=== PATIENT | female | born 1955 | race Caucasian/White ===

== ENCOUNTER → 2016-09-01 | Outpatient (CLI) | payer MEDICARE ==
[~2016-09-01] MED LIST: ALBU8.5H2 IH; AMLO10TA4 PO; ASP325T; ASP81CT PO; CLIN-80 PO; CTLP20T PO; DICL75TA2 PO; DICY10CA26 PO; DIPH1TAB45 PO; GBPN100C PO; GBPN300C PO; HCT25T PO; HDR2T PO; IBUP-15 PO; IBUP-1780 PO; IBUP-30 PO; LISI1TAB PO; LISI20TA PO; LORA1TAB PO; METH10TA PO; METO25TA2 PO; MULT-608 PO; MULT-974 PO; OLMESARTAN 40 MG PO; OMEP20CA12 PO; OMEP20TA7 PO; PNCRC PO; PNT40TEC; POTA10CA43 PO; POTA10TA10 PO; POTA10TA36 PO; PRM25T PO; PROM25SU10; PROM25SU10 RC; PROM25SU8 RC; RETIN A 0.05%; RT-ALBUINH IH; VICODIN; VICODIN 5/325 PO; VITA1CAP21 PO; VITA1CAP59 PO; [UNRECOGNIZED DRUG - OTHER]; [UNRECOGNIZED DRUG - OTHER] INH; [UNRECOGNIZED DRUG - OTHER] PO
--- NOTE | 2016-09-01 18:41 | Diagnostic Imaging Report ---
Exam: Whole body bone scan. Technique: After the intravenous administration of 24.4 mCi of Technetium 99m MDP, whole body delayed phase bone scan images were obtained with lateral views of the head and neck and the chest regions. Indication: Left hip pain aseptic loosening. Findings: There is photopenia seen in the location of the intramedullary nail along the proximal left femur with very minimal adjacent increased tracer uptake, within normal limits for internal fixation prosthesis. No scintigraphic evidence of loosening or infection. No suspicious intense foci of activity seen to suggest neoplasm. There is mild scoliosis in the lumbar spine convex to the left side with mild degenerative related activity more prominent in the lumbar spine and some degenerative related activity in the shoulders, knees and feet. Urinary tract activity is noted. Impression: Degenerative changes. No significant abnormality. Dictated by: Dictated on workstation # [id number]
== END ==
LOC: CARD 11:41
PROVIDERS: ATTEND Orthopaedic Surgery
DX: M16.12 Unilateral primary osteoarthritis, left hip (principal)
CPT/HCPCS: 78306

== ENCOUNTER 2017-03-16 12:07 | Observation (INO) | payer MEDICARE ==
[~2017-03-16] VITALS: Ht 165.1 cm; Wt 66.5 kg
[2017-03-16] VITALS (14 sets, daily range): BP systolic 112–170; BP diastolic 63–117
[2017-03-16 12:40] LABS: BASOPHILS % (AUTO) 1 % (0-10); EOSINOPHILS # (AUTO) 0.2 10^3/uL (0.0-0.3); EOSINOPHILS % (AUTO) 2 % (0-10); LYMPHOCYTES # (AUTO) 2.3 X 10^3 (1.0-4.0); LYMPHOCYTES % (AUTO) 30 % (12-44); MEAN CORPUSCULAR HEMOGLOBIN 33 PG (25-34); MEAN CORPUSCULAR HGB CONC 35 G/DL (32-36); MEAN CORPUSCULAR VOLUME 94 FL (80-99); MEAN PLATELET VOLUME 9.9 FL (7.4-10.4); MONOCYTES # (AUTO) 0.4 X 10^3 (0.0-1.0); MONOCYTES % (AUTO) 5 % (0-12); NEUTROPHILS # (AUTO) 4.9 X 10^3 (1.8-7.8); NEUTROPHILS % (AUTO) 63 % (42-75); PLATELET COUNT 254 10^3/uL (130-400); RED BLOOD COUNT 3.97 10^6/uL (4.35-5.85); RED CELL DISTRIBUTION WIDTH 11.9 % (10.0-14.5); WHITE BLOOD COUNT 7.8 10^3/uL (4.3-11.0)
[2017-03-16 12:48] LABS: PROTHROMBIN TIME PATIENT 13.1 SEC (12.2-14.7)
[2017-03-16] MEDS ORDERED: IBUPROFEN 800 MG (MOTRIN) TAB PO STA (12:54)
--- NOTE | 2017-03-16 12:57 | Diagnostic Imaging Report ---
EXAMINATION: Portable upright radiograph of the chest. High blood pressure. Chest pain. FINDINGS: The lungs are clear. The heart size is normal. No effusion or pneumothorax. The mediastinum and johan appear unremarkable. IMPRESSION: Unremarkable exam. Dictated by: Dictated on workstation # [id number]
[2017-03-16 12:58] LABS: ALANINE AMINOTRANSFERASE 28 U/L (0-55); ALBUMIN 4.1 GM/DL (3.2-4.5); AMYLASE 76 U/L (25-125); ANION GAP 9 MMOL/L (5-14); ASPARTATE AMINO TRANSFERASE 42 U/L (5-34); BILIRUBIN,TOTAL 0.9 MG/DL (0.1-1.0); BLOOD UREA NITROGEN 16 MG/DL (7-18); BUN/CREATININE RATIO 15; CALCIUM 9.3 MG/DL (8.5-10.1); CARBON DIOXIDE 28 MMOL/L (21-32); CHLORIDE 102 MMOL/L (98-107); CREATININE SERUM 1.07 MG/DL (0.60-1.30); GFR ESTIMATED 52; GLUCOSE 132 MG/DL (70-105); LIPASE 38 U/L (8-78); MAGNESIUM 1.9 MG/DL (1.8-2.4); SODIUM 139 MMOL/L (135-145); TOTAL PROTEIN 7.2 GM/DL (6.4-8.2)
[2017-03-16] MEDS ORDERED: ONDANSETRON 4 MG/2 ML (SDV) Z0FRAN IVP ONE (13:15)
[2017-03-16 13:30] LABS: MYOGLOBIN SERUM 188.4 NG/ML (10.0-92.0)
--- NOTE | 2017-03-16 13:36 | ED Chest Pain ---
General Chief Complaint: Chest Pain Stated Complaint: CHEST PAIN Nursing Triage Note: TO ED PER EMS FROM [facility] WITH CHEST PAIN FOR 2 DAYS Nursing Sepsis Screen: No Definite Risk Source: patient, EMS Exam Limitations: no limitations History of Present Illness Time seen by provider: 12:11 Initial Comments Here from the [facility] with report of chest pain is been going on for 2 days. Describes it as moderate and aching to the left anterior chest just below the breast. Pain is reproducible. It has not gone away despite her typical methadone treatment of 240 mg daily. She was at her primary care doctor 's office which is where EMS picked her up. Denies fevers, nausea, vomiting, sweating or weakness. Timing/Duration: 2-3 days Severity/Quality: moderate, aching Location: central, other (left-sided under the breasts) Radiation: arms (left) Activities at Onset: none Prior CP/Workup: cardiac cath, echocardiography ASA po PROTECTIVE SIGNAL SUPERINTENDENT: Yes NTG SL PROTECTIVE SIGNAL SUPERINTENDENT: Yes Associated Symptoms: No abdominal pain, back pain, No fever/chills, No nausea/ vomiting, No shortness of breath, No weakness Allergies and Home Medications Allergies Coded Allergies: Sulfa (Sulfonamide Antibiotics) (Verified Allergy, Unknown, 10/28/13) ketorolac (Verified Allergy, Unknown, 10/28/13) Uncoded Allergies: NARCOTIC ANTAGONISTS (Allergy, Unknown, 02/21/07) Home Medications Ascorbate Calcium 500 Mg Tablet, 1,000 MG PO 1800, (Reported) Diphenoxylate HCl/Atropine 1 Each Tablet, 1 TAB PO QID PRN for DIARRHEA, ( Reported) Gabapentin 600 Mg Tablet, 600 MG PO DAILY, (Reported) LAST FILLED 02/02/17 #90 Ibuprofen 200 Mg Tablet, 800 MG PO TID, (Reported) TAKES 4 (200 MG) TABLETS Loperamide HCl 2 Mg Tablet, 4 MG PO DAILY PRN PRN for DIARRHEA, (Reported) TAKES 2 (2 MG) TABLETS Methadone HCl 10 Mg Tablet, 120 MG PO BID, (Reported) TAKES 12 (10 MG) TABLETS Multivitamin 1 Each Tablet, 1 TAB PO 1800, (Reported) Potassium 99 Mg Tablet, 99 MG PO 1800, (Reported) Promethazine HCl 25 Mg Tablet, 25 MG PO Q6H PRN for NAUSEA/VOMITING-2ND LINE, ( Reported) Vitamin B Complex 1 Each Tablet, 1 TAB PO 1800, (Reported) Review of Systems Constitutional: see HPI, No chills, No fever EENTM: No Symptoms Reported Respiratory: No Symptoms Reported, Denies Shortness of Air, Denies Wheezing Cardiovascular: Chest Pain, Denies Irregular Heart Rate Gastrointestinal: Denies Abdominal Pain, Denies Nausea, Denies Vomiting Genitourinary: No Symptoms Reported Musculoskeletal: no symptoms reported Skin: no symptoms reported All Other Systems Reviewed Negative Unless Noted: Yes Past Elxnzus-Jzxzxl-Jszsye Hx Patient Social History Alcohol Use: Past History Recreational Drug Use: Yes Smoking Status: Never a Smoker Recent Foreign Travel: No Contact w/Someone Who Travel: No Recent Infectious Disease Expo: No Recent Hopitalizations: Yes Seasonal Allergies Seasonal Allergies: No Surgeries HX Surgeries: Yes (LEFT HIP FX, TEMP COLOSTOMY, EXPLORATORY LAP) Surgeries: Appendectomy, Gallbladder Respiratory Hx Respiratory Disorders: Yes ("chronic cough") Respiratory Disorders: Chronic Bronchitis Cardiovascular Hx Cardiac Disorders: Yes (MVP) Cardiac Disorders: Hypertension Neurological Hx Neurological Disorders: Yes (SPONDOCONDRITIS) Reproductive System Hx Reproductive Disorders: No CLIENT SUPPORT MANAGER History: Menopausal Genitourinary Hx Genitourinary Disorders: No Gastrointestinal Hx Gastrointestinal Disorders: Yes ("chronic pancreatitis", ulcers) Gastrointestinal Disorders: Liver Disease/Jaundice, Pancreatitis, Chronic Diarrhea, Hepatitis, Ulcer Musculoskeletal Hx Musculoskeletal Disorders: Yes (CHRONIC PAIN) Musculoskeletal Disorders: Arthritis, Fibromyalgia Endocrine Hx Endocrine Disorders: No HEENT HX ENT Disorders: No Cancer Hx Cancer: No Psychosocial Hx Psychiatric Problems: No Integumentary HX Skin/Integumentary Disorder: Yes (current bilat hands/wrist) Blood Transfusions Hx Blood Disorders: No Reviewed Nursing Assessment Reviewed/Agree w Nursing PMH: Yes Family Medical History Significant Family History: No Pertinent Family Hx Family Medial History: Cancer (MOTHER CERVICAL CANCER ) 03 MOTHER Cataract (MATERNAL GRANDMOTHER ) Chest pain (GRANDFATHER) Congenital heart disease (BROTHER 2 WEEKS AFTER FROM CONGENITAL HEART DEFECT) Congestive heart failure (GRANDFATHER) Family history: Arthritis (GRANDMOTHER) Family history: Breast disease 03 MOTHER Family history: Cardiovascular disease (MOTHER AND GRANDFATHER) 03 MOTHER Family history: Diabetes mellitus 03 MOTHER Family history: Glaucoma (GRANDMOTHER) Family history: Hypertension (MOTHER AND GRANDFATHER) 03 MOTHER Family history: Thyroid disorder (GRANDMOTHER) Heart disease (GRANDFATHER AND GRANDMOTHER) Hypercholesterolemia 03 MOTHER Myocardial infarction (GRANDFATHER AND MOTHER) 03 MOTHER Physical Exam Vital Signs Vital Sign - Last 12Hours 03/16/17 12:07 Temp 98.9 Pulse 100 Resp 18 B/P (MAP) 143/113 Pulse Ox 98 O2 Delivery Nasal Cannula O2 Flow Rate 2.00 Capillary Refill : Less Than 3 Seconds General Appearance: WD/WN, Mild Distress (chest wall discomfort) HEENT: PERRL/EOMI, Pharynx Normal Neck: Non Tender, Supple Respiratory: Lungs Clear, Normal Breath Sounds, Other (reproducible anterior chest wall pain to the low chest wall) Cardiovascular: Regular Rate, Rhythm, No Murmur Gastrointestinal: Non Tender, Soft Extremity: Normal Range of Motion, Non Tender Neurologic/Psychiatric: Alert, Oriented x3 Skin: Normal Color, Warm/Dry Progress/Results/Core Measures Results/Orders Lab Results Laboratory Tests Test 03/16/17 12:19 03/16/17 14:26 Range/Units White Blood Count 7.8 4.3-11.0 10^3/uL Red Blood Count 3.97 L 4.35-5.85 10^6/uL Hemoglobin 12.9 11.5-16.0 G/DL Hematocrit 37 35-52 % Mean Corpuscular Volume 94 80-99 FL Mean Corpuscular Hemoglobin 33 25-34 PG Mean Corpuscular Hemoglobin Concent 35 32-36 G/DL Red Cell Distribution Width 11.9 10.0-14.5 % Platelet Count 254 130-400 10^3/uL Mean Platelet Volume 9.9 7.4-10.4 FL Neutrophils (%) (Auto) 63 42-75 % Lymphocytes (%) (Auto) 30 12-44 % Monocytes (%) (Auto) 5 0-12 % Eosinophils (%) (Auto) 2 0-10 % Basophils (%) (Auto) 1 0-10 % Neutrophils # (Auto) 4.9 1.8-7.8 X 10^3 Lymphocytes # (Auto) 2.3 1.0-4.0 X 10^3 Monocytes # (Auto) 0.4 0.0-1.0 X 10^3 Eosinophils # (Auto) 0.2 0.0-0.3 10^3/uL Basophils # (Auto) 0.0 0.0-0.1 10^3/uL Prothrombin Time 13.1 12.2-14.7 SEC INR Comment 1.0 0.8-1.4 Activated Partial Thromboplast Time 23 L 24-35 SEC D-Dimer 0.83 H 0.00-0.49 UG/ML Sodium Level 139 135-145 MMOL/L Potassium Level 4.0 3.6-5.0 MMOL/L Chloride Level 102 98-107 MMOL/L Carbon Dioxide Level 28 21-32 MMOL/L Anion Gap 9 5-14 MMOL/L Blood Urea Nitrogen 16 7-18 MG/DL Creatinine 1.07 0.60-1.30 MG/DL Estimat Glomerular Filtration Rate 52 BUN/Creatinine Ratio 15 Glucose Level 132 H 70-105 MG/DL Calcium Level 9.3 8.5-10.1 MG/DL Magnesium Level 1.9 1.8-2.4 MG/DL Total Bilirubin 0.9 0.1-1.0 MG/DL Aspartate Amino Transf (AST/SGOT) 42 H 5-34 U/L Alanine Aminotransferase (ALT/SGPT) 28 0-55 U/L Alkaline Phosphatase 83 40-136 U/L Myoglobin 188.4 H 197.2 H 10.0-92.0 NG/ML Troponin I < 0.30 < 0.30 <0.30 NG/ML B-Type Natriuretic Peptide 60.4 <100.0 PG/ML Total Protein 7.2 6.4-8.2 GM/DL Albumin 4.1 3.2-4.5 GM/DL Amylase Level 76 25-125 U/L Lipase 38 8-78 U/L My Orders Orders - GABI KUMAR MD Cbc With Automated Diff (03/16/17 12:25) Magnesium (03/16/17 12:25) Chest 1 View, Ap/Pa Only (03/16/17 12:25) Cardiac Profile 1 (03/16/17 12:25) Comprehensive Metabolic Panel (03/16/17 12:25) Myoglobin Serum (03/16/17 12:25) Protime With Inr (03/16/17 12:25) Partial Thromboplastin Time (03/16/17 12:25) O2 (03/16/17 12:25) Monitor-Rhythm Ecg Trace Only (03/16/17 12:25) Lipid Panel (03/17/17 06:00) Saline Lock/Iv-Start (03/16/17 12:25) Lipase (03/16/17 12:25) Amylase (03/16/17 12:25) BNP (03/16/17 12:25) Fibrin Degradation Products (03/16/17 12:25) Ibuprofen Tablet (Motrin Tablet) (03/16/17 12:54) Ondansetron Injection (Zofran Injectio (03/16/17 13:15) Saline Lock/Iv-Start (03/16/17 13:51) Ns Iv 500 Ml (Sodium Chloride 0.9%) (03/16/17 13:51) Troponin I (03/16/17 14:18) Myoglobin Serum (03/16/17 14:18) Ekg Tracing (03/16/17 14:19) Ct Angio Chest W (03/16/17 14:22) Iohexol Injection (Omnipaque 350 Mg/Ml 1 (03/16/17 14:45) Ns (Ivpb) (Sodium Chloride 0.9% Ivpb Bag (03/16/17 14:45) Medications Given in ED Current Medications Medications Dose Ordered Sig/Cory Route Start Time Stop Time Status Last Admin Dose Admin Iohexol 150 ml ONCE ONCE IV 03/16/17 14:45 03/16/17 15:04 DC 03/16/17 14:50 150 ML Ondansetron HCl 4 mg ONCE ONCE IVP 03/16/17 13:15 03/16/17 13:16 DC 03/16/17 13:07 4 MG Sodium Chloride 80 ml ONCE ONCE IV 03/16/17 14:45 03/16/17 15:04 DC 03/16/17 14:50 80 ML Sodium Chloride 500 ml @ 0 mls/hr Q0M ONCE IV 03/16/17 13:51 03/16/17 13:52 DC 03/16/17 14:00 500 MLS/HR Vital Signs/I&O Vital Sign - Last 12Hours 03/16/17 03/16/17 03/16/17 03/16/17 12:07 12:16 13:15 13:24 Temp 98.9 Pulse 100 79 Resp 18 18 B/P (MAP) 143/113 146/117 130/72 Pulse Ox 98 98 O2 Delivery Nasal Cannula Nasal Cannula Nasal Cannula O2 Flow Rate 2.00 2.00 2.00 03/16/17 14:02 Pulse 82 Resp 18 B/P (MAP) 132/74 Pulse Ox 96 O2 Delivery Room Air O2 Flow Rate 2.00 Blood Pressure Mean: 91 Progress Note : Progress Note Seen and evaluated. IV, labs, EKG and chest x-ray ordered. Patient did receive aspirin and nitroglycerin at outpatient clinic. Monitor patient. Normal saline 500 mL initiated by EMS and this will be continued. Labs indicates elevated d-dimer with elevated myoglobin. Repeat normal saline [address] angiogram of the chest ordered. CT angiogram is negative. I did discuss the case with Dr. Saravia at 1540. She accepts patient for admission because of elevated myoglobin. She requests consult with Dr. Muse. This was placed. He will follow patient in the hospital. Admit, observation status. Patient agrees with plan. Patient did have significant anxiety and difficulty with lying still. Ativan 1 mg IV given. Admission continues. ECG Initial ECG Impression Date: Mar 16, 2017 Initial ECG Impression Time: 12:16 Initial ECG Rate: 102 Initial ECG Rhythm: S.Tach Diagnostic Imaging Diagonstic Imaging: Xray Plain Films/CT/US/NM/MRI: chest Comments [facility]. [place], [place] NAME: HARDEEP HUERTA [facility] REC#: [id number] PT STATUS: REG ER : 1955 PHYSICIAN: GABI KUMAR MD ADMIT DATE: 03/16/17/ER Draft Date of Exam:03/16/17 CHEST 1 VIEW, AP/PA ONLY EXAMINATION: Portable upright radiograph of the chest. High blood pressure. Chest pain. FINDINGS: The lungs are clear. The heart size is normal. No effusion or pneumothorax. The mediastinum and johan appear unremarkable. IMPRESSION: Unremarkable exam. Dictated on workstation # [id number] Dict: 03/16/17 1252 Trans: 03/16/17 [id number] Interpreted by: IAIN CERVANTES MD Electronically signed by: Diagonstic Imaging: CT Plain Films/CT/US/NM/MRI: chest Comments [facility]. [place], [place] NAME: HARDEEP HUERTA [facility] REC#: [id number] PT STATUS: REG ER : 1955 PHYSICIAN: GABI KUMAR MD ADMIT DATE: 03/16/17/ER Draft Date of Exam:03/16/17 CT ANGIO CHEST W PROCEDURE: CT angiography of the chest with contrast. TECHNIQUE: Multiple contiguous axial images were obtained through the chest after the uneventful bolus administration of intravenous contrast. Reconstructed CTA MIP acquisitions were also performed. INDICATION: Left-sided chest pain. CONTRAST: 150 mL of Omnipaque 350 was administered intravenously. COMPARISON: 02/20/2007. FINDINGS: The pulmonary arteries are well opacified with no filling defects to suggest pulmonary embolism. The thoracic aorta is normal in caliber. There is no dissection or aneurysm. The heart size is normal. No pericardial or pleural effusion is seen. The mediastinum demonstrates no mass and no enlarged lymph nodes. No lymphadenopathy in the johan or axilla is seen. The lungs demonstrate no significant consolidation, mass, or suspicious nodule. There is biliary dilatation seen with suggestion of a CBD stent in place which is not fully visualized on this exam. The osseous structures demonstrate prominent degenerative changes in the thoracic spine. IMPRESSION: No PE or aortic dissection. Dictated on workstation # [id number] Dict: 03/16/17 1509 Trans: 03/16/17 1523 [id number] Interpreted by: IAIN CERVANTES MD Electronically signed by: Departure Communication Time/Spoke to Admitting Phy: 15:40 Time/Spoke to Consulting Physi: 15:45 Impression Impression: Primary Impression: Chest pain Qualified Codes: R07.9 - Chest pain, unspecified Additional Impression: Elevated myoglobin level Disposition: ADMITTED INPATIENT Condition: Stable Decision to Admit Reason: Admit from ER (General) Decision to Admit/Date: Mar 16, 2017 Time/Decision to Admit Time: 15:40 Departure-Patient Inst. Referrals: BISI MARTINS MD (PCP/Family) Primary Care Physician GABI KUMAR MD Mar 16, 2017 13:36
[2017-03-16] MEDS ORDERED: NS IV 500 ML 500 ML IV ONE (13:51)
[2017-03-16] MEDS ORDERED: NS 100 ML (IVPB) BAG IV ONE (14:45)
[2017-03-16] MEDS ORDERED: IOHEXOL 350 MG/ML 150 ML (OMNIPAQUE 350) VIAL IV ONE (14:45)
[2017-03-16 14:56] LABS: MYOGLOBIN SERUM 197.2 NG/ML (10.0-92.0); TROPONIN I < 0.30 NG/ML (<0.30)
--- NOTE | 2017-03-16 15:23 | Diagnostic Imaging Report ---
PROCEDURE: CT angiography of the chest with contrast. TECHNIQUE: Multiple contiguous axial images were obtained through the chest after the uneventful bolus administration of intravenous contrast. Reconstructed CTA MIP acquisitions were also performed. INDICATION: Left-sided chest pain. CONTRAST: 150 mL of Omnipaque 350 was administered intravenously. COMPARISON: 02/20/2007. FINDINGS: The pulmonary arteries are well opacified with no filling defects to suggest pulmonary embolism. The thoracic aorta is normal in caliber. There is no dissection or aneurysm. The heart size is normal. No pericardial or pleural effusion is seen. The mediastinum demonstrates no mass and no enlarged lymph nodes. No lymphadenopathy in the johan or axilla is seen. The lungs demonstrate no significant consolidation, mass, or suspicious nodule. There is biliary dilatation seen with suggestion of a CBD stent in place which is not fully visualized on this exam. The osseous structures demonstrate prominent degenerative changes in the thoracic spine. IMPRESSION: No PE or aortic dissection. Dictated by: Dictated on workstation # [id number]
[2017-03-16] MEDS ORDERED: LORazepam INJ 2 MG/ML (ATIVAN) VIAL IVP ONE (16:15)
[2017-03-16] MEDS ORDERED: GABA600T2 PO (16:48)
[2017-03-16] MEDS ORDERED: LOPE-134 PO (16:48)
[2017-03-16] MEDS ORDERED: ASCO-262 PO (16:48)
[2017-03-16] MEDS ORDERED: METH10TA2 PO (16:48)
[2017-03-16] MEDS ORDERED: PROM25TA14 PO (16:48)
[2017-03-16] MEDS ORDERED: POTA99TA7 PO (16:48)
[2017-03-16] MEDS ORDERED: IBUP-2055 PO (16:48)
[2017-03-16] MEDS ORDERED: VITA1TAB17 PO (16:48)
[2017-03-16] MEDS ORDERED: DIPH1TAB25 PO (16:48)
[2017-03-16] MEDS: NS IV 1000 ML 1,000 ML IV SCH (17:08)
[2017-03-16] MEDS: ASPIRIN E.C. 325 MG (ECOTRIN) TABLET PO SCH (17:08)
[2017-03-16] MEDS ORDERED: NITROGLYCERIN SUBLINGUAL 0.4 MG TAB (NITROSTAT) SL PRN (17:15)
[2017-03-16] MEDS ORDERED: CATHETER FLUSH 10 ML SYR IV PRN (17:15)
[2017-03-16 18:18] LABS: MYOGLOBIN SERUM 202.7 NG/ML (10.0-92.0)
[2017-03-16] MEDS: IBUPROFEN TABLET 200 MG TAB PO SCH (20:44)
[2017-03-16] MEDS ORDERED: METHADONE 10 MG (DOLOPHINE) TAB PO SCH ×2 (21:00→21:30)
[2017-03-16] MEDS: PROMETHAZINE 25 MG (PHENERGAN) TAB PO PRN (21:14)
[2017-03-17] VITALS: BP 170/84
[2017-03-17] MEDS: NS IV 1000 ML 1,000 ML IV SCH ×2 (03:26→14:16)
[2017-03-17 03:40] VITALS: BP 141/68
[2017-03-17 05:02] LABS: BASOPHILS % (AUTO) 0 % (0-10); EOSINOPHILS # (AUTO) 0.3 10^3/uL (0.0-0.3); EOSINOPHILS % (AUTO) 5 % (0-10); LYMPHOCYTES # (AUTO) 2.3 X 10^3 (1.0-4.0); LYMPHOCYTES % (AUTO) 45 % (12-44); MEAN CORPUSCULAR HEMOGLOBIN 33 PG (25-34); MEAN CORPUSCULAR HGB CONC 34 G/DL (32-36); MEAN CORPUSCULAR VOLUME 95 FL (80-99); MEAN PLATELET VOLUME 9.9 FL (7.4-10.4); MONOCYTES # (AUTO) 0.3 X 10^3 (0.0-1.0); MONOCYTES % (AUTO) 6 % (0-12); NEUTROPHILS # (AUTO) 2.2 X 10^3 (1.8-7.8); NEUTROPHILS % (AUTO) 44 % (42-75); PLATELET COUNT 179 10^3/uL (130-400); RED BLOOD COUNT 4.06 10^6/uL (4.35-5.85); RED CELL DISTRIBUTION WIDTH 12.1 % (10.0-14.5); WHITE BLOOD COUNT 5.1 10^3/uL (4.3-11.0)
[2017-03-17 05:24] LABS: ALANINE AMINOTRANSFERASE 26 U/L (0-55); ALBUMIN 3.7 GM/DL (3.2-4.5); ANION GAP 11 MMOL/L (5-14); ASPARTATE AMINO TRANSFERASE 37 U/L (5-34); BILIRUBIN,TOTAL 0.8 MG/DL (0.1-1.0); BLOOD UREA NITROGEN 10 MG/DL (7-18); BUN/CREATININE RATIO 13; CALCIUM 8.7 MG/DL (8.5-10.1); CARBON DIOXIDE 24 MMOL/L (21-32); CHLORIDE 107 MMOL/L (98-107); CREATININE SERUM 0.78 MG/DL (0.60-1.30); GFR ESTIMATED > 60; GLUCOSE 65 MG/DL (70-105); POTASSIUM 3.7 MMOL/L (3.6-5.0); SODIUM 142 MMOL/L (135-145); TOTAL PROTEIN 6.4 GM/DL (6.4-8.2)
[2017-03-17 05:25] LABS: CHOLESTEROL 157 MG/DL (< 200); DIRECT LDL 82 MG/DL (1-129); TRIGLYCERIDES 61 MG/DL (<150); VLDL CHOLESTEROL 12 MG/DL (5-40)
[2017-03-17 05:31] LABS: MYOGLOBIN SERUM 94.2 NG/ML (10.0-92.0)
[2017-03-17] MEDS: PROMETHAZINE 25 MG (PHENERGAN) TAB PO PRN ×2 (06:42→14:16)
[2017-03-17] MEDS: IBUPROFEN TABLET 200 MG TAB PO SCH ×2 (06:42→14:16)
[2017-03-17 08:14] VITALS: BP 198/94
[2017-03-17] MEDS: ASPIRIN E.C. 325 MG (ECOTRIN) TABLET PO SCH (08:47)
[2017-03-17] MEDS ORDERED: METHADONE 10 MG (DOLOPHINE) TAB PO SCH (09:00)
[2017-03-17] MEDS ORDERED: GABAPENTIN 600 MG (NEURONTIN) TAB PO SCH (09:00)
[2017-03-17 12:08] VITALS: BP 136/100
--- NOTE | 2017-03-17 14:27 | Diagnostic Imaging Report ---
PROCEDURE: CT abdomen without contrast. TECHNIQUE: Multiple contiguous axial images were obtained through the abdomen without the use of intravenous contrast. INDICATION: Abdominal pain, vomiting. Contiguous axial sections were taken through the abdomen. Neither oral nor intravenous contrast were administered. Coronal reconstructed images were also performed. FINDINGS: The recent CT chest exam of 03/16/17 noted that there was a biliary stent in place. The distal portion of the stent was not visualized. On this exam, the distal portion of the stent is evident. The stent extends into the third portion of the duodenum. The biliary tree itself does not seem to be significantly dilated. As noted on the prior exam, the gallbladder is surgically absent. The liver is stable in size when compared to the prior CT abdomen/pelvis exam of 06/06/16. The spleen, pancreas, adrenals, kidneys, aorta and inferior vena cava show no sign of an acute abnormality. The stomach is not well distended and consequently difficult to assess. The previous study did show several dilated fluid-filled segments of small bowel. This appearance did indicate a small bowel obstruction. On this study, there is no abnormal dilatation of the small bowel to suggest a bowel obstruction. The lung bases are clear. The bone windows show no evidence for a fracture or for a destructive lesion. As noted on the prior exam, there is severe degenerative disc and bony disease at the T12-L1, L3-L4 and L4-L5 levels. IMPRESSION: 1. The biliary stent noted previously is again evident and seems to be in good position. There is no abnormal dilatation of the biliary tree to suggest that the stent is obstructed. 2. There is no acute abnormality of the abdomen. In particular, there is no sign of a recurrent small bowel obstruction. Dictated by: Dictated on workstation # [id number]
[2017-03-17] MEDS ORDERED: OMEP20CA12 PO (15:35)
--- NOTE | 2017-03-17 15:37 | Discharge Instructions ---
Discharge [facility] Discharge Medications Continued Medications: Ascorbate Calcium (Vitamin C) 500 Mg Tablet 1000 MG PO 1800, TAB TAKES 2 (500 MG) TABLETS Diphenoxylate HCl/Atropine (Diphenoxylate-Atrop 2.5-0.025) 1 Each Tablet 1 TAB PO QID PRN for DIARRHEA Gabapentin (Gabapentin) 600 Mg Tablet 600 MG PO DAILY LAST FILLED 02/02/17 #90 Ibuprofen (Ibuprofen) 200 Mg Tablet 800 MG PO TID, TAB TAKES 4 (200 MG) TABLETS Loperamide HCl (Imodium A-D) 2 Mg Tablet 4 MG PO DAILY PRN PRN for DIARRHEA, TAB TAKES 2 (2 MG) TABLETS Methadone HCl (Methadone HCl) 10 Mg Tablet 120 MG PO BID TAKES 12 (10 MG) TABLETS Multivitamin (Multi Vitamin Daily) 1 Each Tablet 1 TAB PO 1800 Omeprazole (Omeprazole) 20 Mg Capsule.dr 20 MG PO DAILY, CAP Potassium (Potassium) 99 Mg Tablet 99 MG PO 1800, TAB Promethazine HCl (Promethazine Tablet) 25 Mg Tablet 25 MG PO Q6H PRN for NAUSEA/VOMITING-2ND LINE Vitamin B Complex (Vitamin B Complex) 1 Each Tablet 1 TAB PO 1800, TAB Patient Instructions Goal/Follow Up Appt: Follow up with Dr. Martins on Mar 23 at 10:20 am. Patient Instructions: Start taking omeprazole every day to try to help with your stomach. Return to The Hospital For: Fever, inability to keep liquids down Activity & Diet Discharge Diet: No Restrictions Activity as Tolerated: Yes Copy Copies To 1: BISI MARTINS MD, BETHANY N MD Mar 17, 2017 15:37
--- NOTE | 2017-03-17 15:37 | Short Stay Summary ---
HPI History of Present Illness: 61 yo female brought to ER by EMS after noting chest pain with nausea at clinic. She states this had been going on for about 2 days prior to her visit, and was in her left side and left abdomen as well. She had increased nausea after being hospitalized and also her pain is not more in her left side and abdomen than her chest. She does have chronic pain and diarrhea. Date seen by provider: Mar 17, 2017 Time Seen by Provider: 11:20 Attending Physician Oma Saravia MD PCP Juan Martins MD Consult Date of Admission Mar 16, 2017 at 4:40 pm Home Medications Home Medications Reviewed patient Home Medication Reconciliation Form Allergies Coded Allergies: Sulfa (Sulfonamide Antibiotics) (Verified Allergy, Unknown, 10/28/13) ketorolac (Verified Allergy, Unknown, 10/28/13) Uncoded Allergies: NARCOTIC ANTAGONISTS (Allergy, Unknown, 02/21/07) PCD-Abrvkh-Lglhwe Hx Patient Social History Alcohol Use: Past History Recreational Drug Use: Yes Smoking Status: Never a Smoker Recent Foreign Travel: No Contact w/other who traveled: No Recent Hopitalizations: Yes Recent Infectious Disease Expo: No Physical Abuse Screen: No Sexual Abuse: No Past Medical History 1. Chronic pain w/ hx of narcotic addiction (heroin) - currently on Methadone. 2. Hypertension 3. Chronic pancreatitis/chronic nausea/abdominal pain 4. Headache 5. hx of alcohol abuse 6. hx of vitiligo 7. Spinal stenosis secondary to OA 8. COPD 9. Chronic liver disease secondary to hx of etoh abuse. PSH: 1. Appendectomy 2. cholecystectomy 3. laparotomy w/ partial pancreatomy and colostomy (reversed) 4. left hip fracture w/ repair 5. Heart cath 10/2009 - non-obstructive CAD, EF 60% 6. Heart cath 01/2013 - no significant CAD, EF 60% Family Medical History Significant Family History: Heart Disease, CAD Over 55 Years Old, Diabetes, Hypertension Review of Systems (CHC) Constitutional: fever (Tmax of 99 reported) EENTM: no symptoms reported Respiratory: no symptoms reported Cardiovascular: see HPI Gastrointestinal: see HPI Genitourinary: no symptoms reported Musculoskeletal: back pain, joint pain Skin: no symptoms reported Psychiatric/Neurological: No Symptoms Reported Reviewed Test Results Reviewed Test Results Lab Laboratory Tests Test 03/16/17 12:19 03/16/17 14:26 03/16/17 17:39 03/17/17 04:30 Range/Units White Blood Count 7.8 5.1 4.3-11.0 10^3/uL Red Blood Count 3.97 L 4.06 L 4.35-5.85 10^6/uL Hemoglobin 12.9 13.3 11.5-16.0 G/DL Hematocrit 37 39 35-52 % Mean Corpuscular Volume 94 95 80-99 FL Mean Corpuscular Hemoglobin 33 33 25-34 PG Mean Corpuscular Hemoglobin Concent 35 34 32-36 G/DL Red Cell Distribution Width 11.9 12.1 10.0-14.5 % Platelet Count 254 179 130-400 10^3/uL Mean Platelet Volume 9.9 9.9 7.4-10.4 FL Neutrophils (%) (Auto) 63 44 42-75 % Lymphocytes (%) (Auto) 30 45 H 12-44 % Monocytes (%) (Auto) 5 6 0-12 % Eosinophils (%) (Auto) 2 5 0-10 % Basophils (%) (Auto) 1 0 0-10 % Neutrophils # (Auto) 4.9 2.2 1.8-7.8 X 10^3 Lymphocytes # (Auto) 2.3 2.3 1.0-4.0 X 10^3 Monocytes # (Auto) 0.4 0.3 0.0-1.0 X 10^3 Eosinophils # (Auto) 0.2 0.3 0.0-0.3 10^3/uL Basophils # (Auto) 0.0 0.0 0.0-0.1 10^3/uL Prothrombin Time 13.1 12.2-14.7 SEC INR Comment 1.0 0.8-1.4 Activated Partial Thromboplast Time 23 L 24-35 SEC D-Dimer 0.83 H 0.00-0.49 UG/ML Sodium Level 139 142 135-145 MMOL/L Potassium Level 4.0 3.7 3.6-5.0 MMOL/L Chloride Level 102 107 98-107 MMOL/L Carbon Dioxide Level 28 24 21-32 MMOL/L Anion Gap 9 11 5-14 MMOL/L Blood Urea Nitrogen 16 10 7-18 MG/DL Creatinine 1.07 0.78 0.60-1.30 MG/DL Estimat Glomerular Filtration Rate 52 > 60 BUN/Creatinine Ratio 15 13 Glucose Level 132 H 65 L 70-105 MG/DL Calcium Level 9.3 8.7 8.5-10.1 MG/DL Magnesium Level 1.9 1.8-2.4 MG/DL Total Bilirubin 0.9 0.8 0.1-1.0 MG/DL Aspartate Amino Transf (AST/SGOT) 42 H 37 H 5-34 U/L Alanine Aminotransferase (ALT/SGPT) 28 26 0-55 U/L Alkaline Phosphatase 83 72 40-136 U/L Myoglobin 188.4 H 197.2 H 202.7 H 94.2 H 10.0-92.0 NG/ML Troponin I < 0.30 < 0.30 < 0.30 <0.30 NG/ML B-Type Natriuretic Peptide 60.4 <100.0 PG/ML Total Protein 7.2 6.4 6.4-8.2 GM/DL Albumin 4.1 3.7 3.2-4.5 GM/DL Amylase Level 76 25-125 U/L Lipase 38 8-78 U/L Triglycerides Level 61 <150 MG/DL Cholesterol Level 157 < 200 MG/DL LDL Cholesterol Direct 82 1-129 MG/DL VLDL Cholesterol 12 5-40 MG/DL HDL Cholesterol 61 H 40-60 MG/DL Radiology 03/17 CT abdomen: DRAFT IMPRESSION: 1. The biliary stent noted previously is again evident and seems to be in good position. There is no abnormal dilatation of the biliary tree to suggest that the stent is obstructed. 2. There is no acute abnormality of the abdomen. In particular, there is no sign of a recurrent small bowel obstruction. 03/16 CTA chest: No aortic dissection or PE 03/16 CXR: Unremarkable Physical Exam-([facility]) Physical Exam Vital Signs VS - Last 72 Hours, by Label 03/16/17 03/16/17 03/16/17 03/16/17 12:07 12:16 13:15 13:24 Temp 98.9 Pulse 100 79 Resp 18 18 B/P (MAP) 143/113 146/117 130/72 Pulse Ox 98 98 O2 Delivery Nasal Cannula Nasal Cannula Nasal Cannula O2 Flow Rate 2.00 2.00 2.00 03/16/17 03/16/17 03/16/17 03/16/17 14:02 16:00 16:43 17:00 Temp 99.1 Pulse 82 89 75 65 Resp 18 18 18 B/P (MAP) 132/74 146/79 142/74 Pulse Ox 96 98 94 96 O2 Delivery Room Air Room Air Room Air Room Air O2 Flow Rate 2.00 03/16/17 03/16/17 03/16/17 03/16/17 17:15 17:30 17:30 17:45 Pulse 60 62 63 B/P (MAP) 128/77 126/69 124/72 Pulse Ox 93 94 95 O2 Delivery Room Air Room Air Room Air Room Air 03/16/17 03/16/17 03/16/17 03/16/17 18:30 18:45 18:45 19:00 Temp 98.6 Pulse 64 59 63 Resp 18 B/P (MAP) 112/63 125/68 Pulse Ox 99 99 O2 Delivery Nasal Cannula Nasal Cannula Nasal Cannula O2 Flow Rate 2.00 2.00 2.00 03/16/17 03/16/17 03/16/17 03/16/17 19:45 20:45 21:45 22:45 Temp 98.3 97.1 97.8 98.0 Pulse 58 53 59 62 Resp 20 20 18 20 B/P (MAP) 157/89 170/93 144/79 159/83 Pulse Ox 100 100 100 100 O2 Delivery Nasal Cannula Nasal Cannula Nasal Cannula Nasal Cannula O2 Flow Rate 2.00 2.00 2.00 2.00 03/17/17 03/17/17 03/17/17 03/17/17 00:00 01:00 03:40 07:00 Temp 97.0 97.3 Pulse 70 58 75 54 Resp 18 18 B/P (MAP) 170/84 141/68 Pulse Ox 100 99 O2 Delivery Nasal Cannula Nasal Cannula O2 Flow Rate 2.00 2.00 03/17/17 03/17/17 03/17/17 03/17/17 07:17 08:14 12:08 13:00 Temp 97.6 95.6 Pulse 63 68 54 Resp 18 18 B/P (MAP) 198/94 136/100 Pulse Ox 96 100 92 O2 Delivery Nasal Cannula Nasal Cannula Nasal Cannula O2 Flow Rate 2.00 2.00 2.00 Capillary Refill : Less Than 3 Seconds General Appearance: mild distress Respiratory: lungs clear, normal breath sounds Cardiovascular: regular rate, rhythm, no edema Gastrointestinal: abnormal bowel sounds (hypoactive), distended, No guarding, No rebound, tenderness (LUQ) Extremities: no pedal edema Neurologic/Psychiatric: alert Skin: normal color, warm/dry Short Stay Diagnosis Discharge Diagnosis-Short Stay Admission Diagnosis 1. Chest pain 2. Left side pain/nausea/vomiting 3. Chronic pain Final Discharge Diagnosis 1. Chest pain- EKG unremarkable, troponin negative but myoglobin initially increased and then decreased again -Elevated D dimer- CTA negative for PE -Cardiology consulted, did not feel cardiac in origin 2. Left side pain/nausea/vomiting- CT obtained of abdomen given stent in biliary duct and report of severe pain, no acute findings and stent in good position -Continue home promethazine and follow-up with Dr. Martins 3. Chronic pain- resumed home methadone to avoid withdrawal, although she reported taking 240 mg once per day instead of 120 mg twice per day as written ( ordered inpatient as written, 120 mg twice per day) -Recommend trying to decrease dose Conclusion Plan See discharge diagnosis Clinical Quality Measures AMI/AHF: ASA po Prior to arrival: Yes DVT/VTE Risk/Contraindication: Risk Factor Score Per Nursin RFS Level Per Nursing on Admit: 2=Moderate Copy Copies To 1: JUAN MARTINS MD, BETHANY N MD Mar 17, 2017 3:37 pm
--- NOTE | 2017-03-17 17:52 | Consultation-Cardiology ---
HPI-Cardiology Cardiology Consultation: Date of Consultation 03/17/17 Time Seen by Provider: 09:15 Date of Admission 03/16/17 Attending Physician Oma Saravia MD Admitting Physician Juan Lopez MD Consulting Physician ASTRID BARTH MD, MA, FACP, FACC, FSCAI, CCDS HPI: Chief Complaint: Chest pain HPI: 61 yo woman with 3-4 days of continuous pain in the epigastric area, L side of abdomen, associated with nausea, some dysphagia and poor appetite. Denies palp or syncope or shortness of breath. Chest and abd discomfort vary from mild to mod but do not resolve. Denies ankle swelling Review of Systems-Cardiology Review of Systems Constitutional: malaise, No weight loss, No weight gain Eyes: No vision change Ears/Nose/Throat: No ear discharge, No nasal drainage, No recent hearing loss Respiratory: As described under HPI Cardiovascular: As described under HPI Gastrointestinal: As described under HPI Genitourinary: No dysuria, No hematuria, No urine frequency changes Skin: No rash, No ulcerations Psychiatric/Neurological: No focal weakness, No seizure, No syncope Hematologic: No bleeding abnormalities All Other Systems Reviewed Negative Unless Noted: Yes WWD-Euxjkq-Pihcms Hx Patient Social History Alcohol Use: Past History Recreational Drug Use: Yes Smoking Status: Never a Smoker Recent Foreign Travel: No Recent Infectious Disease Expo: No Hospitalization with Isolation: Denies Physical Abuse Screen: No Sexual Abuse: No Past Medical History PMH As described under Assessment. Family Medical History Family Medical History: She does not report family h/o early CAD or SCD Family History: Cancer (MOTHER CERVICAL CANCER ) 03 MOTHER Cataract (MATERNAL GRANDMOTHER ) Chest pain (GRANDFATHER) Congenital heart disease (BROTHER 2 WEEKS AFTER FROM CONGENITAL HEART DEFECT) Congestive heart failure (GRANDFATHER) Family history: Arthritis (GRANDMOTHER) Family history: Breast disease 03 MOTHER Family history: Cardiovascular disease (MOTHER AND GRANDFATHER) 03 MOTHER Family history: Diabetes mellitus 03 MOTHER Family history: Glaucoma (GRANDMOTHER) Family history: Hypertension (MOTHER AND GRANDFATHER) 03 MOTHER Family history: Thyroid disorder (GRANDMOTHER) Heart disease (GRANDFATHER AND GRANDMOTHER) Hypercholesterolemia 03 MOTHER Myocardial infarction (GRANDFATHER AND MOTHER) 03 MOTHER No Family History of: Abdominal aortic aneurysm [place]'s disease Alcoholism Aphasia Cancer of colon Cystic fibrosis Dementia Dysphagia Family history: Allergy Family history: Alzheimer's disease Family history: Asthma Family history: Coronary thrombosis Family history: Gastrointestinal disease Family history: Osteoporosis Headache Hearing loss Hereditary disease History of - anemia History of - disorder History of - respiratory disease History of drug abuse Human immunodeficiency virus (HIV) seropositivity Infertile Kidney disease Malignant neoplasm of lung Parkinson's disease Prostate cancer Psychotic disorder Seizure disorder Stroke Tuberculosis Visual impairment Allergies and Home Medications Allergies Coded Allergies: Sulfa (Sulfonamide Antibiotics) (Verified Allergy, Unknown, 10/28/13) ketorolac (Verified Allergy, Unknown, 10/28/13) Uncoded Allergies: NARCOTIC ANTAGONISTS (Allergy, Unknown, 02/21/07) Home Medications Ascorbate Calcium 500 Mg Tablet, 1,000 MG PO 1800, (Reported) TAKES 2 (500 MG) TABLETS Diphenoxylate HCl/Atropine 1 Each Tablet, 1 TAB PO QID PRN for DIARRHEA, ( Reported) Gabapentin 600 Mg Tablet, 600 MG PO DAILY, (Reported) LAST FILLED 02/02/17 #90 Ibuprofen 200 Mg Tablet, 800 MG PO TID, (Reported) TAKES 4 (200 MG) TABLETS Loperamide HCl 2 Mg Tablet, 4 MG PO DAILY PRN PRN for DIARRHEA, (Reported) TAKES 2 (2 MG) TABLETS Methadone HCl 10 Mg Tablet, 120 MG PO BID, (Reported) TAKES 12 (10 MG) TABLETS Multivitamin 1 Each Tablet, 1 TAB PO 1800, (Reported) Omeprazole 20 Mg Capsule.dr, 20 MG PO DAILY, (Reported) Potassium 99 Mg Tablet, 99 MG PO 1800, (Reported) Promethazine HCl 25 Mg Tablet, 25 MG PO Q6H PRN for NAUSEA/VOMITING-2ND LINE, ( Reported) Vitamin B Complex 1 Each Tablet, 1 TAB PO 1800, (Reported) Physical Exam-Cardiology Physical Exam Vital Signs/I&O Vital Sign - Last 12Hours 03/17/17 03/17/17 03/17/17 03/17/17 07:00 07:17 08:14 09:00 Temp 97.6 Pulse 54 63 Resp 18 B/P (MAP) 198/94 Pulse Ox 96 100 O2 Delivery Nasal Cannula Nasal Cannula Nasal Cannula O2 Flow Rate 2.00 2.00 2.00 03/17/17 03/17/17 12:08 13:00 Temp 95.6 Pulse 68 54 Resp 18 B/P (MAP) 136/100 Pulse Ox 92 O2 Delivery Nasal Cannula O2 Flow Rate 2.00 Intake and Output 03/17/17 00:00 Intake Total 1450 ml Output Total 500 ml Balance 950 ml Capillary Refill : Less Than 3 SecondsLess Than 3 Seconds Constitutional: AAO x 3, well-developed, well-nourished HEENT: EOMI, hearing is well preserved, No xanthelasmas are seen Neck: carotid pulses are 2 + bilaterally, with good upstrokes Respiratory: No accessory muscle use, chest is bilaterally symmetric, other ( good bilat air entry, no rhonchi or rales) Cardiovascular: regular rate-rhythm, S1 and S2, systolic murmur (faint ANA) Gastrointestinal: tender, No guarding, No rebound, audible bowel sounds Extremities: No clubbing, No cyanosis, No significant edema Neurologic/Psychiatric: oriented x 3, grossly intact, power is 5/5 both on sides Skin: No rash on exposed areas, No ulcerations on exposed areas Data Review Labs Laboratory Tests 03/17/17 04:30: White Blood Count 5.1, Red Blood Count 4.06L, Hemoglobin 13.3, Hematocrit 39, Mean Corpuscular Volume 95, Mean Corpuscular Hemoglobin 33, Mean Corpuscular Hemoglobin Concent 34, Red Cell Distribution Width 12.1, Platelet Count 179, Mean Platelet Volume 9.9, Neutrophils (%) (Auto) 44, Lymphocytes (%) (Auto) 45H , Monocytes (%) (Auto) 6, Eosinophils (%) (Auto) 5, Basophils (%) (Auto) 0, Neutrophils # (Auto) 2.2, Lymphocytes # (Auto) 2.3, Monocytes # (Auto) 0.3, Eosinophils # (Auto) 0.3, Basophils # (Auto) 0.0, Sodium Level 142, Potassium Level 3.7, Chloride Level 107, Carbon Dioxide Level 24, Anion Gap 11, Blood Urea Nitrogen 10, Creatinine 0.78, Estimat Glomerular Filtration Rate > 60, BUN/ Creatinine Ratio 13, Glucose Level 65L, Calcium Level 8.7, Total Bilirubin 0.8, Aspartate Amino Transf (AST/SGOT) 37H, Alanine Aminotransferase (ALT/SGPT) 26, Alkaline Phosphatase 72, Myoglobin 94.2H, Total Protein 6.4, Albumin 3.7, Triglycerides Level 61, Cholesterol Level 157, LDL Cholesterol Direct 82, VLDL Cholesterol 12, HDL Cholesterol 61H Laboratory Tests 03/16/17 12:19 03/17/17 04:30 A/P-Cardiology Assessment/Admission Diagnosis Chest discomfort w/o any evidence of ACS (negative serial troponin measurement; negative serial ECGs) Cardiac cath in 2012 did not show any significant CAD; LVEF was 60% H/o drug and alcohol abuse H/o pancreatitis Chronic pain Discussion and Recomendations * Based on current hosp course, chest and abd pain do not appear to be of cardiac origin * I reviewed cardiac risk factor modification with her * I called Dr Saravia and advised GI w/u Clinical Quality Measures AMI/AHF: ASA po Prior to arrival: Yes DVT/VTE Risk/Contraindication: Risk Factor Score Per Nursin RFS Level Per Nursing on Admit: 2=Moderate ASTRID BARTH MD FACP FAC CCDS Mar 17, 2017 17:52
== END 2017-03-17 15:35 | disposition home or self-care (01) ==
LOC: EDUNIT# 12:07 → ER 12:09 → UNDOADMOB 15:35 → 4TH 15:35
PROVIDERS: ADMIT Family Medicine; ATTEND Family Medicine
DX: R07.89 Other chest pain (principal); R10.10 Upper abdominal pain, unspecified; R11.2 Nausea with vomiting, unspecified; K86.1 Other chronic pancreatitis; G89.29 Other chronic pain; K70.9 Alcoholic liver disease, unspecified; I10 Essential (primary) hypertension; J44.9 Chronic obstructive pulmonary disease, unspecified; R79.89 Other specified abnormal findings of blood chemistry; F10.21 Alcohol dependence, in remission; F11.20 Opioid dependence, uncomplicated; Z79.891 Long term (current) use of opiate analgesic; Z90.49 Acquired absence of other specified parts of digestive tract; Z96.89 Presence of other specified functional implants
CPT/HCPCS: 36415; 71010; 71275; 74150; 80053; 80061; 82150; 83690; 83735; 83874; 83880; 84484; 85025; 85379; 85610; 85730; 93005; 93041; 94760; 96361; 96374; 96375; G0378

== ENCOUNTER → 2018-06-01 | Outpatient (CLI) | payer MEDICARE ==
[~2018-06-01] MED LIST changes: +ASCO-262 PO; +DIPH1TAB25 PO; +GABA600T2 PO; +IBUP-2055 PO; +LOPE-134 PO; +METH10TA2 PO; +POTA99TA7 PO; +PROM25TA14 PO; +VITA1TAB17 PO
--- NOTE | 2018-06-01 12:11 | Diagnostic Imaging Report ---
Indication: Cough and pharyngitis PA and lateral views of the chest obtained comparison made to study of 03/16/2017. FINDINGS: Heart size and pulmonary vascularity are within normal limits, and the lungs are clear, bilaterally. Mild right convexity spinal curvature and diffuse thoracic spondylosis are not changed. IMPRESSION: Unremarkable chest . Dictated by: Dictated on workstation # [id number]
[2018-06-01 23:47] LABS: AMPHETAMINES URINE QUAL DS Negative; BARBITURATES URINE QUAL DS Negative; BENZODIAZEPINE URINE QUAL DS Negative
== END ==
LOC: RAD 11:55
PROVIDERS: ATTEND Nurse Practitioner
DX: J02.9 Acute pharyngitis, unspecified (principal); Z79.891 Long term (current) use of opiate analgesic
CPT/HCPCS: 71046; 80307

== ENCOUNTER → 2018-11-23 | Outpatient (CLI) | payer MEDICARE ==
[~2018-11-23] MED LIST changes: -GABA600T2 PO; +GBPN600T PO
--- NOTE | 2018-11-23 11:52 | Diagnostic Imaging Report ---
INDICATION: Chronic cough. EXAMINATION: PA and lateral chest. FINDINGS: The heart size and pulmonary vascularity are normal. The lungs are clear. There are no effusions or pneumothoraces. IMPRESSION: Negative chest. Dictated by: Dictated on workstation # [id number]
== END ==
LOC: RAD 10:34
PROVIDERS: ATTEND Internal Medicine
DX: R05 Cough (principal)
CPT/HCPCS: 71046

== ENCOUNTER → 2019-09-13 | Outpatient (CLI) | payer MEDICARE ==
[~2019-09-13] MED LIST changes: -IBUP-2055 PO; +IBUP-2473 PO; +OMEP-280 PO; -OMEP20CA12 PO
--- NOTE | 2019-09-13 15:05 | Diagnostic Imaging Report ---
INDICATION: Bilateral breast lumps. COMPARISON: Correlation is made with the prior mammogram from 04/20/2013. TECHNIQUE: 2D and 3D bilateral diagnostic mammography was performed with CAD. BB markers were placed at the areas of palpable abnormality, representing the medial right breast and the upper outer left breast. FINDINGS: Scattered fibroglandular densities are identified bilaterally. No dominant mass or malignant appearing microcalcifications are seen. There are multiple lymph nodes in the right axilla. The left axilla is unremarkable. IMPRESSION: No mammographic features suspicious for malignancy are identified. Even so, directed sonographic interrogation of the areas of palpable abnormality bilaterally is recommended and will be performed today. ACR BI-RADS Category 0: Incomplete. (Needs additional imaging evaluation). Result letter will be mailed to the patient. Note: At least 10% of breast cancer is not imaged by mammography. Dictated by: Dictated on workstation # [id number]
--- NOTE | 2019-09-13 15:06 | Diagnostic Imaging Report ---
INDICATION: Bilateral breast lumps. COMPARISON: Prior diagnostic mammogram from earlier the same day. EXAMINATION: Sonographic interrogation of the area of patient's lumps was performed, bilaterally. This corresponds to the upper outer left breast and the medial right breast. No sonographic abnormality is detected. No solid or cystic mass is detected. IMPRESSION: No sonographic abnormality is identified. Continued close clinical and self breast exam is recommended to confirm stability of the palpable abnormalities. ACR BI-RADS Category 1: Negative. Result letter will be mailed to the patient. Note: At least 10% of breast cancer is not imaged by mammography. Dictated by: Dictated on workstation # [id number]
== END ==
LOC: RAD 11:05
PROVIDERS: ATTEND Internal Medicine
DX: Z12.31 Encounter for screening mammogram for malignant neoplasm of breast (principal); N63.10 Unspecified lump in the right breast, unspecified quadrant; N63.20 Unspecified lump in the left breast, unspecified quadrant
CPT/HCPCS: 76642; 77066

== ENCOUNTER 2019-10-31 12:14 | Outpatient (CLI) | payer MEDICARE ==
[~2019-10-31] VITALS: Ht 165 cm; Wt 68.0 kg
[~2019-10-31 12:14] MED LIST changes: -OMEP-280 PO; +OMEP20CA18 PO
[2019-10-31] MEDS ORDERED: DIPH1TAB PO (13:08)
[2019-10-31] MEDS ORDERED: METH10TA2 PO (13:08)
[2019-10-31] MEDS ORDERED: GBPN600T PO (13:08)
[2019-10-31] MEDS ORDERED: TIZA4CAP8 PO (13:08)
[2019-10-31] MEDS ORDERED: MULT1CAP27 PO (13:08)
[2019-11-01] MEDS ORDERED: PANT40TA2 PO (11:03)
== END 2019-10-31 13:25 | disposition home or self-care (01) ==
LOC: PREOP 12:14
PROVIDERS: ATTEND Surgery
DX: Z01.818 Encounter for other preprocedural examination (principal)

== ENCOUNTER 2020-11-12 10:42 | Emergency (ER) | payer MEDICARE ==
[~2020-11-12] VITALS: Ht 165 cm; Wt 63.0 kg
[~2020-11-12 10:42] MED LIST changes: +DIPH1TAB PO; +MULT1CAP27 PO; +PANT40TA2 PO; +TIZA4CAP8 PO
[2020-11-12] MEDS ORDERED: ONDANSETRON 4 MG/2 ML (SDV) Z0FRAN ONE (10:55)
[2020-11-12] MEDS ORDERED: ONDANSETRON 4 MG/2 ML (SDV) Z0FRAN IVP ONE (11:00)
[2020-11-12] MEDS ORDERED: LACTATED RINGERS 1,000 ML IV ONE (11:45)
[2020-11-12] MEDS ORDERED: PROMETHAZINE INJ 25 MG/ML (PHENERGAN) AMP IVP ONE ×2 (11:45→14:15)
[2020-11-12] MEDS ORDERED: fentaNYL INJ 100 MCG/2 ML AMP IVP ONE (11:45)
--- NOTE | 2020-11-12 11:54 | ED Abdominal Pain ---
General Chief Complaint: Abdominal/GI Problems Stated Complaint: N/V,DIARRHEA,MUSCLE ACHE,MEDEIROS Nursing Triage Note: PT CO OF ABD PAIN, N/V/D SINCE 10/18/20. PT STATES ONLY SL FEVER. STATES HAS DIARRHEA ALL THE TIME. HAS HAD FIRST COVID VACCINE 10/17/20.PT STATES HAS HAD HICCUPS FOR A COUPLE WEEKS. PT HAS LOST 10# THIS MONTH, SENT TO ED BY DR BRO OFFICE Sepsis Screen: Possible Sepsis Risk Source of Information: Patient Exam Limitations: No Limitations History of Present Illness Date Seen by Provider: Nov 12, 2020 Time Seen by Provider: 11:19 Initial Comments 1 month of progressive symptoms of nausea vomiting epigastric abdominal discomfort now more recently radiating around both of her kidneys in the back/flanks. She has had temperatures of 99 but no fevers. She is having some diarrhea. 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 She is not been able to take her Phenergan or her methadone for the past several weeks without vomiting it up immediately. She denies dysuria cough shortness of air. She got her first dose of Covid vaccine 3 weeks ago. No sore throat. She feels like her esophagus nelson from all the vomiting. She is not having tremendous chest pain shortness of air or cough. Allergies and Home Medications Allergies Coded Allergies: Sulfa (Sulfonamide Antibiotics) (Verified Allergy, Unknown, 10/31/19) ketorolac (Verified Allergy, Unknown, 10/31/19) Uncoded Allergies: NARCOTIC ANTAGONISTS (Allergy, Unknown, 02/21/07) Home Medications Diphenoxylate HCl/Atropine 1 Each Tablet, 2 EACH PO TID, (Reported) Gabapentin 600 Mg Tablet, 600 MG PO BID, (Reported) Ibuprofen 200 Mg Tablet, 800 MG PO BID, (Reported) TAKES 4 (200 MG) TABLETS Loperamide HCl 2 Mg Tablet, 4 MG PO DAILY PRN PRN for DIARRHEA, (Reported) TAKES 2 (2 MG) TABLETS Methadone HCl 10 Mg Tablet, 130 MG PO DAILY, (Reported) Multivitamin 1 Each Capsule, 1 EACH PO DAILY, (Reported) Pantoprazole Sodium 40 Mg Tablet., 40 MG PO DAILY Prescribed by: RAVINDRA OTOOLE on 11/01/19 1103 Tizanidine HCl 4 Mg Capsule, 4 MG PO HS, (Reported) Patient Home Medication List Home Medication List Reviewed: Yes Review of Systems Review of Systems Constitutional: No chills, No diaphoresis EENTM: No Blurred Vision, No Double Vision Respiratory: Denies Cough, Denies Shortness of Air Cardiovascular: Denies Chest Pain, Denies Lightheadedness Gastrointestinal: See HPI, Abdominal Pain; Denies Constipated; Diarrhea, Nausea, Poor Fluid Intake, Vomiting Genitourinary: Denies Burning, Denies Discharge Musculoskeletal: No back pain, No joint pain Psychiatric/Neurological: Denies Anxiety, Denies Depressed All Other Systems Reviewed Negative Unless Noted: Yes Past Geaidhh-Nbtctg-Aeuhlt Hx Patient Social History Alcohol Use: Past History Number of Drinks Today: 0 Drug of Choice: HX Smoking Status: Never a Smoker 2nd Hand Smoke Exposure: Yes Recent Infectious Disease Expo: No Recent Hopitalizations: No Immunizations Up To Date Date of Pneumonia Vaccine: May 22, 2019 Date of Influenza Vaccine: May 22, 2019 Seasonal Allergies Seasonal Allergies: Yes Past Medical History Surgeries: Yes (LEFT HIP FX, TEMP COLOSTOMY, EXPLORATORY LAP) Appendectomy, Gallbladder Respiratory: No Chronic Bronchitis Cardiac: Yes (MVP) Hypertension Neurological: Yes (SPONDOCONDRITIS) Reproductive Disorders: No 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/MEDICAL DOCTOR History: Menopausal Sexually Transmitted Disease: No HIV/AIDS: No Genitourinary: No Gastrointestinal: Yes ("chronic pancreatitis", ulcers) Liver Disease/Jaundice, Pancreatitis, Chronic Diarrhea, Hepatitis, Ulcer Musculoskeletal: Yes (CHRONIC PAIN) Arthritis, Fibromyalgia Endocrine: No HEENT: No Loss of Vision: Denies Hearing Impairment: Denies Cancer: No Psychosocial: No Integumentary: No Blood Disorders: No Adverse Reaction/Blood Tranf: No (N/A) Family Medical History Cancer (MOTHER CERVICAL CANCER ) 03 MOTHER Cataract (MATERNAL GRANDMOTHER ) Chest pain (GRANDFATHER) Congenital heart disease (BROTHER 2 WEEKS AFTER FROM CONGENITAL HEART DEFECT) Congestive heart failure (GRANDFATHER) Family history: Arthritis (GRANDMOTHER) Family history: Breast disease 03 MOTHER Family history: Cardiovascular disease (MOTHER AND GRANDFATHER) 03 MOTHER Family history: Diabetes mellitus 03 MOTHER Family history: Glaucoma (GRANDMOTHER) Family history: Hypertension (MOTHER AND GRANDFATHER) 03 MOTHER Family history: Thyroid disorder (GRANDMOTHER) Heart disease (GRANDFATHER AND GRANDMOTHER) Hypercholesterolemia 03 MOTHER Myocardial infarction (GRANDFATHER AND MOTHER) 03 MOTHER No Family History of: Abdominal aortic aneurysm [place]'s disease Alcoholism Aphasia Cancer of colon Cystic fibrosis Dementia Dysphagia Family history: Allergy Family history: Alzheimer's disease Family history: Asthma Family history: Coronary thrombosis Family history: Gastrointestinal disease Family history: Osteoporosis Headache Hearing loss Hereditary disease History of - anemia History of - disorder History of - respiratory disease History of drug abuse Human immunodeficiency virus (HIV) seropositivity Infertile Kidney disease Malignant neoplasm of lung Parkinson's disease Prostate cancer Psychotic disorder Seizure disorder Stroke Tuberculosis Visual impairment Heart Disease, CAD Over 55 Years Old, Diabetes, Hypertension Physical Exam Vital Signs Vital Signs - First Documented 11/12/20 10:55 Temp 36.8 Pulse 89 Resp 21 B/P (MAP) 133/87 (102) Pulse Ox 97 Capillary Refill : Less Than 3 Seconds Height/Weight/BMI Height: 5'5.00" Weight: 146lbs. 9.0oz. [id number]; 23.00 BMI Method:Stated General Appearance: WD/WN, mild distress HEENT: PERRL/EOMI; No pharynx normal (Dry oral mucosa) Neck: full range of motion, normal inspection Respiratory: lungs clear, normal breath sounds, no respiratory distress, no accessory muscle use Cardiovascular: normal peripheral pulses, regular rate, rhythm, tachycardia Peripheral Pulses: 2+ Radial Pulses (R), 2+ Radial Pulses (L) Gastrointestinal: normal bowel sounds, non tender, soft, no organomegaly Extremities: non-tender, normal inspection, normal capillary refill Neurologic/Psychiatric: alert, normal mood/affect, oriented x 3 Skin: normal color, warm/dry Progress/Results/Core Measures Results/Orders Lab Results Laboratory Tests Test 11/12/20 11:55 11/12/20 12:00 11/12/20 13:17 Range/Units White Blood Count 5.8 4.3-11.0 10^3/uL Red Blood Count 3.56 L 3.80-5.11 10^6/uL Hemoglobin 11.8 11.5-16.0 g/dL Hematocrit 34 L 35-52 % Mean Corpuscular Volume 96 80-99 fL Mean Corpuscular Hemoglobin 33 25-34 pg Mean Corpuscular Hemoglobin Concent 35 32-36 g/dL Red Cell Distribution Width 14.7 H 10.0-14.5 % Platelet Count 195 130-400 10^3/uL Mean Platelet Volume 10.4 9.0-12.2 fL Immature Granulocyte % (Auto) 0 % Neutrophils (%) (Auto) 59 42-75 % Lymphocytes (%) (Auto) 31 12-44 % Monocytes (%) (Auto) 8 0-12 % Eosinophils (%) (Auto) 2 0-10 % Basophils (%) (Auto) 1 0-10 % Neutrophils # (Auto) 3.4 1.8-7.8 10^3/uL Lymphocytes # (Auto) 1.8 1.0-4.0 10^3/uL Monocytes # (Auto) 0.5 0.0-1.0 10^3/uL Eosinophils # (Auto) 0.1 0.0-0.3 10^3/uL Basophils # (Auto) 0.0 0.0-0.1 10^3/uL Immature Granulocyte # (Auto) 0.0 0.0-0.1 10^3/uL Sodium Level 139 135-145 MMOL/L Potassium Level 2.8 L 3.6-5.0 MMOL/L Chloride Level 111 H 98-107 MMOL/L Carbon Dioxide Level 17 L 21-32 MMOL/L Anion Gap 11 5-14 MMOL/L Blood Urea Nitrogen 17 7-18 MG/DL Creatinine 1.07 0.60-1.30 MG/DL Estimat Glomerular Filtration Rate 51 BUN/Creatinine Ratio 16 Glucose Level 87 70-105 MG/DL Calcium Level 8.1 L 8.5-10.1 MG/DL Corrected Calcium 8.6 8.5-10.1 MG/DL Magnesium Level 2.1 1.6-2.4 MG/DL Total Bilirubin 0.4 0.1-1.0 MG/DL Aspartate Amino Transf (AST/SGOT) 33 5-34 U/L Alanine Aminotransferase (ALT/SGPT) 26 0-55 U/L Alkaline Phosphatase 118 40-136 U/L C-Reactive Protein High Sensitivity 0.69 H 0.00-0.50 MG/DL Total Protein 6.0 L 6.4-8.2 GM/DL Albumin 3.4 3.2-4.5 GM/DL Lipase 96 H 8-78 U/L Urine Color YELLOW Urine Clarity CLEAR Urine pH 6.5 5-9 Urine Specific [place] 1.010 L 1.016-1.022 Urine Protein NEGATIVE NEGATIVE Urine Glucose (UA) NEGATIVE NEGATIVE Urine Ketones NEGATIVE NEGATIVE Urine Nitrite NEGATIVE NEGATIVE Urine Bilirubin NEGATIVE NEGATIVE Urine Urobilinogen 0.2 < = 1.0 MG/DL Urine Leukocyte Esterase NEGATIVE NEGATIVE Urine RBC (Auto) NEGATIVE NEGATIVE Urine RBC NONE /HPF Urine WBC RARE /HPF Urine Squamous Epithelial Cells 0-2 /HPF Urine Crystals NONE /LPF Urine Bacteria NEGATIVE /HPF Urine Casts NONE /LPF Urine Mucus NEGATIVE /LPF Urine Culture Indicated NO Coronavirus 2019 (SONI) Negative Negative Micro Results Microbiology 11/12/20 Influenza Types A,B Antigen (DENIS) - Final, Complete My Orders Orders - MALLORY SANTA Ondansetron Injection (Zofran Injectio (11/12/20 11:00) Ondansetron Injection (Zofran Injectio (11/12/20 10:55) Promethazine Injection (Phenergan Injec (11/12/20 11:45) Lactated Ringers (Lr 1000 Ml Iv Solution (11/12/20 11:45) Cbc With Automated Diff (11/12/20 11:37) Comprehensive Metabolic Panel (11/12/20 11:37) Hs C Reactive Protein (11/12/20 11:37) Lipase (11/12/20 11:37) Fentanyl Inj (Sublimaze Injection) (11/12/20 11:45) Ct Abdomen/Pelvis W (11/12/20 11:37) Ua Culture If Indicated (11/12/20 11:37) Influenza A And B Antigens (11/12/20 11:37) Covid 19 Inhouse Test (11/12/20 11:37) Iohexol Injection (Omnipaque 350 Mg/Ml 1 (11/12/20 12:00) Received Contrast (Hold Metformin- Contr (11/12/20 12:00) Sodium Chloride Flush (Catheter Flush Sy (11/12/20 12:00) Ns (Ivpb) (Sodium Chloride 0.9% Ivpb Bag (11/12/20 12:00) Magnesium (11/12/20 13:03) Potassium Cl 10meq/50ml Ivpb (Kcl 10 Meq (11/12/20 13:15) Ns Iv 500 Ml (Sodium Chloride 0.9%) (11/12/20 13:35) Hydrocodone/Apap 5/325 Tablet (Lortab 5 (11/12/20 14:00) Promethazine Injection (Phenergan Injec (11/12/20 14:15) Diphenhydramine Injection (Benadryl Inje (11/12/20 14:15) Medications Given in ED Current Medications Medications Dose Ordered Sig/Cory Route Start Time Stop Time Status Last Admin Dose Admin Acetaminophen/ Hydrocodone Bitart 1 ea ONCE ONCE PO 11/12/20 14:00 11/12/20 14:01 DC 11/12/20 14:03 1 EA Diphenhydramine HCl 25 mg ONCE ONCE IVP 11/12/20 14:15 11/12/20 14:16 DC 11/12/20 14:30 25 MG Fentanyl Citrate 75 mcg ONCE ONCE IVP 11/12/20 11:45 11/12/20 11:46 DC 11/12/20 11:58 75 MCG Iohexol 100 ml ONCE ONCE IV 11/12/20 12:00 11/12/20 12:01 DC 11/12/20 12:41 80 ML Lactated Ringer's 1,000 ml @ 0 mls/hr Q0M ONCE IV 11/12/20 11:45 11/12/20 11:46 DC 11/12/20 11:55 1,000 MLS/HR Ondansetron HCl 8 mg ONCE ONCE IVP 11/12/20 11:00 11/12/20 11:01 DC 11/12/20 11:11 8 MG Potassium Chloride 50 ml @ 50 mls/hr ONCE ONCE IV 11/12/20 13:15 11/12/20 14:14 DC 11/12/20 13:40 50 MLS/HR Promethazine HCl 25 mg ONCE ONCE IVP 11/12/20 11:45 11/12/20 11:46 DC 11/12/20 11:55 25 MG Promethazine HCl 25 mg ONCE ONCE IVP 11/12/20 14:15 11/12/20 14:16 DC 11/12/20 14:30 25 MG Sodium Chloride 10 ml NEEDED PRN IV 11/12/20 12:00 11/12/20 12:42 10 ML Sodium Chloride 100 ml ONCE ONCE IV 11/12/20 12:00 11/12/20 12:01 DC 11/12/20 12:42 80 ML Sodium Chloride 500 ml @ ud STK-MED ONCE .ROUTE 11/12/20 13:35 11/12/20 13:42 DC 11/12/20 13:43 500 MLS/HR Vital Signs/I&O 11/12/20 10:55 Temp 36.8 Pulse 89 Resp 21 B/P (MAP) 133/87 (102) Pulse Ox 97 Blood Pressure Mean: 102 Progress Progress Note #1: Time: 11:53 Progress Note Oxygenating well but tachycardic, mild and dehydrated. Plan to give her some Phenergan because the 8 of Zofran did nothing for her nausea. Then we will give her some fentanyl as she is probably in some opiate withdrawal. We will get a CT of her abdomen and pelvis looking for new active processes and check labs in cluding urine and lipase. Progress Note #2: Time: 14:05 Progress Note Nausea is better however she still having some discomfort so we gave her some [place]. She is probably withdrawing from her methadone and needs to restart that at her earliest convenience. Progress Note #3: Time: 14:11 Progress Note Despite Phenergan and Zofran and fluids the patient still retching after taking the [place]. She is unable to tolerate p.o.'s so we will talk about sending her to [facility] where her GI doctor is for pancreatitis and intractable nausea and vomiting. Another 25 mg IV Phenergan. Diagnostic Imaging Diagonstic Imaging: CT Plain Films/CT/US/NM/MRI: abdomen, pelvis Comments [facility], [place] NAME: HARDEEP HUERTA [facility] REC#: [id number] PT STATUS: REG ER : 1955 PHYSICIAN: MALLORY SANTA MD ADMIT DATE: 11/12/20/ER Draft Date of Exam:11/12/20 CT ABDOMEN/PELVIS W INDICATION: Epigastric pain, nausea and vomiting. TECHNIQUE: Multiple contiguous axial images were obtained through the abdomen and pelvis after administration of intravenous contrast. Auto Exposure Controls were utilized during the CT exam to meet ALARA standards for radiation dose reduction. All CT scans use one or more of the following dose optimizing techniques: automated exposure control, MA and/or KvP adjustment based on patient size and exam type or iterative reconstruction. COMPARISON: Comparison made with 03/17/2017. FINDINGS: The visualized portions of the lung bases are clear. There were no pleural fluid collections. There is no free intraperitoneal air. The liver shows no discrete focal lesion. There is an endoscopic biliary stent in place across the ampulla. There is some dilatation of the common duct despite this. The spleen, adrenals, and pancreas show no definite focal lesions. The kidneys bilaterally are normal. There is no retroperitoneal mass or adenopathy. There is no ascites or abnormal fluid collection. There is prominent stool in the colon. There is no pelvic mass or adenopathy. There are multifocal degenerative changes in the lumbar spine with compression deformity at L1 of uncertain age. There is anterolisthesis of L4 on L5. IMPRESSION: There is mild prominence of the common duct despite the presence of endoscopic biliary stent. Patient has had prior cholecystectomy. There is no abdominal mass or abnormal fluid collection. There is prominent stool throughout the colon. There is no overt obstruction. Dictated on workstation # [id number] Dict: 11/12/20 1242 Trans: 11/12/20 1252 [id number] Interpreted by: WILFRED ORELLANA MD Electronically signed by: Reviewed: Reviewed by Me Consults : Consulting Physician: FE DUMAS DO Consults Notes Discussed her biliary stent and prominence of the common bile duct and lipase. He recommends she follow-up with her GI doctor. Departure Impression Primary Impression: Pancreatitis Qualified Codes: K85.90 - Acute pancreatitis without necrosis or infection, unspecified Additional Impressions: Intractable nausea and vomiting History of common bile duct stent Disposition: XFER SHT-TRM HOSP Condition: Stable Transfer Transfer Reason: Exceeds level of care (No gastroenterology.) Time Spoke to Accepting Phy: 15:00 Transfer Progress Notes Patient is known to Dr. Novoa GI at [facility] so we called [facility] and they will page a medicine team about potential transfer the patient in regards to her intractable nausea and vomiting. Discussed the case with Dr. Doty and he accepts the patient to [facility]. 1600: Called to follow-up and a bed number has still not been assigned yet. Transfer Facility: [place], [place] Method of Transfer: EMS ([facility]) Departure-Patient Inst. Referrals: AUGUSTO BRO MD (PCP/Family) Primary Care Physician MALLORY SANTA Nov 12, 2020 11:54
[2020-11-12] MEDS ORDERED: CATHETER FLUSH 10 ML SYR IV PRN (12:00)
[2020-11-12] MEDS ORDERED: IOHEXOL 350 MG/ML 100 ML (OMNIPAQUE 350) VIAL IV ONE (12:00)
[2020-11-12] MEDS ORDERED: NS 100 ML (IVPB) BAG IV ONE (12:00)
[2020-11-12] MEDS ORDERED: HOLD METFORMIN - RECEIVED CONTRAST 20 ML VIAL IV SCH (12:00)
[2020-11-12 12:18] LABS: BILIRUBIN,URINE NEGATIVE (NEGATIVE); CLARITY,URINE CLEAR; COLOR,URINE YELLOW; GLUCOSE, URINE (UA) NEGATIVE (NEGATIVE); KETONES,URINE NEGATIVE (NEGATIVE); LEUKOCYTE ESTERASE ,URINE NEGATIVE (NEGATIVE); NITRITE,URINE NEGATIVE (NEGATIVE); PH,URINE 6.5 (5-9); PROTEIN,URINE NEGATIVE (NEGATIVE)
[2020-11-12 12:19] LABS: BASOPHILS % (AUTO) 1 % (0-10); EOSINOPHILS # (AUTO) 0.1 10^3/uL (0.0-0.3); EOSINOPHILS % (AUTO) 2 % (0-10); HEMATOCRIT 34 % (35-52); HEMOGLOBIN 11.8 g/dL (11.5-16.0); LYMPHOCYTES # (AUTO) 1.8 10^3/uL (1.0-4.0); LYMPHOCYTES % (AUTO) 31 % (12-44); MEAN CORPUSCULAR HEMOGLOBIN 33 pg (25-34); MEAN CORPUSCULAR HGB CONC 35 g/dL (32-36); MEAN CORPUSCULAR VOLUME 96 fL (80-99); MEAN PLATELET VOLUME 10.4 fL (9.0-12.2); MONOCYTES # (AUTO) 0.5 10^3/uL (0.0-1.0); MONOCYTES % (AUTO) 8 % (0-12); NEUTROPHILS # (AUTO) 3.4 10^3/uL (1.8-7.8); NEUTROPHILS % (AUTO) 59 % (42-75); PLATELET COUNT 195 10^3/uL (130-400); WHITE BLOOD COUNT 5.8 10^3/uL (4.3-11.0)
[2020-11-12 12:35] LABS: ALBUMIN 3.4 GM/DL (3.2-4.5); POTASSIUM 2.8 MMOL/L (3.6-5.0)
[2020-11-12 12:36] LABS: CALCIUM 8.1 MG/DL (8.5-10.1)
[2020-11-12 12:39] LABS: BILIRUBIN,TOTAL 0.4 MG/DL (0.1-1.0)
[2020-11-12 12:41] LABS: CREATININE SERUM 1.07 MG/DL (0.60-1.30)
[2020-11-12 12:44] LABS: BACTERIA,URINE NEGATIVE /HPF; SQUAMOUS EPITHELIAL CELL,UR 0-2 /HPF; WBC,URINE RARE /HPF
--- NOTE | 2020-11-12 12:53 | Diagnostic Imaging Report ---
INDICATION: Epigastric pain, nausea and vomiting. TECHNIQUE: Multiple contiguous axial images were obtained through the abdomen and pelvis after administration of intravenous contrast. Auto Exposure Controls were utilized during the CT exam to meet ALARA standards for radiation dose reduction. All CT scans use one or more of the following dose optimizing techniques: automated exposure control, MA and/or KvP adjustment based on patient size and exam type or iterative reconstruction. COMPARISON: Comparison made with 03/17/2017. FINDINGS: The visualized portions of the lung bases are clear. There were no pleural fluid collections. There is no free intraperitoneal air. The liver shows no discrete focal lesion. There is an endoscopic biliary stent in place across the ampulla. There is some dilatation of the common duct despite this. The spleen, adrenals, and pancreas show no definite focal lesions. The kidneys bilaterally are normal. There is no retroperitoneal mass or adenopathy. There is no ascites or abnormal fluid collection. There is prominent stool in the colon. There is no pelvic mass or adenopathy. There are multifocal degenerative changes in the lumbar spine with compression deformity at L1 of uncertain age. There is anterolisthesis of L4 on L5. IMPRESSION: There is mild prominence of the common duct despite the presence of endoscopic biliary stent. Patient has had prior cholecystectomy. There is no abdominal mass or abnormal fluid collection. There is prominent stool throughout the colon. There is no overt obstruction. Dictated by: Dictated on workstation # [id number]
[2020-11-12] MEDS ORDERED: POTASSIUM CL 10MEQ/50ML IVPB 50 ML IV ONE (13:15)
[2020-11-12] MEDS ORDERED: NS IV 500 ML 500 ML ONE (13:35)
[2020-11-12] MEDS ORDERED: HYDROcodone/APAP 5 MG/325 MG (LORTAB) TAB PO ONE (14:00)
[2020-11-12] MEDS ORDERED: diphenhydrAMINE 50 MG/ML INJ (BENADRYL) IVP ONE (14:15)
[2020-11-12 17:24] VITALS: BP 136/87
== END 2020-11-12 17:28 | disposition short-term general hospital (02) ==
LOC: EDUNIT# 10:42 → ER 10:44
DX: K85.90 Acute pancreatitis without necrosis or infection, unspecified (principal); I10 Essential (primary) hypertension; Z96.89 Presence of other specified functional implants; Z20.822 Contact with and (suspected) exposure to COVID-19; Z93.3 Colostomy status; Z77.22 Contact with and (suspected) exposure to environmental tobacco smoke (acute) (chronic); Z88.2 Allergy status to sulfonamides; Z88.5 Allergy status to narcotic agent
CPT/HCPCS: 74177; 80053; 81000; 83690; 83735; 85025; 86141; 87804; U0002; 36415; 87635

== ENCOUNTER 2020-11-24 17:32 | Emergency (ER) | payer MEDICARE ==
[~2020-11-24] VITALS: Ht 165 cm; Wt 68.0 kg
[2020-11-24] MEDS ORDERED: morphine INJ 10 MG/ML 1ML (SYR OR VIAL) ONE (17:42)
--- NOTE | 2020-11-24 17:43 | ED Abdominal Pain ---
General Stated Complaint: DX WITH PANCREATITIS, N/V Source of Information: Patient Exam Limitations: No Limitations History of Present Illness Date Seen by Provider: Nov 24, 2020 Time Seen by Provider: 17:35 Initial Comments ER with nausea vomiting and diarrhea. . She states that she has a stent in her pancreatic duct that has been there for a very long time. She was recently admitted to [facility] for diagnosis of pancreatitis. She was admitted for 5 days she states at the end of October. She is on methadone 130mg/daily (one hundred thirty) for chromov pain control but has been unable to take it because of her nausea and vomiting. Timing/Duration: 1-2 Days Severity/Quality: Moderate Location: Epigastric, Generalized Abdomen Radiation: No Radiation Associated Symptoms: Denies Symptoms Allergies and Home Medications Allergies Coded Allergies: Sulfa (Sulfonamide Antibiotics) (Verified Allergy, Unknown, 10/31/19) ketorolac (Verified Allergy, Unknown, 10/31/19) Uncoded Allergies: NARCOTIC ANTAGONISTS (Allergy, Unknown, 02/21/07) Home Medications Diphenoxylate HCl/Atropine 1 Each Tablet, 2 EACH PO TID, (Reported) Gabapentin 600 Mg Tablet, 600 MG PO BID, (Reported) Ibuprofen 200 Mg Tablet, 800 MG PO BID, (Reported) TAKES 4 (200 MG) TABLETS Loperamide HCl 2 Mg Tablet, 4 MG PO DAILY PRN PRN for DIARRHEA, (Reported) TAKES 2 (2 MG) TABLETS Methadone HCl 10 Mg Tablet, 130 MG PO DAILY, (Reported) Multivitamin 1 Each Capsule, 1 EACH PO DAILY, (Reported) Pantoprazole Sodium 40 Mg Tablet.dr, 40 MG PO DAILY Prescribed by: RAVINDRA OTOOLE on 11/01/19 1103 Tizanidine HCl 4 Mg Capsule, 4 MG PO HS, (Reported) Patient Home Medication List Home Medication List Reviewed: Yes Review of Systems Review of Systems Constitutional: see HPI EENTM: No Symptoms Reported Respiratory: No Symptoms Reported Cardiovascular: No Symptoms Reported Gastrointestinal: See HPI, Abdominal Pain, Nausea, Other Genitourinary: No Symptoms Reported Musculoskeletal: no symptoms reported Skin: no symptoms reported Psychiatric/Neurological: No Symptoms Reported Endocrine: No Symptoms Reported Hematologic/Lymphatic: No Symptoms Reported Past Ifqxgwb-Tmsmmb-Ahqczf Hx Patient Social History Drug of Choice: HX 2nd Hand Smoke Exposure: Yes Recent Hopitalizations: No Immunizations Up To Date Date of Pneumonia Vaccine: May 22, 2019 Date of Influenza Vaccine: May 22, 2019 Seasonal Allergies Seasonal Allergies: Yes Past Medical History Surgeries: Yes (LEFT HIP FX, TEMP COLOSTOMY, EXPLORATORY LAP) Appendectomy, Gallbladder Respiratory: No Chronic Bronchitis Cardiac: Yes (MVP) Hypertension Neurological: Yes (SPONDOCONDRITIS) Reproductive Disorders: No P[employer]BOARD [employer]OX [employer] History: Menopausal Sexually Transmitted Disease: No HIV/AIDS: No Genitourinary: No Gastrointestinal: Yes ("chronic pancreatitis", ulcers) Liver Disease/Jaundice, Pancreatitis, Chronic Diarrhea, Hepatitis, Ulcer Musculoskeletal: Yes (CHRONIC PAIN) Arthritis, Fibromyalgia Endocrine: No HEENT: No Loss of Vision: Denies Hearing Impairment: Denies Cancer: No Psychosocial: No Integumentary: No Blood Disorders: No Adverse Reaction/Blood Tranf: No (N/A) Family Medical History Cancer (MOTHER CERVICAL CANCER ) 03 MOTHER Cataract (MATERNAL GRANDMOTHER ) Chest pain (GRANDFATHER) Congenital heart disease (BROTHER 2 WEEKS AFTER FROM CONGENITAL HEART DEFECT) Congestive heart failure (GRANDFATHER) Family history: Arthritis (GRANDMOTHER) Family history: Breast disease 03 MOTHER Family history: Cardiovascular disease (MOTHER AND GRANDFATHER) 03 MOTHER Family history: Diabetes mellitus 03 MOTHER Family history: Glaucoma (GRANDMOTHER) Family history: Hypertension (MOTHER AND GRANDFATHER) 03 MOTHER Family history: Thyroid disorder (GRANDMOTHER) Heart disease (GRANDFATHER AND GRANDMOTHER) Hypercholesterolemia 03 MOTHER Myocardial infarction (GRANDFATHER AND MOTHER) 03 MOTHER No Family History of: Abdominal aortic aneurysm Mingo's disease Alcoholism Aphasia Cancer of colon Cystic fibrosis Dementia Dysphagia Family history: Allergy Family history: Alzheimer's disease Family history: Asthma Family history: Coronary thrombosis Family history: Gastrointestinal disease Family history: Osteoporosis Headache Hearing loss Hereditary disease History of - anemia History of - disorder History of - respiratory disease History of drug abuse Human immunodeficiency virus (HIV) seropositivity Infertile Kidney disease Malignant neoplasm of lung Parkinson's disease Prostate cancer Psychotic disorder Seizure disorder Stroke Tuberculosis Visual impairment Heart Disease, CAD Over 55 Years Old, Diabetes, Hypertension Physical Exam Vital Signs Vital Signs - First Documented 11/24/20 17:38 Temp 36.5 Pulse 100 Resp 20 B/P (MAP) 216/149 (171) Pulse Ox 99 O2 Delivery Room Air Capillary Refill : Height/Weight/BMI Height: 5'5.00" Weight: 146lbs. 9.0oz. 66.356322sg; 23.00 BMI Method:Stated General Appearance: WD/WN, no apparent distress Neck: non-tender, full range of motion Respiratory: no respiratory distress, no accessory muscle use Cardiovascular: regular rate, rhythm, no murmur Gastrointestinal: normal bowel sounds, soft, tenderness Extremities: normal range of motion, non-tender Neurologic/Psychiatric: alert, normal mood/affect, oriented x 3 Skin: normal color, warm/dry, other (scabbed wounds over dorsum of each hand/forearm bilaterally. 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 ) Progress/Results/Core Measures Results/Orders Lab Results Laboratory Tests Test 11/24/20 17:45 11/24/20 18:05 Range/Units White Blood Count 8.5 4.3-11.0 10^3/uL Red Blood Count 3.96 3.80-5.11 10^6/uL Hemoglobin 13.2 11.5-16.0 g/dL Hematocrit 42 35-52 % Mean Corpuscular Volume 105 H 80-99 fL Mean Corpuscular Hemoglobin 33 25-34 pg Mean Corpuscular Hemoglobin Concent 32 32-36 g/dL Red Cell Distribution Width 13.3 10.0-14.5 % Platelet Count 283 130-400 10^3/uL Mean Platelet Volume 9.6 9.0-12.2 fL Immature Granulocyte % (Auto) 0 % Neutrophils (%) (Auto) 69 42-75 % Lymphocytes (%) (Auto) 22 12-44 % Monocytes (%) (Auto) 6 0-12 % Eosinophils (%) (Auto) 3 0-10 % Basophils (%) (Auto) 0 0-10 % Neutrophils # (Auto) 5.9 1.8-7.8 10^3/uL Lymphocytes # (Auto) 1.8 1.0-4.0 10^3/uL Monocytes # (Auto) 0.5 0.0-1.0 10^3/uL Eosinophils # (Auto) 0.2 0.0-0.3 10^3/uL Basophils # (Auto) 0.0 0.0-0.1 10^3/uL Immature Granulocyte # (Auto) 0.0 0.0-0.1 10^3/uL Prothrombin Time 12.2 12.2-14.7 SEC INR Comment 0.9 0.8-1.4 Sodium Level 139 135-145 MMOL/L Potassium Level 3.6 3.6-5.0 MMOL/L Chloride Level 100 98-107 MMOL/L Carbon Dioxide Level 26 21-32 MMOL/L Anion Gap 13 5-14 MMOL/L Blood Urea Nitrogen 6 L 7-18 MG/DL Creatinine 0.94 0.60-1.30 MG/DL Estimat Glomerular Filtration Rate 60 BUN/Creatinine Ratio 6 Glucose Level 151 H 70-105 MG/DL Calcium Level 8.8 8.5-10.1 MG/DL Corrected Calcium 8.8 8.5-10.1 MG/DL Total Bilirubin 0.5 0.1-1.0 MG/DL Aspartate Amino Transf (AST/SGOT) 44 H 5-34 U/L Alanine Aminotransferase (ALT/SGPT) 35 0-55 U/L Alkaline Phosphatase 197 H 40-136 U/L Total Protein 7.2 6.4-8.2 GM/DL Albumin 4.0 3.2-4.5 GM/DL Lipase 54 8-78 U/L Urine Color YELLOW Urine Clarity CLEAR Urine pH 7.0 5-9 Urine Specific [place] 1.015 L 1.016-1.022 Urine Protein NEGATIVE NEGATIVE Urine Glucose (UA) NEGATIVE NEGATIVE Urine Ketones NEGATIVE NEGATIVE Urine Nitrite NEGATIVE NEGATIVE Urine Bilirubin NEGATIVE NEGATIVE Urine Urobilinogen 0.2 < = 1.0 MG/DL Urine Leukocyte Esterase NEGATIVE NEGATIVE Urine RBC (Auto) TRACE-I NEGATIVE Urine RBC NONE /HPF Urine WBC NONE /HPF Urine Squamous Epithelial Cells NONE /HPF Urine Crystals NONE /LPF Urine Bacteria NEGATIVE /HPF Urine Casts NONE /LPF Urine Mucus NEGATIVE /LPF Urine Culture Indicated NO Urine Opiates Screen POSITIVE H NEGATIVE Urine Oxycodone Screen NEGATIVE NEGATIVE Urine Methadone Screen POSITIVE H NEGATIVE Urine Propoxyphene Screen NEGATIVE NEGATIVE Urine Barbiturates Screen NEGATIVE NEGATIVE Ur Tricyclic Antidepressants Screen NEGATIVE NEGATIVE Urine Phencyclidine Screen NEGATIVE NEGATIVE Urine Amphetamines Screen NEGATIVE NEGATIVE Urine Methamphetamines Screen NEGATIVE NEGATIVE Urine Benzodiazepines Screen NEGATIVE NEGATIVE Urine Cocaine Screen NEGATIVE NEGATIVE Urine Cannabinoids Screen NEGATIVE NEGATIVE My Orders Orders - [employer]ON [employer] Cbc With Automated Diff (11/24/20 17:40) Comprehensive Metabolic Panel (11/24/20 17:40) Protime With Inr (11/24/20 17:40) Lipase (11/24/20 17:40) Ua Culture If Indicated (11/24/20 17:40) Ed Iv/Invasive Line Start (11/24/20 17:40) Ns Iv 1000 Ml (Sodium Chloride 0.9%) (11/24/20 17:45) Ondansetron Oral Dissolve Tab (Zofran (11/24/20 17:45) Drug Screen Stat (Urine) (11/24/20 17:40) Morphine Injection (Morphine Injection (11/24/20 17:47) Morphine Injection (Morphine Injection (11/24/20 17:42) Ekg Tracing (11/24/20 17:57) Prochlorperazine Injection (Compazine In (11/24/20 18:15) Ct Angio Abdomen/Pelv W (11/24/20 18:16) Methadone Tablet (Dolophine Tablet) (11/24/20 18:30) Iohexol Injection (Omnipaque 350 Mg/Ml 1 (11/24/20 19:00) Ns (Ivpb) (Sodium Chloride 0.9% Ivpb Bag (11/24/20 19:00) Received Contrast (Hold Metformin- Contr (11/24/20 19:00) Medications Given in ED Current Medications Medications Dose Ordered Sig/Cory Route Start Time Stop Time Status Last Admin Dose Admin Iohexol 100 ml ONCE ONCE IV 11/24/20 19:00 11/24/20 19:01 DC 11/24/20 18:57 85 ML Methadone HCl 60 mg ONCE PRN PO 11/24/20 18:30 11/24/20 19:06 40 MG Ondansetron HCl 8 mg ONCE ONCE PO 11/24/20 17:45 11/24/20 17:46 DC 11/24/20 17:52 8 MG Prochlorperazine Edisylate 10 mg ONCE ONCE IV 11/24/20 18:15 11/24/20 18:16 DC 11/24/20 18:16 10 MG Sodium Chloride 100 ml ONCE ONCE IV 11/24/20 19:00 11/24/20 19:01 DC 11/24/20 18:57 80 ML Vital Signs/I&O 11/24/20 17:38 Temp 36.5 Pulse 100 Resp 20 B/P (MAP) 216/149 (171) Pulse Ox 99 O2 Delivery Room Air Diagnostic Imaging Diagonstic Imaging: Xray Comments NAME: HARDEEP HUERTA [facility] REC#: [id number] PT STATUS: REG ER : 1955 PHYSICIAN: HERON BUTCHER APRN ADMIT DATE: 11/24/20/ER Draft Date of Exam:11/24/20 CT ANGIO ABDOMEN/PELV W PROCEDURE: CT angio abdomen/pelvis with. TECHNIQUE: Multiple contiguous axial images were obtained through the abdomen and pelvis after the uneventful bolus administration of intravenous contrast. Sagittal and coronal MIP reconstructions with then performed. All CT scans use one or more of the following dose optimizing techniques: automated exposure control, MA and/or KvP adjustment based on patient size and exam type or iterative reconstruction. INDICATION: Severe abdominal pain; mesenteric ischemia. COMPARISON: 11/12/2020. Similar to the previous study, there is mild to moderate atherosclerotic plaque at the origin of the celiac trunk; however, there is good opacification of the celiac branches. Superior mesenteric artery is also patent. Both renal arteries demonstrate atherosclerosis at the origins without evidence of occlusion. Inferior mesenteric artery is patent. There is tortuosity of common iliac arteries. Similar to the previous study, internal biliary stent remains in stable position without evidence of significant biliary ductal dilatation. Pancreatic duct is prominent. No focal pancreatic or splenic lesion is identified. Adrenal glands are unremarkable. There is no evidence of renal mass or hydronephrosis. No free fluid is seen within the abdomen or pelvis. There is no evidence of pathologic adenopathy. Compression deformity involving L1 vertebral body and grade 2 anterolisthesis of L4 on L5 are similar in appearance as is diffuse lumbar spondylosis. IMPRESSION: 1. No CTA evidence of mesenteric arterial occlusion or filling defect. 2. There is fluid distention of small bowel which could reflect enteritis or ileus. Dictated on workstation # [id number] Dict: 11/24/201900 Trans: 11/24/201912 PJE [id number] Interpreted by: SLIM SAUNDERS MD Electronically signed by: Departure Communication (Admissions) 3413-blood pressure was 220/140. She was very anxious dry heaving. She was given 8 mg of morphine IV and 8 mg of Zofran with resultant improvement in her retching and blood pressure. Blood pressure dropped to 160/104. She states she is been unable to take her methadone for several days. She takes 130 mg daily I have ordered just under 1/3 of this here (40mg) here. I reviewed her results from [facility] on their chart viewing website. She had EGD showing mild erythema. They planned to do ERCP with stent removal outpatient. These results were from 11/12/2020. 1930-feeling much better, now smiling no retching or dry heaving. Smiling, states ready to go home. Has received IVF+10mg compazine+8mg Zofran+8mg morphine+40mg oral methadone. Impression Primary Impression: Methadone withdrawal Additional Impressions: Chronic pain Hypertensive urgency Disposition: HOME, SELF-CARE Condition: Improved Departure-Patient Inst. Decision time for Depature: 18:48 Referrals: AUGUSTO BRO MD (PCP/Family) Primary Care Physician Patient Instructions: Diarrhea and Travelers' Diarrhea, Adult (DC), Drug Withdrawal (DC), Nausea and Vomiting of (DC) Add. Discharge Instructions: 1. Return to ER for any concerns. Follow up with Dr Bro this week. HERON BUTCHER [employer] Nov 24, 2020 17:43
[2020-11-24] MEDS ORDERED: ONDANSETRON 4 MG (ZOFRAN) ORAL DISSOLVE TAB PO ONE (17:45)
[2020-11-24] MEDS ORDERED: NS IV 1000 ML 1,000 ML IV SCH (17:45)
[2020-11-24] MEDS ORDERED: morphine INJ 10 MG/ML 1ML (SYR OR VIAL) IVP STA (17:47)
[2020-11-24 17:51] LABS: BASOPHILS % (AUTO) 0 % (0-10); EOSINOPHILS # (AUTO) 0.2 10^3/uL (0.0-0.3); EOSINOPHILS % (AUTO) 3 % (0-10); HEMATOCRIT 42 % (35-52); HEMOGLOBIN 13.2 g/dL (11.5-16.0); LYMPHOCYTES # (AUTO) 1.8 10^3/uL (1.0-4.0); LYMPHOCYTES % (AUTO) 22 % (12-44); MEAN CORPUSCULAR HEMOGLOBIN 33 pg (25-34); MEAN CORPUSCULAR HGB CONC 32 g/dL (32-36); MEAN CORPUSCULAR VOLUME 105 fL (80-99); MEAN PLATELET VOLUME 9.6 fL (9.0-12.2); MONOCYTES # (AUTO) 0.5 10^3/uL (0.0-1.0); MONOCYTES % (AUTO) 6 % (0-12); NEUTROPHILS # (AUTO) 5.9 10^3/uL (1.8-7.8); NEUTROPHILS % (AUTO) 69 % (42-75); PLATELET COUNT 283 10^3/uL (130-400); WHITE BLOOD COUNT 8.5 10^3/uL (4.3-11.0)
[2020-11-24 18:02] LABS: POTASSIUM 3.6 MMOL/L (3.6-5.0)
[2020-11-24 18:03] LABS: CALCIUM 8.8 MG/DL (8.5-10.1); INR 0.9 (0.8-1.4); PROTHROMBIN TIME PATIENT 12.2 SEC (12.2-14.7)
[2020-11-24 18:04] LABS: TOTAL PROTEIN 7.2 GM/DL (6.4-8.2)
[2020-11-24 18:06] LABS: BILIRUBIN,TOTAL 0.5 MG/DL (0.1-1.0)
[2020-11-24 18:08] LABS: CREATININE SERUM 0.94 MG/DL (0.60-1.30)
[2020-11-24 18:12] LABS: BILIRUBIN,URINE NEGATIVE (NEGATIVE); CLARITY,URINE CLEAR; COLOR,URINE YELLOW; GLUCOSE, URINE (UA) NEGATIVE (NEGATIVE); KETONES,URINE NEGATIVE (NEGATIVE); LEUKOCYTE ESTERASE ,URINE NEGATIVE (NEGATIVE); NITRITE,URINE NEGATIVE (NEGATIVE); PROTEIN,URINE NEGATIVE (NEGATIVE)
[2020-11-24] MEDS ORDERED: PROCHLORPERAZINE 10 MG/2ML INJ (COMPAZINE) IV ONE (18:15)
[2020-11-24 18:25] LABS: BACTERIA,URINE NEGATIVE /HPF
[2020-11-24] MEDS ORDERED: METHADONE 10 MG (DOLOPHINE) TAB PO PRN (18:30)
[2020-11-24 18:39] LABS: AMPHETAMINE SCREEN, URINE NEGATIVE (NEGATIVE); BARBITURATE SCREEN URINE NEGATIVE (NEGATIVE); BENZODIAZEPINES SCREEN URINE NEGATIVE (NEGATIVE); CANNABINOID SCREEN, URINE NEGATIVE (NEGATIVE); COCAINE SCREEN URINE NEGATIVE (NEGATIVE); METHADONE STAT POSITIVE (NEGATIVE); METHAMPHETAMINE SCREEN URINE S NEGATIVE (NEGATIVE); OPIATE SCREEN URINE POSITIVE (NEGATIVE); OXYCODONE STAT NEGATIVE (NEGATIVE); PROPOXYPHENE STAT NEGATIVE (NEGATIVE); TRICYCLIC ANTIDEPRESSANTS SCRE NEGATIVE (NEGATIVE)
[2020-11-24] MEDS ORDERED: IOHEXOL 350 MG/ML 100 ML (OMNIPAQUE 350) VIAL IV ONE (19:00)
[2020-11-24] MEDS ORDERED: HOLD METFORMIN - RECEIVED CONTRAST 20 ML VIAL IV SCH (19:00)
[2020-11-24] MEDS ORDERED: NS 100 ML (IVPB) BAG IV ONE (19:00)
--- NOTE | 2020-11-24 19:14 | Diagnostic Imaging Report ---
PROCEDURE: CT angio abdomen/pelvis with. TECHNIQUE: Multiple contiguous axial images were obtained through the abdomen and pelvis after the uneventful bolus administration of intravenous contrast. Sagittal and coronal MIP reconstructions with then performed. All CT scans use one or more of the following dose optimizing techniques: automated exposure control, MA and/or KvP adjustment based on patient size and exam type or iterative reconstruction. INDICATION: Severe abdominal pain; mesenteric ischemia. COMPARISON: 11/12/2020. Similar to the previous study, there is mild to moderate atherosclerotic plaque at the origin of the celiac trunk; however, there is good opacification of the celiac branches. Superior mesenteric artery is also patent. Both renal arteries demonstrate atherosclerosis at the origins without evidence of occlusion. Inferior mesenteric artery is patent. There is tortuosity of common iliac arteries. Similar to the previous study, internal biliary stent remains in stable position without evidence of significant biliary ductal dilatation. Pancreatic duct is prominent. No focal pancreatic or splenic lesion is identified. Adrenal glands are unremarkable. There is no evidence of renal mass or hydronephrosis. No free fluid is seen within the abdomen or pelvis. There is no evidence of pathologic adenopathy. Compression deformity involving L1 vertebral body and grade 2 anterolisthesis of L4 on L5 are similar in appearance as is diffuse lumbar spondylosis. IMPRESSION: 1. No CTA evidence of mesenteric arterial occlusion or filling defect. 2. There is fluid distention of small bowel which could reflect enteritis or ileus. Dictated by: Dictated on workstation # [id number]
[2020-11-24 19:52] VITALS: BP 165/89
== END 2020-11-24 19:52 | disposition home or self-care (01) ==
LOC: EDUNIT# 17:32 → ER 17:34
DX: F19.239 Other psychoactive substance dependence with withdrawal, unspecified (principal); G89.29 Other chronic pain; I10 Essential (primary) hypertension; Z88.2 Allergy status to sulfonamides; Z88.6 Allergy status to analgesic agent; Z88.5 Allergy status to narcotic agent; Z80.49 Family history of malignant neoplasm of other genital organs; Z82.49 Family history of ischemic heart disease and other diseases of the circulatory system; Z83.3 Family history of diabetes mellitus; Z82.61 Family history of arthritis; Z77.22 Contact with and (suspected) exposure to environmental tobacco smoke (acute) (chronic)
CPT/HCPCS: 36415; 74174; 80053; 80306; 81000; 83690; 85025; 85610; 93005; 96361; 96374; 96375

== ENCOUNTER → 2021-09-11 | Outpatient (CLI) | payer MEDICARE ==
[~2021-09-11] MED LIST changes: +METH-742 PO; -METH10TA2 PO
--- NOTE | 2021-09-11 12:29 | Diagnostic Imaging Report ---
INDICATION: COPD exacerbation, cough. PA and lateral chest obtained at 12:09 p.m. compared to 11/23/2018. FINDINGS: Heart and mediastinal silhouette are normal in appearance. The lungs are clear. There is no pneumothorax or pleural fluid. IMPRESSION: Negative chest. Dictated by: Dictated on workstation # [id number]
--- NOTE | 2021-09-11 12:35 | Diagnostic Imaging Report ---
INDICATION: Right shoulder pain. TECHNIQUE: AP, oblique, and transscapular and transaxillary views of the right shoulder are obtained. COMPARISON: There is no prior study for comparison. FINDINGS: There is advanced degenerative change of the right glenohumeral joint with chronic humeral head deformity and subchondral sclerosis and inferior spurring. There is moderate degenerative change of the AC joint. There is no acute fracture or dislocation. IMPRESSION: Advanced degenerative change of the right glenohumeral joint with chronic-appearing humeral head deformity. No acute-appearing abnormality. Dictated by: Dictated on workstation # [id number]
== END ==
LOC: RAD 11:45
PROVIDERS: ATTEND Physician Assistant
DX: J44.1 Chronic obstructive pulmonary disease with (acute) exacerbation (principal); M19.011 Primary osteoarthritis, right shoulder
CPT/HCPCS: 71046; 73030

== ENCOUNTER 2021-10-22 14:22 | Emergency (ER) | payer MEDICARE ==
[~2021-10-22] VITALS: Ht 165 cm; Wt 65.9 kg
[2021-10-22] MEDS ORDERED: ASPIRIN 81 MG CHEW (CHILDREN'S ASA) PO ONE (14:45)
[2021-10-22] MEDS ORDERED: diphenhydrAMINE 50 MG/ML INJ (BENADRYL) IV ONE ×2 (14:45→15:15)
--- NOTE | 2021-10-22 14:49 | ED Chest Pain ---
General Chief Complaint: Chest Pain Stated Complaint: CHEST PAIN Source: patient, RN/MD Exam Limitations: no limitations (LORETA PRICE STUDENT) History of Present Illness Date Seen by Provider: Oct 22, 2021 Time Seen by Provider: 14:35 Initial Comments Patient is a 65 year old female who presents to the ED from radiology with complaints of chest pain and nausea. Reports that the pain began at 10AM today before seeing her doctor in the office. Didn't mention the pain to her physician then went to [facility], where the pain continued. Came to [facility] for a scheduled mammogram and the pain worsened so she was sent to the ED. States the pain has been constant and describes it as a heaviness that is tightening and loosening. Chest pain has been worse with exertion today, somewhat better with rest. Rates the pain at a 4/10 currently. The chest pain is just left of the sternum and radiates up into the left axilla. She's also had nausea associated with the onset of the chest pain without any emesis. Denies SOB, fevers, dysuria, headache, sweating, and dizziness. Did not take anything for the chest pain today. Has seen Dr. Squires in the past. Reports having a "mild heart attack" back in 2011. Denies taking anticoagulants/antiplatelets or having coronary stents. 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 PAINTER NECKTIES: No Associated Symptoms: nausea/vomiting (LORETA PRICE STUDENT) Allergies and Home Medications Allergies Coded Allergies: Sulfa (Sulfonamide Antibiotics) (Verified Allergy, Unknown, 10/31/19) ketorolac (Verified Allergy, Unknown, 10/31/19) Uncoded Allergies: NARCOTIC ANTAGONISTS (Allergy, Unknown, 02/21/07) Patient Home Medication List Home Medication List Reviewed: Yes (JASKARAN RUSS MD) Diphenoxylate HCl/Atropine (Lomotil 2.5-0.025 mg Tablet) 1 Each Tablet, 2 EACH PO TID, (Reported) Entered as Reported by: CHANTEL MAYA on 10/31/19 1308 Gabapentin (Gabapentin) 600 Mg Tablet, 600 MG PO BID, (Reported) Entered as Reported by: CHANTEL MAYA on 10/31/19 1308 Ibuprofen (Ibuprofen) 200 Mg Tablet, 800 MG PO BID, (Reported) Entered as Reported by: JUSTICE MARTE on 03/16/17 1648 Loperamide HCl (Imodium A-D) 2 Mg Tablet, 4 MG PO DAILY PRN PRN for DIARRHEA, (Reported) Entered as Reported by: JUSTICE MARTE on 03/16/17 164 Methadone HCl (Methadone HCl) 10 Mg Tablet, 130 MG PO DAILY, (Reported) Entered as Reported by: CHANTEL MAYA on 10/31/19 1308 Multivitamin (Multivitamins) 1 Each Capsule, 1 EACH PO DAILY, (Reported) Entered as Reported by: CHANTEL MAYA on 10/31/19 1308 Pantoprazole Sodium (Protonix) 40 Mg Tablet.dr, 40 MG PO DAILY Prescribed by: RAVINDRA OTOOLE on 11/01/19 1103 Tizanidine HCl (Tizanidine HCl) 4 Mg Capsule, 4 MG PO HS, (Reported) Entered as Reported by: CHANTEL MAYA on 10/31/19 1308 Review of Systems Review of Systems Constitutional: No chills, No diaphoresis, No dizziness, No fever EENTM: No Symptoms Reported; No Blurred Vision, No Double Vision Respiratory: No Symptoms Reported; Denies Cough, Denies Shortness of Air Cardiovascular: Chest Pain; Denies Edema, Denies Lightheadedness, Denies Palpitations Gastrointestinal: Denies Abdominal Pain, Denies Constipated; Nausea Genitourinary: No Symptoms Reported; Denies Drainage, Denies Frequency Musculoskeletal: no symptoms reported; No back pain, No joint pain Skin: no symptoms reported, change in color, change in hair/nails Psychiatric/Neurological: No Symptoms Reported; Denies Anxiety, Denies Depressed Endocrine: No Symptoms Reported; Denies Excessive Sweating, Denies Flushing Hematologic/Lymphatic: No Symptoms Reported; Denies Easy Bleeding, Denies Easy Bruising (LORETA PRICE STUDENT) All Other Systems Reviewed Negative Unless Noted: Yes (LORETA PRICE STUDENT) Past Bqprdub-Tqdojw-Mzumqi Hx Patient Social History Tobacco Use?: No Smoking Status: Never a Smoker Smokeless Tobacco Frequency: Never a User Use of E-Cig and/or Vaping dev: No Use of E-Cig and/or Vaping Brian: Never a User Substance use?: No Alcohol Use?: No (was an alcoholic, quit drinking approx 30 years ago) (LORETA PRICE SMGBB STUDENT) Immunizations Up To Date Tetanus Booster (TDap): Unknown First/Initial COVID19 Vaccinat: moderna 2020, unsure of date (FERCHO PRICEEduquia STUDENT) Seasonal Allergies Seasonal Allergies: Yes (FERCHO PRICEEduquia APRYL) Past Medical History Surgeries: Yes (LEFT HIP FX, TEMP COLOSTOMY, EXPLORATORY LAP) Appendectomy, Gallbladder Respiratory: Yes Chronic Bronchitis Cardiac: Yes (MVP) Hypertension Neurological: No Reproductive Disorders: No 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 Sexually Transmitted Disease: No HIV/AIDS: No Genitourinary: No Gastrointestinal: Yes ("chronic pancreatitis", ulcers) Liver Disease/Jaundice, Pancreatitis, Chronic Diarrhea, Hepatitis, Ulcer Musculoskeletal: Yes (CHRONIC PAIN) Arthritis, Fibromyalgia Endocrine: No HEENT: No Loss of Vision: Denies Hearing Impairment: Denies Cancer: No Psychosocial: No Integumentary: No Blood Disorders: No Adverse Reaction/Blood Tranf: No (N/A) (LORETA PRICE SMGBB APRYL) Family Medical History Cancer (MOTHER CERVICAL CANCER ) 03 MOTHER Cataract (MATERNAL GRANDMOTHER ) Chest pain (GRANDFATHER) Congenital heart disease (BROTHER 2 WEEKS AFTER FROM CONGENITAL HEART DEFECT) Congestive heart failure (GRANDFATHER) Family history: Arthritis (GRANDMOTHER) Family history: Breast disease 03 MOTHER Family history: Cardiovascular disease (MOTHER AND GRANDFATHER) 03 MOTHER Family history: Diabetes mellitus 03 MOTHER Family history: Glaucoma (GRANDMOTHER) Family history: Hypertension (MOTHER AND GRANDFATHER) 03 MOTHER Family history: Thyroid disorder (GRANDMOTHER) Heart disease (GRANDFATHER AND GRANDMOTHER) Hypercholesterolemia 03 MOTHER Myocardial infarction (GRANDFATHER AND MOTHER) 03 MOTHER No Family History of: Abdominal aortic aneurysm [place]'s disease Alcoholism Aphasia Cancer of colon Cystic fibrosis Dementia Dysphagia Family history: Allergy Family history: Alzheimer's disease Family history: Asthma Family history: Coronary thrombosis Family history: Gastrointestinal disease Family history: Osteoporosis Headache Hearing loss Hereditary disease History of - anemia History of - disorder History of - respiratory disease History of drug abuse Human immunodeficiency virus (HIV) seropositivity Infertile Kidney disease Malignant neoplasm of lung Parkinson's disease Prostate cancer Psychotic disorder Seizure disorder Stroke Tuberculosis Visual impairment Heart Disease, CAD Over 55 Years Old, Diabetes, Hypertension (LORETA PRICE MED STUDENT) Physical Exam Vital Signs Vital Signs - First Documented 10/22/21 10/22/21 14:22 16:38 Temp 36.8 Pulse 84 Resp 18 B/P (MAP) 151/98 (115) Pulse Ox 98 O2 Delivery Room Air (JASKARAN RUSS MD) Vital Signs Capillary Refill : (LORETA PRICE SMGBB STUDENT) Height, Weight, BMI Height: 5'5.00" Weight: 146lbs. 9.0oz. [id number]; 24.00 BMI Method:Stated General Appearance: No Apparent Distress, WD/WN HEENT: PERRL/EOMI, Pharynx Normal, Moist Mucous Membranes Neck: Full Range of Motion, Normal Inspection, Non Tender Respiratory: Lungs Clear, Normal Breath Sounds, No Accessory Muscle Use Cardiovascular: Regular Rate, Rhythm, No Edema, Normal Peripheral Pulses Gastrointestinal: Normal Bowel Sounds, Non Tender, Soft Rectal: Deferred Extremity: Normal Capillary Refill, Normal Inspection, Non Tender, No Calf Tenderness, No Pedal Edema Neurologic/Psychiatric: Alert, Oriented x3, No Motor/Sensory Deficits, Normal Mood/Affect Skin: Warm/Dry, Other (Scattered abrasions over bilat upper extrem with scabs in various stages of healing.) Lymphatic: No Adenopathy (Head and Neck) (LORETA PRICE STUDENT) Progress/Results/Core Measures Results/Orders Lab Results Laboratory Tests Test 10/22/21 14:30 10/22/21 16:35 Range/Units White Blood Count 6.3 4.3-11.0 10^3/uL Red Blood Count 3.85 3.80-5.11 10^6/uL Hemoglobin 12.9 11.5-16.0 g/dL Hematocrit 38 35-52 % Mean Corpuscular Volume 98 80-99 fL Mean Corpuscular Hemoglobin 34 25-34 pg Mean Corpuscular Hemoglobin Concent 34 32-36 g/dL Red Cell Distribution Width 12.4 10.0-14.5 % Platelet Count 210 130-400 10^3/uL Mean Platelet Volume 9.6 9.0-12.2 fL Immature Granulocyte % (Auto) 0 % Neutrophils (%) (Auto) 57 42-75 % Lymphocytes (%) (Auto) 33 12-44 % Monocytes (%) (Auto) 5 0-12 % Eosinophils (%) (Auto) 4 0-10 % Basophils (%) (Auto) 1 0-10 % Neutrophils # (Auto) 3.6 1.8-7.8 10^3/uL Lymphocytes # (Auto) 2.1 1.0-4.0 10^3/uL Monocytes # (Auto) 0.3 0.0-1.0 10^3/uL Eosinophils # (Auto) 0.2 0.0-0.3 10^3/uL Basophils # (Auto) 0.1 0.0-0.1 10^3/uL Immature Granulocyte # (Auto) 0.0 0.0-0.1 10^3/uL Prothrombin Time 13.2 12.2-14.7 SEC INR Comment 1.0 0.8-1.4 Activated Partial Thromboplast Time 28 24-35 SEC Sodium Level 137 135-145 MMOL/L Potassium Level 3.4 L 3.6-5.0 MMOL/L Chloride Level 103 98-107 MMOL/L Carbon Dioxide Level 22 21-32 MMOL/L Anion Gap 12 5-14 MMOL/L Blood Urea Nitrogen 14 7-18 MG/DL Creatinine 1.10 0.60-1.30 MG/DL Estimat Glomerular Filtration Rate 55 BUN/Creatinine Ratio 13 Glucose Level 97 70-105 MG/DL Calcium Level 9.4 8.5-10.1 MG/DL Corrected Calcium 9.2 8.5-10.1 MG/DL Magnesium Level 2.1 1.6-2.4 MG/DL Total Bilirubin 0.4 0.1-1.0 MG/DL Aspartate Amino Transf (AST/SGOT) 37 H 5-34 U/L Alanine Aminotransferase (ALT/SGPT) 19 0-55 U/L Alkaline Phosphatase 101 40-136 U/L Myoglobin 216.9 H 10.0-92.0 NG/ML Troponin I < 0.028 < 0.028 <0.028 NG/ML Total Protein 7.3 6.4-8.2 GM/DL Albumin 4.3 3.2-4.5 GM/DL (JASKARAN RUSS MD) My Orders Orders - JASKARAN RUSS MD Aspirin Chewable Tablet (Baby Aspirin Ch (10/22/21 14:45) Cbc With Automated Diff (10/22/21 14:38) Magnesium (10/22/21 14:38) Chest 1 View, Ap/Pa Only (10/22/21 14:38) Ekg Tracing (10/22/21 14:38) Comprehensive Metabolic Panel (10/22/21 14:38) Myoglobin Serum (10/22/21 14:38) Protime With Inr (10/22/21 14:38) Partial Thromboplastin Time (10/22/21 14:38) O2 (10/22/21 14:38) Monitor-Rhythm Ecg Trace Only (10/22/21 14:38) Ed Iv/Invasive Line Start (10/22/21 14:38) Troponin I [place] (10/22/21 14:38) Diphenhydramine Injection (Benadryl Inje (10/22/21 14:45) Diphenhydramine Injection (Benadryl Inje (10/22/21 15:15) Lorazepam Injection (Ativan Injection) (10/22/21 16:15) Troponin I [place] (10/22/21 16:25) Ibuprofen Tablet (Motrin Tablet) (10/22/21 16:45) (JASKARAN RUSS MD) Medications Given in ED (JASKARAN RUSS MD) Vital Signs/I&O 10/22/21 10/22/21 10/22/21 14:22 16:38 17:36 Temp 36.8 Pulse 84 85 78 Resp 18 18 18 B/P (MAP) 151/98 (115) 140/87 117/84 Pulse Ox 98 98 O2 Delivery Room Air Room Air (JASKARAN RUSS MD) Progress Progress Note #1: Time: 16:08 Progress Note Patient states that the IV benadryl did not help with her nausea and vomiting. Will add 1mg Ativan. Initial labs reviewed and WNL - CP onset about 10am. not changing. feels better when she is "bent forward." no Sob. no radiation of pain. No diaphoresis. Pain not worsening with activity shopping at [employer]. Pain has been constant. Has a history of chronic pain. (allergy to toradol). Given 324mg baby aspirin. troponin neg at the 4hr ebony. Will repeat to ensure no ongoing elevation in marker. She is a former smoker. on chronic methadone. States she has not missed any doses. Progress Note #2: Time: 16:34 Progress Note rechecked - states that ativan helped "a little". Still holding left side complaining now about a "pressure". Also hurts to take a deep breath. Will recheck her troponin (will be a 6 hour level from the onset of pain). Also she states will take some ibuprofen now that nausea is under control. Toradol gives her a "rash on my chest years ago". Progress Note #3: Time: 17:25 Progress Note Patient still a little uncomfortable but improving (pain at discharge rated a "2"). She wants to go home. We discussed no narcotics secondary to her methadone - she is agreeable. I recommended NSAIDS, alternate heat and ice to sore areas. Acid reducers. Return precautions given. She is comfortable with the plan of care. Neg troponin x2. not tachycardic, not hypoxic. No concerns for sepsis, ACS, PE, collapsed lung or pericarditis (normal EKG). 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 [place], [place] NAME: HARDEEP HUERTA [facility] REC#: [id number] PT STATUS: REG ER : 1955 PHYSICIAN: JASKARAN RUSS MD ADMIT DATE: 10/22/21/ER Signed Date of Exam:10/22/21 CHEST 1 VIEW, AP/PA ONLY CHEST 1 VIEW, AP/PA ONLY Indication: Chest pain. Comparison: 03/16/2017 Findings: No focal airspace disease in the visualized lungs. Please note that the posterior lower lobes are poorly evaluated by portable radiography. No pleural effusion or pneumothorax. Normal cardiomediastinal silhouette. Impression: 1. No acute cardiopulmonary process by portable radiography. Dictated by: Dictated on workstation # [id number] Dict: 10/22/21 1538 Trans: 10/22/21 1538 [facility] [id number] Interpreted by: AMIRA MONSALVE MD Electronically signed by: AMIRA MONSALVE MD 10/22/21 1538 (JASKARAN RUSS MD) Departure Impression Primary Impression: Chest wall pain Disposition: HOME, SELF-CARE Condition: Stable Departure-Patient Inst. Decision time for Depature: 17:27 (JASKARAN RUSS MD) Referrals: AUGUSTO BRO MD (PCP/Family) Primary Care Physician Patient Instructions: Chest Pain That Is Not Caused by the Heart (DC) Add. Discharge Instructions: Continue your current medications. Over the counter ibuprofen 600mg (3 tablets) with food every 6 hours for pain. Alternate heat and ice packs to the sore area. If you are not on an acid copyright expert such as protonix, prilosec or pepcid, you should be on one while you are taking Ibuprofen. Come back to the Emergency Department if you have worsening pain, especially with shortness of breath, fever, vomiting or other emergent concerns. Please call your primary care doctor for a follow up appointment. Verification and Attestation of Medical Student E/M Service A medical student performed and documented this service in my presence. I reviewed and verified all information documented by the medical student and made modifications to such information, when appropriate. I personally performed the physical exam and medical decision making. Jaskaran Russ, Oct 22, 2021,17:40 (JASKARAN RUSS MD) Copy Copies To 1: AUGUSTO BRO MD, [employer] MED STUDENT Oct 22, 2021 14:49 JASKARAN RUSS MD Oct 22, 2021 16:11
[2021-10-22 14:50] LABS: BASOPHILS # (AUTO) 0.1 10^3/uL (0.0-0.1); BASOPHILS % (AUTO) 1 % (0-10); EOSINOPHILS # (AUTO) 0.2 10^3/uL (0.0-0.3); EOSINOPHILS % (AUTO) 4 % (0-10); HEMATOCRIT 38 % (35-52); HEMOGLOBIN 12.9 g/dL (11.5-16.0); LYMPHOCYTES # (AUTO) 2.1 10^3/uL (1.0-4.0); LYMPHOCYTES % (AUTO) 33 % (12-44); MEAN CORPUSCULAR HEMOGLOBIN 34 pg (25-34); MEAN CORPUSCULAR HGB CONC 34 g/dL (32-36); MEAN CORPUSCULAR VOLUME 98 fL (80-99); MEAN PLATELET VOLUME 9.6 fL (9.0-12.2); MONOCYTES # (AUTO) 0.3 10^3/uL (0.0-1.0); MONOCYTES % (AUTO) 5 % (0-12); NEUTROPHILS # (AUTO) 3.6 10^3/uL (1.8-7.8); NEUTROPHILS % (AUTO) 57 % (42-75); PLATELET COUNT 210 10^3/uL (130-400); WHITE BLOOD COUNT 6.3 10^3/uL (4.3-11.0)
[2021-10-22 14:59] LABS: ALBUMIN 4.3 GM/DL (3.2-4.5); POTASSIUM 3.4 MMOL/L (3.6-5.0)
[2021-10-22 15:01] LABS: CALCIUM 9.4 MG/DL (8.5-10.1)
[2021-10-22 15:02] LABS: PROTHROMBIN TIME PATIENT 13.2 SEC (12.2-14.7); TOTAL PROTEIN 7.3 GM/DL (6.4-8.2)
[2021-10-22 15:03] LABS: BILIRUBIN,TOTAL 0.4 MG/DL (0.1-1.0)
[2021-10-22 15:05] LABS: CREATININE SERUM 1.1 MG/DL (0.60-1.30)
[2021-10-22 15:08] LABS: MAGNESIUM 2.1 MG/DL (1.6-2.4)
--- NOTE | 2021-10-22 15:40 | Diagnostic Imaging Report ---
CHEST 1 VIEW, AP/PA ONLY Indication: Chest pain. Comparison: 03/16/2017 Findings: No focal airspace disease in the visualized lungs. Please note that the posterior lower lobes are poorly evaluated by portable radiography. No pleural effusion or pneumothorax. Normal cardiomediastinal silhouette. Impression: 1. No acute cardiopulmonary process by portable radiography. Dictated by: Dictated on workstation # [id number]
[2021-10-22] MEDS ORDERED: LORazepam INJ 2 MG/ML (ATIVAN) VIAL IVP PRN (16:15)
[2021-10-22] MEDS ORDERED: IBUPROFEN 800 MG (MOTRIN) TAB PO ONE (16:45)
[2021-10-22 17:36] VITALS: BP 117/84
== END 2021-10-22 17:46 | disposition home or self-care (01) ==
LOC: EDUNIT# 14:22 → ER 14:23
DX: R07.89 Other chest pain (principal)
CPT/HCPCS: 36415; 71045; 80053; 83735; 83874; 84484; 85025; 85610; 85730; 93005; 93041

== ENCOUNTER → 2021-10-22 | Outpatient (CLI) | payer MEDICARE ==
--- NOTE | 2021-10-22 14:49 | Diagnostic Imaging Report ---
INDICATION: Left breast lump and right breast nipple discharge. COMPARISON: 09/13/2019. TECHNIQUE: 2D and 3D bilateral diagnostic mammography was performed with CAD. A BB marker was placed at the area of palpable abnormality in the upper left breast. FINDINGS: Both breasts are heterogeneously dense, limiting the sensitivity of mammography. There is a moderate amount of motion artifact on the left MLO view. No mass or malignant-appearing microcalcifications are seen. The axillae are unremarkable. IMPRESSION: No mammographic features suspicious for malignancy are identified. Sonographic interrogation of the retroareolar right breast due to right nipple discharge is recommended. In addition, sonographic interrogation of the area of lump in the left breast is recommended. This could not be performed today as the patient started experiencing shortness of breath and chest pain; therefore, the patient was sent to the Emergency Department. ACR BI-RADS Category 0: Incomplete. (Needs additional imaging evaluation). Result letter will be mailed to the patient. Note: At least 10% of breast cancer is not imaged by mammography. Dictated by: Dictated on workstation # [id number]
== END ==
LOC: RAD 14:15
PROVIDERS: ATTEND Internal Medicine
DX: N64.52 Nipple discharge (principal); N63.20 Unspecified lump in the left breast, unspecified quadrant
CPT/HCPCS: 77066; G0279; 77062

== ENCOUNTER → 2021-10-30 | Outpatient (CLI) | payer MEDICARE ==
--- NOTE | 2021-10-30 11:19 | Diagnostic Imaging Report ---
INDICATION: Right nipple discharge and left breast lump. CORRELATION is made with diagnostic mammogram performed on 10/22/2021. Sonographic interrogation of the retroareolar right breast as well as the area of lump in the left breast. This corresponds to approximately the 1:00 location. No sonographic abnormality is identified on the right or left. No solid or cystic mass is detected. IMPRESSION: BI-RADS Category 1 No sonographic abnormality is detected. ACR BI-RADS Category 1: Negative. Result letter will be mailed to the patient. Note: At least 10% of breast cancer is not imaged by mammography. Dictated by: Dictated on workstation # [id number]
== END ==
LOC: RAD 10:45
PROVIDERS: ATTEND Physician Assistant
DX: N63.20 Unspecified lump in the left breast, unspecified quadrant (principal); N64.52 Nipple discharge
CPT/HCPCS: 76642

== ENCOUNTER → 2021-12-03 | Outpatient (CLI) | payer MEDICARE ==
[~2021-12-03] MED LIST changes: +RT-ALBUTEROL SULF 2.5 MG/3 ML PRE-MIX VIAL INH ONE
== END ==
LOC: RT 10:45
PROVIDERS: ATTEND Physician Assistant
DX: R05.8 Other specified cough (principal); I10 Essential (primary) hypertension; R07.1 Chest pain on breathing; R06.2 Wheezing; R06.02 Shortness of breath
CPT/HCPCS: 94060; 94726; 94729

== ENCOUNTER → 2021-12-31 | Outpatient (CLI) | payer MEDICARE ==
[~2021-12-31] MED LIST changes: +OMEP20TA56 PO; -OMEP20TA7 PO; -RT-ALBUTEROL SULF 2.5 MG/3 ML PRE-MIX VIAL INH ONE
--- NOTE | 2021-12-31 12:29 | Diagnostic Imaging Report ---
INDICATION: COPD, cough, fall in garden. TECHNIQUE: Two view chest 11:41 AM CORRELATION STUDY: 10/22/2021 FINDINGS: The heart size, mediastinal configuration and pulmonary vasculature are within normal limits. The lungs are clear with no consolidating infiltrate. There is no significant pleural effusion or pneumothorax. Rightward curvature the thoracic and likely leftward curvature lumbar spine. IMPRESSION: 1. Negative for acute abnormality of the chest. Dictated by: Dictated on workstation # [id number]
--- NOTE | 2021-12-31 12:40 | Diagnostic Imaging Report ---
INDICATION: Pain, post fall in garden. TECHNIQUE: Two views right ribs, 11:43 AM. CORRELATION STUDY: None. FINDINGS: Findings are positive for minimally displaced right lateral rib 4 and 5 fractures. Remainder of the ribs otherwise intact and unremarkable. No appreciable right-sided pneumothorax, effusion, or contusion. Rather significantly advanced degenerative changes of the right shoulder. IMPRESSION: 1. Minimally displaced right lateral rib 4 and 5 fractures. The report was faxed to the office of Dr. Lj Chamorro at 12:38 PM as the office was closed. Dictated by: Dictated on workstation # [id number]
== END ==
LOC: RAD 11:18
PROVIDERS: ATTEND Internal Medicine
DX: J44.9 Chronic obstructive pulmonary disease, unspecified (principal); R07.81 Pleurodynia; Z91.81 History of falling
CPT/HCPCS: 71046; 71100

== ENCOUNTER → 2022-04-10 | Outpatient (CLI) | payer MEDICARE ==
[~2022-04-10] MED LIST changes: +CEPH500T PO; +OMEP20TA33 PO; +SUCR1TAB PO
--- NOTE | 2022-04-10 11:13 | Diagnostic Imaging Report ---
INDICATION: Left hip pain 2 views of left hip show postsurgical changes from internal fixation with dynamic compression device. There is no acute fracture or dislocation. Joint spaces well-maintained. IMPRESSION: Postsurgical changes left hip. No acute abnormalities seen. Dictated by: Dictated on workstation # [id number]
== END ==
LOC: RAD 10:17
PROVIDERS: ATTEND Internal Medicine
DX: M25.552 Pain in left hip (principal); Z98.890 Other specified postprocedural states
CPT/HCPCS: 73502

== ENCOUNTER → 2022-04-12 | Emergency (ER) | payer MEDICARE ==
[~2022-04-12] VITALS: Ht 160 cm; Wt 66.0 kg
[~2022-04-12] MED LIST changes: +ANTACID SUSP 30 ML UDC (MYLANTA) PO ONE; +CEPHALEXIN 250 MG (KEFLEX) CAP PO ONE; +LIDOCAINE 2% VISCOUS 15 ML UDC PO ONE; +NS IV 1000 ML 1,000 ML IV SCH; +ONDANSETRON 4 MG/2 ML (SDV) Z0FRAN IVP ONE; +PANTOPRAZOLE 40 MG (PROTONIX) VIAL IV ONE; +PROMETHAZINE INJ 25 MG/ML (PHENERGAN) AMP IVP ONE
--- NOTE | 2022-04-12 15:55 | Diagnostic Imaging Report ---
INDICATION: Great toe pain. Edema and tenderness with ecchymosis. EXAMINATION: Right foot, 04/12/2022. FINDINGS: 3 views of the foot. There is a transverse lucency through the distal aspect of the proximal 1st phalanx consistent with a nondisplaced fracture. Adjacent narrowing and spurring at the 1st interphalangeal joint space is noted. There is soft tissue swelling about the great toe. Remaining toe is poorly evaluated specifically distal phalanges due to flexion deformities. No obvious other fracture is identified. No dislocation. Diffuse degenerative changes seen throughout the forefoot. There is plantar calcaneal spurring noted. IMPRESSION: Transverse fracture through the distal aspect of the proximal 1st phalanx with otherwise chronic degenerative changes noted. Alignment of the fracture site is difficult to evaluate on the lateral view due to superimposed structures. The degree of displacement is not excluded. Dictated by: Dictated on workstation # [id number]
--- NOTE | 2022-04-12 16:02 | ED General ---
General Chief Complaint: Bite-Animal/Human/Insect Stated Complaint: SNAKE BITE LEFT FOOT Nursing Triage Note: pt. reports feeding dogs at home. reports while walking out to the pens, reports felt a thump on shoe, in which the patient atributed to a snake bite. no snake seen at the time. pt. reports taking benadryl and tylenol. reports today, rt. great toe severely edematous, tender, and echymotic. pt. accomp by family. pt. sat in a recliner w/ foot elevated. here for eval. Source of Information: Patient Exam Limitations: No Limitations (DEREK LOPEZ MD) History of Present Illness Date Seen by Provider: Apr 12, 2022 Time Seen by Provider: 15:24 Initial Comments This 66-year-old woman presents to the emergency room with complaints of what she believes to be a snake bite on the right great toe. She was walking outside at dusk last night when something struck her foot. She had immediate pain. She simultaneously heard a wrestling in the grass. She had been bit by a snake previously this year and presumed that this also was a snake bite. There are no obvious puncture power. She has a very erythematous and swollen right great toe. There is mild swelling that extends up into the foot and lower leg. There is an area of redness on the caruso. She later states that she is also experiencing nausea, vomiting, and diarrhea and that she feels like this could be a flare of pancreatitis. She has abdominal tenderness. She then later also adds that she is having discomfort with urination. She has chronic pain related to abdominal adhesions for which she takes methadone 130 mg daily in addition to gabapentin, tizanidine, and Lomotil. She is afebrile. Patient later adds that she has pain extending up into her right groin area. Patient reports last taking her pain medications this morning and she normally takes them once a day in the morning. (DEREK LOPEZ MD) Allergies and Home Medications Allergies Coded Allergies: Sulfa (Sulfonamide Antibiotics) (Verified Allergy, Unknown, 10/31/19) ketorolac (Verified Allergy, Unknown, 10/31/19) Uncoded Allergies: NARCOTIC ANTAGONISTS (Allergy, Unknown, 02/21/07) Patient Home Medication List Home Medication List Reviewed: Yes (DEREK LOPEZ MD) Cephalexin (Cephalexin) 500 Mg Tablet, 500 MG PO QID Prescribed by: MALLORY KOCH on 04/12/222056 Diphenoxylate HCl/Atropine (Lomotil 2.5-0.025 mg Tablet) 1 Each Tablet, 2 EACH PO TID, (Reported) Entered as Reported by: CHANTEL MAYA on 10/31/19 1308 Gabapentin (Gabapentin) 600 Mg Tablet, 600 MG PO BID, (Reported) Entered as Reported by: CHANTEL MAYA on 10/31/19 130 Ibuprofen (Ibuprofen) 200 Mg Tablet, 800 MG PO BID, (Reported) Entered as Reported by: JUSTICE MARTE on 03/16/17 164 Loperamide HCl (Imodium A-D) 2 Mg Tablet, 4 MG PO DAILY PRN PRN for DIARRHEA, (Reported) Entered as Reported by: JUSTICE MARTE on 03/16/17 164 Methadone HCl (Methadone HCl) 10 Mg Tablet, 130 MG PO DAILY, (Reported) Entered as Reported by: CHANTEL MAYA on 10/31/19 1308 Multivitamin (Multivitamins) 1 Each Capsule, 1 EACH PO DAILY, (Reported) Entered as Reported by: CHANTEL MAYA on 10/31/19 1308 Pantoprazole Sodium (Protonix) 40 Mg Tablet.dr, 40 MG PO DAILY Prescribed by: RAVINDRA OTOOLE on 11/01/19 1103 Tizanidine HCl (Tizanidine HCl) 4 Mg Capsule, 4 MG PO HS, (Reported) Entered as Reported by: CHANTEL MAYA on 10/31/19 1308 Review of Systems Review of Systems Constitutional: no symptoms reported EENTM: no symptoms reported Respiratory: no symptoms reported Cardiovascular: no symptoms reported Gastrointestinal: see HPI Genitourinary: see HPI : No Musculoskeletal: see HPI Skin: see HPI Psychiatric/Neurological: No Symptoms Reported Hematologic/Lymphatic: No Symptoms Reported Immunological/Allergic: no symptoms reported (DEREK LOPEZ MD) Past Isowsat-Ipzopf-Dpmykk Hx Patient Social History Tobacco Use?: No Use of E-Cig and/or Vaping dev: No Substance use?: No Alcohol Use?: No (Prior heavy alcohol consumption) Pt feels they are or have been: No (DEREK LOPEZ MD) Immunizations Up To Date Tetanus Booster (TDap): Unknown Influenza Vaccine Up-to-Date: Yes; Up-to-Date First/Initial COVID19 Vaccinat: NOVEMBER (DEREK LOPEZ MD) Seasonal Allergies Seasonal Allergies: Yes (DEREK LOPEZ MD) Past Medical History Surgeries: Yes (LEFT HIP FX, TEMP COLOSTOMY and reversal, EXPLORATORY LAP) Appendectomy, Gallbladder Respiratory: Yes Chronic Bronchitis Cardiac: Yes (MVP) Hypertension Neurological: No Reproductive Disorders: No 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 Sexually Transmitted Disease: No HIV/AIDS: No Genitourinary: No Gastrointestinal: Yes ("chronic pancreatitis", ulcers) Liver Disease/Jaundice, Pancreatitis, Chronic Diarrhea, Hepatitis, Ulcer Musculoskeletal: Yes (CHRONIC PAIN) Arthritis, Fibromyalgia Endocrine: No HEENT: No Loss of Vision: Denies Hearing Impairment: Denies Cancer: No Psychosocial: No Integumentary: No Blood Disorders: No Adverse Reaction/Blood Tranf: No (N/A) (DEREK LOPEZ MD) Family Medical History Cancer (MOTHER CERVICAL CANCER ) 03 MOTHER Cataract (MATERNAL GRANDMOTHER ) Chest pain (GRANDFATHER) Congenital heart disease (BROTHER 2 WEEKS AFTER FROM CONGENITAL HEART DEFECT) Congestive heart failure (GRANDFATHER) Family history: Arthritis (GRANDMOTHER) Family history: Breast disease 03 MOTHER Family history: Cardiovascular disease (MOTHER AND GRANDFATHER) 03 MOTHER Family history: Diabetes mellitus 03 MOTHER Family history: Glaucoma (GRANDMOTHER) Family history: Hypertension (MOTHER AND GRANDFATHER) 03 MOTHER Family history: Thyroid disorder (GRANDMOTHER) Heart disease (GRANDFATHER AND GRANDMOTHER) Hypercholesterolemia 03 MOTHER Myocardial infarction (GRANDFATHER AND MOTHER) 03 MOTHER No Family History of: Abdominal aortic aneurysm [place]'s disease Alcoholism Aphasia Cancer of colon Cystic fibrosis Dementia Dysphagia Family history: Allergy Family history: Alzheimer's disease Family history: Asthma Family history: Coronary thrombosis Family history: Gastrointestinal disease Family history: Osteoporosis Headache Hearing loss Hereditary disease History of - anemia History of - disorder History of - respiratory disease History of drug abuse Human immunodeficiency virus (HIV) seropositivity Infertile Kidney disease Malignant neoplasm of lung Parkinson's disease Prostate cancer Psychotic disorder Seizure disorder Stroke Tuberculosis Visual impairment Heart Disease, CAD Over 55 Years Old, Diabetes, Hypertension (DEREK LOPEZ MD) Physical Exam Vital Signs Vital Signs - First Documented 04/12/22 15:15 Temp 36.5 Pulse 65 Resp 16 B/P (MAP) 164/74 (104) Pulse Ox 96 O2 Delivery Room Air (MALLORY KOCH) Vital Signs Capillary Refill : Less Than 3 Seconds (DEREK LOPEZ MD) Height, Weight, BMI Height: 5'5.00" Weight: 146lbs. 9.0oz. 66.182256xw; 25.00 BMI Method:Stated General Appearance: No Apparent Distress, WD/WN HEENT: PERRL/EOMI, Normal ENT Inspection Neck: Normal Inspection Respiratory: Lungs Clear, Normal Breath Sounds, No Accessory Muscle Use Cardiovascular: Regular Rate, Rhythm, No Edema, No Murmur Gastrointestinal: Soft; No Distended; Tenderness (Through the upper abdomen) Extremity: Other (Right great toe is markedly edematous and erythematous. There is no significant ecchymosis. There appears to be a callused ulcer on the tip of the toe. Mild edema continues up the foot and into the lower leg. There is an area of mild erythema on the anterior surface of the right lower leg. 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 Norm as Tested Skin: Other (See extremity exam above) (DEREK LOPEZ MD) Progress/Results/Core Measures Suspected Sepsis SIRS Temperature: Pulse: 65 Respiratory Rate: 16 Laboratory Tests 04/12/22 15:50: White Blood Count 6.8 Blood Pressure 164 /74 Mean: 104 Laboratory Tests 04/12/22 15:50: Creatinine 1.24, INR Comment 1.0, Platelet Count 220, Total Bilirubin 0.2 (DEREK OLPEZ MD) Results/Orders Lab Results Laboratory Tests Test 04/12/22 15:50 04/12/22 18:20 Range/Units White Blood Count 6.8 4.3-11.0 10^3/uL Red Blood Count 3.34 L 3.80-5.11 10^6/uL Hemoglobin 11.1 L 11.5-16.0 g/dL Hematocrit 33 L 35-52 % Mean Corpuscular Volume 98 80-99 fL Mean Corpuscular Hemoglobin 33 25-34 pg Mean Corpuscular Hemoglobin Concent 34 32-36 g/dL Red Cell Distribution Width 12.2 10.0-14.5 % Platelet Count 220 130-400 10^3/uL Mean Platelet Volume 10.3 9.0-12.2 fL Immature Granulocyte % (Auto) 0 % Neutrophils (%) (Auto) 61 42-75 % Lymphocytes (%) (Auto) 27 12-44 % Monocytes (%) (Auto) 8 0-12 % Eosinophils (%) (Auto) 4 0-10 % Basophils (%) (Auto) 0 0-10 % Neutrophils # (Auto) 4.1 1.8-7.8 10^3/uL Lymphocytes # (Auto) 1.8 1.0-4.0 10^3/uL Monocytes # (Auto) 0.5 0.0-1.0 10^3/uL Eosinophils # (Auto) 0.3 0.0-0.3 10^3/uL Basophils # (Auto) 0.0 0.0-0.1 10^3/uL Immature Granulocyte # (Auto) 0.0 0.0-0.1 10^3/uL Prothrombin Time 13.4 12.2-14.7 SEC INR Comment 1.0 0.8-1.4 Activated Partial Thromboplast Time 32 24-35 SEC Sodium Level 137 135-145 MMOL/L Potassium Level 3.1 L 3.6-5.0 MMOL/L Chloride Level 102 98-107 MMOL/L Carbon Dioxide Level 22 21-32 MMOL/L Anion Gap 13 5-14 MMOL/L Blood Urea Nitrogen 15 7-18 MG/DL Creatinine 1.24 0.60-1.30 MG/DL Estimat Glomerular Filtration Rate 48 BUN/Creatinine Ratio 12 Glucose Level 117 H 70-105 MG/DL Uric Acid 6.6 2.6-7.2 MG/DL Calcium Level 9.0 8.5-10.1 MG/DL Corrected Calcium 9.2 8.5-10.1 MG/DL Total Bilirubin 0.2 0.1-1.0 MG/DL Aspartate Amino Transf (AST/SGOT) 30 5-34 U/L Alanine Aminotransferase (ALT/SGPT) 19 0-55 U/L Alkaline Phosphatase 113 40-136 U/L C-Reactive Protein High Sensitivity 6.89 H 0.00-0.50 MG/DL Total Protein 7.1 6.4-8.2 GM/DL Albumin 3.7 3.2-4.5 GM/DL Lipase 38 8-78 U/L Procalcitonin 0.05 <0.10 NG/ML Serum Alcohol < 10 <10 MG/DL Urine Color YELLOW Urine Clarity CLEAR Urine pH 6.0 5-9 Urine Specific [place] <=1.005 1.016-1.022 Urine Protein NEGATIVE NEGATIVE Urine Glucose (UA) NEGATIVE NEGATIVE Urine Ketones NEGATIVE NEGATIVE Urine Nitrite NEGATIVE NEGATIVE Urine Bilirubin NEGATIVE NEGATIVE Urine Urobilinogen 0.2 < = 1.0 MG/DL Urine Leukocyte Esterase NEGATIVE NEGATIVE Urine RBC (Auto) TRACE-I H NEGATIVE Urine RBC NONE /HPF Urine WBC RARE /HPF Urine Squamous Epithelial Cells NONE /HPF Urine Renal Epithelial Cells NONE /HPF Urine Crystals NONE /LPF Urine Bacteria NEGATIVE /HPF Urine Casts NONE /LPF Urine Mucus NEGATIVE /LPF Urine Culture Indicated NO (MALLORY KOCH) My Orders Orders - MALLORY KOCH Ua Culture If Indicated (04/12/22 18:16) Urinalysis (04/12/22 18:20) Ed Iv/Invasive Line Start (04/12/22 19:53) Ns Iv 1000 Ml (Sodium Chloride 0.9%) (04/12/22 20:00) Promethazine Injection (Phenergan Injec (04/12/22 20:00) Lidocaine 2% Viscous 15 Ml (Xylocaine Vi (04/12/22 21:00) Antacid Suspension (Mylanta Suspension (04/12/22 21:00) Pantoprazole Injection (Protonix Injecti (04/12/22 21:00) Cephalexin Capsule (Keflex Capsule) (04/12/22 21:00) (MALLORY KOCH) Medications Given in ED Current Medications Medications Dose Ordered Sig/Ocry Route Start Time Stop Time Status Last Admin Dose Admin Al Hydrox/Mg Hydrox/Simethicone 30 ml ONCE ONCE PO 04/12/22 21:00 04/12/22 21:01 DC 04/12/22 21:13 30 ML Cephalexin HCl 500 mg ONCE ONCE PO 04/12/22 21:00 04/12/22 21:01 DC 04/12/22 21:11 500 MG Lidocaine HCl 15 ml ONCE ONCE PO 04/12/22 21:00 04/12/22 21:01 DC 04/12/22 21:11 15 ML Ondansetron HCl 4 mg ONCE ONCE IVP 04/12/22 16:00 04/12/22 16:01 DC 04/12/22 16:10 4 MG Ondansetron HCl 4 mg ONCE ONCE IVP 04/12/22 17:45 04/12/22 17:46 DC 04/12/22 18:11 4 MG Pantoprazole 40 mg ONCE ONCE IV 04/12/22 21:00 04/12/22 21:01 DC 04/12/22 21:13 40 MG Promethazine HCl 25 mg ONCE ONCE IVP 04/12/22 20:00 04/12/22 20:01 DC 04/12/22 20:09 25 MG (MALLORY KOCH) Vital Signs/I&O 04/12/22 04/12/22 04/12/22 15:15 18:03 20:09 Temp 36.5 36.8 36.6 Pulse 65 80 80 Resp 16 20 18 B/P (MAP) 164/74 (104) 160/74 127/81 Pulse Ox 96 98 94 O2 Delivery Room Air Room Air Room Air (MALLORY KOCH) Vital Signs/I&O Capillary Refill : Less Than 3 Seconds (DEREK LOPEZ MD) Blood Pressure Mean: 104 Progress Note : Time: 18:25 Progress Note Patient will need to have her hypokalemia addressed. If her nausea becomes well controlled she can have this replaced orally. Her dysuria needs to be evaluated by urinalysis. X-ray of the right foot was obtained and demonstrated a fracture of the great toe. Patient is bewildered about how this may have occurred. I discussed the case at length with poison control. It does not seem that this presentation is consistent with a snakebite. There are no puncture power. Other features of the case do not necessarily seem consistent either. Even if this were related to a snake bite, they do not recommend treatment with antidote at this time. Care of this patient is being transitioned to Dr. Koch at this time. I did measure the right lower extremity versus left lower extremity with results as follows: Right toe 11 cm, left toe 8 cm, right foot 21.5 cm, left foot 20.5 cm, right ankle 21 cm, left ankle 19.5 cm. Patient is up-to-date on her tetanus immunization. (DEREK LOPEZ MD) Progress Note #1: Time: 20:52 Progress Note We assumed care of the patient at shift change. She was infused with her fluids. She does appear to have a fracture and a small nonacute ulcer on the base of her right great toe. We have discussed going to wound care to help manage the healing of this. We will also start her on some cephalexin for potential cellulitis related to that toe fracture. We have encouraged follow-up with wound care as well as primary care to help manage her symptoms. Her urine and labs are unremarkable. Her marginal CRP is likely in response to her toe fracture. She does not have a story to explain the toe fracture. Her lipase is normal and so we will try some GI cocktail for potential gastritis as the source of her new onset epigastric abdominal pain. Curiously as every issue is addressed she comes up with a new issue and we have encouraged her to follow-up with her myriad complaints with her primary care doctor as not all of them are emergent and her vital signs and labs are aseptic. Progress Note #2: Time: 21:49 Progress Note After the GI cocktail the patient states that her pain is significantly improved. We will put her out on sucralfate and encourage her to double up on her Prilosec to twice a day 20 mg each. Return precautions were discussed, questions were answered and the patient is ready to go home. (MALLORY KOCH) Diagnostic Imaging Diagonstic Imaging: Xray Plain Films/CT/US/NM/MRI: other (Right foot) Comments Foot x-ray viewed by me and report reviewed. See report below: NAME: HARDEEP HUERTA [facility] REC#: [id number] PT STATUS: REG ER : 1955 PHYSICIAN: DEREK LOPEZ MD ADMIT DATE: 04/12/22/ER Draft Date of Exam:04/12/22 FOOT, RIGHT, 3 VIEW INDICATION: Great toe pain. Edema and tenderness with ecchymosis. EXAMINATION: Right foot, 04/12/2022. FINDINGS: 3 views of the foot. There is a transverse lucency through the distal aspect of the proximal 1st phalanx consistent with a nondisplaced fracture. Adjacent narrowing and spurring at the 1st interphalangeal joint space is noted. There is soft tissue swelling about the great toe. Remaining toe is poorly evaluated specifically distal phalanges due to flexion deformities. No obvious other fracture is identified. No dislocation. Diffuse degenerative changes seen throughout the forefoot. There is plantar calcaneal spurring noted. IMPRESSION: Transverse fracture through the distal aspect of the proximal 1st phalanx with otherwise chronic degenerative changes noted. Alignment of the fracture site is difficult to evaluate on the lateral view due to superimposed structures. The degree of displacement is not excluded. Dictated on workstation # [id number] Dict: 04/12/22 1547 Trans: 04/12/22 1553 [facility] [id number] Interpreted by: ABRAHAM REICH MD (DEREK LOPEZ MD) Departure Impression Primary Impression: Toe fracture, right Qualified Codes: S92.404A - Nondisplaced unspecified fracture of right great toe, initial encounter for closed fracture Additional Impressions: Upper abdominal pain Nausea & vomiting Qualified Codes: R11.2 - Nausea with vomiting, unspecified Hypokalemia Gastritis Qualified Codes: K29.50 - Unspecified chronic gastritis without bleeding Cellulitis of toe of right foot Disposition: HOME, SELF-CARE Condition: Stable Departure-Patient Inst. Decision time for Depature: 21:49 (MALLORY KOCH) Referrals: EDMUNDO TAVARES MD, JOHN D MD (PCP/Family) Primary Care Physician Patient Instructions: Toe Fracture ED, Gastritis (DC) Add. Discharge Instructions: Call Dr. Tavares at the [facility] wound care clinic and request follow-up appointment this week at Keep the wound clean and dry. You may meghan tape it to the toe next to it to help reduce movement and pain. Ice 20 minutes on every 2 hours for the first 2 to 3 days. Keep the foot elevated above the level of your heart while at rest to reduce swelling and pain. Tylenol and ibuprofen as necessary for pain. Try Maalox, Mylanta, Tums, Gaviscon etc. as necessary for stomach pain. Cephalexin 500 mg 4 times a day for the next week to control potential cellulitis in the toe. Take your omeprazole 20 mg twice a day for a month. This will help reduce your stomach acid. Take Carafate/sucralfate half an hour before meals and at bedtime for a total of 4 times a day for the next 2 weeks to protect the lining of your esophagus and stomach to promote healing. If you are not seeing improvement by the end of the 2 to 4 weeks of these new medication doses then you need to follow-up with Dr. Bro for reevaluation. All discharge instructions reviewed with patient and/or family. Voiced understanding. Scripts Omeprazole Magnesium (Prilosec Otc) 20 Mg Tablet. 20 MG PO BID for 30 Days, #60 TAB 0 Refills Prov: MALLORY KOCH 04/12/22 Sucralfate (Sucralfate) 1 Gram Tablet 1 GM PO QIDACHS, #56 TAB 0 Refills Prov: MALLORY KOCH 04/12/22 Cephalexin (Cephalexin) 500 Mg Tablet 500 MG PO QID for 7 Days, #28 TAB 0 Refills Prov: MALLORY KOCH 04/12/22 Copy Copies To 1: EDMUNDO TAVARES MD; AUGUSTO BRO MD, JOSHUA T MD Apr 12, 2022 16:02 MALLORY KOCH Apr 12, 2022 20:57
[2022-04-12 16:03] LABS: BASOPHILS % (AUTO) 0 % (0-10); EOSINOPHILS # (AUTO) 0.3 10^3/uL (0.0-0.3); EOSINOPHILS % (AUTO) 4 % (0-10); HEMATOCRIT 33 % (35-52); HEMOGLOBIN 11.1 g/dL (11.5-16.0); LYMPHOCYTES # (AUTO) 1.8 10^3/uL (1.0-4.0); LYMPHOCYTES % (AUTO) 27 % (12-44); MEAN CORPUSCULAR HEMOGLOBIN 33 pg (25-34); MEAN CORPUSCULAR HGB CONC 34 g/dL (32-36); MEAN CORPUSCULAR VOLUME 98 fL (80-99); MEAN PLATELET VOLUME 10.3 fL (9.0-12.2); MONOCYTES # (AUTO) 0.5 10^3/uL (0.0-1.0); MONOCYTES % (AUTO) 8 % (0-12); NEUTROPHILS # (AUTO) 4.1 10^3/uL (1.8-7.8); NEUTROPHILS % (AUTO) 61 % (42-75); PLATELET COUNT 220 10^3/uL (130-400); WHITE BLOOD COUNT 6.8 10^3/uL (4.3-11.0)
[2022-04-12 16:13] LABS: ALBUMIN 3.7 GM/DL (3.2-4.5); CHLORIDE 102 MMOL/L (98-107); POTASSIUM 3.1 MMOL/L (3.6-5.0); SODIUM 137 MMOL/L (135-145)
[2022-04-12 16:16] LABS: GLUCOSE 117 MG/DL (70-105); TOTAL PROTEIN 7.1 GM/DL (6.4-8.2)
[2022-04-12 16:17] LABS: CARBON DIOXIDE 22 MMOL/L (21-32)
[2022-04-12 16:18] LABS: BILIRUBIN,TOTAL 0.2 MG/DL (0.1-1.0)
[2022-04-12 16:19] LABS: ALKALINE PHOSPHATASE 113 U/L (40-136)
[2022-04-12 16:20] LABS: CREATININE SERUM 1.24 MG/DL (0.60-1.30); GFR ESTIMATED 48
[2022-04-12 16:21] LABS: BUN/CREATININE RATIO 12
[2022-04-12 16:22] LABS: ALANINE AMINOTRANSFERASE 19 U/L (0-55)
[2022-04-12 16:23] LABS: URIC ACID 6.6 MG/DL (2.6-7.2)
[2022-04-12 17:47] LABS: PROTHROMBIN TIME PATIENT 13.4 SEC (12.2-14.7)
[2022-04-12 19:52] LABS: BILIRUBIN,URINE NEGATIVE (NEGATIVE); CLARITY,URINE CLEAR; COLOR,URINE YELLOW; GLUCOSE, URINE (UA) NEGATIVE (NEGATIVE); KETONES,URINE NEGATIVE (NEGATIVE); LEUKOCYTE ESTERASE ,URINE NEGATIVE (NEGATIVE); NITRITE,URINE NEGATIVE (NEGATIVE); PROTEIN,URINE NEGATIVE (NEGATIVE)
[2022-04-12 20:01] LABS: BACTERIA,URINE NEGATIVE /HPF; WBC,URINE RARE /HPF
[2022-04-12 22:00] VITALS: BP 124/79
== END ==
LOC: EDUNIT# 14:47 → ER 14:49
DX: S92.411A Displaced fracture of proximal phalanx of right great toe, initial encounter for closed fracture (principal); K29.70 Gastritis, unspecified, without bleeding; E87.6 Hypokalemia; L03.031 Cellulitis of right toe; R30.0 Dysuria; Z28.311 Partially vaccinated for COVID-19; Z88.2 Allergy status to sulfonamides; W22.8XXA Striking against or struck by other objects, initial encounter; Y92.89 Other specified places as the place of occurrence of the external cause
CPT/HCPCS: 73630; 80053; 81000; 83690; 84145; 84550; 85025; 85610; 85730; 86141; 99284; G0480; 36415; 80320

== ENCOUNTER → 2022-04-30 | Outpatient (CLI) | payer MEDICARE ==
[~2022-04-30] MED LIST changes: -ANTACID SUSP 30 ML UDC (MYLANTA) PO ONE; -CEPHALEXIN 250 MG (KEFLEX) CAP PO ONE; -LIDOCAINE 2% VISCOUS 15 ML UDC PO ONE; -NS IV 1000 ML 1,000 ML IV SCH; -ONDANSETRON 4 MG/2 ML (SDV) Z0FRAN IVP ONE; -PANTOPRAZOLE 40 MG (PROTONIX) VIAL IV ONE; -PROMETHAZINE INJ 25 MG/ML (PHENERGAN) AMP IVP ONE
--- NOTE | 2022-04-30 12:52 | Diagnostic Imaging Report ---
Exam: CT left hip without contrast. Date: April 30, 2022. Indication: 66-year-old female, left hip pain. Injury one month ago. Comparison: Left hip radiographs April 10, 2022. Technique: Axial CT images of the left hip were obtained without contrast. Coronal and sagittal reformats were obtained and provided. All CT scans use one or more of the following dose optimizing techniques: automated exposure control, MA and/or KvP adjustment based on patient size and exam type or iterative reconstruction. . Findings: There is an intramedullary odalis with a dynamic fixation screw in the left proximal femur. The hardware appears intact without surrounding lucency. The left hip is not dislocated. There is no joint space loss of the left hip, osteophyte formation, or subchondral cystic change. There is no identified acute fracture. There is no cortical or aggressive bone destruction. There is grade 2 anterolisthesis of L4 on L5 relating to facet arthropathy. There is severe disc height loss at L4-L5. There is disc degenerative change at L3-L4 and L5-S1 with moderate disc height loss at L5-S1. There is facet arthropathy in L3-L4 and L5-S1, as well. There are atherosclerotic calcifications. There is a large volume colonic stool. There is no identified focal fluid collection or hematoma. Impression: 1. Intact hardware in the left proximal femur without complication. 2. No identified acute fracture or other acute osseous abnormality. 3. Severe disc and facet degenerative changes of the imaged lower lumbar spine. 4. Unremarkable appearance of the left hip joint. Dictated by: Dictated on workstation # [id number]
== END ==
LOC: RAD 10:58
PROVIDERS: ATTEND Physician Assistant
DX: M47.816 Spondylosis without myelopathy or radiculopathy, lumbar region (principal); M51.36 Other intervertebral disc degeneration, lumbar region
CPT/HCPCS: 73700

== ENCOUNTER 2022-08-03 05:16 | Inpatient (IN) | payer MEDICARE ==
[~2022-08-03] VITALS: Ht 160 cm; Wt 66.5 kg
[~2022-08-03 05:16] MED LIST changes: +ALBU8.5H6 IH; -RT-ALBUINH IH
[2022-08-03 05:29] LABS: BASOPHILS # (AUTO) 0.1 10^3/uL (0.0-0.1); BASOPHILS % (AUTO) 1 % (0-10); EOSINOPHILS # (AUTO) 0.4 10^3/uL (0.0-0.3); EOSINOPHILS % (AUTO) 3 % (0-10); HEMATOCRIT 42 % (35-52); HEMOGLOBIN 14.3 g/dL (11.5-16.0); LYMPHOCYTES # (AUTO) 2.2 10^3/uL (1.0-4.0); LYMPHOCYTES % (AUTO) 20 % (12-44); MEAN CORPUSCULAR HEMOGLOBIN 33 pg (25-34); MEAN CORPUSCULAR HGB CONC 34 g/dL (32-36); MEAN CORPUSCULAR VOLUME 97 fL (80-99); MEAN PLATELET VOLUME 9.9 fL (9.0-12.2); MONOCYTES # (AUTO) 0.5 10^3/uL (0.0-1.0); MONOCYTES % (AUTO) 5 % (0-12); NEUTROPHILS # (AUTO) 7.7 10^3/uL (1.8-7.8); NEUTROPHILS % (AUTO) 71 % (42-75); PLATELET COUNT 247 10^3/uL (130-400); WHITE BLOOD COUNT 10.8 10^3/uL (4.3-11.0)
[2022-08-03] MEDS ORDERED: LACTATED RINGERS 1,000 ML IV ONE (05:30)
[2022-08-03] MEDS ORDERED: ONDANSETRON 4 MG/2 ML (SDV) Z0FRAN IVP ONE (05:30)
--- NOTE | 2022-08-03 05:30 | ED GI ---
General Chief Complaint: Abdominal/GI Problems Stated Complaint: ABD PAIN Nursing Triage Note: Patient advised she is experiencing upper abdominal and back pain that began approximatley 2 hours ago. Source of Information: Patient, Old Records (ERIC COLORADO DO) History of Present Illness Date Seen by Provider: Aug 03, 2022 Time Seen by Provider: 05:19 Initial Comments PT ARRIVES VIA EMS FROM HOME C/O EPIGASTRIC ABDOMINAL PAIN WITH NAUSEA/VOMITING AND DIARRHEA PAIN RADIATES THROUGH TO HER BACK HAD MILD SYMPTOMS EARLIER IN THE EVENING, THEN SYMPTOMS HAVE BEEN MUCH WORSE THE LAST COUPLE OF HOURS SHE HAS VOMITED AT LEAST 5 TIMES, AND HAS HAD WATERY DIARRHEA ABOUT 5 TIMES NO HEMATEMESIS OR COFFEE-GROUND EMESIS, NO BLACK/BLOODY/TARRY STOOLS SHE HAS HAD URINARY FREQUENCY AND SOME INCONTINENCE NO KNOWN FEVER SHE HAS HAD PANCREATITIS IN THE PAST AND STATES THIS FEELS EXACTLY LIKE THAT. SHE HAS HAD PRIOR CHOLECYSTECTOMY, APPENDECTOMY, BOWEL RESECTION WITH COLOSTOMY AND LATER TAKEDOWN, AND THINKS SHE HAD SOME KIND OF SURGERY ON HER PANCREAS. 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 PT HAS HAD COVID-19 VACCINE X 2, NO FLU VACCINE. PCP: DR. BRO (ERIC [place]ORAD[place] DO) Initial Comments Agree with H & P (BRYAN JARRELL MD) Allergies and Home Medications Allergies Coded Allergies: Sulfa (Sulfonamide Antibiotics) (Verified Allergy, Unknown, 10/31/19) ketorolac (Verified Allergy, Unknown, 10/31/19) Uncoded Allergies: NARCOTIC ANTAGONISTS (Allergy, Unknown, 02/21/07) Patient Home Medication List Home Medication List Reviewed: Yes (BRYAN JARRELL MD) Cephalexin (Cephalexin) 500 Mg Tablet, 500 MG PO QID Prescribed by: MALLORY SANTA on 04/12/222056 Diphenoxylate HCl/Atropine (Lomotil 2.5-0.025 mg Tablet) 1 Each Tablet, 2 EACH PO TID, (Reported) Entered as Reported by: CHANTEL MAYA on 10/31/19 130 Gabapentin (Gabapentin) 600 Mg Tablet, 600 MG PO BID, (Reported) Entered as Reported by: CHANTEL MAYA on 10/31/19 130 Ibuprofen (Ibuprofen) 200 Mg Tablet, 800 MG PO BID, (Reported) Entered as Reported by: JUSTICE MARTE on 03/16/17 164 Loperamide HCl (Imodium A-D) 2 Mg Tablet, 4 MG PO DAILY PRN PRN for DIARRHEA, (Reported) Entered as Reported by: JUSTICE MARTE on 03/16/171647 Methadone HCl (Methadone HCl) 10 Mg Tablet, 130 MG PO DAILY, (Reported) Entered as Reported by: CHANTEL MAYA on 10/31/19 130 Multivitamin (Multivitamins) 1 Each Capsule, 1 EACH PO DAILY, (Reported) Entered as Reported by: CHANTEL MAYA on 10/31/19 130 Omeprazole Magnesium (Prilosec Otc) 20 Mg Tablet.dr, 20 MG PO BID Prescribed by: MALLORY SANTA on 04/12/222153 Pantoprazole Sodium (Protonix) 40 Mg Tablet.dr, 40 MG PO DAILY Prescribed by: RAVINDRA OTOOLE on 11/01/19 110 Sucralfate (Sucralfate) 1 Gram Tablet, 1 GM PO QIDACHS Prescribed by: MALLORY SANTA on 04/12/222153 Tizanidine HCl (Tizanidine HCl) 4 Mg Capsule, 4 MG PO HS, (Reported) Entered as Reported by: CHANTEL MAYA on 10/31/19 130 Review of Systems Review of Systems Constitutional: no symptoms reported EENTM: See HPI, Nose Congestion Respiratory: See HPI, Cough Cardiovascular: No Symptoms Reported; Denies Chest Pain Gastrointestinal: See HPI, Abdominal Pain, Diarrhea, Nausea, Vomiting Genitourinary: See HPI, Frequency, Incontinence Musculoskeletal: see HPI, back pain Skin: no symptoms reported Psychiatric/Neurological: No Symptoms Reported Endocrine: No Symptoms Reported Hematologic/Lymphatic: No Symptoms Reported (ERIC COLORAD[place] DO) Past Dsgtinh-Cpnuol-Cvstky Hx Patient Social History Tobacco Use?: No Smoking Status: Never a Smoker Substance use?: Yes Alcohol Use?: Yes (ERIC [place]OR[place] DO) Immunizations Up To Date Tetanus Booster (TDap): Unknown First/Initial COVID19 Vaccinat: November COVID19 Vaccination Sage: November COVID19 Vaccination Date: NOVEMBER (ERIC COLORADO DO) Seasonal Allergies Seasonal Allergies: Yes (ERIC [place]OR[place] DO) Past Medical History Surgery/Hospitalization HX: hypertension, pancreatitis Surgeries: Yes (LEFT HIP FX, TEMP COLOSTOMY and reversal, EXPLORATORY LAP) Abdominal, Appendectomy, Bowel Surgery, Gallbladder, Orthopedic Respiratory: Yes Chronic Bronchitis Cardiac: Yes (MVP) Hypertension, Valvular Heart Disease Neurological: No Reproductive Disorders: No Female Reproductive Disorders: Denies 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 Sexually Transmitted Disease: No HIV/AIDS: No Genitourinary: No Gastrointestinal: Yes ("chronic pancreatitis", ulcers; CHRONIC ABD PAIN ) Liver Disease/Jaundice, Pancreatitis, Chronic Diarrhea, Hepatitis, Ulcer Musculoskeletal: Yes (CHRONIC PAIN; LEFT HIP FRACTURE/ORIF) Arthritis, Fibromyalgia, Fractures Endocrine: No HEENT: No Loss of Vision: Denies Hearing Impairment: Denies Cancer: No Psychosocial: Yes (HX OF POLYSUBSTANCE ABUSE) Integumentary: No Blood Disorders: No Adverse Reaction/Blood Tranf: No (N/A) (ERIC COLORAD[place] DO) Family Medical History Cancer (MOTHER CERVICAL CANCER ) 03 MOTHER Cataract (MATERNAL GRANDMOTHER ) Chest pain (GRANDFATHER) Congenital heart disease (BROTHER 2 WEEKS AFTER FROM CONGENITAL HEART DEFECT) Congestive heart failure (GRANDFATHER) Family history: Arthritis (GRANDMOTHER) Family history: Breast disease 03 MOTHER Family history: Cardiovascular disease (MOTHER AND GRANDFATHER) 03 MOTHER Family history: Diabetes mellitus 03 MOTHER Family history: Glaucoma (GRANDMOTHER) Family history: Hypertension (MOTHER AND GRANDFATHER) 03 MOTHER Family history: Thyroid disorder (GRANDMOTHER) Heart disease (GRANDFATHER AND GRANDMOTHER) Hypercholesterolemia 03 MOTHER Myocardial infarction (GRANDFATHER AND MOTHER) 03 MOTHER No Family History of: Abdominal aortic aneurysm [place]'s disease Alcoholism Aphasia Cancer of colon Cystic fibrosis Dementia Dysphagia Family history: Allergy Family history: Alzheimer's disease Family history: Asthma Family history: Coronary thrombosis Family history: Gastrointestinal disease Family history: Osteoporosis Headache Hearing loss Hereditary disease History of - anemia History of - disorder History of - respiratory disease History of drug abuse Human immunodeficiency virus (HIV) seropositivity Infertile Kidney disease Malignant neoplasm of lung Parkinson's disease Prostate cancer Psychotic disorder Seizure disorder Stroke Tuberculosis Visual impairment Heart Disease, CAD Over 55 Years Old, Diabetes, Hypertension SOCIAL HISTORY: -SMOKING--DENIES USE -ETOH--HISTORY OF ABUSE/ALCOHOLISM--CLAIMS NONE SINCE 1997, PER PT ON 08/03/22 -DRUGS--STATES SHE USED TO USE "EVERY KIND OF DRUG THEY MAKE, 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 DENIES IV USE. STATES SHE ALWAYS SNORTED THEM. CLAIMS NO USE FOR YEARS, PER PT ON 08/03/22 PAST SURGICAL HISTORY: -CHOLECYSTECTOMY -APPENDECTOMY -COLON RESECTION WITH COLOSTOMY, LATER REVERSAL -PT REPORTS SHE POSSIBLY HAD SOME KIND OF SURGERY ON HER PANCREAS WELL. -EXPLORATORY LAP -LEFT HIP FRACTURE/ ORIF (ERIC COLORAD[place] DO) Physical Exam Vital Signs Vital Signs - First Documented 08/03/22 05:18 Temp 36.4 Pulse 80 Resp 16 B/P (MAP) 209/141 (163) Pulse Ox 99 O2 Delivery Room Air (BRYAN JARRELL MD) Vital Signs Capillary Refill : Less Than 3 Seconds (ERIC [place]OR[place] DO) Height/Weight/BMI Height: 5'5.00" Weight: 146lbs. 9.0oz. 66.534236ca; 25.00 BMI Method:Stated General Appearance: WD/WN, no apparent distress, other (FILTHY, AND UNKEMPT, VERY MALODOROUS--REEKS OF CAT URINE, AND PT IS COVERED IN ANIMAL HAIR AND ANIMAL FECES ARE ON CLOTHING AND SHOES ARE COATED WITH ANIMAL FECES. ) HEENT: PERRL/EOMI; No scleral icterus (R), No scleral icterus (L) Neck: normal inspection Respiratory: normal breath sounds, no respiratory distress, no accessory muscle use Cardiovascular: regular rate, rhythm, no murmur Gastrointestinal: guarding, tenderness (DIFFUSE UPPER ABDOMINAL TENDERNESS. ) Extremities: normal inspection, normal capillary refill Back: no CVA tenderness Neurologic/Psychiatric: ferry hand II-XII nml as tested, no motor/sensory deficits, alert, oriented x 3 Skin: normal color, warm/dry, other (EXTENSIVE SCRATCHES TO ABDOMEN AND CHEST, HANDS AND ARMS--PT STATES IS FROM HER CATS. ) (ERIC COLORAD[place] DO) Progress/Results/Core Measures Results/Orders Lab Results Laboratory Tests Test 08/03/22 05:18 08/03/22 05:23 08/03/22 05:33 Range/Units White Blood Count 10.8 4.3-11.0 10^3/uL Red Blood Count 4.32 3.80-5.11 10^6/uL Hemoglobin 14.3 11.5-16.0 g/dL Hematocrit 42 35-52 % Mean Corpuscular Volume 97 80-99 fL Mean Corpuscular Hemoglobin 33 25-34 pg Mean Corpuscular Hemoglobin Concent 34 32-36 g/dL Red Cell Distribution Width 12.3 10.0-14.5 % Platelet Count 247 130-400 10^3/uL Mean Platelet Volume 9.9 9.0-12.2 fL Immature Granulocyte % (Auto) 0 % Neutrophils (%) (Auto) 71 42-75 % Lymphocytes (%) (Auto) 20 12-44 % Monocytes (%) (Auto) 5 0-12 % Eosinophils (%) (Auto) 3 0-10 % Basophils (%) (Auto) 1 0-10 % Neutrophils # (Auto) 7.7 1.8-7.8 10^3/uL Lymphocytes # (Auto) 2.2 1.0-4.0 10^3/uL Monocytes # (Auto) 0.5 0.0-1.0 10^3/uL Eosinophils # (Auto) 0.4 H 0.0-0.3 10^3/uL Basophils # (Auto) 0.1 0.0-0.1 10^3/uL Immature Granulocyte # (Auto) 0.0 0.0-0.1 10^3/uL Sodium Level 139 135-145 MMOL/L Potassium Level 4.0 3.6-5.0 MMOL/L Chloride Level 99 98-107 MMOL/L Carbon Dioxide Level 30 21-32 MMOL/L Anion Gap 10 5-14 MMOL/L Blood Urea Nitrogen 12 7-18 MG/DL Creatinine 0.86 0.60-1.30 MG/DL Estimat Glomerular Filtration Rate 74 BUN/Creatinine Ratio 14 Glucose Level 163 H 70-105 MG/DL Calcium Level 9.7 8.5-10.1 MG/DL Corrected Calcium 8.5-10.1 MG/DL Magnesium Level 2.0 1.6-2.4 MG/DL Total Bilirubin 0.5 0.1-1.0 MG/DL Aspartate Amino Transf (AST/SGOT) 37 H 5-34 U/L Alanine Aminotransferase (ALT/SGPT) 24 0-55 U/L Alkaline Phosphatase 119 40-136 U/L Total Protein 7.9 6.4-8.2 GM/DL Albumin 4.6 H 3.2-4.5 GM/DL Amylase Level 107 25-125 U/L Lipase 56 8-78 U/L Serum Alcohol < 10 <10 MG/DL Influenza Type A (RT-PCR) Not Detected Not Detecte Influenza Type B (RT-PCR) Not Detected Not Detecte SARS-CoV-2 RNA (RT-PCR) Not Detected Not Detecte Urine Color YELLOW Urine Clarity CLEAR Urine pH 6.5 5-9 Urine Specific [place] 1.025 H 1.016-1.022 Urine Protein 2+ H NEGATIVE Urine Glucose (UA) NEGATIVE NEGATIVE Urine Ketones NEGATIVE NEGATIVE Urine Nitrite NEGATIVE NEGATIVE Urine Bilirubin NEGATIVE NEGATIVE Urine Urobilinogen 0.2 < = 1.0 MG/DL Urine Leukocyte Esterase NEGATIVE NEGATIVE Urine RBC (Auto) 2+ H NEGATIVE Urine RBC 2-5 H /HPF Urine WBC NONE /HPF Urine Squamous Epithelial Cells RARE /HPF Urine Crystals NONE /LPF Urine Bacteria NEGATIVE /HPF Urine Casts NONE /LPF Urine Mucus NEGATIVE /LPF Urine Culture Indicated NO Urine Opiates Screen NEGATIVE NEGATIVE Urine Oxycodone Screen NEGATIVE NEGATIVE Urine Methadone Screen POSITIVE H NEGATIVE Urine Propoxyphene Screen NEGATIVE NEGATIVE Urine Barbiturates Screen NEGATIVE NEGATIVE Ur Tricyclic Antidepressants Screen NEGATIVE NEGATIVE Urine Phencyclidine Screen NEGATIVE NEGATIVE Urine Amphetamines Screen NEGATIVE NEGATIVE Urine Methamphetamines Screen NEGATIVE NEGATIVE Urine Benzodiazepines Screen NEGATIVE NEGATIVE Urine Cocaine Screen NEGATIVE NEGATIVE Urine Cannabinoids Screen NEGATIVE NEGATIVE (BRYAN JARRELL MD) My Orders Orders - BRYAN JARRELL MD Nothing By Mouth (08/03/22 Breakfast) Ng Tube Insert & Assessment (08/03/22 07:09) (BRYAN JARRELL MD) Medications Given in ED Current Medications Medications Dose Ordered Sig/Cory Route Start Time Stop Time Status Last Admin Dose Admin Fentanyl Citrate 50 mcg ONCE ONCE IVP 08/03/22 06:00 08/03/22 06:01 DC 08/03/22 06:06 50 MCG Iohexol 100 ml ONCE ONCE IV 08/03/22 06:00 08/03/22 06:01 DC 08/03/22 06:10 75 ML Lactated Ringer's 1,000 ml @ 0 mls/hr Q0M ONCE IV 08/03/22 05:30 08/03/22 05:31 DC 08/03/22 05:28 0 MLS/HR Ondansetron HCl 8 mg ONCE ONCE IVP 08/03/22 05:30 08/03/22 05:31 DC 08/03/22 05:28 8 MG Pantoprazole 40 mg ONCE ONCE IV 08/03/22 06:00 08/03/22 06:01 DC 08/03/22 06:05 40 MG Promethazine HCl 25 mg ONCE ONCE IVP 08/03/22 06:00 08/03/22 06:01 DC 08/03/22 06:05 25 MG Sodium Chloride 100 ml ONCE ONCE IV 08/03/22 06:00 08/03/22 06:01 DC 08/03/22 06:10 80 ML (BRYAN JARRELL MD) Vital Signs/I&O 08/03/22 05:18 Temp 36.4 Pulse 80 Resp 16 B/P (MAP) 209/141 (163) Pulse Ox 99 O2 Delivery Room Air (BRYAN JARRELL MD) Blood Pressure Mean: 163 Progress Progress Note : Progress Note COVID AND FLU TESTING DONE GIVEN: -IV FLUIDS -ZOFRAN -PHENERGAN -FENTANYL 0600--CARE TURNED OVER TO DR. JARRELL, CT PENDING. (ERIC [place] DO) Progress Note : Progress Note 1. SMALL BOWEL OBSTRUCTION: - CT ABD: SBO -Labs unremarkable, UA unremarkable. Normal white count -Discussed with hospitalist and surgeon, and will be accepted by surgeon -N.p.o., NG tube, IV fluids (BRYAN JARRELL MD) Diagnostic Imaging Diagonstic Imaging: CT Plain Films/CT/US/NM/MRI: abdomen Comments [facility], [place] NAME: HARDEEP HUERTA Josafat [facility] REC#: [id number] PT STATUS: REG ER : 1955 PHYSICIAN: ERIC COLORADO DO ADMIT DATE: 08/03/22/ER Draft Date of Exam:08/03/22 CT ABDOMEN/PELVIS W Clinical indication: Patient complained of abdominal pain, nausea, vomiting and history of pancreatitis. Colostomy reversal and history of gallbladder and appendectomy surgery. EXAM: CT scan of the abdomen and pelvis performed with 75 mL of Omnipaque 350 IV contrast. Sagittal and coronal reformatted images are created. Auto Exposure Controls were utilized during the CT exam to meet ALARA standards for radiation dose reduction. COMPARISON: CT scan the abdomen and pelvis with contrast dated 11/24/2020. FINDINGS: There is minimal atelectasis versus scarring involving the posterior aspects of both lungs with right-sided more than left. Intramedullary odalis partially visualized involving the left femur. There are hypertrophic spurs involving the thoracic and lumbar spine. Cholecystectomy changes are seen. Stable prominence of the common hepatic duct measuring roughly 15 mm in width. Again seen biliary duct stent seen in place in good position. There are no stones or mass seen in the region of the biliary duct or liver hilum. Stable minimal intrahepatic ductal dilation. The pancreatic duct is within normal limits. There is mild stable atrophy of the pancreas noted. Calcification is seen within the tail of the pancreas. The liver shows no other significant abnormality. The spleen and adrenal glands are unremarkable. Both kidneys are unremarkable. There is no hydronephrosis, stone, or mass. Bladder is partially fluid-filled and otherwise unremarkable. There is no intra-abdominal free air or free fluid. There is no aneurysmal dilation of the abdominal aorta or common iliac arteries. There is no lymphadenopathy. There is interval development of multiple dilated loops of small bowel measuring up to roughly 3.6 cm with air-fluid levels. Closely adjacent intestines limits evaluation of transition point. It appears that the transition point is in the right side of the abdomen seen around image 83. There is fecalization of stool within small bowel near the transition point. Postop change to the abdomen with intestinal sutures seen overlying left abdomen. The extra-abdominal and extrapelvic soft tissue structures show no other significant abnormality. IMPRESSION: 1: Interval development of high grade small bowel obstruction with transition point in the right side of abdomen. 2: There is no acute abdominal free air or free fluid. 3: Stable biliary stent in place with stable dilated intrahepatic and extrahepatic ducts. Dictated on workstation # [id number] Dict: 08/03/2226 Trans: 08/03/22 0642 [facility] [id number] Interpreted by: TERRY AVENDANO MD Electronically signed by: (BRYAN JARRELL MD) Departure Communication (Admissions) Time/Spoke to Admitting Phy: 07:[address] Bravo and Dr. Gonzalez, with patient being accepted by Dr. Corley (BRYAN JARRELL MD) Impression Primary Impression: Small bowel obstruction Disposition: 30 STILL A PATIENT Condition: Stable Admissions Decision to Admit Reason: Admit from ER (General) Decision to Admit/Date: Aug 03, 2022 Time/Decision to Admit Time: 07:00 (BRYAN JARRELL MD) Departure-Patient Inst. Referrals: AUGUSTO BRO MD (PCP/Family) Primary Care Physician ERIC COLORADO DO Aug 03, 2022 05:30 BRYAN JARRELL MD Aug 03, 2022 07:07
[2022-08-03 05:37] LABS: ALBUMIN 4.6 GM/DL (3.2-4.5); CHLORIDE 99 MMOL/L (98-107); SODIUM 139 MMOL/L (135-145)
[2022-08-03 05:38] LABS: CALCIUM 9.7 MG/DL (8.5-10.1)
[2022-08-03 05:39] LABS: AMYLASE 107 U/L (25-125)
[2022-08-03 05:40] LABS: GLUCOSE 163 MG/DL (70-105); TOTAL PROTEIN 7.9 GM/DL (6.4-8.2)
[2022-08-03 05:41] LABS: CARBON DIOXIDE 30 MMOL/L (21-32)
[2022-08-03 05:42] LABS: BILIRUBIN,TOTAL 0.5 MG/DL (0.1-1.0)
[2022-08-03 05:43] LABS: ALKALINE PHOSPHATASE 119 U/L (40-136); CREATININE SERUM 0.86 MG/DL (0.60-1.30); GFR ESTIMATED 74
[2022-08-03 05:44] LABS: BUN/CREATININE RATIO 14
[2022-08-03 05:46] LABS: ALANINE AMINOTRANSFERASE 24 U/L (0-55)
[2022-08-03 05:47] LABS: LIPASE 56 U/L (8-78)
[2022-08-03 05:52] LABS: AMPHETAMINE SCREEN, URINE NEGATIVE (NEGATIVE); BARBITURATE SCREEN URINE NEGATIVE (NEGATIVE); BENZODIAZEPINES SCREEN URINE NEGATIVE (NEGATIVE); CANNABINOID SCREEN, URINE NEGATIVE (NEGATIVE); COCAINE SCREEN URINE NEGATIVE (NEGATIVE); METHADONE STAT POSITIVE (NEGATIVE); OPIATE SCREEN URINE NEGATIVE (NEGATIVE); OXYCODONE STAT NEGATIVE (NEGATIVE); PROPOXYPHENE STAT NEGATIVE (NEGATIVE); TRICYCLIC ANTIDEPRESSANTS SCRE NEGATIVE (NEGATIVE)
[2022-08-03] MEDS ORDERED: NS 100 ML (IVPB) BAG IV ONE (06:00)
[2022-08-03] MEDS ORDERED: fentaNYL INJ 100 MCG/2 ML AMP IVP ONE (06:00)
[2022-08-03] MEDS ORDERED: HOLD METFORMIN - RECEIVED CONTRAST 20 ML VIAL IV SCH (06:00)
[2022-08-03] MEDS ORDERED: PROMETHAZINE INJ 25 MG/ML (PHENERGAN) AMP IVP ONE (06:00)
[2022-08-03] MEDS ORDERED: PANTOPRAZOLE 40 MG (PROTONIX) VIAL IV ONE (06:00)
[2022-08-03] MEDS ORDERED: IOHEXOL 350 MG/ML 100 ML (OMNIPAQUE 350) VIAL IV ONE (06:00)
[2022-08-03 06:04] LABS: BACTERIA,URINE NEGATIVE /HPF; BILIRUBIN,URINE NEGATIVE (NEGATIVE); CLARITY,URINE CLEAR; COLOR,URINE YELLOW; GLUCOSE, URINE (UA) NEGATIVE (NEGATIVE); KETONES,URINE NEGATIVE (NEGATIVE); LEUKOCYTE ESTERASE ,URINE NEGATIVE (NEGATIVE); NITRITE,URINE NEGATIVE (NEGATIVE); PH,URINE 6.5 (5-9); PROTEIN,URINE 2+ (NEGATIVE); SQUAMOUS EPITHELIAL CELL,UR RARE /HPF
--- NOTE | 2022-08-03 06:43 | Diagnostic Imaging Report ---
Clinical indication: Patient complained of abdominal pain, nausea, vomiting and history of pancreatitis. Colostomy reversal and history of gallbladder and appendectomy surgery. EXAM: CT scan of the abdomen and pelvis performed with 75 mL of Omnipaque 350 IV contrast. Sagittal and coronal reformatted images are created. Auto Exposure Controls were utilized during the CT exam to meet ALARA standards for radiation dose reduction. COMPARISON: CT scan the abdomen and pelvis with contrast dated 11/24/2020. FINDINGS: There is minimal atelectasis versus scarring involving the posterior aspects of both lungs with right-sided more than left. Intramedullary odalis partially visualized involving the left femur. There are hypertrophic spurs involving the thoracic and lumbar spine. Cholecystectomy changes are seen. Stable prominence of the common hepatic duct measuring roughly 15 mm in width. Again seen biliary duct stent seen in place in good position. There are no stones or mass seen in the region of the biliary duct or liver hilum. Stable minimal intrahepatic ductal dilation. The pancreatic duct is within normal limits. There is mild stable atrophy of the pancreas noted. Calcification is seen within the tail of the pancreas. The liver shows no other significant abnormality. The spleen and adrenal glands are unremarkable. Both kidneys are unremarkable. There is no hydronephrosis, stone, or mass. Bladder is partially fluid-filled and otherwise unremarkable. There is no intra-abdominal free air or free fluid. There is no aneurysmal dilation of the abdominal aorta or common iliac arteries. There is no lymphadenopathy. There is interval development of multiple dilated loops of small bowel measuring up to roughly 3.6 cm with air-fluid levels. Closely adjacent intestines limits evaluation of transition point. It appears that the transition point is in the right side of the abdomen seen around image 83. There is fecalization of stool within small bowel near the transition point. Postop change to the abdomen with intestinal sutures seen overlying left abdomen. The extra-abdominal and extrapelvic soft tissue structures show no other significant abnormality. IMPRESSION: 1: Interval development of high grade small bowel obstruction with transition point in the right side of abdomen. 2: There is no acute abdominal free air or free fluid. 3: Stable biliary stent in place with stable dilated intrahepatic and extrahepatic ducts. Dictated by: Dictated on workstation # [id number]
[2022-08-03] MEDS ORDERED: HURRICAINE EXT TUBE (BENZOCAINE) ONE (08:04)
[2022-08-03 09:02] VITALS: BP 140/90
[2022-08-03] MEDS: morphine INJ 4 MG/ML 1 ML (VIAL/SYRINGE) IVP PRN ×5 (09:20→23:22)
[2022-08-03 11:11] VITALS: BP 160/80
--- NOTE | 2022-08-03 11:33 | Consultation - Surgery ---
DIEUDONNE CASTAÑEDA 08/03/22 1133: History of Present Illness History of Present Illness Patient Consulted On(abiel/time) 08/03/22 11:26 Date Seen by Provider: Aug 03, 2022 Time Seen by Provider: 10:33 History of Present Illness 66yo F with h/o pancreatitis, bowel resection with colostomy and colostomy reversal, and HTN was admitted after presenting to the ED with worsening, constant, epigastric pain with radiation to b/l flanks that started yesterday evening. Pt states that the pain started about 0100 yesterday and gradually got worse, prompting her to come to the ED. Pt states that the pain is both sharp and dull and feels similar to when she had pancreatitis. Pt notes associated abd distention, nausea, and vomiting. Pt states that she has vomited 11 times since pain started, noting it was dark brown/yoder in color. Denies blood or coffee ground appearance. Pt notes that her last BM was last night prior to the pain starting and states that it was small and diarrhea. Pt notes that she normally has diarrhea. Denies any blood or melena. Pt also notes cold symptoms that started 3-4 days ago, such as nonproductive cough, weakness, and decreased appet ite. Pt states that she took cough syrup (1oz) last night. Pt also notes new onset of increased urinary frequency and incontinence that started 3-4 days ago. In ED, pt was afebile and did not have an elevated white count. CT ABD/PELVIS showed interval development of high grade small bowel obstruction with transition point in the right side of abd. There was no acute abd free air or fluid. In room, pt is laying in mild discomfort with bucket at bedside. Pt rates her pain a 9/10 at rest and worsening with movement or palpation. Pt vomited in room when flanks were palpated, producing dark green emesis. Pt would periodically stop responding to questions, seemingly asleep, and have to be prompted to answer. Pt stated that it "hurt to keep her eyes open". Pt denies any BM or flatus since pain started. Pt's last meal was yesterday evening around 5pm. Pt states her last colonoscopy was <5 years ago with and that she had an EGD ~2 years ago at [place]. She states both were "normal". Pt denies CP, hematuria, lightheadedness, or hematuria. Allergies and Home Medications Allergies Coded Allergies: Sulfa (Sulfonamide Antibiotics) (Verified Allergy, Unknown, 10/31/19) ketorolac (Verified Allergy, Unknown, 10/31/19) Uncoded Allergies: NARCOTIC ANTAGONISTS (Allergy, Unknown, 02/21/07) Patient Home Medication List Home Medication List Reviewed: Yes Cephalexin (Cephalexin) 500 Mg Tablet, 500 MG PO QID Prescribed by: MALLORY SANTA on 04/12/222056 Diphenoxylate HCl/Atropine (Lomotil 2.5-0.025 mg Tablet) 1 Each Tablet, 2 EACH PO TID, (Reported) Entered as Reported by: CHANTEL MAYA on 10/31/19 130 Gabapentin (Gabapentin) 600 Mg Tablet, 600 MG PO BID, (Reported) Entered as Reported by: CHANTEL MAYA on 10/31/19 130 Ibuprofen (Ibuprofen) 200 Mg Tablet, 800 MG PO BID, (Reported) Entered as Reported by: JUSTICE MARTE on 03/16/17 1648 Loperamide HCl (Imodium A-D) 2 Mg Tablet, 4 MG PO DAILY PRN PRN for DIARRHEA, (Reported) Entered as Reported by: JUSTICE MARTE on 03/16/17 164 Methadone HCl (Methadone HCl) 10 Mg Tablet, 130 MG PO DAILY, (Reported) Entered as Reported by: CHANTEL MAYA on 10/31/19 1308 Multivitamin (Multivitamins) 1 Each Capsule, 1 EACH PO DAILY, (Reported) Entered as Reported by: CHANTEL MAYA on 10/31/19 130 Omeprazole Magnesium (Prilosec Otc) 20 Mg Tablet.dr, 20 MG PO BID Prescribed by: MALLORY SANTA on 04/12/222153 Pantoprazole Sodium (Protonix) 40 Mg Tablet.dr, 40 MG PO DAILY Prescribed by: RAVINDRA OTOOLE on 11/01/19 110 Sucralfate (Sucralfate) 1 Gram Tablet, 1 GM PO QIDACHS Prescribed by: MALLORY SANTA on 04/12/222153 Tizanidine HCl (Tizanidine HCl) 4 Mg Capsule, 4 MG PO HS, (Reported) Entered as Reported by: CHANTEL MAYA on 10/31/19 1308 Past Vbqgmde-Kdkuuf-Bbxuej Hx Patient Social History Drug of Choice: HX Smoking Status: Never a Smoker 2nd Hand Smoke Exposure: Yes Recent Hopitalizations: No Alcohol Use?: No (h/o alcoholism; last drink in 1997) Substance type: Methamphetamine (h/o last used ), Opiates/Opioids (h/o last used ) Have you traveled recently?: No Immunizations Up To Date Tetanus Booster (TDap): Unknown Date of Pneumonia Vaccine: May 22, 2019 Date of Influenza Vaccine: May 22, 2019 Seasonal Allergies Seasonal Allergies: Yes Surgeries History of Surgeries: Yes (LEFT HIP FX, TEMP COLOSTOMY and reversal, EXPLORATORY LAP) Surgeries: Appendectomy, Bowel Surgery (bowel resection colostomy and colostomy reversal), Gallbladder, Orthopedic, Pancreatic Respiratory History of Respiratory Disorde: No Cardiovascular History of Cardiac Disorders: Yes (MVP) Cardiac Disorders: Hypertension Neurological History of Neurological Disord: Yes (restless leg syndrome) Reproductive System Hx Reproductive Disorders: No Sexually Transmitted Disease: No HIV/AIDS: No Female Reproductive Disorders: Denies 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 Genitourinary History of Genitourinary Disor: No Gastrointestinal History of Gastrointestinal Di: Yes ("chronic pancreatitis", ulcers; CHRONIC ABD PAIN ) Gastrointestinal Disorders: Liver Disease/Jaundice, Pancreatitis, Chronic Diarrhea, Ulcer (duodenal) Musculoskeletal History of Musculoskeletal Dis: Yes (CHRONIC PAIN; LEFT HIP FRACTURE/ORIF) Musculoskeletal Disorders: Arthritis, Fibromyalgia, Fractures Endocrine History of Endocrine Disorders: No HEENT History of HEENT Disorders: No Loss of Vision: Denies Hearing Impairment: Denies Cancer History of Cancer: No Psychosocial History of Psychiatric Problem: Yes (HX OF POLYSUBSTANCE ABUSE) Integumentary History of Skin or Integumenta: No Blood Transfusions History of Blood Disorders: No Adverse Reaction to a Blood Tr: No (N/A) Family Medical History Significant Family History: Heart Disease, Cancer (mother: cervical, Maternal grandfather: colon cx), CAD Over 55 Years Old, Diabetes, Hypertension Family Medial History: Cancer (MOTHER CERVICAL CANCER ) 03 MOTHER Cataract (MATERNAL GRANDMOTHER ) Chest pain (GRANDFATHER) Congenital heart disease (BROTHER 2 WEEKS AFTER FROM CONGENITAL HEART DEFECT) Congestive heart failure (GRANDFATHER) Family history: Arthritis (GRANDMOTHER) Family history: Breast disease 03 MOTHER Family history: Cardiovascular disease (MOTHER AND GRANDFATHER) 03 MOTHER Family history: Diabetes mellitus 03 MOTHER Family history: Glaucoma (GRANDMOTHER) Family history: Hypertension (MOTHER AND GRANDFATHER) 03 MOTHER Family history: Thyroid disorder (GRANDMOTHER) Heart disease (GRANDFATHER AND GRANDMOTHER) Hypercholesterolemia 03 MOTHER Myocardial infarction (GRANDFATHER AND MOTHER) 03 MOTHER No Family History of: Abdominal aortic aneurysm Ambrose's disease Alcoholism Aphasia Cancer of colon Cystic fibrosis Dementia Dysphagia Family history: Allergy Family history: Alzheimer's disease Family history: Asthma Family history: Coronary thrombosis Family history: Gastrointestinal disease Family history: Osteoporosis Headache Hearing loss Hereditary disease History of - anemia History of - disorder History of - respiratory disease History of drug abuse Human immunodeficiency virus (HIV) seropositivity Infertile Kidney disease Malignant neoplasm of lung Parkinson's disease Prostate cancer Psychotic disorder Seizure disorder Stroke Tuberculosis Visual impairment Review of Systems-General Constitutional: No fever; weakness EENTM: No ear discharge, No ear pain Respiratory: cough, short of breath (secondary to pain) Gastrointestinal: abdominal pain (diffuse); No hematemesis, No melena; nausea, vomiting Genitourinary: No dysuria; frequency; No hematuria Musculoskeletal: back pain (b/l flank); No joint swelling Skin: No change in color, No change in hair/nails Psychiatric/Neurological: Denies Anxiety, Denies Depressed Physical Exam-General Problems Physical Exam Vital Signs Vital Signs - First Documented 08/03/22 05:18 Temp 36.4 Pulse 80 Resp 16 B/P (MAP) 209/141 (163) Pulse Ox 99 O2 Delivery Room Air Capillary Refill : Less Than 3 Seconds General Appearance: mild distress, thin HEENT: PERRL/EOMI Respiratory: normal breath sounds, no respiratory distress, no accessory muscle use Cardiovascular: regular rate, rhythm, no murmur Peripheral Pulses: 2+ Dorsalis Pedis (R), 2+ Left Dors-Pedis (L) Gastrointestinal: distended (mild), guarding (LLQ), tenderness (diffuse), hepatomegaly Back: other (positive Henrik's punch B/L) Extremities: no pedal edema, no calf tenderness Neurologic/Psychiatric: alert, oriented x 3 Skin: warm/dry Data Review Labs Laboratory Tests 08/03/22 05:18: White Blood Count 10.8, Red Blood Count 4.32, Hemoglobin 14.3, Hematocrit 42, Mean Corpuscular Volume 97, Mean Corpuscular Hemoglobin 33, Mean Corpuscular Hemoglobin Concent 34, Red Cell Distribution Width 12.3, Platelet Count 247, Mean Platelet Volume 9.9, Immature Granulocyte % (Auto) 0, Neutrophils (%) (Auto) 71, Lymphocytes (%) (Auto) 20, Monocytes (%) (Auto) 5, Eosinophils (%) (Auto) 3, Basophils (%) (Auto) 1, Neutrophils # (Auto) 7.7, Lymphocytes # (Auto) 2.2, Monocytes # (Auto) 0.5, Eosinophils # (Auto) 0.4H, Basophils # (Auto) 0.1, Immature Granulocyte # (Auto) 0.0, Sodium Level 139, Potassium Level 4.0, Chloride Level 99, Carbon Dioxide Level 30, Anion Gap 10, Blood Urea Nitrogen 12, Creatinine 0.86, Estimat Glomerular Filtration Rate 74, BUN/Creatinine Ratio 14, Glucose Level 163H, Calcium Level 9.7, Corrected Calcium , Magnesium Level 2.0, Total Bilirubin 0.5, Aspartate Amino Transf (AST/SGOT) 37H, Alanine Aminotransferase (ALT/SGPT) 24, Alkaline Phosphatase 119, Total Protein 7.9, Albumin 4.6H, Amylase Level 107, Lipase 56, Serum Alcohol < 10 08/03/22 05:23: Influenza Type A (RT-PCR) Not Detected, Influenza Type B (RT-PCR) Not Detected, SARS-CoV-2 RNA (RT-PCR) Not Detected 08/03/22 05:33: Urine Color YELLOW, Urine Clarity CLEAR, Urine pH 6.5, Urine Specific [place] 1.025H, Urine Protein 2+H, Urine Glucose (UA) NEGATIVE, Urine Ketones NEGATIVE, Urine Nitrite NEGATIVE, Urine Bilirubin NEGATIVE, Urine Urobilinogen 0.2, Urine Leukocyte Esterase NEGATIVE, Urine RBC (Auto) 2+H, Urine RBC 2-5H, Urine WBC NONE, Urine Squamous Epithelial Cells RARE, Urine Crystals NONE, Urine Bacteria NEGATIVE, Urine Casts NONE, Urine Mucus NEGATIVE, Urine Culture Indicated NO, Urine Opiates Screen NEGATIVE, Urine Oxycodone Screen NEGATIVE, Urine Methadone Screen POSITIVEH, Urine Propoxyphene Screen NEGATIVE, Urine Barbiturates Screen NEGATIVE, Ur Tricyclic Antidepressants Screen NEGATIVE, Urine Phencyclidine Screen NEGATIVE, Urine Amphetamines Screen NEGATIVE, Urine Methamphetamines Screen NEGATIVE, Urine Benzodiazepines Screen NEGATIVE, Urine Cocaine Screen NEGATIVE, Urine Cannabinoids Screen NEGATIVE Radiology Date of Exam:08/03/22 CT ABDOMEN/PELVIS W Clinical indication: Patient complained of abdominal pain, nausea, vomiting and history of pancreatitis. Colostomy reversal and history of gallbladder and appendectomy surgery. EXAM: CT scan of the abdomen and pelvis performed with 75 mL of Omnipaque 350 IV contrast. Sagittal and coronal reformatted images are created. Auto Exposure Controls were utilized during the CT exam to meet ALARA standards for radiation dose reduction. COMPARISON: CT scan the abdomen and pelvis with contrast dated 11/24/2020. FINDINGS: There is minimal atelectasis versus scarring involving the posterior aspects of both lungs with right-sided more than left. Intramedullary odalis partially visualized involving the left femur. There are hypertrophic spurs involving the thoracic and lumbar spine. Cholecystectomy changes are seen. Stable prominence of the common hepatic duct measuring roughly 15 mm in width. Again seen biliary duct stent seen in place in good position. There are no stones or mass seen in the region of the biliary duct or liver hilum. Stable minimal intrahepatic ductal dilation. The pancreatic duct is within normal limits. There is mild stable atrophy of the pancreas noted. Calcification is seen within the tail of the pancreas. The liver shows no other significant abnormality. The spleen and adrenal glands are unremarkable. Both kidneys are unremarkable. There is no hydronephrosis, stone, or mass. Bladder is partially fluid-filled and otherwise unremarkable. There is no intra-abdominal free air or free fluid. There is no aneurysmal dilation of the abdominal aorta or common iliac arteries. There is no lymphadenopathy. There is interval development of multiple dilated loops of small bowel measuring up to roughly 3.6 cm with air-fluid levels. Closely adjacent intestines limits evaluation of transition point. It appears that the transition point is in the right side of the abdomen seen around image 83. There is fecalization of stool within small bowel near the transition point. Postop change to the abdomen with intestinal sutures seen overlying left abdomen. The extra-abdominal and extrapelvic soft tissue structures show no other significant abnormality. IMPRESSION: 1: Interval development of high grade small bowel obstruction with transition point in the right side of abdomen. 2: There is no acute abdominal free air or free fluid. 3: Stable biliary stent in place with stable dilated intrahepatic and extrahepatic ducts. Dictated on workstation # [id number] Dict: 08/03/2226 Trans: 08/03/22 0642 [facility] [id number] Interpreted by: TERRY AVENDANO MD Assessment/Plan Assessment/Plan Assessment/Plan 1. Epigastric pain with radiation to b/lflank 2. Nausea and Vomiting 3. H/o pancreatitis 4. H/o adhesions and colostomy 5. Chronic abd pain Pt seems to be in mild distress due to pain. CT abd/pelvis was suspicious for high grade small bowel obstruction. There is slight abd distention present at this time and pt is tender with palpation. Adminster IV fluids, anti-emetics prn, and pain medication prn. NPO, consider possible NG tube for decompression if nausea and vomiting persists or if worsening distention. Encourage ambulation and IS use. Clinical Quality Measures AMI/AHF: ASA po Prior to arrival: Yes TAMEKA WYLIE DO 08/03/22 1405: History of Present Illness History of Present Illness Time Seen by Provider: 13:26 History of Present Illness Surgery asked to admit pt for PSBO. HPI per ED: PT ARRIVES VIA EMS FROM HOME, C/O EPIGASTRIC ABDOMINAL PAIN WITH NAUSEA/VOMITING AND DIARRHEA, PAIN RADIATES THROUGH TO HER BACK, HAD MILD SY MPTOMS EARLIER IN THE EVENING, THEN SYMPTOMS HAVE BEEN MUCH WORSE THE LAST COUPLE OF HOURS, SHE HAS VOMITED AT LEAST 5 TIMES, AND HAS HAD WATERY DIARRHEA ABOUT 5 TIMES, NO HEMATEMESIS OR COFFEE-GROUND EMESIS, NO BLACK/BLOODY/TARRY STOOLS, SHE HAS HAD URINARY FREQUENCY AND SOME INCONTINENCE, NO KNOWN FEVER. SHE HAS HAD PANCREATITIS IN THE PAST AND STATES THIS FEELS EXACTLY LIKE THAT. SHE HAS HAD PRIOR CHOLECYSTECTOMY, APPENDECTOMY, BOWEL RESECTION WITH COLOSTOMY AND LATER TAKEDOWN, AND THINKS SHE HAD SOME KIND OF SURGERY ON HER PANCREAS. SHE HAS CHRONIC ABDOMINAL PAIN AND IS ON METHADONE DAILY, IN ADDITION TO MULTIPLE OTHER MEDICATIONS FOR CHRONIC ABDOMINAL PAIN. LAST FOOD INTAKE WAS AROUND 1700. PT ALSO STATES SHE HAS HAD COLD SYMPTOMS FOR THE LAST 4-5 DAYS, AND HAS BEEN TAKING ALOT OF OVER THE COUNTER COUGH SYRUP FOR HER COUGH, NO CHEST PAIN, NO SHORTNESS OF BREATH, PT STAES SHE USED TO BE AN ALCOHOLIC, STATES NO ALCOHOL USE SINCE 1992. 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 When I spoke to the pt she appeared to be mostly comfortable but complained of abdominal pain. She had just gone to the bathroom, "I only peed, no BM". She is concerned because she is on Methadone at home for chronic abdominal pain and the Morphine she is getting now is not "touching the pain". No flatus. Allergies and Home Medications Allergies Coded Allergies: Sulfa (Sulfonamide Antibiotics) (Verified Allergy, Unknown, 10/31/19) ketorolac (Verified Allergy, Unknown, 10/31/19) Uncoded Allergies: NARCOTIC ANTAGONISTS (Allergy, Unknown, 02/21/07) Patient Home Medication List Home Medication List Reviewed: Yes Cephalexin (Cephalexin) 500 Mg Tablet, 500 MG PO QID Prescribed by: MALLORY SANTA on 04/12/222056 Diphenoxylate HCl/Atropine (Lomotil 2.5-0.025 mg Tablet) 1 Each Tablet, 2 EACH PO TID, (Reported) Entered as Reported by: CHANTEL MAYA on 10/31/19 1308 Gabapentin (Gabapentin) 600 Mg Tablet, 600 MG PO BID, (Reported) Entered as Reported by: CHANTEL MAYA on 10/31/19 1308 Ibuprofen (Ibuprofen) 200 Mg Tablet, 800 MG PO BID, (Reported) Entered as Reported by: JUSTICE MARTE on 03/16/17 1648 Loperamide HCl (Imodium A-D) 2 Mg Tablet, 4 MG PO DAILY PRN PRN for DIARRHEA, (Reported) Entered as Reported by: JUSTICE MARTE on 03/16/17 1648 Methadone HCl (Methadone HCl) 10 Mg Tablet, 130 MG PO DAILY, (Reported) Entered as Reported by: CHANTEL MAYA on 10/31/19 1308 Multivitamin (Multivitamins) 1 Each Capsule, 1 EACH PO DAILY, (Reported) Entered as Reported by: CHANTEL MAYA on 10/31/19 1308 Omeprazole Magnesium (Prilosec Otc) 20 Mg Tablet., 20 MG PO BID Prescribed by: MALLORY SANTA on 04/12/222153 Pantoprazole Sodium (Protonix) 40 Mg Tablet., 40 MG PO DAILY Prescribed by: RAVINDRA OTOOLE on 11/01/19 1103 Sucralfate (Sucralfate) 1 Gram Tablet, 1 GM PO QIDACHS Prescribed by: MALLORY SANTA on 04/12/222153 Tizanidine HCl (Tizanidine HCl) 4 Mg Capsule, 4 MG PO HS, (Reported) Entered as Reported by: CHANTEL MAYA on 10/31/19 1308 Past Sxrnqnw-Rxbogz-Bbozwa Hx Patient Social History Smoking Status: Never a Smoker Alcohol Use?: No (h/o alcoholism; last drink in 1997) Substance type: Methamphetamine (h/o last used ), Opiates/Opioids (h/o last used ) Surgeries History of Surgeries: Yes Surgeries: Appendectomy, Bowel Surgery (bowel resection colostomy and colostomy reversal), Gallbladder, Orthopedic, Pancreatic Respiratory History of Respiratory Disorde: No Cardiovascular History of Cardiac Disorders: Yes Cardiac Disorders: Hypertension Neurological History of Neurological Disord: Yes (restless leg syndrome) Genitourinary History of Genitourinary Disor: No Gastrointestinal History of Gastrointestinal Di: Yes Gastrointestinal Disorders: Liver Disease/Jaundice, Pancreatitis, Chronic Diarrhea, Ulcer (duodenal) Musculoskeletal History of Musculoskeletal Dis: Yes Musculoskeletal Disorders: Arthritis, Fibromyalgia, Fractures Endocrine History of Endocrine Disorders: No HEENT History of HEENT Disorders: No Loss of Vision: Denies Hearing Impairment: Hard of Hearing Cancer History of Cancer: No Psychosocial History of Psychiatric Problem: Yes (polysubstance abuse) Integumentary History of Skin or Integumenta: No Family Medical History Significant Family History: Heart Disease, Cancer (mother: cervical, Maternal grandfather: colon cx), CAD Over 55 Years Old, Diabetes, Hypertension Family Medial History: Cancer (MOTHER CERVICAL CANCER ) 03 MOTHER Cataract (MATERNAL GRANDMOTHER ) Chest pain (GRANDFATHER) Congenital heart disease (BROTHER 2 WEEKS AFTER FROM CONGENITAL HEART DEFECT) Congestive heart failure (GRANDFATHER) Family history: Arthritis (GRANDMOTHER) Family history: Breast disease 03 MOTHER Family history: Cardiovascular disease (MOTHER AND GRANDFATHER) 03 MOTHER Family history: Diabetes mellitus 03 MOTHER Family history: Glaucoma (GRANDMOTHER) Family history: Hypertension (MOTHER AND GRANDFATHER) 03 MOTHER Family history: Thyroid disorder (GRANDMOTHER) Heart disease (GRANDFATHER AND GRANDMOTHER) Hypercholesterolemia 03 MOTHER Myocardial infarction (GRANDFATHER AND MOTHER) 03 MOTHER Review of Systems-General Constitutional: No fever; weakness EENTM: No ear discharge, No ear pain Respiratory: cough, short of breath (secondary to pain) Gastrointestinal: abdominal pain (diffuse); No hematemesis, No melena; nausea, vomiting Genitourinary: No dysuria; frequency; No hematuria Musculoskeletal: back pain (b/l flank); No joint swelling Skin: No change in color, No change in hair/nails Psychiatric/Neurological: Denies Anxiety, Denies Depressed Physical Exam-General Problems Physical Exam General Appearance: mild distress, other (small arms and legs, larger torso) Eyes: Bilateral Eye PERRL, Bilateral Eye EOMI HEENT: pharynx normal; No scleral icterus (R), No scleral icterus (L) Neck: non-tender, supple Respiratory: lungs clear, normal breath sounds, no respiratory distress, no acc essory muscle use Cardiovascular: regular rate, rhythm, no murmur Peripheral Pulses: 2+ Dorsalis Pedis (R), 2+ Left Dors-Pedis (L) Gastrointestinal: distended (mild), guarding (LLQ), tenderness (diffuse); No hernia; hepatomegaly Rectal: deferred Back: other (positive Henrik's punch B/L) Extremities: no pedal edema, no calf tenderness Neurologic/Psychiatric: alert, oriented x 3 Skin: normal color, warm/dry Lymphatic: no adenopathy (neck, axilla or groin) Assessment/Plan Assessment/Plan Assessment/Plan 1. PSBO vs Ileus 2. Nausea and Vomiting 3. H/o pancreatitis 4. H/o adhesions and colostomy 5. Chronic abd pain Pt seems to be in mild distress due to pain. CT abd/pelvis was suspicious for high grade small bowel obstruction. There is slight abd distention present at this time and pt is tender with palpation. Adminster IV fluids, anti-emetics prn, and pain medication prn. NPO, consider possible NG tube for decompression if nausea and vomiting persists or if worsening distention. Encourage ambulation and IS use. I reviewed the CT myself and spoke with ED physician regarding this pt. Will treat conservatively for now, no indications for surgery at this time. Supervisory-Addendum Brief Verification & Attestation Participated in pt care: history, MDM, physical Personally performed: exam, history, MDM, supervision of care Care discussed with: Medical Student Procedures: n/a Verification and Attestation of Medical Student E/M Service A medical student performed and documented this service. I then reviewed and verified all information documented by the medical student and made modifications to such information, when appropriate. I personally performed a physical exam, medical decision making and then discussed any differences between the notes and made revisions as necessary to create one note. Tameka Wylie , 08/03/22 , 14:08 DIEUDONNE CASTAÑEDA Aug 03, 2022 11:33 TAMEKA WYLIE DO Aug 03, 2022 14:05
[2022-08-03] MEDS: LACTATED RINGERS 1,000 ML IV SCH ×2 (13:46→19:35)
[2022-08-03] MEDS ORDERED: PROM25TA14 PO (15:47)
[2022-08-03] MEDS ORDERED: MULT-1136 PO (15:47)
[2022-08-03] MEDS ORDERED: LOPE2CAP PO (15:47)
[2022-08-03] MEDS ORDERED: IBUP-2473 PO (15:47)
[2022-08-03] MEDS ORDERED: DIPH1TAB25 PO (15:47)
[2022-08-03] MEDS ORDERED: ASCO-262 PO (15:47)
[2022-08-03] MEDS ORDERED: TIZA-186 PO (15:47)
[2022-08-03] MEDS ORDERED: BUSP15TA60 PO (15:47)
[2022-08-03 16:00] VITALS: BP 146/88
[2022-08-03 19:19] VITALS: BP 192/115
[2022-08-03 20:42] VITALS: BP 171/97
[2022-08-03 23:44] VITALS: BP 171/99
[2022-08-04] VITALS (7 sets, daily range): BP systolic 152–218; BP diastolic 74–125
[2022-08-04] MEDS: LACTATED RINGERS 1,000 ML IV SCH ×4 (02:57→23:28)
[2022-08-04] MEDS: morphine INJ 4 MG/ML 1 ML (VIAL/SYRINGE) IVP PRN ×8 (03:07→22:15)
[2022-08-04] MEDS: HYDROmorphone 2 MG/ML VIAL (DILAUDID) IV PRN (04:27)
[2022-08-04 06:10] LABS: ALBUMIN 3.9 GM/DL (3.2-4.5); POTASSIUM 3.5 MMOL/L (3.6-5.0)
[2022-08-04 06:11] LABS: CALCIUM 9.3 MG/DL (8.5-10.1)
[2022-08-04 06:13] LABS: TOTAL PROTEIN 6.9 GM/DL (6.4-8.2)
[2022-08-04 06:15] LABS: BILIRUBIN,TOTAL 1.1 MG/DL (0.1-1.0)
[2022-08-04 06:16] LABS: CREATININE SERUM 0.74 MG/DL (0.60-1.30)
[2022-08-04 06:28] LABS: BASOPHILS % (AUTO) 0 % (0-10); EOSINOPHILS # (AUTO) 0.2 10^3/uL (0.0-0.3); EOSINOPHILS % (AUTO) 3 % (0-10); HEMATOCRIT 39 % (35-52); HEMOGLOBIN 13.2 g/dL (11.5-16.0); LYMPHOCYTES # (AUTO) 2.1 10^3/uL (1.0-4.0); LYMPHOCYTES % (AUTO) 29 % (12-44); MEAN CORPUSCULAR HEMOGLOBIN 33 pg (25-34); MEAN CORPUSCULAR HGB CONC 34 g/dL (32-36); MEAN CORPUSCULAR VOLUME 96 fL (80-99); MEAN PLATELET VOLUME 10.3 fL (9.0-12.2); MONOCYTES # (AUTO) 0.3 10^3/uL (0.0-1.0); MONOCYTES % (AUTO) 5 % (0-12); NEUTROPHILS # (AUTO) 4.6 10^3/uL (1.8-7.8); NEUTROPHILS % (AUTO) 63 % (42-75); PLATELET COUNT 202 10^3/uL (130-400); WHITE BLOOD COUNT 7.3 10^3/uL (4.3-11.0)
[2022-08-04] MEDS: ENALAPRILAT 2.5 MG/2 ML (VASOTEC) VIAL IV PRN (08:59)
--- NOTE | 2022-08-04 09:05 | Progress Note - Surgery ---
MARISSAMADHAVIDIEUDONNE Jackson 08/04/22 0905: Subjective Date Seen by a Provider: Aug 04, 2022 Time Seen by a Provider: 07:20 Subjective/Events-last exam Pt is sitting up in bed comfortably. Pt states improvement of abd pain today, rating it a 7/10. Pt does note that her pain has moved to the periumibilical region and has remained in b/l flanks. Pt states that she had a small BM yesterday but has not had any flatus yesterday or today. Pt notes that she was able to ambulate around her room yesterday. Pt states that she has been dry heaving but denies vomiting. Pt notes that she is still experiencing chills and a slight MEDEIROS but otherwise has no complaints. Pt is hypertensive in room and per nurse, pt stated that her blood pressure normally gets high if she misses a dose of methadone. Pt denies hematuria, CP, SOB, cough, fever, and leg swelling. Objective Exam Vital Signs Date Time Temp Pulse Resp B/P (MAP) Pulse Ox O2 Delivery O2 Flow Rate FiO2 08/04/22 08:00 92 Room Air 08/04/22 07:50 36.3 63 20 171/100 (123) 92 Room Air 08/04/22 06:06 212/99 (136) 08/04/22 04:58 36.4 08/04/22 03:10 36.4 73 18 186/125 (145) 92 Room Air 08/03/22 23:55 36.5 08/03/22 23:44 36.5 68 18 171/99 (123) 92 Room Air 08/03/22 20:42 171/97 (121) 08/03/22 20:11 36.2 08/03/22 19:48 97 Room Air 08/03/22 19:19 36.2 72 20 192/115 (140) 97 Room Air 08/03/22 16:00 36.2 66 18 146/88 (107) 96 Room Air 08/03/22 11:11 36.4 18 160/80 (106) Room Air 08/03/22 09:02 37.0 81 20 140/90 (107) 95 Room Air I & O 08/04/22 07:00 Intake Total 0 ml Balance 0 ml Capillary Refill : Less Than 3 Seconds General Appearance: No Apparent Distress, Other (thin limbs large trunk) HEENT: PERRL/EOMI Respiratory: Lungs Clear, Normal Breath Sounds, No Accessory Muscle Use, No Respiratory Distress Cardiovascular: Regular Rate, Rhythm, No Murmur Peripheral Pulses: 2+ Dorsalis Pedis (R), 2+ Left Dors-Pedis (L) Gastrointestinal: normal bowel sounds, distended (diffusely), guarding (diffusely), tenderness (diffuse); No hernia; hepatomegaly Extremity: No Calf Tenderness, No Pedal Edema Neurologic/Psychiatric: Alert, Oriented x3 Skin: Warm/Dry, Other Results Lab Laboratory Tests 08/04/22 05:20: White Blood Count 7.3, Red Blood Count 4.00, Hemoglobin 13.2, Hematocrit 39, Mean Corpuscular Volume 96, Mean Corpuscular Hemoglobin 33, Mean Corpuscular Hemoglobin Concent 34, Red Cell Distribution Width 11.9, Platelet Count 202, Mean Platelet Volume 10.3, Immature Granulocyte % (Auto) 0, Neutrophils (%) (Auto) 63, Lymphocytes (%) (Auto) 29, Monocytes (%) (Auto) 5, Eosinophils (%) (Auto) 3, Basophils (%) (Auto) 0, Neutrophils # (Auto) 4.6, Lymphocytes # (Auto) 2.1, Monocytes # (Auto) 0.3, Eosinophils # (Auto) 0.2, Basophils # (Auto) 0.0, Immature Granulocyte # (Auto) 0.0, Sodium Level 141, Potassium Level 3.5L, Chloride Level 102, Carbon Dioxide Level 31, Anion Gap 8, Blood Urea Nitrogen 13, Creatinine 0.74, Estimat Glomerular Filtration Rate 89, BUN/Creatinine Ratio 18, Glucose Level 93, Calcium Level 9.3, Corrected Calcium 9.4, Total Bilirubin 1.1H, Aspartate Amino Transf (AST/SGOT) 28, Alanine Aminotransferase (ALT/SGPT) 21, Alkaline Phosphatase 93, Total Protein 6.9, Albumin 3.9 Assessment/Plan Assessment/Plan Assessment/Plan 1. PSBO vs Ileus 2. Nausea and Vomiting 3. H/o pancreatitis 4. H/o adhesions and colostomy 5. Chronic abd pain Pt's pain seems to have improved today. Pain seems to be better controlled with the hydromorphone. Pt states that she had a small BM yesterday though abd distention still present. Continue ambulation and IS use. Consider consult to PT to encourage ambulation if needed. Continue to administer IV fluids, anti- emetics prn, and pain medication prn. Pt is hypertensive in room. Nurse says that pt told her that she becomes hypertensive when she misses a dose of methadone. Consider administering anti-hypertensives. NPO until good BM or flatus. Clinical Quality Measures AMI/AHF: ASA po Prior to arrival: Yes TAMEKA WYLIE DO 08/04/22 1136: Subjective Time Seen by a Provider: 11:15 Subjective/Events-last exam Pt seen and examined, states she had a small liquid BM last night and some flatus today. Plus, "a little bit in my bed". She is only complaining about not getting her Methadone; in fact, stating that is the reason her BP is so high. Review of Systems General: No Chills, No Night Sweats Pulmonary: No Dyspnea, No Cough Cardiovascular: No: Chest Pain, Palpitations Gastrointestinal: Abdominal Pain; No: Nausea, Vomiting Objective Exam General Appearance: No Apparent Distress, Other (thin limbs large trunk) HEENT: PERRL/EOMI Respiratory: Lungs Clear, Normal Breath Sounds, No Accessory Muscle Use, No Respiratory Distress Cardiovascular: Regular Rate, Rhythm, No Murmur Gastrointestinal: normal bowel sounds, soft (improved compared to yesterday), distended (diffusely), guarding (voluntary), tenderness (generalized and better than yesterday); No hernia; hepatomegaly Extremity: No Calf Tenderness, No Pedal Edema Neurologic/Psychiatric: Alert, Oriented x3 Skin: Warm/Dry Assessment/Plan Assessment/Plan Assessment/Plan 1. PSBO vs Ileus 2. Nausea and Vomiting 3. H/o pancreatitis 4. H/o adhesions and colostomy 5. Chronic abd pain Pt's pain seems to have improved today. Pain seems to be better controlled with the hydromorphone. Pt states that she had a small BM yesterday though abd distention still present. Continue ambulation and IS use. Consider consult to PT to encourage ambulation if needed. Continue to administer IV fluids, anti- emetics prn, and pain medication prn. Pt is hypertensive in room. Nurse says that pt told her that she becomes hypertensive when she misses a dose of methadone. Consider administering anti-hypertensives. Will try sips of clears. Supervisory-Addendum Brief Verification & Attestation Participated in pt care: history, MDM, physical Personally performed: exam, history, MDM, supervision of care Care discussed with: Medical Student Procedures: n/a Verification and Attestation of Medical Student E/M Service A medical student performed and documented this service. I then reviewed and verified all information documented by the medical student and made modifications to such information, when appropriate. I personally performed a physical exam, medical decision making and then discussed any differences between the notes and made revisions as necessary to create one note. Tameka Wylie , 08/04/22 , 11:36 DIEUDONNE CASTAÑEDA Aug 04, 2022 09:05 TAMEKA WYLIE DO Aug 04, 2022 11:36
[2022-08-04] MEDS: ONDANSETRON 4 MG (ZOFRAN) ORAL DISSOLVE TAB PO PRN ×2 (14:45→22:12)
--- NOTE | 2022-08-04 15:09 | Consultation - Hospitalist ---
HPI History of Present Illness: HPI/Chief Complaint Jayesh Scruggs is a 66 year old female who was admitted with a small bowel obstruction. The hospitalist service has been consulted due to hypertension. She reports abdominal pain across the upper part of her abdomen. The pain is currently 7/10. She has associated nausea. She has not been eating or drinking anything. She had several episodes of vomiting yesterday. She had diarrhea yesterday after the pain began. She is not having any bowel movements today. She is maybe having minimal flatus today. She says she does not usually have high blood pressure. She does not take any antihypertensive medications. Source: patient Exam Limitations: no limitations Date Seen 08/04/22 Attending Physician Lj Chamorro MD PCP Admitting Physician: Vic Diaz DO Attending Physician: Vic Diaz DO Referring Physician Date of Admission Aug 03, 2022 at 07:40 Home Medications & Allergies Home Medications Reviewed patient Home Medication Reconciliation performed by pharmacy medication reconciliations topography technician and/or nursing. Patients Allergies have been reviewed. Allergies Allergies Coded Allergies Sulfa (Sulfonamide Antibiotics) (Verified Allergy, Unknown, 10/31/19) ketorolac (Verified Allergy, Unknown, 10/31/19) Uncoded Allergies NARCOTIC ANTAGONISTS ( Allergy, Unknown, 02/21/07) Past Owxckeh-Alzbte-Vffznf Hx Patient Social History Tobacco Use?: No Smoking Status: Never a Smoker Use of E-Cig and/or Vaping dev: No Substance use?: Yes Substance type: Methamphetamine (h/o last used ), Opiates/Opioids (h/o last used ) Additional substance use comme: 1970s, heroine Alcohol Use?: No (h/o alcoholism; last drink in 1997) Immunizations Up To Date Date of Influenza Vaccine: May 22, 2019 First/Initial COVID19 Vaccinat: PRASHANTH Second COVID19 Vaccination Sage: NOVEMBER Tetanus Booster (TDap): Less Than 5 Years Hepatitis A: No Hepatitis B: No Date of Pneumonia Vaccine: May 22, 2019 Seasonal Allergies Seasonal Allergies: Yes Current Status status: No status: No Advance Directives: No Communicates: Verbally Primary Language: Sami Preferred Spoken Language: Sami Is interpretation needed?: No Past Medical History Surgeries: Appendectomy, Bowel Surgery (bowel resection colostomy and colostomy reversal), Gallbladder, Orthopedic, Pancreatic Hypertension 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 Chronic pain w/ hx of narcotic addiction (heroin) - currently on Methadone. 2. Hypertension 3. Chronic pancreatitis/chronic nausea/abdominal pain 4. Headache 5. hx of alcohol abuse 6. hx of vitiligo 7. Spinal stenosis secondary to OA 8. COPD 9. Chronic liver disease secondary to hx of etoh abuse. PSH: 1. Appendectomy 2. cholecystectomy 3. laparotomy w/ partial pancreatomy and colostomy (reversed) 4. left hip fracture w/ repair 5. Heart cath 10/2009 - non-obstructive CAD, EF 60% 6. Heart cath 01/2013 - no significant CAD, EF 60% Family Medical History Cancer (MOTHER CERVICAL CANCER ) 03 MOTHER Cataract (MATERNAL GRANDMOTHER ) Chest pain (GRANDFATHER) Congenital heart disease (BROTHER 2 WEEKS AFTER FROM CONGENITAL HEART DEFECT) Congestive heart failure (GRANDFATHER) Family history: Arthritis (GRANDMOTHER) Family history: Breast disease 03 MOTHER Family history: Cardiovascular disease (MOTHER AND GRANDFATHER) 03 MOTHER Family history: Diabetes mellitus 03 MOTHER Family history: Glaucoma (GRANDMOTHER) Family history: Hypertension (MOTHER AND GRANDFATHER) 03 MOTHER Family history: Thyroid disorder (GRANDMOTHER) Heart disease (GRANDFATHER AND GRANDMOTHER) Hypercholesterolemia 03 MOTHER Myocardial infarction (GRANDFATHER AND MOTHER) 03 MOTHER No Family History of: Abdominal aortic aneurysm [place]'s disease Alcoholism Aphasia Cancer of colon Cystic fibrosis Dementia Dysphagia Family history: Allergy Family history: Alzheimer's disease Family history: Asthma Family history: Coronary thrombosis Family history: Gastrointestinal disease Family history: Osteoporosis Headache Hearing loss Hereditary disease History of - anemia History of - disorder History of - respiratory disease History of drug abuse Human immunodeficiency virus (HIV) seropositivity Infertile Kidney disease Malignant neoplasm of lung Parkinson's disease Prostate cancer Psychotic disorder Seizure disorder Stroke Tuberculosis Visual impairment Heart Disease, Cancer (mother: cervical, Maternal grandfather: colon cx), CAD Over 55 Years Old, Diabetes, Hypertension SOCIAL HISTORY: -SMOKING--DENIES USE -ETOH--HISTORY OF ABUSE/ALCOHOLISM--CLAIMS NONE SINCE 1997, PER PT ON 08/03/22 -DRUGS--STATES SHE USED TO USE "EVERY KIND OF DRUG THEY MAKE, 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 DENIES IV USE. STATES SHE ALWAYS SNORTED THEM. CLAIMS NO USE FOR YEARS, PER PT ON 08/03/22 PAST SURGICAL HISTORY: -CHOLECYSTECTOMY -APPENDECTOMY -COLON RESECTION WITH COLOSTOMY, LATER REVERSAL -PT REPORTS SHE POSSIBLY HAD SOME KIND OF SURGERY ON HER PANCREAS WELL. -EXPLORATORY LAP -LEFT HIP FRACTURE/ ORIF Review of Systems Constitutional: no symptoms reported Respiratory: no symptoms reported Cardiovascular: no symptoms reported Gastrointestinal: abdominal pain, nausea, vomiting Physical Exam Physical Exam Vital Signs Vital Signs - First Documented 08/03/22 05:18 Temp 36.4 Pulse 80 Resp 16 B/P (MAP) 209/141 (163) Pulse Ox 99 O2 Delivery Room Air Capillary Refill : Less Than 3 Seconds Height, Weight, BMI Height: 5'5.00" Weight: 146lbs. 9.0oz. [id number]; 25.97 BMI Method:Stated General Appearance: No Apparent Distress, WD/WN, Other (thin limbs large trunk) Eyes: Bilateral Eye PERRL, Bilateral Eye EOMI HEENT: PERRL/EOMI, Pharynx Normal Respiratory: Lungs Clear, Normal Breath Sounds, No Respiratory Distress Cardiovascular: Regular Rate, Rhythm, No Murmur Gastrointestinal: Soft, Abnormal Bowel Sounds (hypoactive), Tenderness Extremity: Normal Inspection, No Pedal Edema Neurologic/Psychiatric: Alert, Oriented x3 Skin: Normal Color, Warm/Dry Results Results/Procedures Labs Laboratory Tests 08/03/22 05:18 08/04/22 05:20 Patient resulted labs reviewed. Imaging: Reviewed Imaging Report Assessment/Plan Assessment and Plan Assess & Plan/Chief Complaint Small bowel obstruction Abdominal pain HTN SBO management per surgery HTN likely due to pain Increase morphine Add IV Hydralazine as needed Diagnosis/Problems Diagnosis/Problems (1) Small bowel obstruction Status: Acute (2) Abdominal pain Status: Acute (3) Hypertension Status: Acute Clinical Quality Measures AMI/AHF: ASA po Prior to arrival: Yes NANCY LINDA MD Aug 04, 2022 15:09
[2022-08-04] MEDS: hydrALAZINE (APESOLINE) 20 MG/ML VIAL IV PRN ×2 (16:31→22:39)
[2022-08-05] VITALS (7 sets, daily range): BP systolic 129–198; BP diastolic 77–113
[2022-08-05] MEDS: morphine INJ 4 MG/ML 1 ML (VIAL/SYRINGE) IVP PRN ×4 (01:18→20:33)
[2022-08-05] MEDS: hydrALAZINE (APESOLINE) 20 MG/ML VIAL IV PRN (03:37)
[2022-08-05] MEDS: ONDANSETRON 4 MG (ZOFRAN) ORAL DISSOLVE TAB PO PRN ×2 (04:25→20:28)
[2022-08-05] MEDS: LACTATED RINGERS 1,000 ML IV SCH ×3 (06:44→20:27)
[2022-08-05] MEDS: HYDROmorphone 2 MG/ML VIAL (DILAUDID) IV PRN (08:02)
[2022-08-05 08:04] LABS: BASOPHILS % (AUTO) 0 % (0-10); EOSINOPHILS # (AUTO) 0.1 10^3/uL (0.0-0.3); EOSINOPHILS % (AUTO) 2 % (0-10); HEMATOCRIT 38 % (35-52); LYMPHOCYTES # (AUTO) 1.6 10^3/uL (1.0-4.0); LYMPHOCYTES % (AUTO) 21 % (12-44); MEAN CORPUSCULAR HEMOGLOBIN 33 pg (25-34); MEAN CORPUSCULAR HGB CONC 34 g/dL (32-36); MEAN CORPUSCULAR VOLUME 97 fL (80-99); MEAN PLATELET VOLUME 9.8 fL (9.0-12.2); MONOCYTES # (AUTO) 0.3 10^3/uL (0.0-1.0); MONOCYTES % (AUTO) 4 % (0-12); NEUTROPHILS # (AUTO) 5.3 10^3/uL (1.8-7.8); NEUTROPHILS % (AUTO) 72 % (42-75); PLATELET COUNT 183 10^3/uL (130-400); WHITE BLOOD COUNT 7.3 10^3/uL (4.3-11.0)
--- NOTE | 2022-08-05 08:06 | Progress Note - Surgery ---
MARISSAMADHAVIDIEUDONNE Jackson 08/05/22 0806: Subjective Date Seen by a Provider: Aug 05, 2022 Time Seen by a Provider: 06:30 Subjective/Events-last exam Pt is sitting up in bed comfortably. Pt states improvement of her abd pain today, rating it a 7/10. Pt says that she feels like her abd distention has impr ottoniel today but notes that she feels like her stomach is still "hard". Pt states that she still has some L flank pain but R has resolved. Pt states that she had a very small amount of liquid stool yesterday and has experienced a small amount of flatus. Pt has been ambulating around room. Pt states that she has not been tolerating clears very well, noting that she vomited up jello the first time she tried but states that she was tolerate eating jello the second time she tried. Pt notes that she thinks it may be due to her having not eaten in a while. Pt states that she is still a little nauseous this morning but that it has improved since yesterday. Pt also notes that she did not sleep well last night following her dose of anti-hypertensive medication. Pt states that after receiving medication she experienced 3/10 non radiating CP that was dull and constant for 1.5hr and then resolved on its own. Pt notes associated 9/10, squeezing, temporal MEDEIROS with radiation into eyes and "jitteryness" at this time as well. Pt states that her hands and legs were shaking for a few hours, but have since resolved on their own. Pt states MEDEIROS is better now and rates it a 2/10. Pt thinks that symptoms were due to medication, noting she has never experienced similar episodes before. Pt still has cough but states that she thinks it's improving. Pt denies any dysuria, hematuria, blood in stool, chills, and SOB. Review of Systems General: No Chills, No Night Sweats HEENT: Head Aches (temporal), Eye Pain (radiation from MEDEIROS) Pulmonary: No Dyspnea; Cough (improving) Cardiovascular: Chest Pain (resolved); No: Lt Headedness Gastrointestinal: Nausea (improved), Abdominal Pain (improved); No: Vomiting Genitourinary: No Dysuria, No Hematuria Musculoskeletal: No: neck pain, shoulder pain Neurological: No: Weakness, Numbness Objective Exam Vital Signs Date Time Temp Pulse Resp B/P (MAP) Pulse Ox O2 Delivery O2 Flow Rate FiO2 08/05/22 07:07 36.5 73 18 129/85 (100) 91 Room Air 08/05/22 04:00 36.7 9 18 198/113 (141) 95 Room Air 08/05/22 00:00 36.7 67 18 145/77 (99) 97 Room Air 08/04/22 19:11 36.3 66 18 152/74 (100) 96 08/04/22 17:06 36.6 08/04/22 16:04 36.6 65 20 178/92 (120) 96 Room Air 08/04/22 11:17 36.5 61 20 162/75 (104) 91 Room Air 08/04/22 10:08 170/80 (110) 08/04/22 08:00 92 Room Air I & O 08/05/22 07:00 Intake Total 1726 ml Output Total 2 ml Balance 1724 ml Capillary Refill : Less Than 3 Seconds General Appearance: No Apparent Distress, WD/WN, Other (thin limbs large trunk) HEENT: PERRL/EOMI Respiratory: No Respiratory Distress, Crackles (R side), Wheezing (diffuse expiratory) Cardiovascular: Regular Rate, Rhythm, No Murmur Peripheral Pulses: 2+ Dorsalis Pedis (R), 2+ Left Dors-Pedis (L) Gastrointestinal: normal bowel sounds, distended (only present in upper quadrants and much improved ), guarding (voluntary), tenderness (tenderness to RUQ and epigastric area- improved from yesterday); No hernia; hepatomegaly Extremity: No Calf Tenderness, No Pedal Edema Neurologic/Psychiatric: Alert, Oriented x3 Skin: Warm/Dry, Other (scratches on L hand) Assessment/Plan Assessment/Plan Assessment/Plan 1. PSBO vs Ileus 2. Nausea and Vomiting 3. H/o pancreatitis 4. H/o adhesions and colostomy 5. Chronic abd pain Pt's pain continues to improve. Pt still not having good BMs or flatus. Pt had stated that she had only been walking around room, encouraged ambulation around blanco multiple times a day. Consider PT consult to encourage ambulation. Pt was able to tolerate small amount of clears yesterday. Would continue on clears, encouraging small sips/bites at a time. Pt's hypertension is much improved today with the addition of the ACEi. Unsure if pt's reaction was true adverse reaction or reaction to rebound tachycardia and associated side effects of anti- hypertensive. Would continue to monitor and consider changing anti-hypertensive medication if symptoms persist. Continue to administer IV fluids, anti-emetics prn, and pain medication prn. No IS in room, recommend pt using IS. Clinical Quality Measures AMI/AHF: ASA po Prior to arrival: Yes TAMEKA WYLIE DO 08/05/22 1453: Subjective Time Seen by a Provider: 12:06 Subjective/Events-last exam Pt seen and examined, states she is feeling much better today. +Flatus and small BM, but she did have some vomiting with clears yesterday. Review of Systems General: No Chills, No Night Sweats HEENT: Head Aches (temporal), Eye Pain (radiation from MEDEIROS) Pulmonary: No Dyspnea; Cough (improving) Cardiovascular: Chest Pain (resolved) Gastrointestinal: Nausea (improved), Abdominal Pain (improved); No: Vomiting Objective Exam General Appearance: No Apparent Distress, WD/WN HEENT: PERRL/EOMI Respiratory: No Respiratory Distress, Crackles (R side), Wheezing (diffuse expiratory) Cardiovascular: Regular Rate, Rhythm, No Murmur Gastrointestinal: normal bowel sounds, distended (only present in upper quadrants and much improved ), guarding (voluntary), tenderness (tenderness to RUQ and epigastric area- improved from yesterday), hepatomegaly Extremity: No Calf Tenderness Neurologic/Psychiatric: Alert, Oriented x3 Assessment/Plan Assessment/Plan Assessment/Plan 1. PSBO vs Ileus 2. Nausea and Vomiting 3. H/o pancreatitis 4. H/o adhesions and colostomy 5. Chronic abd pain Pt's pain continues to improve. Pt still not having good BMs or flatus. Pt had stated that she had only been walking around room, encouraged ambulation around blanco multiple times a day. Consider PT consult to encourage ambulation. Pt was able to tolerate small amount of clears yesterday. Would continue on clears, encouraging small sips/bites at a time. Pt's hypertension is much improved today with the addition of the ACEi. Unsure if pt's reaction was true adverse reaction or reaction to rebound tachycardia and associated side effects of anti- hypertensive. Would continue to monitor and consider changing anti-hypertensive medication if symptoms persist. Continue to administer IV fluids, anti-emetics prn, and pain medication prn. No IS in room, recommend pt using IS. Supervisory-Addendum Brief Verification & Attestation Participated in pt care: history, MDM, physical Personally performed: exam, history, MDM, supervision of care Care discussed with: Medical Student Procedures: n/a Verification and Attestation of Medical Student E/M Service A medical student performed and documented this service. I then reviewed and verified all information documented by the medical student and made modifications to such information, when appropriate. I personally performed a physical exam, medical decision making and then discussed any differences b etween the notes and made revisions as necessary to create one note. Tameka Wylie , 08/05/22 , 14:53 DIEUDONNE CASTAÑEDA Aug 05, 2022 08:06 TAMEKA WYLIE DO Aug 05, 2022 14:53
[2022-08-05 08:24] LABS: ALBUMIN 3.9 GM/DL (3.2-4.5)
[2022-08-05 08:25] LABS: POTASSIUM 3.6 MMOL/L (3.6-5.0)
[2022-08-05 08:26] LABS: CALCIUM 9.3 MG/DL (8.5-10.1)
[2022-08-05 08:27] LABS: TOTAL PROTEIN 6.6 GM/DL (6.4-8.2)
[2022-08-05 08:29] LABS: BILIRUBIN,TOTAL 0.7 MG/DL (0.1-1.0)
[2022-08-05 08:31] LABS: CREATININE SERUM 0.71 MG/DL (0.60-1.30)
--- NOTE | 2022-08-05 11:43 | Progress Note - Hospitalist ---
Subjective HPI/CC On Admission Date Seen by Provider: Aug 05, 2022 Time Seen by Provider: 09:30 Jayesh Scruggs is a 66 year old female who was admitted with a small bowel obstruction. The hospitalist service has been consulted due to hypertension. She reports abdominal pain across the upper part of her abdomen. The pain is currently 7/10. She has associated nausea. She has not been eating or drinking anything. She had several episodes of vomiting yesterday. She had diarrhea yesterday after the pain began. She is not having any bowel movements today. She is maybe having minimal flatus today. She says she does not usually have high blood pressure. She does not take any antihypertensive medications. Subjective/Events-last exam She is feeling better. Her pain is improved. She is in a chair. She has been wal jero. She has had some clear liquids. She dis have some nausea last night. She says she has been passing gas and had a very small bowel movement. Objective Exam Vital Signs Vital Signs Date Time Temp Pulse Resp B/P (MAP) Pulse Ox O2 Delivery O2 Flow Rate FiO2 08/05/22 11:00 36.5 73 18 187/97 (127) 91 Room Air Capillary Refill : Less Than 3 Seconds General Appearance: No Apparent Distress, WD/WN Respiratory: Lungs Clear, No Respiratory Distress Cardiovascular: Regular Rate, Rhythm, No Murmur Gastrointestinal: Normal Bowel Sounds, Soft Extremity: Normal Inspection, No Pedal Edema Neurologic/Psychiatric: Alert, Normal Mood/Affect Skin: Normal Color, Warm/Dry Results/Procedures Lab Laboratory Tests 08/05/22 07:50 Patient resulted labs reviewed. Imaging: Reviewed Imaging Report Assessment/Plan Assessment and Plan Assess & Plan/Chief Complaint Small bowel obstruction Abdominal pain HTN SBO management per surgery HTN likely due to pain Continue morphine Continue Enalaprilat as needed Stop Hydralazine Advanced to clears Add oral Clonidine as needed Resume home meds Diagnosis/Problems Diagnosis/Problems (1) Small bowel obstruction Status: Acute (2) Abdominal pain Status: Acute (3) Hypertension Status: Acute Clinical Quality Measures AMI/AHF: ASA po Prior to arrival: Yes NANCY LINDA MD Aug 05, 2022 11:43
[2022-08-05] MEDS ORDERED: METHADONE 10 MG (DOLOPHINE) TAB PO NR (12:00)
[2022-08-05] MEDS ORDERED: busPIRone 15 MG (BUSPAR) TABLET PO NR (12:00)
[2022-08-05] MEDS ORDERED: GABAPENTIN 600 MG (NEURONTIN) TAB PO NR (12:00)
[2022-08-05] MEDS: busPIRone 15 MG (BUSPAR) TABLET PO SCH (20:27)
[2022-08-05] MEDS: GABAPENTIN 600 MG (NEURONTIN) TAB PO SCH (20:28)
[2022-08-05] MEDS: cloNIDine 0.1 MG (CATAPRES) TAB PO PRN (20:28)
[2022-08-06] VITALS: BP 148/82
[2022-08-06] MEDS: morphine INJ 4 MG/ML 1 ML (VIAL/SYRINGE) IVP PRN ×7 (02:02→20:28)
[2022-08-06 04:00] VITALS: BP 136/78
[2022-08-06] MEDS: LACTATED RINGERS 1,000 ML IV SCH ×5 (04:49→14:13)
[2022-08-06 07:28] VITALS: BP 172/94
--- NOTE | 2022-08-06 07:47 | Progress Note - Surgery ---
MARISSAJOYCEDIEUDONNE HEALY 08/06/22 0747: Subjective Date Seen by a Provider: Aug 06, 2022 Time Seen by a Provider: 06:30 Subjective/Events-last exam Pt is laying in bed comfortably. Pt's states improvement of abd pain and L flank pain today, rating it a 5/10 and 4/10. Pt also states improvement of cough. Pt notes that she slept better last night, but notes that pain seems to be waking her up at night. Pain is relieved with scheduled dose of pain medication and she is able to go back to sleep. Pt states that she had a small BM this morning, noting that it was watery diarrhea. Pt notes that she normally experiences diarrhea. Pt states that she has been tolerating clears well, noting only mild nausea after eating. Pt expresses desire to progress diet. Denies vomiting. Pt states that she has been walking around her room without issue, only noting that she walks slightly hunched as standing straight up worsens abd pain. Pt denies having experienced the CP or "jitters" since her anti-hypertensive medication was switched to clonidine, does still note a slight MEDEIROS. Pt was restarted on her methadone, gabapentin, buspar, and tizanidine. Pt states that she feels more like herself now that she has restarted home meds. Pt denies CP, vomiting, SOB, worsening cough, chills, or worsening MEDEIROS. Review of Systems General: No Chills, No Night Sweats HEENT: Head Aches (improved); No Eye Pain Pulmonary: No Dyspnea; Cough (improved) Cardiovascular: No: Chest Pain, Edema, Lt Headedness Gastrointestinal: Nausea (improved), Abdominal Pain (surgical, improved); No: Vomiting Genitourinary: No Dysuria, No Hematuria Musculoskeletal: back pain (L flank and chronic back pain); No: neck pain Neurological: No: Weakness, Numbness Objective Exam Vital Signs Date Time Temp Pulse Resp B/P (MAP) Pulse Ox O2 Delivery O2 Flow Rate FiO2 08/06/22 07:28 36.5 75 18 95 Room Air 08/06/22 04:00 36.6 71 17 136/78 (97) 95 Room Air 08/06/22 00:00 36.9 79 19 148/82 (104) 94 Room Air 08/05/22 19:37 36.3 81 20 178/90 (119) 93 Room Air 08/05/22 15:58 36.2 76 18 158/92 (114) 95 Room Air 08/05/22 11:00 36.5 73 18 187/97 (127) 91 Room Air 08/05/22 09:18 150/80 (103) I & O 08/06/22 07:00 Intake Total 1340 ml Balance 1340 ml Capillary Refill : Less Than 3 Seconds General Appearance: No Apparent Distress, WD/WN HEENT: PERRL/EOMI Respiratory: Chest Non Tender, No Accessory Muscle Use, No Respiratory Distress, Wheezing (diffuse expiratory) Cardiovascular: Regular Rate, Rhythm, No Murmur Peripheral Pulses: 2+ Dorsalis Pedis (R), 2+ Left Dors-Pedis (L) Gastrointestinal: normal bowel sounds, soft, guarding (voluntary), tenderness (tenderness to epigastric area and LUQ- much improved from yesterday), hepatomegaly Extremity: No Calf Tenderness, No Pedal Edema, Other (hypertonicity of L lumbar area and some tenderness with palpation of L flank) Neurologic/Psychiatric: Alert, Oriented x3 Skin: Normal Color, Warm/Dry Results Lab Laboratory Tests 08/05/22 07:50: White Blood Count 7.3, Red Blood Count 3.89, Hemoglobin 13.0, Hematocrit 38, Mean Corpuscular Volume 97, Mean Corpuscular Hemoglobin 33, Mean Corpuscular Hemoglobin Concent 34, Red Cell Distribution Width 12.2, Platelet Count 183, Mean Platelet Volume 9.8, Immature Granulocyte % (Auto) 0, Neutrophils (%) (Auto) 72, Lymphocytes (%) (Auto) 21, Monocytes (%) (Auto) 4, Eosinophils (%) (Auto) 2, Basophils (%) (Auto) 0, Neutrophils # (Auto) 5.3, Lymphocytes # (Auto) 1.6, Monocytes # (Auto) 0.3, Eosinophils # (Auto) 0.1, Basophils # (Auto) 0.0, Immature Granulocyte # (Auto) 0.0, Sodium Level 141, Potassium Level 3.6, Chloride Level 103, Carbon Dioxide Level 27, Anion Gap 11, Blood Urea Nitrogen 11, Creatinine 0.71, Estimat Glomerular Filtration Rate 93, BUN/Creatinine Ratio 15, Glucose Level 102, Calcium Level 9.3, Corrected Calcium 9.4, Total Bilirubin 0.7, Aspartate Amino Transf (AST/SGOT) 26, Alanine Aminotransferase (ALT/SGPT) 21, Alkaline Phosphatase 89, Total Protein 6.6, Albumin 3.9 Assessment/Plan Assessment/Plan Assessment/Plan 1. PSBO vs Ileus 2. Nausea and Vomiting 3. H/o pancreatitis 4. H/o adhesions and colostomy 5. Chronic abd pain Pt's pain continues to improve. Pt has had a small BM today and experienced flatus when walking. Pt stated that she still has only been walking around the room, stating that she was told by a nurse that she was not allowed to walk in the hallway. After confirming with nurse that pt is steady on feet and is not being adversely affected by medications, I reassured pt that she is allowed to ambulate in the hallway by herself and encouraged ambulation around the halls as much as she can tolerate. Pt tolerated clears well, continue until good BM or flatus. Hypertension has resolved after DCing the ACEi and starting clonidine. Pt's anxiety also seems improved today with restarting some of her home medicat ions and addition of clonidine. Continue to administer IV fluids, anti-emetics prn, and pain medication prn. No IS in room, recommend pt using IS. Clinical Quality Measures AMI/AHF: ASA po Prior to arrival: Yes TAMEKA WYLIE DO 08/06/22 1325: Subjective Time Seen by a Provider: 13:08 Subjective/Events-last exam Pt seen and examined, states she is doing better. Still not having big BMs. Pain is more controlled. Review of Systems HEENT: Head Aches (improved) Pulmonary: No Dyspnea; Cough (improved) Cardiovascular: No: Chest Pain, Edema Gastrointestinal: Nausea (improved), Abdominal Pain (surgical, improved); No: Vomiting Genitourinary: No Dysuria, No Hematuria Musculoskeletal: back pain (L flank and chronic back pain) Objective Exam General Appearance: No Apparent Distress, WD/WN HEENT: PERRL/EOMI Respiratory: Chest Non Tender, No Accessory Muscle Use, No Respiratory Distress, Wheezing (diffuse expiratory) Cardiovascular: Regular Rate, Rhythm, No Murmur Gastrointestinal: soft, distended (??mild), guarding (voluntary), tenderness (tenderness to epigastric area and LUQ- much improved from yesterday), hepatomegaly Assessment/Plan Assessment/Plan Assessment/Plan 1. PSBO vs Ileus 2. Nausea and Vomiting 3. H/o pancreatitis 4. H/o adhesions and colostomy 5. Chronic abd pain Pt's pain continues to improve. Pt has had a small BM today and experienced flatus when walking. Pt told to walk in the hallway. Pt tolerated clears well and will increase to soft diet. Will stop Dilaudid IV she is back on Methadone. Will try a dulcolax suppository. Hypertension has resolved after DCing the ACEi and starting clonidine. Pt's anxiety also seems improved today with restarting some of her home medications and addition of clonidine. Continue to administer IV fluids, anti-emetics prn, and pain medication prn. Will have pt start using IS. Supervisory-Addendum Brief Verification & Attestation Participated in pt care: history, MDM, physical Personally performed: exam, history, MDM, supervision of care Care discussed with: Medical Student Procedures: n/a Verification and Attestation of Medical Student E/M Service A medical student performed and documented this service. I then reviewed and verified all information documented by the medical student and made modifications to such information, when appropriate. I personally performed a physical exam, medical decision making and then discussed any differences between the notes and made revisions as necessary to create one note. Tameka Wylie , 08/06/22 , 13:25 DIEUDONNE CASTAÑEDA Aug 06, 2022 07:47 TAMEKA WYLIE DO Aug 06, 2022 13:25
[2022-08-06] MEDS: cloNIDine 0.1 MG (CATAPRES) TAB PO PRN (08:27)
[2022-08-06] MEDS: busPIRone 15 MG (BUSPAR) TABLET PO SCH ×2 (08:27→20:28)
[2022-08-06] MEDS: METHADONE 10 MG (DOLOPHINE) TAB PO SCH (08:28)
[2022-08-06] MEDS: GABAPENTIN 600 MG (NEURONTIN) TAB PO SCH ×2 (08:28→20:28)
[2022-08-06] MEDS ORDERED: lisINopril 10 MG (PRINIVIL) TABLET PO SCH (09:00)
--- NOTE | 2022-08-06 11:08 | Progress Note - Hospitalist ---
Subjective HPI/CC On Admission Date Seen by Provider: Aug 06, 2022 Time Seen by Provider: 09:50 Jayesh Scruggs is a 66 year old female who was admitted with a small bowel obstruction. The hospitalist service has been consulted due to hypertension. She reports abdominal pain across the upper part of her abdomen. The pain is currently 7/10. She has associated nausea. She has not been eating or drinking anything. She had several episodes of vomiting yesterday. She had diarrhea yesterday after the pain began. She is not having any bowel movements today. She is maybe having minimal flatus today. She says she does not usually have high blood pressure. She does not take any antihypertensive medications. Subjective/Events-last exam She continues to have pain, but it is improved. She reports having nausea and vomiting up her breakfast this morning. Objective Exam Vital Signs Vital Signs Date Time Temp Pulse Resp B/P (MAP) Pulse Ox O2 Delivery O2 Flow Rate FiO2 08/06/22 07:28 36.5 75 18 172/94 (120) 95 Room Air Capillary Refill : Less Than 3 Seconds General Appearance: No Apparent Distress, WD/WN Respiratory: Lungs Clear, No Respiratory Distress Cardiovascular: Regular Rate, Rhythm, No Murmur Gastrointestinal: Normal Bowel Sounds, Soft Extremity: Normal Inspection, No Pedal Edema Neurologic/Psychiatric: Alert, No Motor/Sensory Deficits Skin: Normal Color, Warm/Dry Results/Procedures Lab Patient resulted labs reviewed. Imaging: Reviewed Imaging Report Assessment/Plan Assessment and Plan Assess & Plan/Chief Complaint Small bowel obstruction SBO management per surgery Decrease IV fluid rate Continue pain regimen Continue antiemetics HTN Add Lisinopril, may need to increase, will assess response Clonidine as needed IV Enalaprilat as needed Diagnosis/Problems Diagnosis/Problems (1) Small bowel obstruction Status: Acute (2) Abdominal pain Status: Acute (3) Hypertension Status: Acute Clinical Quality Measures AMI/AHF: ASA po Prior to arrival: Yes NANCY LINDA MD Aug 06, 2022 11:08
[2022-08-06 11:12] VITALS: BP 113/77
[2022-08-06] MEDS: ONDANSETRON 4 MG (ZOFRAN) ORAL DISSOLVE TAB PO PRN (15:25)
[2022-08-06 16:19] VITALS: BP 137/77
[2022-08-06 19:27] VITALS: BP 160/96
[2022-08-07] VITALS (8 sets, daily range): BP systolic 143–191; BP diastolic 68–91
[2022-08-07] MEDS: morphine INJ 4 MG/ML 1 ML (VIAL/SYRINGE) IVP PRN ×7 (00:30→22:29)
[2022-08-07] MEDS: LACTATED RINGERS 1,000 ML IV SCH ×3 (00:30→18:56)
[2022-08-07] MEDS: ONDANSETRON 4 MG (ZOFRAN) ORAL DISSOLVE TAB PO PRN (05:45)
--- NOTE | 2022-08-07 07:50 | Progress Note - Surgery ---
DIEUDONNE CASTAÑEDA 08/07/22 0750: Subjective Date Seen by a Provider: Aug 07, 2022 Time Seen by a Provider: 07:15 Subjective/Events-last exam Pt is resting in bed hunched over a bucket. Pt states that she has been nauseous this morning did experiencing dry heaving and vomiting up water this morning. Pt notes that after receiving anti-emetic this morning, nausea has improved but does experience dry heaving in room after coughing.States cough seems a little worse today and is producing phlegm. Pt also notes that she was unable to tolerate the mashed potatoes last night, experiencing emesis after eating. She was able to tolerate jello and clears and states she would like to try to eat the mashed potatoes again today. Pt states improvement of abd pain and L flank pain, rating them both a 4/10. Pt does note that even though her pain is improving, she was still woken up in her sleep due to her pain. Pt states that she had a small liquid BM yesterday and experienced a lot of flatus. Pt states that she feels like she needs a suppository to have a good BM. Pt has been ambulating well around halls. Pt expresses desire to go home soon but does state that she feels anxious about going home with current pain level and would like to possibly try PO pain medication before DC. Pt denies CP, SOB, chills, lightheadedness, hematuria, or bloody stools. Review of Systems General: No Chills, No Night Sweats HEENT: No Eye Pain, No Ear Pain Pulmonary: No Dyspnea; Cough (productive and a little worse today ) Cardiovascular: No: Chest Pain, Palpitations, Lt Headedness Gastrointestinal: Nausea, Vomiting, Abdominal Pain (improved) Genitourinary: No Dysuria, No Hematuria Musculoskeletal: back pain (L flank-improved; chronic back pain); No: shoulder pain Neurological: No: Weakness, Numbness Objective Exam Vital Signs Date Time Temp Pulse Resp B/P (MAP) Pulse Ox O2 Delivery O2 Flow Rate FiO2 08/07/22 07:34 36.6 76 18 191/72 (111) 94 Room Air 08/07/22 04:16 95 Room Air 08/07/22 02:59 36.6 67 18 168/91 (116) 97 Room Air 08/07/22 01:00 37.2 66 18 162/89 (113) 96 Room Air 08/06/22 20:39 Room Air 08/06/22 19:27 37.3 70 18 160/96 (117) 97 Room Air 08/06/22 16:19 36.3 62 20 137/77 (97) 94 Room Air 08/06/22 11:12 36.7 55 20 113/77 (89) 92 Room Air 08/06/22 08:00 Room Air I & O 08/07/22 07:00 Intake Total 2405 ml Balance 2405 ml Capillary Refill : Less Than 3 Seconds General Appearance: No Apparent Distress, WD/WN HEENT: PERRL/EOMI Respiratory: No Accessory Muscle Use, No Respiratory Distress, Wheezing (diffuse expiratory with deep breathing) Cardiovascular: Regular Rate, Rhythm, No Murmur Peripheral Pulses: 2+ Dorsalis Pedis (R), 2+ Left Dors-Pedis (L) Gastrointestinal: soft, guarding (voluntary-upper quadrants), tenderness (tenderness to epigastric area and LUQ- unchanged from yesterday), hepatomegaly Extremity: No Calf Tenderness, No Pedal Edema Neurologic/Psychiatric: Alert, Oriented x3 Skin: Warm/Dry, Other (healing scratches on L hand ) Assessment/Plan Assessment/Plan Assessment/Plan 1. PSBO vs Ileus 2. Nausea and Vomiting 3. H/o pancreatitis 4. H/o adhesions and colostomy 5. Chronic abd pain Pt's pain continues to improve but is still keeping her up at night. Pt had another small BM and has been experiencing flatus. Pt stated that she would like a suppository. Suppository is scheduled to be given today. Pt continues to have nausea and vomiting and having issue tolerating mince diet. Pt stated she would like to try her current diet again today. Pt states that she takes phenergan at home and would like take that instead of Zofran, would recommend switching medication. Pt also expressed anxiety over going home, stating that she would l doretha her pain to be more well controlled and would like to discuss switching to PO pain medication with Dr. Diaz. Continue to encourage ambulation and have start IS use. Continue to administer IV fluids, switch to pheneragan prn, and pain medication prn. Clinical Quality Measures AMI/AHF: ASA po Prior to arrival: Yes VIC DIAZ DO 08/07/22 1344: Subjective Time Seen by a Provider: 12:01 Subjective/Events-last exam Pt seen and examined, states she still has some abdominal pain and nausea. She is asking for some phenergan. She is passing some gas and still having small BMs, but still not eating much. Review of Systems General: No Chills, No Night Sweats Pulmonary: No Dyspnea; Cough (productive and a little worse today ) Cardiovascular: No: Chest Pain, Palpitations Gastrointestinal: Nausea, Vomiting, Abdominal Pain (improved) Musculoskeletal: back pain (L flank-improved; chronic back pain) Objective Exam General Appearance: No Apparent Distress, WD/WN HEENT: PERRL/EOMI Respiratory: No Accessory Muscle Use, No Respiratory Distress, Wheezing (diffuse expiratory with deep breathing) Cardiovascular: Regular Rate, Rhythm, No Murmur Gastrointestinal: soft, distended, guarding (voluntary-upper quadrants), tenderness (tenderness to epigastric area and LUQ- unchanged from yesterday), hepatomegaly Extremity: No Calf Tenderness, No Pedal Edema Skin: Warm/Dry, Other (healing scratches on L hand ) Assessment/Plan Assessment/Plan Assessment/Plan 1. PSBO vs Ileus 2. Nausea and Vomiting 3. H/o pancreatitis 4. H/o adhesions and colostomy 5. Chronic abd pain Pt's pain continues to improve but is still keeping her up at night. Pt had another small BM and has been experiencing flatus. Pt stated that she would like a suppository. Suppository is scheduled to be given today. Pt continues to have nausea and vomiting and having issue tolerating mince diet. Pt stated she would like to try her current diet again today. Will start phenergan PO. Pt expressed anxiety over going home, stating that she would like her pain to be more well controlled and would like to be able to eat. Continue to encourage ambulation and have start IS use. Continue to administer IV fluids, switch to pheneragan prn, and pain medication prn. Told pt she will go home tomorrow. Supervisory-Addendum Brief Verification & Attestation Participated in pt care: history, MDM, physical Personally performed: exam, history, MDM, supervision of care Care discussed with: Medical Student Procedures: n/a Verification and Attestation of Medical Student E/M Service A medical student performed and documented this service. I then reviewed and verified all information documented by the medical student and made modifications to such information, when appropriate. I personally performed a physical exam, medical decision making and then discussed any differences between the notes and made revisions as necessary to create one note. Vic Diaz , 08/07/22 , 13:50 DIEUDONNE CASTAÑEDA Aug 07, 2022 07:50 VIC DIAZ DO Aug 07, 2022 13:44
[2022-08-07] MEDS: ENALAPRILAT 2.5 MG/2 ML (VASOTEC) VIAL IV PRN (08:37)
[2022-08-07] MEDS: METHADONE 10 MG (DOLOPHINE) TAB PO SCH (08:37)
[2022-08-07] MEDS: GABAPENTIN 600 MG (NEURONTIN) TAB PO SCH ×2 (08:38→22:30)
[2022-08-07] MEDS: lisINopril 10 MG (PRINIVIL) TABLET PO SCH (08:38)
[2022-08-07] MEDS: busPIRone 15 MG (BUSPAR) TABLET PO SCH ×2 (08:46→22:29)
[2022-08-07] MEDS: BISACODYL 10 MG SUPP (DULCOLAX) PR SCH (08:46)
--- NOTE | 2022-08-07 09:48 | Progress Note - Hospitalist ---
Subjective HPI/CC On Admission Date Seen by Provider: Aug 07, 2022 Time Seen by Provider: 09:25 Jayesh Scruggs is a 66 year old female who was admitted with a small bowel obstruction. The hospitalist service has been consulted due to hypertension. She reports abdominal pain across the upper part of her abdomen. The pain is currently 7/10. She has associated nausea. She has not been eating or drinking anything. She had several episodes of vomiting yesterday. She had diarrhea yesterday after the pain began. She is not having any bowel movements today. She is maybe having minimal flatus today. She says she does not usually have high blood pressure. She does not take any antihypertensive medications. Subjective/Events-last exam Her pain is a little better. She is still nauseous. She is requesting Phenergan. She has a small bowel movement. She wants to take Miralax. She asks if she will be going home tomorrow. Objective Exam Vital Signs Vital Signs Date Time Temp Pulse Resp B/P (MAP) Pulse Ox O2 Delivery O2 Flow Rate FiO2 08/07/22 07:34 36.6 76 18 191/72 (111) 94 Room Air Capillary Refill : Less Than 3 Seconds General Appearance: No Apparent Distress, WD/WN Respiratory: Lungs Clear, No Respiratory Distress Cardiovascular: Regular Rate, Rhythm, No Murmur Gastrointestinal: Normal Bowel Sounds, Soft Extremity: Normal Inspection, No Pedal Edema Neurologic/Psychiatric: Alert, No Motor/Sensory Deficits Skin: Normal Color, Warm/Dry Results/Procedures Lab Patient resulted labs reviewed. Imaging: Reviewed Imaging Report Assessment/Plan Assessment and Plan Assess & Plan/Chief Complaint Small bowel obstruction SBO management per surgery Pain regimen Antiemetics HTN Increase Lisinopril Clonidine as needed IV Enalaprilat as needed Diagnosis/Problems Diagnosis/Problems (1) Small bowel obstruction Status: Acute (2) Abdominal pain Status: Acute (3) Hypertension Status: Acute Clinical Quality Measures AMI/AHF: ASA po Prior to arrival: Yes NANCY LINDA MD Aug 07, 2022 09:48
[2022-08-07] MEDS ORDERED: HydroCHLOROthiazide CAP/TABLET 12.5 MG TAB PO NR (10:00)
[2022-08-07] MEDS: cloNIDine 0.1 MG (CATAPRES) TAB PO PRN (10:19)
[2022-08-07] MEDS: PROMETHAZINE 25 MG (PHENERGAN) TAB PO PRN ×2 (13:36→18:11)
--- NOTE | 2022-08-07 13:55 | Discharge Inst-Surgical ---
Discharge Inst-Surgical Depart Medication/Instructions New, Converted or Re-Newed RX: Other (Resume home meds) Patient Instructions Follow up Appt: Make appointment for 1 week. [phone] Instructions: No lifting greater than 20 pounds. No strenuous activity. May shower in 24 hours, no tub bath or soaking. Use incentive spirometer at home as directed. No Smoking Symptoms to Report: Appetite Changes, Extremity Discoloration, Numbness/Tingling, Swelling Increased, Bleeding Excessive, Eyesight Changes, Pain Increased, Urine Color Change, Constipation(Persistent), Fever over 101 degree F, Pain/Pressure in chest, Urinating Difficulty, Cough Up/Vomit Blood, Heart Beat Irreg/Pounding, Pain/Pressure in jaw, Cramps in feet or legs, Lightheadedness, Pain/Pressure in shoulder, Diarrhea(Persistent), Memory Changes Suddenly, Questions/Concerns, Weight gain consecutive days, Dizziness/Fainting, Nausea/Vomiting, Shortness of Breath, Weight gain over 2 pounds If questions or concerns contact your physician Or seek help at emergency department. Activity Driving Instructions: No Driving/Refer to Dr. Vásquez Discharge Diet: Eat Small Frequent Meals Diet After 24 Hours: Clear Liquid if Nauseous If Any Problems/Questions/Issu: Contact Your Physician, Go to Emergency Room Skin/Wound Care Infection Signs and Symptoms: Increased Swelling, Temperature Above 101 F Bathing Instructions: TAMEKA Ramos DO Aug 07, 2022 13:55
[2022-08-08] MEDS: morphine INJ 4 MG/ML 1 ML (VIAL/SYRINGE) IVP PRN ×4 (01:45→12:14)
[2022-08-08 03:28] VITALS: BP 140/76
[2022-08-08] MEDS: PROMETHAZINE 25 MG (PHENERGAN) TAB PO PRN ×2 (04:23→12:17)
[2022-08-08] MEDS: LACTATED RINGERS 1,000 ML IV SCH (04:27)
[2022-08-08 07:26] VITALS: BP 137/72
[2022-08-08] MEDS: lisINopril 10 MG (PRINIVIL) TABLET PO SCH (07:41)
[2022-08-08] MEDS: GABAPENTIN 600 MG (NEURONTIN) TAB PO SCH (07:42)
[2022-08-08] MEDS: METHADONE 10 MG (DOLOPHINE) TAB PO SCH (07:42)
[2022-08-08] MEDS: busPIRone 15 MG (BUSPAR) TABLET PO SCH (07:42)
[2022-08-08] MEDS: BISACODYL 10 MG SUPP (DULCOLAX) PR SCH (07:43)
[2022-08-08] MEDS ORDERED: LISI1TAB46 PO (08:24)
[2022-08-08] MEDS ORDERED: HydroCHLOROthiazide CAP/TABLET 12.5 MG TAB PO SCH (09:00)
[2022-08-08 11:20] VITALS: BP 159/88
--- NOTE | 2022-08-08 11:34 | Progress Note ---
Subjective Date Seen by a Provider: Aug 08, 2022 Time Seen by a Provider: 10:45 Subjective/Events-last exam Patient seen with Dr. Benítez. Patient reports having some bowel movements and eating some food. Does report some nausea. Ambulating well. She reports that she does not feel ready to go home. Objective Exam Vital Signs Date Time Temp Pulse Resp B/P (MAP) Pulse Ox O2 Delivery O2 Flow Rate FiO2 08/08/22 11:20 36.8 73 20 159/88 (111) 95 Room Air 08/08/22 08:00 96 Room Air 08/08/22 07:26 37.0 67 20 137/72 (93) 96 Room Air 08/08/22 03:28 36.0 66 16 140/76 (97) 92 Room Air 08/07/22 23:49 36.5 64 16 143/81 (101) 93 Room Air 08/07/22 21:00 Room Air 08/07/22 19:39 36.8 61 18 147/68 (94) 95 Room Air 08/07/22 15:35 36.5 63 18 145/72 (96) 92 Room Air I & O 08/08/22 07:00 Intake Total 1310 ml Balance 1310 ml Capillary Refill : Less Than 3 Seconds General Appearance: No Apparent Distress, WD/WN Neck: Normal Inspection, Supple Respiratory: No Accessory Muscle Use, No Respiratory Distress Gastrointestinal: normal bowel sounds, non tender, soft Extremity: Normal Inspection, Normal Range of Motion Neurologic/Psychiatric: Alert, Oriented x3 Skin: Normal Color, Warm/Dry Assessment/Plan Assessment/Plan Assess & Plan/Chief Complaint A 66 year old female with SBO VSS Tolerating diet and having bowel movements Home meds resumed Home soon. Clinical Quality Measures AMI/AHF: ASA po Prior to arrival: Yes CASEY HANSEN APRN Aug 08, 2022 11:34
[2022-08-08 15:06] VITALS: BP 137/66
[2022-08-08 18:10] VITALS: BP 137/66
== END 2022-08-08 18:10 | disposition home or self-care (01) | DRG 389 ==
LOC: EDUNIT# 05:16 → ER 05:16 → 4TH 07:40 → OBSVTOIN 08-06 15:26
PROVIDERS: ADMIT Surgery; ATTEND Surgery
DX: K56.609 Unspecified intestinal obstruction, unspecified as to partial versus complete obstruction (principal); F11.20 Opioid dependence, uncomplicated; I10 Essential (primary) hypertension; M19.91 Primary osteoarthritis, unspecified site; M79.7 Fibromyalgia; G25.81 Restless legs syndrome; F10.21 Alcohol dependence, in remission; Z66 Do not resuscitate; Z20.822 Contact with and (suspected) exposure to COVID-19
CPT/HCPCS: 36415; 74177; 80053; 80306; 80320; 81000; 82150; 83690; 83735; 85025; 87636; 93005; 93041; G0378

== ENCOUNTER 2022-09-29 01:52 | Inpatient (IN) | payer MEDICARE ==
[~2022-09-29] VITALS: Ht 160 cm; Wt 68.0 kg
[~2022-09-29 01:52] MED LIST changes: +BUSP15TA60 PO; +LISI1TAB46 PO; +LOPE2CAP PO; +MULT-1136 PO; +TIZA-186 PO
[2022-09-29 02:28] LABS: BASOPHILS # (AUTO) 0.1 10^3/uL (0.0-0.1); BASOPHILS % (AUTO) 1 % (0-10); EOSINOPHILS # (AUTO) 0.2 10^3/uL (0.0-0.3); EOSINOPHILS % (AUTO) 2 % (0-10); HEMATOCRIT 45 % (35-52); HEMOGLOBIN 15.3 g/dL (11.5-16.0); LYMPHOCYTES % (AUTO) 20 % (12-44); MEAN CORPUSCULAR HEMOGLOBIN 33 pg (25-34); MEAN CORPUSCULAR HGB CONC 34 g/dL (32-36); MEAN CORPUSCULAR VOLUME 96 fL (80-99); MEAN PLATELET VOLUME 9.8 fL (9.0-12.2); MONOCYTES # (AUTO) 0.5 10^3/uL (0.0-1.0); MONOCYTES % (AUTO) 5 % (0-12); NEUTROPHILS # (AUTO) 7.4 10^3/uL (1.8-7.8); NEUTROPHILS % (AUTO) 73 % (42-75); PLATELET COUNT 212 10^3/uL (130-400); WHITE BLOOD COUNT 10.1 10^3/uL (4.3-11.0)
[2022-09-29] MEDS ORDERED: HYOSCYAMINE 0.125 MG (LEVSIN) TAB SL ONE (02:30)
[2022-09-29] MEDS ORDERED: PROMETHAZINE INJ 25 MG/ML (PHENERGAN) AMP IVP ONE (02:30)
[2022-09-29] MEDS ORDERED: fentaNYL INJ 100 MCG/2 ML AMP IVP ONE ×2 (02:30→07:15)
[2022-09-29] MEDS ORDERED: LACTATED RINGERS 1,000 ML IV ONE (02:30)
[2022-09-29 02:37] LABS: ALBUMIN 4.8 GM/DL (3.2-4.5)
[2022-09-29 02:38] LABS: CHLORIDE 100 MMOL/L (98-107); POTASSIUM 4.1 MMOL/L (3.6-5.0); SODIUM 141 MMOL/L (135-145)
[2022-09-29 02:39] LABS: CALCIUM 10.3 MG/DL (8.5-10.1)
[2022-09-29 02:39] LABS: BILIRUBIN,URINE NEGATIVE (NEGATIVE); CLARITY,URINE CLEAR; COLOR,URINE YELLOW; GLUCOSE, URINE (UA) NEGATIVE (NEGATIVE); KETONES,URINE NEGATIVE (NEGATIVE); LEUKOCYTE ESTERASE ,URINE NEGATIVE (NEGATIVE); NITRITE,URINE NEGATIVE (NEGATIVE); PROTEIN,URINE 2+ (NEGATIVE)
[2022-09-29 02:40] LABS: GLUCOSE 137 MG/DL (70-105); TOTAL PROTEIN 8.5 GM/DL (6.4-8.2)
[2022-09-29 02:41] LABS: CARBON DIOXIDE 26 MMOL/L (21-32)
[2022-09-29 02:42] LABS: BILIRUBIN,TOTAL 0.8 MG/DL (0.1-1.0)
[2022-09-29 02:43] LABS: ALKALINE PHOSPHATASE 109 U/L (40-136)
[2022-09-29 02:44] LABS: CREATININE SERUM 1.14 MG/DL (0.60-1.30); GFR ESTIMATED 53
[2022-09-29 02:45] LABS: BUN/CREATININE RATIO 14
[2022-09-29 02:46] LABS: BACTERIA,URINE TRACE /HPF; RBC,URINE 0-2 /HPF
[2022-09-29 02:46] LABS: ALANINE AMINOTRANSFERASE 26 U/L (0-55); MAGNESIUM 2.3 MG/DL (1.6-2.4)
[2022-09-29 02:47] LABS: AMORPHOUS SEDIMENT,UR FEW AMOR PHOSPHATE /LPF
[2022-09-29 02:48] LABS: LIPASE 59 U/L (8-78)
--- NOTE | 2022-09-29 03:15 | ED Abdominal Pain ---
General Chief Complaint: Abdominal/GI Problems Stated Complaint: NAUSEA,VOMITING Nursing Triage Note: PT PRESENTS VIA EMS WITH C/O ABDOMINAL PAIN, N/V/D. SHE REPORTS SHE ATE LEFT OVER CHEESE DIP AND A COUPLE HOURS LATER DEVELOPED SYMPTOMS. SHE ATTEMPTED TO TAKE PHENERGAN TAB, BUT STATES SHE THREW IT UP. Source of Information: Patient, Old Records Exam Limitations: No Limitations History of Present Illness Date Seen by Provider: Sep 29, 2022 Time Seen by Provider: 01:54 Initial Comments This 66-year-old woman presents to the emergency room with complaints of upper abdominal pain, nausea, vomiting, and diarrhea after eating leftovers from the [employer]. She reports this feels similar to when she had pancreatitis. She has history of abdominal adhesive disease and had a bowel obstruction last winter. The bowel obstruction was nonsurgically managed. She is afebrile. Pain has been crampy in nature at times. Zofran was given by EMS in route. Allergies and Home Medications Allergies Coded Allergies: Sulfa (Sulfonamide Antibiotics) (Verified Allergy, Unknown, 10/31/19) ketorolac (Verified Allergy, Unknown, 10/31/19) Uncoded Allergies: NARCOTIC ANTAGONISTS (Allergy, Unknown, 02/21/07) Patient Home Medication List Home Medication List Reviewed: Yes Ascorbate Calcium (Vitamin C) 500 Mg Tablet, 500 MG PO DAILY, (Reported) Entered as Reported by: FLORIAN PATTON on 08/03/221546 Last Action: Converted Buspirone HCl (Buspirone HCl) 15 Mg Tablet, 15 MG PO BID, (Reported) Entered as Reported by: FLORIAN PATTON on 08/03/221546 Last Action: Continued Diphenoxylate HCl/Atropine (Diphenoxylate-Atrop 2.5-0.025) 2.5 Mg-0.025 Mg Tablet, 2 EA PO BID, (Reported) Entered as Reported by: FLORIAN PATTON on 08/03/221546 Last Action: Continued Gabapentin (Gabapentin) 600 Mg Tablet, 600 MG PO BID, (Reported) Entered as Reported by: CHANTEL MAYA on 10/31/19 1308 Last Action: Continued Ibuprofen (Ibuprofen) 200 Mg Tablet, 600 MG PO DAILY, (Reported) Entered as Reported by: FLORIAN PATTON on 08/03/221546 Last Action: Held Lisinopril/Hydrochlorothiazide (Lisinopril-Hctz 20-12.5 mg Tab) 20 Mg-12.5 Mg Tablet, 1 EACH PO DAILY, (Reported) Entered as Reported by: FLORIAN PATTON on 09/29/22 1209 Last Action: Converted Loperamide HCl (Loperamide) 2 Mg Capsule, 4 MG PO BID, (Reported) Entered as Reported by: FLORIAN PATTON on 08/03/221546 Last Action: Continued Methadone HCl (Methadone HCl) 10 Mg Tablet, 130 MG PO DAILY, (Reported) Entered as Reported by: CHANTEL MAYA on 10/31/19 1308 Last Action: Continued Multivitamin (Multivitamin) 1 Each Tablet, 1 EACH PO DAILY, (Reported) Entered as Reported by: FLORIAN PATTON on 08/03/221546 Last Action: Converted Promethazine HCl (Promethazine Tablet) 25 Mg Tablet, 25 MG PO Q6H PRN for NAUSEA/VOMITING-2ND LINE, (Reported) Entered as Reported by: FLORIAN PATTON on 08/03/221546 Last Action: Continued Tizanidine HCl (Tizanidine HCl) 4 Mg Tablet, 4 MG PO HS, (Reported) Entered as Reported by: FLORIAN PATTON on 08/03/221546 Last Action: Continued Discontinued Medications Lisinopril/Hydrochlorothiazide (Lisinopril-Hctz 20-12.5 mg Tab) 20 Mg-12.5 Mg Tablet, 1 EACH PO DAILY Discontinued Reason: Duplicate Order Prescribed by: NANCY LINDA on 08/08/22 0824 Last Action: Discontinued Review of Systems Review of Systems Constitutional: no symptoms reported EENTM: No Symptoms Reported Respiratory: No Symptoms Reported Cardiovascular: No Symptoms Reported Gastrointestinal: See HPI Genitourinary: No Symptoms Reported Musculoskeletal: no symptoms reported Skin: no symptoms reported Psychiatric/Neurological: No Symptoms Reported Endocrine: No Symptoms Reported Hematologic/Lymphatic: No Symptoms Reported Past Jfkdpxd-Zhteol-Tzpdbi Hx Patient Social History Tobacco Use?: No Use of E-Cig and/or Vaping dev: No Substance use?: No Alcohol Use?: No Pt feels they are or have been: No Immunizations Up To Date Tetanus Booster (TDap): Unknown First/Initial COVID19 Vaccinat: November COVID19 Vaccination Sage: November COVID19 Vaccination Date: NOVEMBER Seasonal Allergies Seasonal Allergies: Yes Past Medical History Surgery/Hospitalization HX: hypertension, pancreatitis Surgeries: Yes Abdominal (Biliary stent), Appendectomy, Bowel Surgery, Gallbladder, Orthopedic, Pancreatic Respiratory: No Cardiac: Yes Hypertension Neurological: Yes (restless leg syndrome) Reproductive Disorders: No 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 Sexually Transmitted Disease: No HIV/AIDS: No Genitourinary: No Gastrointestinal: Yes (Abdominal adhesive disease) Liver Disease/Jaundice, Pancreatitis, Chronic Diarrhea, Ulcer 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) Arthritis, Fibromyalgia, Fractures Endocrine: No HEENT: No Loss of Vision: Denies Hearing Impairment: Hard of Hearing Cancer: No Psychosocial: Yes (polysubstance abuse) Integumentary: No Blood Disorders: No Adverse Reaction/Blood Tranf: No (N/A) Family Medical History Cancer (MOTHER CERVICAL CANCER ) 03 MOTHER Cataract (MATERNAL GRANDMOTHER ) Chest pain (GRANDFATHER) Congenital heart disease (BROTHER 2 WEEKS AFTER FROM CONGENITAL HEART DEFECT) Congestive heart failure (GRANDFATHER) Family history: Arthritis (GRANDMOTHER) Family history: Breast disease 03 MOTHER Family history: Cardiovascular disease (MOTHER AND GRANDFATHER) 03 MOTHER Family history: Diabetes mellitus 03 MOTHER Family history: Glaucoma (GRANDMOTHER) Family history: Hypertension (MOTHER AND GRANDFATHER) 03 MOTHER Family history: Thyroid disorder (GRANDMOTHER) Heart disease (GRANDFATHER AND GRANDMOTHER) Hypercholesterolemia 03 MOTHER Myocardial infarction (GRANDFATHER AND MOTHER) 03 MOTHER No Family History of: Abdominal aortic aneurysm Weinert's disease Alcoholism Aphasia Cancer of colon Cystic fibrosis Dementia Dysphagia Family history: Allergy Family history: Alzheimer's disease Family history: Asthma Family history: Coronary thrombosis Family history: Gastrointestinal disease Family history: Osteoporosis Headache Hearing loss Hereditary disease History of - anemia History of - disorder History of - respiratory disease History of drug abuse Human immunodeficiency virus (HIV) seropositivity Infertile Kidney disease Malignant neoplasm of lung Parkinson's disease Prostate cancer Psychotic disorder Seizure disorder Stroke Tuberculosis Visual impairment Heart Disease, Cancer, CAD Over 55 Years Old, Diabetes, Hypertension SOCIAL HISTORY: -SMOKING--DENIES USE -ETOH--HISTORY OF ABUSE/ALCOHOLISM--CLAIMS NONE SINCE 1997, PER PT ON 08/03/22 -DRUGS--STATES SHE USED TO USE "EVERY KIND OF DRUG THEY MAKE, 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 DENIES IV USE. STATES SHE ALWAYS SNORTED THEM. CLAIMS NO USE FOR YEARS, PER PT ON 08/03/22 PAST SURGICAL HISTORY: -CHOLECYSTECTOMY -APPENDECTOMY -COLON RESECTION WITH COLOSTOMY, LATER REVERSAL -PT REPORTS SHE POSSIBLY HAD SOME KIND OF SURGERY ON HER PANCREAS WELL. -EXPLORATORY LAP -LEFT HIP FRACTURE/ ORIF Physical Exam Vital Signs Vital Signs - First Documented 09/29/22 01:57 Temp 36.8 Pulse 114 Resp 20 B/P (MAP) 147/116 (126) Capillary Refill : Less Than 3 Seconds Height/Weight/BMI Height: 5'5.00" Weight: 146lbs. 9.0oz. 66.769475hh; 26.00 BMI Method:Stated General Appearance: WD/WN, mild distress HEENT: normal ENT inspection Neck: normal inspection Respiratory: lungs clear, normal breath sounds, no respiratory distress Cardiovascular: regular rate, rhythm, no edema, no murmur Gastrointestinal: normal bowel sounds, soft, tenderness (Generalized, greater in the upper abdomen) Extremities: normal inspection, no pedal edema Neurologic/Psychiatric: alert, normal mood/affect, oriented x 3 Skin: normal color, warm/dry Progress/Results/Core Measures Results/Orders Lab Results Laboratory Tests Test 09/29/22 02:10 09/29/22 02:31 Range/Units White Blood Count 10.1 4.3-11.0 10^3/uL Red Blood Count 4.65 3.80-5.11 10^6/uL Hemoglobin 15.3 11.5-16.0 g/dL Hematocrit 45 35-52 % Mean Corpuscular Volume 96 80-99 fL Mean Corpuscular Hemoglobin 33 25-34 pg Mean Corpuscular Hemoglobin Concent 34 32-36 g/dL Red Cell Distribution Width 12.5 10.0-14.5 % Platelet Count 212 130-400 10^3/uL Mean Platelet Volume 9.8 9.0-12.2 fL Immature Granulocyte % (Auto) 0 % Neutrophils (%) (Auto) 73 42-75 % Lymphocytes (%) (Auto) 20 12-44 % Monocytes (%) (Auto) 5 0-12 % Eosinophils (%) (Auto) 2 0-10 % Basophils (%) (Auto) 1 0-10 % Neutrophils # (Auto) 7.4 1.8-7.8 10^3/uL Lymphocytes # (Auto) 2.0 1.0-4.0 10^3/uL Monocytes # (Auto) 0.5 0.0-1.0 10^3/uL Eosinophils # (Auto) 0.2 0.0-0.3 10^3/uL Basophils # (Auto) 0.1 0.0-0.1 10^3/uL Immature Granulocyte # (Auto) 0.0 0.0-0.1 10^3/uL Sodium Level 141 135-145 MMOL/L Potassium Level 4.1 3.6-5.0 MMOL/L Chloride Level 100 98-107 MMOL/L Carbon Dioxide Level 26 21-32 MMOL/L Anion Gap 15 H 5-14 MMOL/L Blood Urea Nitrogen 16 7-18 MG/DL Creatinine 1.14 0.60-1.30 MG/DL Estimat Glomerular Filtration Rate 53 BUN/Creatinine Ratio 14 Glucose Level 137 H 70-105 MG/DL Calcium Level 10.3 H 8.5-10.1 MG/DL Corrected Calcium 8.5-10.1 MG/DL Magnesium Level 2.3 1.6-2.4 MG/DL Total Bilirubin 0.8 0.1-1.0 MG/DL Aspartate Amino Transf (AST/SGOT) 38 H 5-34 U/L Alanine Aminotransferase (ALT/SGPT) 26 0-55 U/L Alkaline Phosphatase 109 40-136 U/L C-Reactive Protein High Sensitivity 0.17 0.00-0.50 MG/DL Total Protein 8.5 H 6.4-8.2 GM/DL Albumin 4.8 H 3.2-4.5 GM/DL Lipase 59 8-78 U/L Urine Color YELLOW Urine Clarity CLEAR Urine pH 8.0 5-9 Urine Specific Ayr 1.020 1.016-1.022 Urine Protein 2+ H NEGATIVE Urine Glucose (UA) NEGATIVE NEGATIVE Urine Ketones NEGATIVE NEGATIVE Urine Nitrite NEGATIVE NEGATIVE Urine Bilirubin NEGATIVE NEGATIVE Urine Urobilinogen 0.2 < = 1.0 MG/DL Urine Leukocyte Esterase NEGATIVE NEGATIVE Urine RBC (Auto) TRACE-I H NEGATIVE Urine RBC 0-2 /HPF Urine WBC NONE /HPF Urine Crystals PRESENT H /LPF Urine Amorphous Sediment FEW AVEL PHOSPHATE H /LPF Urine Bacteria TRACE /HPF Urine Casts NONE /LPF Urine Mucus NEGATIVE /LPF Urine Culture Indicated NO My Orders Orders - DEREK LOPEZ MD Promethazine Injection (Phenergan Injec (09/29/22 02:30) Fentanyl Inj (Sublimaze Injection) (09/29/22 02:30) Hyoscyamine Sl Tablet (Levsin Sl Tablet) (09/29/22 02:30) Lactated Ringers (Lr 1000 Ml Iv Solution (09/29/22 02:30) Cbc With Automated Diff (09/29/22 02:21) Comprehensive Metabolic Panel (09/29/22 02:21) Hs C Reactive Protein (09/29/22 02:21) Lipase (09/29/22 02:21) Magnesium (09/29/22 02:21) Ua Culture If Indicated (09/29/22 02:21) Ct Abdomen/Pelvis W (09/29/22 03:14) Iohexol Injection (Omnipaque 350 Mg/Ml 1 (09/29/22 03:30) Received Contrast (Hold Metformin- Contr (09/29/22 03:30) Ns (Ivpb) (Sodium Chloride 0.9% Ivpb Bag (09/29/22 03:30) Fentanyl Inj (Sublimaze Injection) (09/29/22 07:15) Ondansetron Injection (Zofran Injectio (09/29/22 07:45) Medications Given in ED Current Medications Medications Dose Ordered Sig/Cory Route Start Time Stop Time Status Last Admin Dose Admin Fentanyl Citrate 50 mcg ONCE ONCE IVP 09/29/22 02:30 09/29/22 02:31 DC 09/29/22 02:36 50 MCG Fentanyl Citrate 50 mcg ONCE ONCE IVP 09/29/22 07:15 09/29/22 07:16 DC 09/29/22 07:35 50 MCG Hyoscyamine Sulfate 0.25 mg ONCE ONCE SL 09/29/22 02:30 09/29/22 02:31 DC 09/29/22 03:11 0.25 MG Iohexol 100 ml ONCE ONCE IV 09/29/22 03:30 09/29/22 03:31 DC 09/29/22 03:36 78 ML Lactated Ringer's 1,000 ml @ 0 mls/hr Q0M ONCE IV 09/29/22 02:30 09/29/22 02:31 DC 09/29/22 02:36 0 MLS/HR Ondansetron HCl 8 mg ONCE ONCE IVP 09/29/22 07:45 09/29/22 07:46 DC 09/29/22 07:48 8 MG Promethazine HCl 25 mg ONCE ONCE IVP 09/29/22 02:30 09/29/22 02:31 DC 09/29/22 02:34 25 MG Sodium Chloride 100 ml ONCE ONCE IV 09/29/22 03:30 09/29/22 03:31 DC 09/29/22 03:36 80 ML Vital Signs/I&O 09/29/22 01:57 Temp 36.8 Pulse 114 Resp 20 B/P (MAP) 147/116 (126) Blood Pressure Mean: 126 Progress Progress Note #1: Time: 07:48 Progress Note Labs were assessed including CBC, CMP, lipase, urinalysis, and CRP. There were no significant abnormalities. Due to patient's history of abdominal adhesive disease and prior small bowel obstruction, CT was pursued. Patient was treated with fentanyl, Phenergan, and IV fluids. She received a repeat dose of the fentanyl and Zofran later in the ED course. Progress Note #2: Progress Note Suspected SBO was confirmed by radiologist's read. Patient did not require NG tube in the ER. She did require additional doses of Zofran and Fentanyl. Admission was delayed while awaiting read of the CT. CT report took over 4 hours and was necessary before admission to ensure patient did not need urgent surgery. Diagnostic Imaging Diagonstic Imaging: CT Plain Films/CT/US/NM/MRI: abdomen, pelvis Comments CT abdomen and pelvis reviewed by me and report reviewed. See report below: NAME: HARDEEP HUERTA [facility] REC#: [id number] PT STATUS: REG ER : 1955 PHYSICIAN: DEREK LOPEZ MD ADMIT DATE: 09/29/22/ER Draft Date of Exam:09/29/22 CT ABDOMEN/PELVIS W PROCEDURE: CT abdomen and pelvis with contrast. TECHNIQUE: Multiple contiguous axial images were obtained through the abdomen and pelvis after administration of intravenous contrast. Auto Exposure Controls were utilized during the CT exam to meet ALARA standards for radiation dose reduction. All CT scans use one or more of the following dose optimizing techniques: automated exposure control, MA and/or KvP adjustment based on patient size and exam type or iterative reconstruction. INDICATION: Abdominal pain, nausea, vomiting. Compared with study 08/03/2022. FINDINGS: The catheter in the distal common bile duct extends into the transverse duodenal sweep unchanged from prior. Intra and extrahepatic bile duct dilatation proximal to that stent unchanged. No liver mass. The spleen, adrenals and pancreas unremarkable. Kidneys unobstructed and nonacute. Mid to distal small bowel dilatation with some fecalization and scattered air-fluid levels. There is a redemonstrated finding although a maximal small bowel caliber decreased in the interim, today 3.6 cm, previously 4 cm. No pneumatosis or free gas. No abscess. The distal small bowel is decompressed unchanged from prior. Postsurgical changes to the colon again noted. No ascites, abscess, hematoma or acute fluid collection. There has been no adverse development from prior. IMPRESSION: 1. Residual or recurrent features suspect for small bowel obstruction however less severe in dilatation when compared to prior. No perforation, abscess or hemorrhage. 2. Stable biliary dilatation and positioning of an internal biliary stent. 3. No ascites, hemorrhage or fluid collection. Dictated on workstation # [id number] Dict: 09/29/2227 Trans: 09/29/22 0800 CV [id number] Interpreted by: SLIM CALLES Departure Communication (Admissions) Time/Spoke to Admitting Phy: 05:35 Dr. Alston Time/Spoke to Consulting Phy: 08:07 Dr. Diaz Impression Primary Impression: SBO (small bowel obstruction) Disposition: ADMITTED INPATIENT Condition: Stable Admissions Decision to Admit Reason: Admit from ER (General) Decision to Admit/Date: Sep 29, 2022 Time/Decision to Admit Time: 05:35 Departure-Patient Inst. Referrals: AUGUSTO BRO MD (PCP/Family) Primary Care Physician Copy Copies To 1: AUGUSTO BRO MD, JOSHUA T MD Sep 29, 2022 03:15
[2022-09-29] MEDS ORDERED: HOLD METFORMIN - RECEIVED CONTRAST 20 ML VIAL IV SCH (03:30)
[2022-09-29] MEDS ORDERED: NS 100 ML (IVPB) BAG IV ONE (03:30)
[2022-09-29] MEDS ORDERED: IOHEXOL 350 MG/ML 100 ML (OMNIPAQUE 350) VIAL IV ONE (03:30)
[2022-09-29] MEDS ORDERED: ONDANSETRON 4 MG/2 ML (SDV) Z0FRAN IVP ONE (07:45)
--- NOTE | 2022-09-29 08:00 | Diagnostic Imaging Report ---
PROCEDURE: CT abdomen and pelvis with contrast. TECHNIQUE: Multiple contiguous axial images were obtained through the abdomen and pelvis after administration of intravenous contrast. Auto Exposure Controls were utilized during the CT exam to meet ALARA standards for radiation dose reduction. All CT scans use one or more of the following dose optimizing techniques: automated exposure control, MA and/or KvP adjustment based on patient size and exam type or iterative reconstruction. INDICATION: Abdominal pain, nausea, vomiting. Compared with study 08/03/2022. FINDINGS: The catheter in the distal common bile duct extends into the transverse duodenal sweep unchanged from prior. Intra and extrahepatic bile duct dilatation proximal to that stent unchanged. No liver mass. The spleen, adrenals and pancreas unremarkable. Kidneys unobstructed and nonacute. Mid to distal small bowel dilatation with some fecalization and scattered air-fluid levels. There is a redemonstrated finding although a maximal small bowel caliber decreased in the interim, today 3.6 cm, previously 4 cm. No pneumatosis or free gas. No abscess. The distal small bowel is decompressed unchanged from prior. Postsurgical changes to the colon again noted. No ascites, abscess, hematoma or acute fluid collection. There has been no adverse development from prior. IMPRESSION: 1. Residual or recurrent features suspect for small bowel obstruction however less severe in dilatation when compared to prior. No perforation, abscess or hemorrhage. 2. Stable biliary dilatation and positioning of an internal biliary stent. 3. No ascites, hemorrhage or fluid collection. Dictated by: Dictated on workstation # [id number]
--- NOTE | 2022-09-29 09:21 | Consultation - Surgery ---
DELLA ISABEL 09/29/22 0921: History of Present Illness History of Present Illness Patient Consulted On(abiel/time) 09/29/22 09:04 Date Seen by Provider: Sep 29, 2022 Time Seen by Provider: 09:04 Reason for Visit: Nausea & Vomiting History of Present Illness Consult requested by ER. Patient is a 66 year old female with history of SBO, pancreatitis, bowel resection and HTN that present to the ER early this morning for worsening epigastric pain, nausea, vomiting. She states the pain began late last night after she had eaten some left over cheese dip she had. Within the next hour she began vomiting with very mild streaks of blood in her vomit. She then over the next 4 hours had 4 episodes of projectile emesis. She describes her epigastric pain as someone "digging their fist in her stomach constantly". Rating the pain as a constant 8/10 in her epigastric region. She reports the pain radiates to the center of her back. Nothing seems to make it better at this time, she tried taking phenergan at home but vomited it up right after she took it. Nothing makes the pain worse. No associated symptoms. She had two bowel movements yesterday which were both diarrhea which she states for her is "normal" for which she takes daily lomotil. She had one bowel movement before and one during her episode of epigastric pain. Denying any hemtochezia or melena in the stool. She reports these symptoms are very similar to a prior ER visit she had just last July where she was treated for a SBO. Patient notes cold symptoms she had this last week, endorsing cough, weakness, and rhinorrhea but denying fever. Today in the ER she is laying in bed uncomfortably while grabbing onto a bucket. She reports only dry heaving since arriving to the ER and no bowel movement/flatus since arrival. She has conversational dyspnea while answering questions. Patient denies any hematuria, sore throat, or body aches at this time. Last colonoscopy was done by Dr. Benítez in 2019 which showed moderate gastritis, esophageal stricture, and internal&external hemorrhoids. Allergies and Home Medications Allergies Coded Allergies: Sulfa (Sulfonamide Antibiotics) (Verified Allergy, Unknown, 10/31/19) ketorolac (Verified Allergy, Unknown, 10/31/19) Uncoded Allergies: NARCOTIC ANTAGONISTS (Allergy, Unknown, 02/21/07) Patient Home Medication List Ascorbate Calcium (Vitamin C) 500 Mg Tablet, 500 MG PO DAILY, (Reported) Entered as Reported by: FLORIAN PATTON on 08/03/221546 Last Action: Reviewed Buspirone HCl (Buspirone HCl) 15 Mg Tablet, 15 MG PO BID, (Reported) Entered as Reported by: FLORIAN PATTON on 08/03/221546 Last Action: Reviewed Diphenoxylate HCl/Atropine (Diphenoxylate-Atrop 2.5-0.025) 2.5 Mg-0.025 Mg Tablet, 2 EA PO BID, (Reported) Entered as Reported by: FLORIAN PATTON on 08/03/221546 Last Action: Reviewed Gabapentin (Gabapentin) 600 Mg Tablet, 600 MG PO BID, (Reported) Entered as Reported by: CHANTEL MAYA on 10/31/19 1308 Last Action: Reviewed Ibuprofen (Ibuprofen) 200 Mg Tablet, 600 MG PO DAILY, (Reported) Entered as Reported by: FLORIAN PATTON on 08/03/221546 Last Action: Reviewed Lisinopril/Hydrochlorothiazide (Lisinopril-Hctz 20-12.5 mg Tab) 20 Mg-12.5 Mg Tablet, 1 EACH PO DAILY, (Reported) Entered as Reported by: FLORIAN PATTON on 09/29/22 1209 Last Action: Reviewed Loperamide HCl (Loperamide) 2 Mg Capsule, 4 MG PO BID, (Reported) Entered as Reported by: FLORIAN PATTON on 08/03/221546 Last Action: Reviewed Methadone HCl (Methadone HCl) 10 Mg Tablet, 130 MG PO DAILY, (Reported) Entered as Reported by: CHANTEL MAYA on 10/31/19 1308 Last Action: Reviewed Multivitamin (Multivitamin) 1 Each Tablet, 1 EACH PO DAILY, (Reported) Entered as Reported by: FLORIAN PATTON on 08/03/221546 Last Action: Reviewed Promethazine HCl (Promethazine Tablet) 25 Mg Tablet, 25 MG PO Q6H PRN for NAUSEA/VOMITING-2ND LINE, (Reported) Entered as Reported by: FLORIAN PATTON on 08/03/221546 Last Action: Reviewed Tizanidine HCl (Tizanidine HCl) 4 Mg Tablet, 4 MG PO HS, (Reported) Entered as Reported by: FLORIAN PATTON on 08/03/22 8427 Last Action: Reviewed Discontinued Medications Lisinopril/Hydrochlorothiazide (Lisinopril-Hctz 20-12.5 mg Tab) 20 Mg-12.5 Mg Tablet, 1 EACH PO DAILY Discontinued Reason: Duplicate Order Prescribed by: NANCY LINDA on 08/08/22 3246 Last Action: Discontinued Past Kshyekz-Csftdg-Brmvpm Hx Patient Social History Drug of Choice: HX Smoking Status: Never a Smoker 2nd Hand Smoke Exposure: Yes Recent Hopitalizations: No Alcohol Use?: No Have you traveled recently?: No Immunizations Up To Date Tetanus Booster (TDap): Unknown Date of Pneumonia Vaccine: May 22, 2019 Date of Influenza Vaccine: May 22, 2019 Seasonal Allergies Seasonal Allergies: Yes Surgeries History of Surgeries: Yes Surgeries: Abdominal (Biliary stent), Appendectomy, Bowel Surgery (Bowel resction at [facility]), Gallbladder, Orthopedic, Pancreatic (Panceratic duct stent) Respiratory History of Respiratory Disorde: No Cardiovascular History of Cardiac Disorders: Yes Cardiac Disorders: Hypertension Neurological History of Neurological Disord: Yes (restless leg syndrome) Reproductive System Hx Reproductive Disorders: No Sexually Transmitted Disease: No HIV/AIDS: No Female Reproductive Disorders: Denies [employer]OPER History: Menopausal Genitourinary History of Genitourinary Disor: No Gastrointestinal History of Gastrointestinal Di: Yes (Abdominal adhesive disease) Gastrointestinal Disorders: Gastroesophageal Reflux, Liver Disease/Jaundice, Pancreatitis, Chronic Diarrhea, Esophagitis, Ulcer Musculoskeletal History of Musculoskeletal Dis: Yes (Degenerative disease of the cervical spine) Musculoskeletal Disorders: Arthritis, Fibromyalgia, Fractures Endocrine History of Endocrine Disorders: No HEENT History of HEENT Disorders: No Loss of Vision: Denies Hearing Impairment: Hard of Hearing Cancer History of Cancer: No Psychosocial History of Psychiatric Problem: Yes (polysubstance abuse) Integumentary History of Skin or Integumenta: No Blood Transfusions History of Blood Disorders: No Adverse Reaction to a Blood Tr: No (N/A) Family Medical History Significant Family History: Heart Disease, Cancer, CAD Over 55 Years Old, Diabetes, Hypertension Other Grand father had colon cancer Family Medial History: Cancer (MOTHER CERVICAL CANCER ) 03 MOTHER Cataract (MATERNAL GRANDMOTHER ) Chest pain (GRANDFATHER) Congenital heart disease (BROTHER 2 WEEKS AFTER FROM CONGENITAL HEART DEFECT) Congestive heart failure (GRANDFATHER) Family history: Arthritis (GRANDMOTHER) Family history: Breast disease 03 MOTHER Family history: Cardiovascular disease (MOTHER AND GRANDFATHER) 03 MOTHER Family history: Diabetes mellitus 03 MOTHER Family history: Glaucoma (GRANDMOTHER) Family history: Hypertension (MOTHER AND GRANDFATHER) 03 MOTHER Family history: Thyroid disorder (GRANDMOTHER) Heart disease (GRANDFATHER AND GRANDMOTHER) Hypercholesterolemia 03 MOTHER Myocardial infarction (GRANDFATHER AND MOTHER) 03 MOTHER No Family History of: Abdominal aortic aneurysm Polk's disease Alcoholism Aphasia Cancer of colon Cystic fibrosis Dementia Dysphagia Family history: Allergy Family history: Alzheimer's disease Family history: Asthma Family history: Coronary thrombosis Family history: Gastrointestinal disease Family history: Osteoporosis Headache Hearing loss Hereditary disease History of - anemia History of - disorder History of - respiratory disease History of drug abuse Human immunodeficiency virus (HIV) seropositivity Infertile Kidney disease Malignant neoplasm of lung Parkinson's disease Prostate cancer Psychotic disorder Seizure disorder Stroke Tuberculosis Visual impairment Review of Systems-General Constitutional: malaise, weakness EENTM: No mouth swelling, No epistaxis Respiratory: No cough; short of breath; No wheezing Cardiovascular: No chest pain, No edema Gastrointestinal: abdominal pain (Epigastric 8/10, constant deep and sharp pressure), hematemesis; No melena; nausea, vomiting Genitourinary: No dysuria, No hematuria Musculoskeletal: back pain (Localized to center of back); No joint pain Skin: No change in color, No dryness Psychiatric/Neurological: Headache; Denies Numbness, Denies Tremors Physical Exam-General Problems Physical Exam Vital Signs Vital Signs - First Documented 09/29/22 01:57 Temp 36.8 Pulse 114 Resp 20 B/P (MAP) 147/116 (126) Capillary Refill : Less Than 3 Seconds General Appearance: WD/WN, mild distress Eyes: Bilateral Eye PERRL, Bilateral Eye EOMI HEENT: PERRL/EOMI; No scleral icterus (R), No scleral icterus (L) Neck: non-tender, supple Respiratory: chest non-tender, lungs clear, normal breath sounds, no respira tory distress, no accessory muscle use Cardiovascular: no murmur, tachycardia Peripheral Pulses: 2+ Radial Pulses (R), 2+ Radial Pulses (L) Gastrointestinal: normal bowel sounds, soft, no organomegaly; No distended, No guarding, No rebound; tenderness (Epigstric region tender to palpation) Rectal: deferred Back: No CVA tenderness (R), No CVA tenderness (L) Extremities: non-tender, no pedal edema, no calf tenderness Neurologic/Psychiatric: alert, oriented x 3 Skin: normal color, warm/dry Data Review Labs Laboratory Tests 09/29/22 02:10: White Blood Count 10.1, Red Blood Count 4.65, Hemoglobin 15.3, Hematocrit 45, Mean Corpuscular Volume 96, Mean Corpuscular Hemoglobin 33, Mean Corpuscular Hemoglobin Concent 34, Red Cell Distribution Width 12.5, Platelet Count 212, Mean Platelet Volume 9.8, Immature Granulocyte % (Auto) 0, Neutrophils (%) (Auto) 73, Lymphocytes (%) (Auto) 20, Monocytes (%) (Auto) 5, Eosinophils (%) (Auto) 2, Basophils (%) (Auto) 1, Neutrophils # (Auto) 7.4, Lymphocytes # (Auto) 2.0, Monocytes # (Auto) 0.5, Eosinophils # (Auto) 0.2, Basophils # (Auto) 0.1, Immature Granulocyte # (Auto) 0.0, Sodium Level 141, Potassium Level 4.1, Chloride Level 100, Carbon Dioxide Level 26, Anion Gap 15H, Blood Urea Nitrogen 16, Creatinine 1.14, Estimat Glomerular Filtration Rate 53, BUN/Creatinine Ratio 14, Glucose Level 137H, Calcium Level 10.3H, Corrected Calcium , Magnesium Level 2.3, Total Bilirubin 0.8, Aspartate Amino Transf (AST/SGOT) 38H, Alanine Aminotransferase (ALT/SGPT) 26, Alkaline Phosphatase 109, C-Reactive Protein High Sensitivity 0.17, Total Protein 8.5H, Albumin 4.8H, Lipase 59 09/29/22 02:31: Urine Color YELLOW, Urine Clarity CLEAR, Urine pH 8.0, Urine Specific Falls 1.020, Urine Protein 2+H, Urine Glucose (UA) NEGATIVE, Urine Ketones NEGATIVE, Urine Nitrite NEGATIVE, Urine Bilirubin NEGATIVE, Urine Urobilinogen 0.2, Urine Leukocyte Esterase NEGATIVE, Urine RBC (Auto) TRACE-IH, Urine RBC 0-2, Urine WBC NONE, Urine Crystals PRESENTH, Urine Amorphous Sediment FEW AVEL PHOSPHATEH, Urine Bacteria TRACE, Urine Casts NONE, Urine Mucus NEGATIVE, Urine Culture I ndicated NO Radiology NAME: HARDEEP HUERTA [facility] REC#: [id number] PT STATUS: REG ER : 1955 PHYSICIAN: DEREK LOPEZ MD ADMIT DATE: 09/29/22/ER Draft Date of Exam:09/29/22 CT ABDOMEN/PELVIS W PROCEDURE: CT abdomen and pelvis with contrast. TECHNIQUE: Multiple contiguous axial images were obtained through the abdomen and pelvis after administration of intravenous contrast. Auto Exposure Controls were utilized during the CT exam to meet ALARA standards for radiation dose reduction. All CT scans use one or more of the following dose optimizing techniques: automated exposure control, MA and/or KvP adjustment based on patient size and exam type or iterative reconstruction. INDICATION: Abdominal pain, nausea, vomiting. Compared with study 08/03/2022. FINDINGS: The catheter in the distal common bile duct extends into the transverse duodenal sweep unchanged from prior. Intra and extrahepatic bile duct dilatation proximal to that stent unchanged. No liver mass. The spleen, adrenals and pancreas unremarkable. Kidneys unobstructed and nonacute. Mid to distal small bowel dilatation with some fecalization and scattered air-fluid levels. There is a redemonstrated finding although a maximal small bowel caliber decreased in the interim, today 3.6 cm, previously 4 cm. No pneumatosis or free gas. No abscess. The distal small bowel is decompressed unchanged from prior. Postsurgical changes to the colon again noted. No ascites, abscess, hematoma or acute fluid collection. There has been no adverse development from prior. IMPRESSION: 1. Residual or recurrent features suspect for small bowel obstruction however less severe in dilatation when compared to prior. No perforation, abscess or hemorrhage. 2. Stable biliary dilatation and positioning of an internal biliary stent. 3. No ascites, hemorrhage or fluid collection. Assessment/Plan Assessment/Plan Assessment/Plan Possible small bowel obstruction Nausea and Vomiting History of SBO History of Adhesions and colostomy History of Pancreatitis Chronic Abdominal Pain Administer IV fluids Order small bowel follow through Pain medications PRN NPO Consider NG tube if symptoms persist Encourage ambulation TAMEKA WYLIE DO 09/29/22 1421: History of Present Illness History of Present Illness Time Seen by Provider: 11:29 History of Present Illness Surgery asked to consult regarding PSBO and abdominal pain. HPI per ED: This 66-year-old woman presents to the emergency room with complaints of upper abdominal pain, nausea, vomiting, and diarrhea after eating leftovers from the [employer] party. She reports this feels similar to when she had pancreatitis. She has history of abdominal adhesive disease and had a bowel obstruction last winter. The bowel obstruction was nonsurgically managed. She is afebrile. Pain has been crampy in nature at times. Zofran was given by EMS in route. Pt is known to me, she came in with similar problem in July and also had pancreatitis. She stated that prior to that she has never had problem like this. She thinks she was told she has adhesions. Pain is 10 out of 10 and the Dilaudid is not helping. She is also very nauseous and states Zofran didn't help and she coughed out the rectal suppository of Phenergan. She had a BM yest erday but nothing today. She also has not had any emesis, since she was admitted. Allergies and Home Medications Allergies Coded Allergies: Sulfa (Sulfonamide Antibiotics) (Verified Allergy, Unknown, 10/31/19) ketorolac (Verified Allergy, Unknown, 10/31/19) Uncoded Allergies: NARCOTIC ANTAGONISTS (Allergy, Unknown, 02/21/07) Patient Home Medication List Home Medication List Reviewed: Yes Ascorbate Calcium (Vitamin C) 500 Mg Tablet, 500 MG PO DAILY, (Reported) Entered as Reported by: FLORIAN PATTON on 08/03/221546 Last Action: Reviewed Buspirone HCl (Buspirone HCl) 15 Mg Tablet, 15 MG PO BID, (Reported) Entered as Reported by: FLORIAN PATTON on 08/03/221546 Last Action: Reviewed Diphenoxylate HCl/Atropine (Diphenoxylate-Atrop 2.5-0.025) 2.5 Mg-0.025 Mg Tablet, 2 EA PO BID, (Reported) Entered as Reported by: FLORIAN PATTON on 08/03/221546 Last Action: Reviewed Gabapentin (Gabapentin) 600 Mg Tablet, 600 MG PO BID, (Reported) Entered as Reported by: CHANTEL MAYA on 10/31/19 1308 Last Action: Reviewed Ibuprofen (Ibuprofen) 200 Mg Tablet, 600 MG PO DAILY, (Reported) Entered as Reported by: FLORIAN PATTON on 08/03/221546 Last Action: Reviewed Lisinopril/Hydrochlorothiazide (Lisinopril-Hctz 20-12.5 mg Tab) 20 Mg-12.5 Mg Tablet, 1 EACH PO DAILY, (Reported) Entered as Reported by: FLORIAN PATTON on 09/29/22 1209 Last Action: Reviewed Loperamide HCl (Loperamide) 2 Mg Capsule, 4 MG PO BID, (Reported) Entered as Reported by: FLORIAN PATTON on 08/03/221546 Last Action: Reviewed Methadone HCl (Methadone HCl) 10 Mg Tablet, 130 MG PO DAILY, (Reported) Entered as Reported by: CHANTEL MAYA on 10/31/19 1308 Last Action: Reviewed Multivitamin (Multivitamin) 1 Each Tablet, 1 EACH PO DAILY, (Reported) Entered as Reported by: FLORIAN PATTON on 08/03/221546 Last Action: Reviewed Promethazine HCl (Promethazine Tablet) 25 Mg Tablet, 25 MG PO Q6H PRN for NAUSEA/VOMITING-2ND LINE, (Reported) Entered as Reported by: FLORIAN PATTON on 08/03/221546 Last Action: Reviewed Tizanidine HCl (Tizanidine HCl) 4 Mg Tablet, 4 MG PO HS, (Reported) Entered as Reported by: FLORIAN PATTON on 08/03/221546 Last Action: Reviewed Discontinued Medications Lisinopril/Hydrochlorothiazide (Lisinopril-Hctz 20-12.5 mg Tab) 20 Mg-12.5 Mg Tablet, 1 EACH PO DAILY Discontinued Reason: Duplicate Order Prescribed by: NANCY LINDA on 08/08/22 0824 Last Action: Discontinued Past Lobmcoj-Uldakn-Qkbaax Hx Patient Social History Smoking Status: Never a Smoker Surgeries History of Surgeries: Yes Surgeries: Abdominal (Biliary stent), Appendectomy, Bowel Surgery (Bowel resction at [facility]), Gallbladder, Orthopedic, Pancreatic (Panceratic duct stent) Respiratory History of Respiratory Disorde: No Cardiovascular History of Cardiac Disorders: Yes Cardiac Disorders: Hypertension Neurological History of Neurological Disord: No Genitourinary History of Genitourinary Disor: No Gastrointestinal History of Gastrointestinal Di: Yes Gastrointestinal Disorders: Gastroesophageal Reflux, Liver Disease/Jaundice, Pancreatitis, Chronic Diarrhea, Esophagitis, Ulcer Musculoskeletal History of Musculoskeletal Dis: Yes Musculoskeletal Disorders: Arthritis, Chronic Back Pain Endocrine History of Endocrine Disorders: No HEENT History of HEENT Disorders: No Cancer History of Cancer: No Psychosocial History of Psychiatric Problem: Yes Family Medical History Significant Family History: Cancer, Diabetes Family Medial History: Cancer (MOTHER CERVICAL CANCER ) 03 MOTHER Cataract (MATERNAL GRANDMOTHER ) Chest pain (GRANDFATHER) Congenital heart disease (BROTHER 2 WEEKS AFTER FROM CONGENITAL HEART DEFECT) Congestive heart failure (GRANDFATHER) Family history: Arthritis (GRANDMOTHER) Family history: Breast disease 03 MOTHER Family history: Cardiovascular disease (MOTHER AND GRANDFATHER) 03 MOTHER Family history: Diabetes mellitus 03 MOTHER Family history: Glaucoma (GRANDMOTHER) Family history: Hypertension (MOTHER AND GRANDFATHER) 03 MOTHER Family history: Thyroid disorder (GRANDMOTHER) Heart disease (GRANDFATHER AND GRANDMOTHER) Hypercholesterolemia 03 MOTHER Myocardial infarction (GRANDFATHER AND MOTHER) 03 MOTHER Review of Systems-General Constitutional: malaise, weakness EENTM: No mouth swelling, No epistaxis Respiratory: No cough; short of breath; No wheezing Cardiovascular: No chest pain, No edema Gastrointestinal: abdominal pain (Epigastric 8/10, constant deep and sharp pressure), hematemesis; No melena; nausea, vomiting Genitourinary: No dysuria, No hematuria Musculoskeletal: back pain (Localized to center of back); No joint pain Skin: No change in color, No dryness Psychiatric/Neurological: Headache; Denies Numbness, Denies Tremors Physical Exam-General Problems Physical Exam General Appearance: WD/WN, moderate distress (secondary to pain ) Eyes: Bilateral Eye PERRL, Bilateral Eye EOMI HEENT: pharynx normal; No scleral icterus (R), No scleral icterus (L) Neck: non-tender, supple Respiratory: chest non-tender, lungs clear, normal breath sounds, no respirato ry distress, no accessory muscle use Cardiovascular: no murmur, tachycardia Peripheral Pulses: 2+ Radial Pulses (R), 2+ Radial Pulses (L) Gastrointestinal: normal bowel sounds, soft, no organomegaly; No distended; guarding (voluntary); No rebound; tenderness (Epigstric region tender to palpation) Rectal: deferred Back: no vertebral tenderness, CVA tenderness (R), CVA tenderness (L) Extremities: non-tender, no pedal edema, no calf tenderness Neurologic/Psychiatric: alert, oriented x 3 Skin: normal color, warm/dry Lymphatic: no adenopathy (neck, axilla or groin) Assessment/Plan Assessment/Plan Assessment/Plan Partial small bowel obstruction Nausea and Vomiting History of Adhesions History of Pancreatitis Chronic Abdominal Pain Administer IV fluids, will order small bowel follow through Pain medications will switch to Dilaudid TRAFFIC REPORTER because of her methadone NPO, Encourage ambulation I reviewed the CT myself and went over it with Radiologist. I also discussed treating her pain with Pharmacy, because she is on methadone; will start Dilaudid TRAFFIC REPORTER. Supervisory-Addendum Brief Verification & Attestation Participated in pt care: history, MDM, physical Personally performed: exam, history, MDM, supervision of care Care discussed with: Medical Student Procedures: n/a Verification and Attestation of Medical Student E/M Service A medical student performed and documented this service. I then reviewed and verified all information documented by the medical student and made modifications to such information, when appropriate. I personally performed a physical exam, medical decision making and then discussed any differences between the notes and made revisions as necessary to create one note. Tameka Wylie , 09/29/22 , 14:29 DELLA ISABEL Sep 29, 2022 09:21 TAMEKA WYLIE DO Sep 29, 2022 14:21
[2022-09-29] MEDS ORDERED: ANTACID SUSP 30 ML UDC (MYLANTA) PO PRN (10:15)
[2022-09-29] MEDS ORDERED: BISACODYL 10 MG SUPP (DULCOLAX) PR PRN (10:15)
[2022-09-29] MEDS ORDERED: diphenhydrAMINE 25 MG TAB (BENADRYL) PO PRN (10:15)
[2022-09-29] MEDS ORDERED: polyethylene glycoL POWDER 17 GM (MIRALAX) PACK PO PRN (10:15)
[2022-09-29] MEDS ORDERED: MILK OF MAGNESIA 400 MG/5 ML 30 ML UDC PO PRN (10:15)
[2022-09-29] MEDS ORDERED: LACTULOSE SYRUP 10GM/15ML (ENULOSE) 30ML UDC PO PRN (10:15)
[2022-09-29] MEDS ORDERED: HYDROmorphone 2 MG/ML VIAL (DILAUDID) IV PRN (10:15)
[2022-09-29] MEDS ORDERED: ACETAMINOPHEN 325 MG TABLET PO PRN (10:15)
[2022-09-29] MEDS ORDERED: diphenhydrAMINE 50 MG/ML INJ (BENADRYL) IVP PRN (10:15)
[2022-09-29] MEDS ORDERED: CALCIUM CARBONATE 500 MG (TUMS) TAB.CHEW PO PRN (10:15)
[2022-09-29] MEDS: NS IV 1000 ML 1,000 ML IV SCH (10:44)
[2022-09-29] MEDS: ENOXAPARIN 40 MG/0.4 ML (LOVENOX) SYR SC SCH (10:44)
[2022-09-29] MEDS: PROMETHAZINE 25 MG (PHENERGAN) SUPP PR PRN (10:45)
--- NOTE | 2022-09-29 11:50 | History & Physical ---
JOSE MCCAULEY 09/29/22 1150: History of Present Illness History of Present Illness Reason for visit/HPI Jayesh Scruggs is a 66 yo F who is being admitted to the Med-Surg floor from ED with a chief complaint of small bowel obstruction with nausea, vomiting, and abdominal pain. She is laying over the guard rail on her bed clutching an emesis bucket in obviously discomfort. Patient was brought to the hospital last night via EMS after she began having abdominal pain and projectile vomiting at home. Pt reports she ate some left over cheese dip and started vomiting one hour later. She took TUMS and promethazine which did not help to alleviate symptoms. She states she has had 4 episodes of emesis during the span of 4 hours, some of which have had streaks of bright red blood. Last bowel movement was during an episode of vomiting. She reports a hx of chronic diarrhea. Has not passed flatus. Her abdominal pain is primarily concentrated to her epigastric and RUQ regions and radiates to her back. She describes her pain as feeling that "someone is making a fist and clawing their nails in to her gut". Rates her current pain as an 8/10 now that she has received Fentanyl. It was 10/10 on arrival. She does have a hx of pancreatitis and states this pain is similar. She endorses having a sore throat and cough for the past week. Date of Admission Sep 29, 2022 at 09:52 Date Seen by a Provider: Sep 29, 2022 Time Seen by a Provider: 08:17 I consulted on this patient on 09/29/22 08:17 Attending Physician Lj Chamorro MD Admitting Physician Admitting Physician: Tamara Burgos DO Attending Physician: Tamara Burgos DO Consult Allergies and Home Medications Allergies Coded Allergies: Sulfa (Sulfonamide Antibiotics) (Verified Allergy, Unknown, 10/31/19) ketorolac (Verified Allergy, Unknown, 10/31/19) Uncoded Allergies: NARCOTIC ANTAGONISTS (Allergy, Unknown, 02/21/07) Patient Home Medication List Home Medication List Reviewed: Yes Ascorbate Calcium (Vitamin C) 500 Mg Tablet, 500 MG PO DAILY, (Reported) Entered as Reported by: FLORIAN PATTON on 08/03/22 9782 Last Action: Reviewed Buspirone HCl (Buspirone HCl) 15 Mg Tablet, 15 MG PO BID, (Reported) Entered as Reported by: FLORIAN PATTON on 08/03/221546 Last Action: Reviewed Diphenoxylate HCl/Atropine (Diphenoxylate-Atrop 2.5-0.025) 2.5 Mg-0.025 Mg Tablet, 2 EA PO BID, (Reported) Entered as Reported by: FLROIAN PATTON on 08/03/221546 Last Action: Reviewed Gabapentin (Gabapentin) 600 Mg Tablet, 600 MG PO BID, (Reported) Entered as Reported by: CHANTEL MAYA on 10/31/19 130 Last Action: Reviewed Ibuprofen (Ibuprofen) 200 Mg Tablet, 600 MG PO DAILY, (Reported) Entered as Reported by: FLORIAN PATTON on 08/03/221546 Last Action: Reviewed Lisinopril/Hydrochlorothiazide (Lisinopril-Hctz 20-12.5 mg Tab) 20 Mg-12.5 Mg Ta blet, 1 EACH PO DAILY, (Reported) Entered as Reported by: FLORIAN PATTON on 09/29/22 1209 Last Action: Reviewed Loperamide HCl (Loperamide) 2 Mg Capsule, 4 MG PO BID, (Reported) Entered as Reported by: FLORIAN PATTON on 08/03/221546 Last Action: Reviewed Methadone HCl (Methadone HCl) 10 Mg Tablet, 130 MG PO DAILY, (Reported) Entered as Reported by: CHANTEL MAYA on 10/31/19 1308 Last Action: Reviewed Multivitamin (Multivitamin) 1 Each Tablet, 1 EACH PO DAILY, (Reported) Entered as Reported by: FLORIAN PATTON on 08/03/221546 Last Action: Reviewed Promethazine HCl (Promethazine Tablet) 25 Mg Tablet, 25 MG PO Q6H PRN for NAUSEA/VOMITING-2ND LINE, (Reported) Entered as Reported by: FLORIAN PATTON on 08/03/221546 Last Action: Reviewed Tizanidine HCl (Tizanidine HCl) 4 Mg Tablet, 4 MG PO HS, (Reported) Entered as Reported by: FLORIAN PATTON on 08/03/221546 Last Action: Reviewed Discontinued Medications Lisinopril/Hydrochlorothiazide (Lisinopril-Hctz 20-12.5 mg Tab) 20 Mg-12.5 Mg Tablet, 1 EACH PO DAILY Discontinued Reason: Duplicate Order Prescribed by: NANCY LINDA on 08/08/22823 Last Action: Discontinued Past Gsbzkys-Bhdrqv-Laraju Hx Patient Social History Tobacco Use?: No Smoking Status: Never a Smoker Smokeless Tobacco Frequency: Never a User Use of E-Cig and/or Vaping dev: No Substance use?: No Alcohol Use?: No (patient has previous hx of alcohol abuse) Pt feels they are or have been: No Immunizations Up To Date Date of Influenza Vaccine: May 22, 2019 First/Initial COVID19 Vaccinat: NOVEMBER Second COVID19 Vaccination Sage: NOVEMBER Tetanus Booster (TDap): Less Than 5 Years Hepatitis A: No Hepatitis B: No Date of Pneumonia Vaccine: May 22, 2019 Seasonal Allergies Seasonal Allergies: Yes Current Status status: No status: No Advance Directives: No Communicates: Verbally Primary Language: Korean Preferred Spoken Language: Korean Is interpretation needed?: No Additional sensory deficits: NONE Implanted or Applied Medical D: None Past Medical History Surgeries: Abdominal (Biliary stent), Appendectomy, Bowel Surgery (Bowel resction at 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 Chronic pain w/ hx of narcotic addiction (heroin) - currently on Methadone. 2. Hypertension 3. Chronic pancreatitis/chronic nausea/abdominal pain 4. Headache 5. hx of alcohol abuse 6. hx of vitiligo 7. Spinal stenosis secondary to OA 8. COPD 9. Chronic liver disease secondary to hx of etoh abuse. PSH: 1. Appendectomy 2. cholecystectomy 3. laparotomy w/ partial pancreatomy and colostomy (reversed) 4. left hip fracture w/ repair 5. Heart cath 10/2009 - non-obstructive CAD, EF 60% 6. Heart cath 01/2013 - no significant CAD, EF 60% Family Medical History Cancer (MOTHER CERVICAL CANCER ) 03 MOTHER Cataract (MATERNAL GRANDMOTHER ) Chest pain (GRANDFATHER) Congenital heart disease (BROTHER 2 WEEKS AFTER FROM CONGENITAL HEART DEFECT) Congestive heart failure (GRANDFATHER) Family history: Arthritis (GRANDMOTHER) Family history: Breast disease 03 MOTHER Family history: Cardiovascular disease (MOTHER AND GRANDFATHER) 03 MOTHER Family history: Diabetes mellitus 03 MOTHER Family history: Glaucoma (GRANDMOTHER) Family history: Hypertension (MOTHER AND GRANDFATHER) 03 MOTHER Family history: Thyroid disorder (GRANDMOTHER) Heart disease (GRANDFATHER AND GRANDMOTHER) Hypercholesterolemia 03 MOTHER Myocardial infarction (GRANDFATHER AND MOTHER) 03 MOTHER No Family History of: Abdominal aortic aneurysm Cass's disease Alcoholism Aphasia Cancer of colon Cystic fibrosis Dementia Dysphagia Family history: Allergy Family history: Alzheimer's disease Family history: Asthma Family history: Coronary thrombosis Family history: Gastrointestinal disease Family history: Osteoporosis Headache Hearing loss Hereditary disease History of - anemia History of - disorder History of - respiratory disease History of drug abuse Human immunodeficiency virus (HIV) seropositivity Infertile Kidney disease Malignant neoplasm of lung Parkinson's disease Prostate cancer Psychotic disorder Seizure disorder Stroke Tuberculosis Visual impairment Heart Disease, Cancer, CAD Over 55 Years Old, Diabetes, Hypertension SOCIAL HISTORY: -SMOKING--DENIES USE -ETOH--HISTORY OF ABUSE/ALCOHOLISM--CLAIMS NONE SINCE 1997, PER PT ON 08/03/22 -DRUGS--STATES SHE USED TO USE "EVERY KIND OF DRUG THEY MAKE, 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 DENIES IV USE. STATES SHE ALWAYS SNORTED THEM. CLAIMS NO USE FOR YEARS, PER PT ON 08/03/22 PAST SURGICAL HISTORY: -CHOLECYSTECTOMY -APPENDECTOMY -COLON RESECTION WITH COLOSTOMY, LATER REVERSAL -PT REPORTS SHE POSSIBLY HAD SOME KIND OF SURGERY ON HER PANCREAS WELL. -EXPLORATORY LAP -LEFT HIP FRACTURE/ ORIF Review of Systems Constitutional: No dizziness, No fever; weakness EENTM: nose congestion, throat pain (sore throat); No blurred vision Respiratory: cough, dyspnea on exertion Cardiovascular: No chest pain, No palpitations Gastrointestinal: abdominal pain (RUQ and epigastric area), diarrhea, hematemes is, nausea, vomiting Genitourinary: No hematuria, No incontinence Musculoskeletal: muscle weakness Skin: dryness; No pruritus, No rash Psychiatric/Neurological: Denies Numbness, Denies Tingling, Denies Tremors; Weakness Physical Exam Vital Signs Vital Signs - First Documented 09/29/22 09/29/22 01:57 09:15 Temp 36.8 Pulse 114 Resp 20 B/P (MAP) 147/116 (126) Pulse Ox 93 O2 Delivery Room Air Capillary Refill : Less Than 3 Seconds Height, Weight, BMI Height: 5'5.00" Weight: 146lbs. 9.0oz. 66.467096by; 26.56 BMI Method:Stated General Appearance: Moderate Distress Eyes: Bilateral Eye PERRL, Bilateral Eye EOMI HEENT: PERRL/EOMI; No Scleral Icterus (L), No Scleral Icterus (R) Neck: Full Range of Motion, Non Tender, Supple Respiratory: Chest Non Tender, Lungs Clear, Normal Breath Sounds, No Accessory Muscle Use, No Respiratory Distress Cardiovascular: No Murmur, Normal Peripheral Pulses, Tachycardia Gastrointestinal: Non Tender, Soft, Guarding (epigastrum), Tenderness, Other (bowel sounds present) Rectal: Deferred Back: Normal Inspection, No Vertebral Tenderness Extremity: Non Tender, No Calf Tenderness, No Pedal Edema Neurologic/Psychiatric: Alert, Oriented x3 Skin: Normal Color, Warm/Dry Lymphatic: No Adenopathy Assessment/Plan Assessment and Plan Assessment and Plan: Small Bowel Obstruction -continue IVF -Pain meds prn -NPO -consultation from Surgery -consider NG tube placement Hx of Pancreatitis -Lipase was wnl at 58 Nausea/Vomiting Diarrhea Admission Diagnosis Admission Status: Inpatient Order (span 2 midnights) Reason for Inpatient Admission: Small Bowel Obstruction TAMARA BURGOS DO 09/30/22 0505: Allergies and Home Medications Allergies Coded Allergies: Sulfa (Sulfonamide Antibiotics) (Verified Allergy, Unknown, 10/31/19) ketorolac (Verified Allergy, Unknown, 10/31/19) Uncoded Allergies: NARCOTIC ANTAGONISTS (Allergy, Unknown, 02/21/07) Patient Home Medication List Ascorbate Calcium (Vitamin C) 500 Mg Tablet, 500 MG PO DAILY, (Reported) Entered as Reported by: FLORIAN PATTON on 08/03/221546 Last Action: Reviewed Buspirone HCl (Buspirone HCl) 15 Mg Tablet, 15 MG PO BID, (Reported) Entered as Reported by: FLORIAN PATTON on 08/03/221546 Last Action: Reviewed Diphenoxylate HCl/Atropine (Diphenoxylate-Atrop 2.5-0.025) 2.5 Mg-0.025 Mg Tablet, 2 EA PO BID, (Reported) Entered as Reported by: FLORIAN PATTON on 08/03/221546 Last Action: Reviewed Gabapentin (Gabapentin) 600 Mg Tablet, 600 MG PO BID, (Reported) Entered as Reported by: CHANTEL MAYA on 10/31/19 1308 Last Action: Reviewed Ibuprofen (Ibuprofen) 200 Mg Tablet, 600 MG PO DAILY, (Reported) Entered as Reported by: FLORIAN PATTON on 08/03/221546 Last Action: Reviewed Lisinopril/Hydrochlorothiazide (Lisinopril-Hctz 20-12.5 mg Tab) 20 Mg-12.5 Mg Tablet, 1 EACH PO DAILY, (Reported) Entered as Reported by: FLORIAN PATTON on 09/29/22 1209 Last Action: Reviewed Loperamide HCl (Loperamide) 2 Mg Capsule, 4 MG PO BID, (Reported) Entered as Reported by: FLORIAN PATTON on 08/03/221546 Last Action: Reviewed Methadone HCl (Methadone HCl) 10 Mg Tablet, 130 MG PO DAILY, (Reported) Entered as Reported by: CHANTEL MAYA on 10/31/19 1308 Last Action: Reviewed Multivitamin (Multivitamin) 1 Each Tablet, 1 EACH PO DAILY, (Reported) Entered as Reported by: FLORIAN PATTON on 08/03/221546 Last Action: Reviewed Promethazine HCl (Promethazine Tablet) 25 Mg Tablet, 25 MG PO Q6H PRN for NAUSEA/VOMITING-2ND LINE, (Reported) Entered as Reported by: FLORIAN PATTON on 08/03/221546 Last Action: Reviewed Tizanidine HCl (Tizanidine HCl) 4 Mg Tablet, 4 MG PO HS, (Reported) Entered as Reported by: FLORIAN PATTON on 08/03/221546 Last Action: Reviewed Discontinued Medications Lisinopril/Hydrochlorothiazide (Lisinopril-Hctz 20-12.5 mg Tab) 20 Mg-12.5 Mg Tablet, 1 EACH PO DAILY Discontinued Reason: Duplicate Order Prescribed by: NANCY LINDA on 08/08/22 0824 Last Action: Discontinued Past Vtfdfrd-[id number]-Dnjqcf Hx Patient Social History Marrital Status: single Past Medical History Pancreatitis Family Medical History Cancer (MOTHER CERVICAL CANCER ) 03 MOTHER Cataract (MATERNAL GRANDMOTHER ) Chest pain (GRANDFATHER) Congenital heart disease (BROTHER 2 WEEKS AFTER FROM CONGENITAL HEART DEFECT) Congestive heart failure (GRANDFATHER) Family history: Arthritis (GRANDMOTHER) Family history: Breast disease 03 MOTHER Family history: Cardiovascular disease (MOTHER AND GRANDFATHER) 03 MOTHER Family history: Diabetes mellitus 03 MOTHER Family history: Glaucoma (GRANDMOTHER) Family history: Hypertension (MOTHER AND GRANDFATHER) 03 MOTHER Family history: Thyroid disorder (GRANDMOTHER) Heart disease (GRANDFATHER AND GRANDMOTHER) Hypercholesterolemia 03 MOTHER Myocardial infarction (GRANDFATHER AND MOTHER) 03 MOTHER No Family History of: Abdominal aortic aneurysm Yoel's disease Alcoholism Aphasia Cancer of colon Cystic fibrosis Dementia Dysphagia Family history: Allergy Family history: Alzheimer's disease Family history: Asthma Family history: Coronary thrombosis Family history: Gastrointestinal disease Family history: Osteoporosis Headache Hearing loss Hereditary disease History of - anemia History of - disorder History of - respiratory disease History of drug abuse Human immunodeficiency virus (HIV) seropositivity Infertile Kidney disease Malignant neoplasm of lung Parkinson's disease Prostate cancer Psychotic disorder Seizure disorder Stroke Tuberculosis Visual impairment Review of Systems Constitutional: see HPI Physical Exam General Appearance: Anxious, Chronically ill, Moderate Distress Respiratory: Lungs Clear, Normal Breath Sounds Neurologic/Psychiatric: Alert, Oriented x3 Assessment/Plan Assessment and Plan Problems: (1) Small bowel obstruction Status: Acute (2) Intractable nausea and vomiting Status: Acute (3) History of alcoholism Status: Chronic (4) Chronic alcoholic pancreatitis Status: Chronic (5) Alcoholic liver damage Status: Chronic (6) Hypertension Status: Acute (7) Chronic pain Status: Chronic Admission Diagnosis Admission Status: Inpatient Order (span 2 midnights) Reason for Inpatient Admission: sbo Supervisory-Addendum Brief Verification & Attestation Participated in pt care: history, MDM, physical Personally performed: exam, history, MDM, supervision of care Care discussed with: Medical Student Procedures: n/a Results interpretation: Verified all documentation Verification and Attestation of Medical Student E/M Service A medical student performed and documented this service in my presence. I rev iewed and verified all information documented by the medical student and made modifications to such information, when appropriate. I personally performed the physical exam and medical decision making. Tamara Burgos, Sep 30, 2022,05:03 JOSE MCCAULEY Sep 29, 2022 11:50 TAMARA BURGOS DO Sep 30, 2022 05:05
[2022-09-29 12:03] VITALS: BP 180/82
[2022-09-29] MEDS ORDERED: LISI1TAB46 PO (12:09)
[2022-09-29 14:08] VITALS: BP 180/82
[2022-09-29] MEDS ORDERED: DIATRIZOATE MEGLUM/SODIUM 37% 120 ML (GASTROGRAFIN) PO ONE (14:15)
[2022-09-29] MEDS ORDERED: RT-ALBUTEROL SULF 2.5 MG/3 ML PRE-MIX VIAL INH PRN (14:30)
[2022-09-29 16:06] VITALS: BP_SYST 159; BP_SYST 164; BP_DIAS 104; BP_DIAS 81
--- NOTE | 2022-09-29 16:10 | Diagnostic Imaging Report ---
INDICATION: Small bowel obstruction. TECHNIQUE: Gastrografin contrast was administered, and serial radiographs of the abdomen were obtained. FINDINGS: Preliminary radiograph demonstrates a common bile duct stent. There is some gaseous distention involving bowel loops in the left lower abdomen and pelvis. There is some contrast in the bladder from a recent CT. No definite free air is seen on the hemodialysis lab technician radiograph. Postcontrast administration films demonstrate contrast within the stomach with prompt emptying into proximal small bowel loops. There appears to be normal progression of contrast through the small bowel with contrast seen in the colon at approximately 1-1/2 hours. There are some focally dilated colonic bowel loops in the midline pelvis and left abdomen. Small bowel is nondistended. Mucosal fold pattern is unremarkable. IMPRESSION: No evidence of small bowel obstruction. Dictated by: Dictated on workstation # [id number]
[2022-09-29] MEDS: ONDANSETRON 4 MG/2 ML (SDV) Z0FRAN IV PRN (16:30)
[2022-09-29 19:03] VITALS: BP 176/89
[2022-09-29] MEDS: DOCUSATE SODIUM 100 MG (COLACE) CAP PO SCH (20:38)
[2022-09-29] MEDS: SENNOSIDES 8.6 MG (SENOKOT) TAB PO SCH (20:39)
[2022-09-29 23:18] VITALS: BP 174/88
[2022-09-30] MEDS: NS IV 1000 ML 1,000 ML IV SCH ×2 (03:45→15:11)
[2022-09-30 04:00] VITALS: BP 197/103
[2022-09-30] MEDS: PROMETHAZINE 25 MG (PHENERGAN) SUPP PR PRN (04:26)
[2022-09-30] MEDS ORDERED: ENALAPRILAT 2.5 MG/2 ML (VASOTEC) VIAL IV ONE (04:45)
[2022-09-30 06:25] LABS: BASOPHILS # (AUTO) 0.1 10^3/uL (0.0-0.1); BASOPHILS % (AUTO) 1 % (0-10); WHITE BLOOD COUNT 6.5 10^3/uL (4.3-11.0)
[2022-09-30 06:27] LABS: EOSINOPHILS # (AUTO) 0.2 10^3/uL (0.0-0.3); EOSINOPHILS % (AUTO) 4 % (0-10); HEMATOCRIT 43 % (35-52); HEMOGLOBIN 14.2 g/dL (11.5-16.0); LYMPHOCYTES # (AUTO) 2.2 10^3/uL (1.0-4.0); LYMPHOCYTES % (AUTO) 34 % (12-44); MEAN CORPUSCULAR HEMOGLOBIN 33 pg (25-34); MEAN CORPUSCULAR HGB CONC 33 g/dL (32-36); MEAN CORPUSCULAR VOLUME 99 fL (80-99); MEAN PLATELET VOLUME 10.6 fL (9.0-12.2); MONOCYTES # (AUTO) 0.4 10^3/uL (0.0-1.0); MONOCYTES % (AUTO) 6 % (0-12); NEUTROPHILS # (AUTO) 3.6 10^3/uL (1.8-7.8); NEUTROPHILS % (AUTO) 56 % (42-75); PLATELET COUNT 143 10^3/uL (130-400)
[2022-09-30 06:35] LABS: SMEAR SCAN COMMENT YES
[2022-09-30 06:54] LABS: POTASSIUM 3.9 MMOL/L (3.6-5.0)
[2022-09-30 06:55] LABS: CALCIUM 8.9 MG/DL (8.5-10.1)
[2022-09-30 06:57] LABS: TOTAL PROTEIN 7.1 GM/DL (6.4-8.2)
[2022-09-30 06:58] LABS: BILIRUBIN,TOTAL 1.3 MG/DL (0.1-1.0)
[2022-09-30 07:00] LABS: CREATININE SERUM 0.79 MG/DL (0.60-1.30)
--- NOTE | 2022-09-30 07:04 | Progress Note - Surgery ---
DELLA ISABEL 09/30/22 0704: Subjective Date Seen by a Provider: Sep 30, 2022 Time Seen by a Provider: 06:55 Subjective/Events-last exam Patient is laying in bed in mild discomfort this morning. She reports her pain is minimally improved compared to yesterday, rating her pain at a 7/10 in her epigastric region. Describing her pain as a constant punch in her stomach. She endorses having a small bowel movement of diarrhea yesterday afternoon, denying any hematochezia or melena. She did endorse some episodes of dry heaving this morning, but feels better after receiving her anti-emetic medication. Denies any nausea, hematuria, flatus, or dysuria. She endorses headache and SOB but says they are caused by her abdominal pain. No other complaints at this time. Small bowel follow through showed no evidence of SBO. Review of Systems General: No Chills, No Night Sweats HEENT: Head Aches; No Sore Throat Pulmonary: Dyspnea; No Cough Cardiovascular: No: Chest Pain, Edema Gastrointestinal: Vomiting (2 episodes of dry heaving), Abdominal Pain, Diarrhea; No: Nausea, Melena, Hematochezia Genitourinary: No Dysuria, No Hematuria Musculoskeletal: back pain; No: neck pain Neurological: No: Weakness, Numbness Objective Exam Vital Signs Date Time Temp Pulse Resp B/P (MAP) Pulse Ox O2 Delivery O2 Flow Rate FiO2 09/30/22 06:51 92 Room Air 09/30/22 04:00 36.5 88 12 197/103 (134) 97 09/29/22 23:18 35.9 64 14 174/88 (116) 95 Room Air 09/29/22 21:00 16 09/29/22 20:51 96 Room Air 21 09/29/22 20:00 Room Air 09/29/22 19:03 36.7 74 19 176/89 (118) 94 Room Air 09/29/22 17:47 Room Air 09/29/22 17:44 37.0 18 09/29/22 17:34 18 09/29/22 17:33 37.0 09/29/22 16:06 35.8 75 18 159/81 (107) 94 Room Air 09/29/22 14:08 36.8 95 93 21 09/29/22 12:03 36.6 95 18 180/82 (114) 93 Room Air 09/29/22 09:15 105 155/92 93 Room Air I & O 09/30/22 07:00 Intake Total 0 ml Output Total 200 ml Balance -200 ml Capillary Refill : Less Than 3 Seconds General Appearance: WD/WN, Anxious HEENT: PERRL/EOMI; No Scleral Icterus (L), No Scleral Icterus (R) Neck: Non Tender, Supple Respiratory: Chest Non Tender, Lungs Clear, Normal Breath Sounds, No Accessory Muscle Use, No Respiratory Distress Cardiovascular: Regular Rate, Rhythm, No Murmur Peripheral Pulses: 2+ Radial Pulses (R), 2+ Radial Pulses (L) Gastrointestinal: soft, no organomegaly; No distended, No guarding, No rebound; tenderness (Epigstric region tender to palpation) Extremity: Non Tender, No Calf Tenderness, No Pedal Edema Neurologic/Psychiatric: Alert, Oriented x3 Skin: Normal Color, Warm/Dry Lymphatic: No Adenopathy Results Lab Laboratory Tests 09/30/22 05:43: White Blood Count 6.5, Red Blood Count 4.31, Hemoglobin 14.2, Hematocrit 43, Mean Corpuscular Volume 99, Mean Corpuscular Hemoglobin 33, Mean Corpuscular Hemoglobin Concent 33, Red Cell Distribution Width 12.3, Platelet Count 143, Mean Platelet Volume 10.6, Immature Granulocyte % (Auto) 0, Neutrophils (%) (Auto) 56, Lymphocytes (%) (Auto) 34, Monocytes (%) (Auto) 6, Eosinophils (%) (Auto) 4, Basophils (%) (Auto) 1, Neutrophils # (Auto) 3.6, Lymphocytes # (Auto) 2.2, Monocytes # (Auto) 0.4, Eosinophils # (Auto) 0.2, Basophils # (Auto) 0.1, Immature Granulocyte # (Auto) 0.0, Percent Immature Platelet Fraction 4.5, Sodium Level 140, Potassium Level 3.9, Chloride Level 107, Albumin 4.0, Smear Scan YES Radiology NAME: ROMAINEARIANNAHARDEEP Maurice [facility] REC#: [id number] PT STATUS: ADM Vini : 1955 PHYSICIAN: TAMEKA WYLIE DO ADMIT DATE: 09/29/22 Draft Date of Exam:09/29/22 SMALL BOWEL STUDY ONLY INDICATION: Small bowel obstruction. TECHNIQUE: Gastrografin contrast was administered, and serial radiographs of the abdomen were obtained. FINDINGS: Preliminary radiograph demonstrates a common bile duct stent. There is some gaseous distention involving bowel loops in the left lower abdomen and pelvis. There is some contrast in the bladder from a recent CT. No definite free air is seen on the identification and records commander radiograph. Postcontrast administration films demonstrate contrast within the stomach with prompt emptying into proximal small bowel loops. There appears to be normal progression of contrast through the small bowel with contrast seen in the colon at approximately 1-1/2 hours. There are some focally dilated colonic bowel loops in the midline pelvis and left abdomen. Small bowel is nondistended. Mucosal fold pattern is unremarkable. IMPRESSION: No evidence of small bowel obstruction. Dictated on workstation # [id number] Dict: 09/29/22 1600 Trans: 09/29/22 1609 [id number] Interpreted by: LAUREN GUERRERO MD Electronically signed by: Draft Assessment/Plan Assessment/Plan Assessment/Plan Partial small bowel obstruction- Resolved (no evidence of SBO on small bowel follow through). Had one episode of diarrhea yesterday evening. 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 Review of Systems General: No Chills, No Night Sweats HEENT: Head Aches Pulmonary: Dyspnea; No Cough Cardiovascular: No: Chest Pain, Edema Gastrointestinal: Vomiting (2 episodes of dry heaving), Abdominal Pain, Diarrhea; No: Nausea Genitourinary: No Dysuria, No Hematuria Objective Exam General Appearance: WD/WN, Anxious HEENT: PERRL/EOMI Respiratory: Chest Non Tender, Lungs Clear, Normal Breath Sounds, No Accessory Muscle Use, No Respiratory Distress Cardiovascular: Regular Rate, Rhythm, No Murmur Gastrointestinal: soft, no organomegaly; No distended, No guarding, No rebound; tenderness (Epigstric region tender to palpation) Extremity: Non Tender, No Calf Tenderness Assessment/Plan Assessment/Plan Assessment/Plan Partial small bowel obstruction- Resolved (no evidence of SBO on small bowel follow through). Had one episode of diarrhea yesterday evening. 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 Start cleats and advance as tolerated. Encourage ambulation Would do EGD as outpt. Supervisory-Addendum Brief Verification & Attestation Participated in pt care: history, MDM, physical Personally performed: exam, history, MDM, supervision of care Care discussed with: Medical Student Procedures: n/a Verification and Attestation of Medical Student E/M Service A medical student performed and documented this service. I then reviewed and verified all information documented by the medical student and made modifications to such information, when appropriate. I personally performed a physical exam, medical decision making and then discussed any differences between the notes and made revisions as necessary to create one note. Tameka Wylie , 09/30/22 , 13:41 DELLA ISABEL Sep 30, 2022 07:04 TAMEKA WYLIE DO Sep 30, 2022 13:42
[2022-09-30 08:12] VITALS: BP 164/71
[2022-09-30] MEDS: SENNOSIDES 8.6 MG (SENOKOT) TAB PO SCH (08:44)
[2022-09-30] MEDS: DOCUSATE SODIUM 100 MG (COLACE) CAP PO SCH (08:44)
[2022-09-30] MEDS ORDERED: amLODIPine 5 MG (NORVASC) TAB PO NR (10:00)
--- NOTE | 2022-09-30 11:24 | Physical Therapy Evaluation ---
PT Evaluation-General Medical Diagnosis Admission Date Sep 29, 2022 at 09:52 Medical Diagnosis: SBO with nausea, vomitting, abdominal pain Onset Date: Sep 28, 2022 Therapy Diagnosis Therapy Diagnosis: gait deficit Height/Weight Height (Feet): 5 Height (Inches): 5.00 Weight (Pounds): 146 Weight (Ounces): 9.0 Precautions Precautions/Isolations: Fall Prevention, Standard Precautions Weight Bear Status Right Lower Extremity: Right Full Weight Bearing Left Lower Extremity: Left Full Weight Bearing Referral Physician: Dr. Alston Reason for Referral: Evaluation/Treatment Medical History Reviewed History: Yes Social History Home: Single Level Current Living Status: Significant Other Entry Into Home: Stairs With Railing PT Steps Into Home: 3 Prior Prior Level of Function SCALE: Activities may be completed with or without assistive devices. 6-Djycxvahuq-mxhkotn completes the activity by him/herself with no assistance from a helper. 5-Set-up or Clean-up Assistance-helper sets up or cleans up; patient completes activity. [place] assists only prior to or following the activity. 4-Supervision or Touching Assistance-helper provides verbal cues and/or touching/steadying and/or contact guard assistance as patient completes activity. Assistance may be provided throughout the activity or intermittently. 3-Partial/Moderate Assistance-helper does LESS THAN HALF the effort. [place] lifts, holds or supports trunk or limbs, but provides less than half the effort. 2-Substantial/Maximal Assistance-helper does MORE THAN HALF the effort. [place] lifts or holds trunk or limbs and provides more than half the effort. 9-Uigouzcms-fmowph does ALL the effort. Patient does none of the effort to complete the activity. Or, the assistance of 2 or more helpers is required for the patient to complete the activity. If activity was not attempted, code reason: 7-Patient Refused. 9-Not Applicable-not attempted and the patient did not perform the activity before the current illness, exacerbation or injury. 10-Not Attempted due to Environmental Limitations-(lack of equipment, weather restraints, etc.). 88-Not Attempted due to Medical Conditions or Safety Concerns. Bed Mobility: 6 Transfers (B,C,W/C): 6 Gait: 6 Stairs: 6 Indoor Mobility (Ambulation): Independent Stairs: Independent Prior Devices Use: None PT Evaluation-Current Subjective Patient lying supine in bed upon PT arrival, agreeable to treatment. Patient rates pain at 6/10 currently in abdomen. Objective Patient Orientation: Person, Place, Time, Situation Attachments: Oxygen, IV ROM/Strength ROM Lower Extremities WFLs bilaterally all planes Strength Lower Extremities 3+/5 bilaterally all planes however pain and recent surgery may be limiting Sensory Vision: Functional Hearing: Functional Sensation Right Lower Extremit: Intact Sensation Left Lower Extremity: Intact Transfers Roll Left to Right (QC): 4 Sit to Lying (QC): 4 Lying to Sitting/Side of Bed(Q: 4 Sit to Stand (QC): 4 Chair/Rhc-ra-Sbcav Xfer(QC): 4 Gait Does the Patient Walk?: Yes Mode of Locomotion: Walk Anticipated Mode of Locomotion: Walk Walk 10 feet (QC): 4 Walk 50 ft with 2 Turns(QC): 4 Walk 150 ft (QC): 4 Distance: 150 feet Gait Assistive Device: None Balance Sitting Static: Good Sitting Dynamic: Good Standing Static: Fair Standing Dynamic: Fair Assessment/Needs Patient tolerated treatment well. Minimally limited with bed mobility and transfers due to core strength deficit and pain. Patient performs all observed bed mobility and transfers with SBA. Patient ambulates 150 feet sans AD, with SBA and verbal cues for safety and progression. Patient pushes the IV using it for less than 10% support. Patient in chair post treatment with all needs met, nursing notified, call light in hand. Rehab Potential: Good PT Relationship Associate Goals Relationship Associate Goals PT Custodial Goals Time Frame: Oct 17, 2022 Roll Left & Right (QC): 6 Sit to Lying (QC): 6 Lying-Sitting on Side/Bed(QC): 6 Sit to Stand (QC): 6 Chair/Wrt-jd-Jfqic Xfer(QC): 6 Toilet Transfer (QC): 6 Car Transfer (QC): 6 Does the Patient Walk: Yes Walk 10 feet (QC): 6 Walk 50ft with 2 Turns (QC): 6 Walk 150 ft (QC): 6 Walking 10ft on Uneven Surface: 6 1 Step (curb) (QC): 4 4 Steps (QC): 4 12 Steps (QC): 4 PT Plan Problem List Problem List: Activity Tolerance, Functional Strength, Safety, Balance, Gait, Transfer, Bed Mobility, ROM Treatment/Plan Treatment Plan: Continue Plan of Care Treatment Plan: Bed Mobility, Education, Functional Activity Dwayne, Functional Strength, Group Therapy, Gait, Safety, Therapeutic Exercise, Transfers Treatment Duration: Oct 24, 2022 Frequency: 6 times per week Estimated Hrs Per Day: .25 hour per day Patient and/or Family Agrees t: Yes Safety Risks/Education Patient Education: Gait Training, Transfer Techniques Teaching Recipient: Patient Teaching Methods: Demonstration, Discussion Response to Teaching: Verbalize Understanding, Return Demonstration Time Time In: 1055 Time Out: 1115 DATE: Sep 30, 2022 Total Billed Treatment Time: 20 Total Billed Treatment Visit, AUGUSTO MCMAHAN PT Sep 30, 2022 11:24
[2022-09-30 11:35] VITALS: BP 159/70
[2022-09-30] MEDS: ENOXAPARIN 40 MG/0.4 ML (LOVENOX) SYR SC SCH (11:35)
[2022-09-30] MEDS: ONDANSETRON 4 MG/2 ML (SDV) Z0FRAN IV PRN (12:42)
--- NOTE | 2022-09-30 13:39 | Progress Note ---
PARISAJOSE Jorge 09/30/22 1339: Subjective Date Seen by a Provider: Sep 30, 2022 Time Seen by a Provider: 08:03 Subjective/Events-last exam Jayesh Scruggs is a 66 yo F admitted for abdominal pain with possible small bowel obstruction. She is laying in bed this morning alert, oriented, and in no acute distress. She continues to have abdominal pain in her RUQ and epigastrium. Today, she rates it as a 6/10 now that she is receiving Dilaudid via CHILD CUSTODY EVALUATOR pump. She is concerned that she does not know what is causing her pain. She has had one bowel movement which she states was "a trickle of yellow" excrement. She has chronic diarrhea. Voiding fine. Reports she has passed some gas. Her room air O2 is being monitored via nasal cannula and sensor. She becomes dyspneic during conversation and has to take deep breaths. Phenergen has helped her nausea. She dry heaving but there has been no emesis since arrival to hospital. Currently NPO. She would like to ambulate more but is connected to several lines. Review of Systems General: Malaise, Appetite (NPO) HEENT: Head Aches (pt states she only gets headache when her BP is elevated); No Post Nasal Drip; Sore Throat, Other (cough reportedly resolved) Pulmonary: No Dyspnea, No Cough Cardiovascular: Palpitations; No: Chest Pain Gastrointestinal: Nausea (states Phengeran helps), Vomiting (dry heaving - no emesis), Diarrhea Genitourinary: No Dysuria, No Hematuria Musculoskeletal: back pain (pain to right flank/back radiating from epigastric area/RUQ) Neurological: No: Weakness, Numbness Objective Exam Last Set of Vital Signs Vital Signs Date Time Temp Pulse Resp B/P (MAP) Pulse Ox O2 Delivery O2 Flow Rate FiO2 09/30/22 11:35 36.5 85 18 159/70 (99) 95 Room Air 09/29/22 20:51 21 Capillary Refill : Less Than 3 Seconds I&O Intake and Output 09/30/22 00:00 Intake Total 1000 ml Output Total 200 ml Balance 800 ml Intake Oral 0 ml IV Total 1000 ml Output Urine Total 200 ml # Voids 1 Daily Weight Change No General: Alert, Oriented X3, No Acute Distress HEENT: PERRLA, EOMI Lungs: Normal Air Movement, Other (sporadic wheezing) Heart: Regular Rate, Normal S1, Normal S2, No Murmurs Abdomen: Normal Bowel Sounds, Soft, Other (Tenderness to palpation in RUQ/Epigastrium) Extremities: No Cyanosis, Normal Pulses, No Tenderness/Swelling Results Lab Laboratory Tests 09/30/22 05:43: White Blood Count 6.5, Red Blood Count 4.31, Hemoglobin 14.2, Hematocrit 43, Mean Corpuscular Volume 99, Mean Corpuscular Hemoglobin 33, Mean Corpuscular Hemoglobin Concent 33, Red Cell Distribution Width 12.3, Platelet Count 143, Mean Platelet Volume 10.6, Immature Granulocyte % (Auto) 0, Neutrophils (%) (Auto) 56, Lymphocytes (%) (Auto) 34, Monocytes (%) (Auto) 6, Eosinophils (%) (Auto) 4, Basophils (%) (Auto) 1, Neutrophils # (Auto) 3.6, Lymphocytes # (Auto) 2.2, Monocytes # (Auto) 0.4, Eosinophils # (Auto) 0.2, Basophils # (Auto) 0.1, Immature Granulocyte # (Auto) 0.0, Percent Immature Platelet Fraction 4.5, Sodium Level 140, Potassium Level 3.9, Chloride Level 107, Carbon Dioxide Level 19L, Anion Gap 14, Blood Urea Nitrogen 15, Creatinine 0.79, Estimat Glomerular Filtration Rate 82, BUN/Creatinine Ratio 19, Glucose Level 72, Calcium Level 8.9, Corrected Calcium 8.9, Total Bilirubin 1.3H, Aspartate Amino Transf (AST/SGOT) 33, Alanine Aminotransferase (ALT/SGPT) 23, Alkaline Phosphatase 87, Total Protein 7.1, Albumin 4.0, Smear Scan YES Radiology NAME: JAYESH SCRUGGS [facility] REC#: [id number] PT STATUS: ADM Vini : 1955 PHYSICIAN: TAMEKA WYLIE DO ADMIT DATE: 09/29/22 Signed Date of Exam:09/29/22 SMALL BOWEL STUDY ONLY INDICATION: Small bowel obstruction. TECHNIQUE: Gastrografin contrast was administered, and serial radiographs of the abdomen were obtained. FINDINGS: Preliminary radiograph demonstrates a common bile duct stent. There is some gaseous distention involving bowel loops in the left lower abdomen and pelvis. There is some contrast in the bladder from a recent CT. No definite free air is seen on the senior regulatory affairs specialist radiograph. Postcontrast administration films demonstrate contrast within the stomach with prompt emptying into proximal small bowel loops. There appears to be normal progression of contrast through the small bowel with contrast seen in the colon at approximately 1-1/2 hours. There are some focally dilated colonic bowel loops in the midline pelvis and left abdomen. Small bowel is nondistended. Mucosal fold pattern is unremarkable. IMPRESSION: No evidence of small bowel obstruction. Dictated by: Dictated on workstation # [id number] Dict: 09/29/22 1600 Trans: 09/30/22822 [id number] Interpreted by: LAUREN GUERRERO MD Electronically signed by: LAUREN GUERRERO MD 09/30/22822 Assessment/Plan Assessment/Plan Assess & Plan/Chief Complaint Assessment and Plan: Epigastric Abdominal Pain -Continue IVF -Pt is on Diluadid CHILD CUSTODY EVALUATOR pump -NPO -consider NG tube placement, if necessary Possible Small Bowel Obstruction -Small Bowel Study show no evidence of SBO -Surgery Consulted Hx of Pancreatitis -Lipase was wnl at 58 Hx of Adhesion -Pt takes daily methadone for chronic pain Nausea/Vomiting -Phenergen prn Diarrhea -Chronic Hypertension -Continue Lisinopril and other home meds Clinical Quality Measures Admission Status Admission Dx Assessment and Plan: Small Bowel Obstruction -continue IVF -Pain meds prn -NPO -consultation from Surgery -consider NG tube placement Hx of Pancreatitis -Lipase was wnl at 58 Nausea/Vomiting Diarrhea TAMARA BURGOS DO 10/01/22 0500: Supervisory-Addendum Brief Verification & Attestation Participated in pt care: history, MDM, physical Personally performed: exam, history, MDM, supervision of care Care discussed with: Medical Student Procedures: n/a Results interpretation: Verified all documentation Verification and Attestation of Medical Student E/M Service A medical student performed and documented this service in my presence. I reviewed and verified all information documented by the medical student and made modifications to such information, when appropriate. I personally performed the physical exam and medical decision making. Tamara Burgos, Oct 01, 2022,05:00 JOSE MCCAULEY Sep 30, 2022 13:39 TAMARA BURGOS DO Oct 01, 2022 05:00
--- NOTE | 2022-09-30 14:32 | Occupational Therapy Eval ---
OT Evaluation-General/PLF Medical Diagnosis Admission Date Sep 29, 2022 at 09:52 Medical Diagnosis: SBO with nausea, vomitting, abdominal pain Onset Date: Sep 28, 2022 Therapy Diagnosis Therapy Diagnosis: pain and instability Height/Weight Height (Feet): 5 Height (Inches): 5.00 Weight (Pounds): 146 Weight (Ounces): 9.0 Precautions Precautions/Isolations: Fall Prevention, Standard Precautions Weight Bear Status Weight Bearing Restriction: Weight Bearing/Tolerated Referral Physician: Dr. Alston Referral Reason: Evaluation/Treatment Medical History Additional Medical History Chronic pain w/ hx of narcotic addiction (heroin) - currently on Methadone. Hypertension Chronic pancreatitis/chronic nausea/abdominal pain Headache hx of alcohol abuse hx of vitiligo Spinal stenosis secondary to OA COPD Chronic liver disease secondary to hx of etoh abuse. PSH: Appendectomy cholecystectomy laparotomy w/ partial pancreatomy and colostomy (reversed) left hip fracture w/ repair Heart cath 10/2009 - non- obstructive CAD, EF 60% Heart cath 01/2013 - no significant CAD, EF 60% Current History Admission via ED w/ severe abdominal cramping n/v/D Reviewed History: Yes Social History Home: Single Level Current Living Status: Significant Other Entry Into Home: Stairs With Railing Steps Into Home: 3 ADL-Prior Level of Function SCALE: Activities may be completed with or without assistive devices. 9-Kxmmpotsjp-apqvxzw completes the activity by him/herself with no assistance from a helper. 5-Set-up or Clean-up Assistance-helper sets up or cleans up; patient completes activity. [place] assists only prior to or following the activity. 4-Supervision or Touching Assistance-helper provides verbal cues and/or touching/steadying and/or contact guard assistance as patient completes activity. Assistance may be provided throughout the activity or intermittently. 3-Partial/Moderate Assistance-helper does LESS THAN HALF the effort. [place] lifts, holds or supports trunk or limbs, but provides less than half the effort. 2-Substantial/Maximal Assistance-helper does MORE THAN HALF the effort. [place] lifts or holds trunk or limbs and provides more than half the effort. 8-Vuobhqquj-fzkgsn does ALL the effort. Patient does none of the effort to com plete the activity. Or, the assistance of 2 or more helpers is required for the patient to complete the activity. If activity was not attempted, code reason: 7-Patient Refused. 9-Not Applicable-not attempted and the patient did not perform the activity before the current illness, exacerbation or injury. 10-Not Attempted due to Environmental Limitations-(lack of equipment, weather restraints, etc.). 88-Not Attempted due to Medical Conditions or Safety Concerns. Occupation: dpg walker OT Current Status Subjective sitting crossed legged n bed watching tv, request pain meds Mental Status/Objective Patient Orientation: Person, Place, Time, Situation Attachments: IV Current Upper Extremity ROM BUE ROM/Strength WFLs, coordination mild deficits ADL-Treatment Eating (QC): 5 (clear liquids) Oral Hygiene (QC): 5 Shower/Bathe Self (QC): 7 (declined) Upper Body Dressing (QC): 4 Lower Body Dressing (QC): 4 On/Off Footwear (QC): 5 Toileting Hygiene (QC): 5 Education OT Patient Education: Energy conservation, Modified ADL techniques, Progress toward Goal/Update tx plan, Purpose of tx/functional activities, Reviewed precautions, Rehab process, Safety issues, Transfer techniques Teaching Recipient: Patient Teaching Methods: Demonstration, Discussion Response to Teaching: Verbalize Understanding, Return Demonstration, Reinforcement Needed OT Corporate Webmaster Goals Corporate Webmaster Goals Eating (QC): 6 Oral Hygiene (QC): 6 Toileting Hygiene (QC): 6 Shower/Bathe Self (QC): 6 Upper Body Dressing (QC): 6 Lower Body Dressing (QC): 6 On/Off Footwear (QC): 6 1=Demonstrate adherence to instructed precautions during ADL tasks. 2=Patient will verbalize/demonstrate understanding of assistive devices/modifications for ADL. 3=Patient will improve strength/tolerance for activity to enable patient to perform ADL's. OT Education/Plan Problem List/Assessment Assessment: Decreased Safety Aware, Impaired Coordination, Impaired Funct [place] nce, Impaired Self-Care Skills Discharge Recommendations Plan/Recommendations: Continue POC Therapy Discharge Recommendati: Home & Family Treatment Plan/Plan of Care Treatment,Training & Education: Yes Patient would benefit from OT for education, treatment and training to promote independence in ADL's, mobility, safety and/or upper extremity function for ADL's. Plan of Care: ADL Retraining, Functional Mobility, UE Funct Exercise/Act, UE Neuromus Re-Ed/Coord Treatment Duration: Oct 10, 2022 Frequency: 3 times per week (3-5 times per week) Rehab Potential: Good Time Start Time: 14:07 Stop Time: 14:22 DATE: Sep 30, 2022 Total Time Billed (hr/min): 15 Billed Treatment Time 1 EVM 1 15 minutes MELISA CONNOR OT Sep 30, 2022 14:32
[2022-09-30] MEDS: METHADONE 10 MG (DOLOPHINE) TAB PO SCH (15:09)
[2022-09-30 16:32] VITALS: BP 117/65
[2022-09-30 19:56] VITALS: BP 140/72
[2022-09-30] MEDS: DIPHENOXYLATE/ATROPINE 2.5MG/0.025MG (LOMOTIL) TAB PO SCH (20:00)
[2022-09-30] MEDS: LOPERAMIDE 2 MG (IMODIUM) TABLET PO SCH (20:00)
[2022-09-30] MEDS: busPIRone 15 MG (BUSPAR) TABLET PO SCH (20:00)
[2022-09-30] MEDS: GABAPENTIN 600 MG (NEURONTIN) TAB PO SCH (20:00)
[2022-09-30 23:51] VITALS: BP 124/85
[2022-10-01] MEDS: ONDANSETRON 4 MG/2 ML (SDV) Z0FRAN IV PRN ×3 (01:57→18:29)
[2022-10-01 04:00] VITALS: BP 135/80
[2022-10-01 05:12] LABS: BASOPHILS % (AUTO) 1 % (0-10); EOSINOPHILS # (AUTO) 0.3 10^3/uL (0.0-0.3); EOSINOPHILS % (AUTO) 5 % (0-10); HEMATOCRIT 44 % (35-52); HEMOGLOBIN 14.9 g/dL (11.5-16.0); LYMPHOCYTES # (AUTO) 2.3 10^3/uL (1.0-4.0); LYMPHOCYTES % (AUTO) 43 % (12-44); MEAN CORPUSCULAR HEMOGLOBIN 34 pg (25-34); MEAN CORPUSCULAR HGB CONC 34 g/dL (32-36); MEAN CORPUSCULAR VOLUME 99 fL (80-99); MONOCYTES # (AUTO) 0.4 10^3/uL (0.0-1.0); MONOCYTES % (AUTO) 8 % (0-12); NEUTROPHILS # (AUTO) 2.3 10^3/uL (1.8-7.8); NEUTROPHILS % (AUTO) 43 % (42-75); PLATELET COUNT 137 10^3/uL (130-400); WHITE BLOOD COUNT 5.3 10^3/uL (4.3-11.0)
[2022-10-01 05:25] LABS: ALBUMIN 3.9 GM/DL (3.2-4.5); POTASSIUM 4.2 MMOL/L (3.6-5.0)
[2022-10-01] MEDS: NS IV 1000 ML 1,000 ML IV SCH (05:25)
[2022-10-01 05:26] LABS: CALCIUM 8.8 MG/DL (8.5-10.1)
[2022-10-01 05:27] LABS: TOTAL PROTEIN 6.9 GM/DL (6.4-8.2)
[2022-10-01 05:29] LABS: BILIRUBIN,TOTAL 0.9 MG/DL (0.1-1.0)
[2022-10-01 05:31] LABS: CREATININE SERUM 0.79 MG/DL (0.60-1.30)
--- NOTE | 2022-10-01 06:39 | Progress Note - Surgery ---
DELLA ISABEL 10/01/22 0639: Subjective Date Seen by a Provider: Oct 01, 2022 Time Seen by a Provider: 06:34 Subjective/Events-last exam Patient is sitting up in bed sipping orange juice. She was given some orange juice this morning due to a low glucose she had (60). She reports her abdominal pain as 3/10 this morning which is improved from yesterday. Pain still located in her epigastric region, as a constant pressure. She endorses one small episode of diarrhea last night without hematochezia or melena. She still complains of nausea, and had an episode of emesis without blood last night after starting clear liquids. She was tolerating her liquids this morning without problem. She denies any SOB, chest pain, dysuria. No other complaints at this time. Review of Systems General: No Chills, No Night Sweats HEENT: Head Aches; No Sore Throat Pulmonary: No Dyspnea; Cough Cardiovascular: No: Chest Pain, Edema Gastrointestinal: Nausea, Vomiting, Abdominal Pain, Diarrhea; No: Melena, Hematochezia Genitourinary: No Dysuria, No Hematuria Musculoskeletal: back pain; No: neck pain Neurological: No: Weakness, Numbness Objective Exam Vital Signs Date Time Temp Pulse Resp B/P (MAP) Pulse Ox O2 Delivery O2 Flow Rate FiO2 10/01/22 04:00 35.5 72 18 135/80 (98) 96 Room Air 09/30/22 23:51 35.6 62 18 124/85 (98) 96 Room Air 09/30/22 20:00 Room Air 09/30/22 19:56 36.1 66 18 140/72 (94) 95 Room Air 09/30/22 16:32 36.1 62 18 117/65 (82) 96 Room Air 09/30/22 11:35 36.5 85 18 159/70 (99) 95 Room Air 09/30/22 10:33 93 Room Air 09/30/22 08:48 Room Air 09/30/22 08:12 36.4 87 18 164/71 (102) 94 Room Air 09/30/22 07:00 14 09/30/22 06:51 92 Room Air I & O 10/01/22 07:00 Intake Total 1400 ml Output Total 100 ml Balance 1300 ml Capillary Refill : Less Than 3 Seconds General Appearance: No Apparent Distress, WD/WN HEENT: PERRL/EOMI; No Scleral Icterus (L), No Scleral Icterus (R) Neck: Non Tender, Supple Respiratory: Chest Non Tender, Lungs Clear, Normal Breath Sounds, No Accessory Muscle Use, No Respiratory Distress Cardiovascular: Regular Rate, Rhythm, No Murmur Peripheral Pulses: 2+ Radial Pulses (R), 2+ Radial Pulses (L) Gastrointestinal: soft, no organomegaly; No distended, No guarding, No rebound; tenderness (Epigstric region tender to palpation) Extremity: Non Tender, No Calf Tenderness Neurologic/Psychiatric: Alert, Oriented x3 Skin: Normal Color, Warm/Dry Lymphatic: No Adenopathy Results Lab Laboratory Tests 10/01/22 05:05: White Blood Count 5.3, Red Blood Count 4.44, Hemoglobin 14.9, Hematocrit 44, Mean Corpuscular Volume 99, Mean Corpuscular Hemoglobin 34, Mean Corpuscular Hemoglobin Concent 34, Red Cell Distribution Width 12.3, Platelet Count 137, Mean Platelet Volume 10.0, Immature Granulocyte % (Auto) 0, Neutrophils (%) (Auto) 43, Lymphocytes (%) (Auto) 43, Monocytes (%) (Auto) 8, Eosinophils (%) (Auto) 5, Basophils (%) (Auto) 1, Neutrophils # (Auto) 2.3, Lymphocytes # (Auto) 2.3, Monocytes # (Auto) 0.4, Eosinophils # (Auto) 0.3, Basophils # (Auto) 0.0, Immature Granulocyte # (Auto) 0.0, Percent Immature Platelet Fraction 3.2, Sodium Level 141, Potassium Level 4.2, Chloride Level 106, Carbon Dioxide Level 24, Anion Gap 11, Blood Urea Nitrogen 14, Creatinine 0.79, Estimat Glomerular Filtration Rate 82, BUN/Creatinine Ratio 18, Glucose Level 60*L, Calcium Level 8.8, Corrected Calcium 8.9, Total Bilirubin 0.9, Aspartate Amino Transf (AST/SGOT) 29, Alanine Aminotransferase (ALT/SGPT) 23, Alkaline Phosphatase 79, Total Protein 6.9, Albumin 3.9 10/01/22 06:06: Glucometer 56*L Assessment/Plan Assessment/Plan Assessment/Plan Partial small bowel obstruction- Resolved (no evidence of SBO on small bowel follow through). Had one episode of diarrhea yesterday evening. Nausea and Vomiting- No improvement from yesterday- one episode of emesis after starting clear liquids last night-tolerating morning liquids Acute epigastric Pain-Improvement from yesterday- still active (10/23) History of Adhesions History of Pancreatitis Chronic Abdominal Pain/Diarrhea Plan: Continue IV fluids Continue anti-emetics as needed Methadone restarted Continue with clear liquid diet, advance as tolerated Small bowel follow through went through within 2 hours; therefore no SBO. Encourage ambulation Consider outpatient EGD VIC DIAZ DO 10/01/22 1047: Subjective Time Seen by a Provider: 10:11 Subjective/Events-last exam Pt seen and examined, states pain is better but she still has some. States she hasn't had a "real" BM, but did have some diarrhea. Review of Systems General: No Chills, No Night Sweats HEENT: Head Aches Pulmonary: No Dyspnea; Cough Cardiovascular: No: Chest Pain, Edema Gastrointestinal: Nausea, Vomiting, Abdominal Pain, Diarrhea; No: Melena, Hematochezia Musculoskeletal: back pain Objective Exam General Appearance: No Apparent Distress, WD/WN HEENT: PERRL/EOMI Respiratory: Chest Non Tender, Lungs Clear, Normal Breath Sounds, No Accessory Muscle Use, No Respiratory Distress Cardiovascular: Regular Rate, Rhythm, No Murmur Gastrointestinal: soft, no organomegaly; No distended, No guarding, No rebound; tenderness (Epigstric region tender to palpation) Extremity: Non Tender, No Calf Tenderness Neurologic/Psychiatric: Alert, Oriented x3 Assessment/Plan Assessment/Plan Assessment/Plan Partial small bowel obstruction- Resolved (no evidence of SBO on small bowel follow through). Had one episode of diarrhea yesterday evening. Nausea and Vomiting- No improvement from yesterday- one episode of emesis after starting clear liquids last night-tolerating morning liquids Acute epigastric Pain-Improvement from yesterday- still active (10) History of Adhesions History of Pancreatitis Chronic Abdominal Pain/Diarrhea Plan: Continue IV fluids Continue anti-emetics as needed Methadone restarted Continue with clear liquid diet, advance as tolerated Small bowel follow through went through within 2 hours; therefore no SBO. Encourage ambulation Consider outpatient EGD Pt does not have any surgical indications, she can go home per IM. Supervisory-Addendum Brief Verification & Attestation Participated in pt care: history, MDM, physical Personally performed: exam, history, MDM, supervision of care Care discussed with: Medical Student Procedures: n/a Verification and Attestation of Medical Student E/M Service A medical student performed and documented this service. I then reviewed and verified all information documented by the medical student and made modifications to such information, when appropriate. I personally performed a physical exam, medical decision making and then discussed any differences between the notes and made revisions as necessary to create one note. Vic Diaz , 10/01/22 , 10:47 DELLA ISABEL Oct 01, 2022 06:39 VIC DIAZ DO Oct 01, 2022 10:47
[2022-10-01] MEDS: PROMETHAZINE 25 MG (PHENERGAN) TAB PO PRN ×3 (06:49→18:29)
[2022-10-01] MEDS: DIPHENOXYLATE/ATROPINE 2.5MG/0.025MG (LOMOTIL) TAB PO SCH ×2 (08:05→20:37)
[2022-10-01] MEDS: MULTIVIT W/MINERALS TAB (THERAGRAN M) PO SCH (08:05)
[2022-10-01] MEDS: amLODIPine 5 MG (NORVASC) TAB PO SCH (08:05)
[2022-10-01] MEDS: ASCORBIC ACID (VIT C) 500 MG TABLET PO SCH (08:06)
[2022-10-01] MEDS: HydroCHLOROthiazide CAP/TABLET 12.5 MG TAB PO SCH (08:06)
[2022-10-01] MEDS: METHADONE 10 MG (DOLOPHINE) TAB PO SCH (08:06)
[2022-10-01] MEDS: lisINopril 20 MG (PRINIVIL) TABLET PO SCH (08:06)
[2022-10-01] MEDS: GABAPENTIN 600 MG (NEURONTIN) TAB PO SCH ×2 (08:06→20:37)
[2022-10-01] MEDS: LOPERAMIDE 2 MG (IMODIUM) TABLET PO SCH ×2 (08:13→20:37)
[2022-10-01] MEDS: busPIRone 15 MG (BUSPAR) TABLET PO SCH ×2 (08:13→20:37)
[2022-10-01 08:15] VITALS: BP 155/85
[2022-10-01] MEDS ORDERED: METHADONE 10 MG (DOLOPHINE) TAB PO SCH (09:00)
--- NOTE | 2022-10-01 09:24 | Occupational Ther Daily Note ---
OT Current Status-Daily Note Subjective Up in chair with basin in lap and active vomiting Mental Status/Objective Patient Orientation: Person, Place, Time, Situation Rinsed basin and applied layers of paper towels to basin to reduce splatters ADL-Treatment Therapy Code Descriptions/Definitions Functional [place] Measure: 0=Not Assessed/NA 4=Minimal Assistance 1=Total Assistance 5=Supervision or Setup 2=Maximal Assistance 6=Modified [place] 3=Moderate Assistance 7=Complete IndependenceSCALE: Activities may be completed with or without assistive devices. 6-Etmcjbwsdv-hrjshji completes the activity by him/herself with no assistance from a helper. 5-Set-up or Clean-up Assistance-helper sets up or cleans up; patient completes activity. [place] assists only prior to or following the activity. 4-Supervision or Touching Assistance-helper provides verbal cues and/or touching/steadying and/or contact guard assistance as patient completes activity. Assistance may be provided throughout the activity or intermittently. 3-Partial/Moderate Assistance-helper does LESS THAN HALF the effort. [place] lifts, holds or supports trunk or limbs, but provides less than half the effort. 2-Substantial/Maximal Assistance-helper does MORE THAN HALF the effort. [place] lifts or holds trunk or limbs and provides more than half the effort. 3-Zgjovjapw-cznvpv does ALL the effort. Patient does none of the effort to complete the activity. Or, the assistance of 2 or more helpers is required for the patient to complete the activity. If activity was not attempted, code reason: 7-Patient Refused. 9-Not Applicable-not attempted and the patient did not perform the activity before the current illness, exacerbation or injury. 10-Not Attempted due to Environmental Limitations-(lack of equipment, weather restraints, etc.). 88-Not Attempted due to Medical Conditions or Safety Concerns. 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 Reports she walks better than this at home Education OT Patient Education: Exercise program, Modified ADL techniques, Progress towar d Goal/Update tx plan, Purpose of tx/functional activities, Reviewed precautions, Rehab process, Safety issues, Transfer techniques Teaching Recipient: Patient Teaching Methods: Demonstration, Discussion Response to Teaching: Verbalize Understanding, Return Demonstration, Reinforcement Needed OT Intermediate Goals Intermediate Goals Eating (QC): 6 Oral Hygiene (QC): 6 Toileting Hygiene (QC): 6 Shower/Bathe Self (QC): 6 Upper Body Dressing (QC): 6 Lower Body Dressing (QC): 6 On/Off Footwear (QC): 6 1=Demonstrate adherence to instructed precautions during ADL tasks. 2=Patient will verbalize/demonstrate understanding of assistive devices/modifications for ADL. 3=Patient will improve strength/tolerance for activity to enable patient to perform ADL's. OT Education/Plan Problem List/Assessment Assessment: Decreased Activ Tolerance, Decreased Safety Aware, Impaired Coordination, Impaired Funct Balance, Impaired Self-Care Skills Discharge Recommendations Plan/Recommendations: Continue POC Treatment Plan/Plan of Care Treatment,Training & Education: Yes Patient would benefit from OT for education, treatment and training to promote independence in ADL's, mobility, safety and/or upper extremity function for ADL's. Plan of Care: ADL Retraining, Functional Mobility, UE Funct Exercise/Act, UE Neuromus Re-Ed/Coord Treatment Duration: Oct 10, 2022 Frequency: 3 times per week Rehab Potential: Good remains up in chair w/ basin and cell phone call to family, all needs met Time Start Time: 09:02 Stop Time: 09:25 DATE: Oct 01, 2022 Total Time Billed (hr/min): 23 Billed Treatment Time 1 visit FA 2 23 min MELISA CONNOR OT Oct 01, 2022 09:24
--- NOTE | 2022-10-01 10:25 | Physical Therapy Daily Note ---
PT Daily Note-Current Subjective Patient very agreeable to participate with PT. Pain Section J - Health Conditions 1. Rarely or not at all 2. Occasionally 3. Frequently 4. Almost constantly 8. Unable to answer Pain Effect on Sleep: 1 Pain Interference with Therapy: 1 Pain Interference w/Day-to-Day: 1 Mental Status Patient Orientation: Normal For Age Attachments: IV Transfers SCALE: Activities may be completed with or without assistive devices. 6-Aqywxwvgpb-iotqhfo completes the activity by him/herself with no assistance from a helper. 5-Set-up or Clean-up Assistance-helper sets up or cleans up; patient completes activity. [place] assists only prior to or following the activity. 4-Supervision or Touching Assistance-helper provides verbal cues and/or touching/steadying and/or contact guard assistance as patient completes activity. Assistance may be provided throughout the activity or intermittently. 3-Partial/Moderate Assistance-helper does LESS THAN HALF the effort. [place] lifts, holds or supports trunk or limbs, but provides less than half the effort. 2-Substantial/Maximal Assistance-helper does MORE THAN HALF the effort. [place] lifts or holds trunk or limbs and provides more than half the effort. 8-Cfmwsdxiu-gbnjzo does ALL the effort. Patient does none of the effort to complete the activity. Or, the assistance of 2 or more helpers is required for the patient to complete the activity. If activity was not attempted, code reason: 7-Patient Refused. 9-Not Applicable-not attempted and the patient did not perform the activity before the current illness, exacerbation or injury. 10-Not Attempted due to Environmental Limitations-(lack of equipment, weather restraints, etc.). 88-Not Attempted due to Medical Conditions or Safety Concerns. Sit to Stand (QC): 6 Weight Bearing Right Lower Extremity: Right Full Weight Bearing Left Lower Extremity: Left Full Weight Bearing Gait Training Distance: >800' Walk 10 feet (QC): 6 Walk 50 ft with 2 Turns(QC): 6 Walk 150 ft (QC): 6 Gait Assistive Device: None safe and functional gait sequence Assessment Patient currently at independent PLOF with all gross motor skills. PT instructed nursing to ambulate with patient PRN in hallway if IV is connected and for patient to ambulate independently if not. Both voice understanding. PT to dismiss patient from services at this time. PT Clinical Trial Associate Goals Longterm Goals PT Longterm Goals Time Frame: Oct 17, 2022 Roll Left & Right (QC): 6 Sit to Lying (QC): 6 Lying-Sitting on Side/Bed(QC): 6 Sit to Stand (QC): 6 Chair/Ecs-lf-Equkj Xfer(QC): 6 Toilet Transfer (QC): 6 Car Transfer (QC): 6 Does the Patient Walk: Yes Walk 10 feet (QC): 6 Walk 50ft with 2 Turns (QC): 6 Walk 150 ft (QC): 6 Walking 10ft on Uneven Surface: 6 1 Step (curb) (QC): 4 4 Steps (QC): 4 12 Steps (QC): 4 PT Plan Treatment/Plan Treatment Plan: Discontinue PT Treatment Plan: Bed Mobility, Education, Functional Activity Dwayne, Functional Strength, Group Therapy, Gait, Safety, Therapeutic Exercise, Transfers Treatment Duration: Oct 24, 2022 Frequency: 6 times per week Estimated Hrs Per Day: .25 hour per day Patient and/or Family Agrees t: Yes Time Time In: 834 Time Out: 857 DATE: Oct 01, 2022 Total Billed Treatment Time: 23 Total Billed Treatment 1 visit FA x 2 23 min NAPOLEON MARIN PT Oct 01, 2022 10:25
[2022-10-01] MEDS: ENOXAPARIN 40 MG/0.4 ML (LOVENOX) SYR SC SCH (11:23)
[2022-10-01 11:39] VITALS: BP 112/69
[2022-10-01] MEDS: D5 NS 1000 ML IV SOLUTION 1,000 ML IV SCH ×2 (11:53→23:39)
--- NOTE | 2022-10-01 15:06 | Progress Note ---
JOSE MCCAULEY 10/01/22 1506: Subjective Date Seen by a Provider: Oct 01, 2022 Time Seen by a Provider: 09:28 Subjective/Events-last exam Jayesh Scruggs, 66 yo F, continues admission for abdominal pain, vomiting, and hx of Pancreatitis. SBO was ruled out during small bowel study on 09/29/22. This morning she is sitting in the recliner holding an emesis bucket. She states she has vomited twice this morning and continues to dry heave. Her pain reportly a 4/10 and hurts most when she coughs. States it seems like eating hurts her stomach as well. She was placed on a clear liquid diet yesterday and did alright, so this morning she had eggs and cream of wheat before vomiting. At 5am, her blood glucose was recorded at 60 and 56 but improved with food. She has been walking around her room, passing some gas, and describes her last bowel movement has simply minor "leakage". 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 She also restarted her blood pressure medications. Pt mentions Dr. Diaz would like to do an EGD outpatient. She states she would like to go home but wants to feel better first. Review of Systems General: No Night Sweats; Fatigue HEENT: Head Aches; No Visual Changes; Sore Throat Pulmonary: Dyspnea, Cough Cardiovascular: Palpitations; No: Chest Pain Gastrointestinal: Nausea, Vomiting, Abdominal Pain, Diarrhea Genitourinary: No Dysuria, No Hematuria Neurological: Weakness Objective Exam Last Set of Vital Signs Vital Signs Date Time Temp Pulse Resp B/P (MAP) Pulse Ox O2 Delivery O2 Flow Rate FiO2 10/01/22 11:39 36.5 66 18 112/69 (83) 95 Room Air 09/29/22 20:51 21 Capillary Refill : Less Than 3 Seconds I&O Intake and Output 10/01/22 00:00 Intake Total 1200 ml Output Total 100 ml Balance 1100 ml Intake Oral 1200 ml Output Urine Total 100 ml # Voids 5 # Bowel Movements 2 General: Alert, Cooperative, Mild Distress (vomiting/dry heaving) HEENT: EOMI Lungs: Normal Air Movement, Other (wheezing) Heart: Regular Rate, Normal S1, Normal S2, No Murmurs Abdomen: Soft, Other (tenderness in RUQ and epigastric area / decreased bowel sounds in LUQ/LLQ) Extremities: No Edema, Normal Pulses Results Lab Laboratory Tests 10/01/22 05:05: White Blood Count 5.3, Red Blood Count 4.44, Hemoglobin 14.9, Hematocrit 44, Mean Corpuscular Volume 99, Mean Corpuscular Hemoglobin 34, Mean Corpuscular Hemoglobin Concent 34, Red Cell Distribution Width 12.3, Platelet Count 137, Mean Platelet Volume 10.0, Immature Granulocyte % (Auto) 0, Neutrophils (%) (Auto) 43, Lymphocytes (%) (Auto) 43, Monocytes (%) (Auto) 8, Eosinophils (%) (Auto) 5, Basophils (%) (Auto) 1, Neutrophils # (Auto) 2.3, Lymphocytes # (Auto) 2.3, Monocytes # (Auto) 0.4, Eosinophils # (Auto) 0.3, Basophils # (Auto) 0.0, Immature Granulocyte # (Auto) 0.0, Percent Immature Platelet Fraction 3.2, Sodium Level 141, Potassium Level 4.2, Chloride Level 106, Carbon Dioxide Level 24, Anion Gap 11, Blood Urea Nitrogen 14, Creatinine 0.79, Estimat Glomerular Filtration Rate 82, BUN/Creatinine Ratio 18, Glucose Level 60*L, Calcium Level 8.8, Corrected Calcium 8.9, Total Bilirubin 0.9, Aspartate Amino Transf (AST/SGOT) 29, Alanine Aminotransferase (ALT/SGPT) 23, Alkaline Phosphatase 79, Total Protein 6.9, Albumin 3.9 10/01/22 06:06: Glucometer 56*L 10/01/22 06:45: Glucometer 119H Assessment/Plan Assessment/Plan Assess & Plan/Chief Complaint Assessment and Plan: Epigastric Abdominal Pain -Continue IVF -Pt restarted home methadone -Advance diet as tolerated -PT/OT -Encouraging ambulation -consider NG tube placement, if necessary Possible Small Bowel Obstruction -Small Bowel Study show no evidence of SBO -Surgery Consulted Hx of Pancreatitis -Lipase was wnl at 58 Hx of Adhesion -Pt takes daily methadone for chronic pain Nausea/Vomiting -Phenergen prn -D5 solution IV Diarrhea -Chronic Hypertension -Continue Lisinopril and other home meds Clinical Quality Measures Admission Status Admission Dx Assessment and Plan: Small Bowel Obstruction -continue IVF -Pain meds prn -NPO -consultation from Surgery -consider NG tube placement Hx of Pancreatitis -Lipase was wnl at 58 Nausea/Vomiting Diarrhea TAMARA BURGOS DO 10/02/22 0549: Supervisory-Addendum Brief Verification & Attestation Participated in pt care: history, MDM, physical Personally performed: exam, history, MDM, supervision of care Care discussed with: Medical Student Procedures: n/a Results interpretation: Verified all documentation Verification and Attestation of Medical Student E/M Service A medical student performed and documented this service in my presence. I reviewed and verified all information documented by the medical student and made modifications to such information, when appropriate. I personally performed the physical exam and medical decision making. Tamara Burgos, Oct 02, 2022,05:49 JOSE MCCAULEY Oct 01, 2022 15:06 TAMARA BURGOS DO Oct 02, 2022 05:49
[2022-10-01 16:33] VITALS: BP 119/75
[2022-10-01 19:51] VITALS: BP 168/96
[2022-10-01 23:21] VITALS: BP 118/64
[2022-10-02 03:54] VITALS: BP 147/78
[2022-10-02 05:28] LABS: MEAN CORPUSCULAR VOLUME 99 fL (80-99); MONOCYTES # (AUTO) 0.4 10^3/uL (0.0-1.0)
[2022-10-02 05:29] LABS: BASOPHILS % (AUTO) 1 % (0-10); EOSINOPHILS # (AUTO) 0.2 10^3/uL (0.0-0.3); EOSINOPHILS % (AUTO) 4 % (0-10); HEMATOCRIT 36 % (35-52); HEMOGLOBIN 12.1 g/dL (11.5-16.0); LYMPHOCYTES # (AUTO) 1.8 10^3/uL (1.0-4.0); LYMPHOCYTES % (AUTO) 40 % (12-44); MEAN CORPUSCULAR HEMOGLOBIN 33 pg (25-34); MEAN CORPUSCULAR HGB CONC 34 g/dL (32-36); MEAN PLATELET VOLUME 10.2 fL (9.0-12.2); MONOCYTES % (AUTO) 9 % (0-12); NEUTROPHILS % (AUTO) 46 % (42-75); PLATELET COUNT 137 10^3/uL (130-400); WHITE BLOOD COUNT 4.4 10^3/uL (4.3-11.0)
[2022-10-02 05:53] LABS: ALBUMIN 3.8 GM/DL (3.2-4.5); BILIRUBIN,TOTAL 0.5 MG/DL (0.1-1.0); CALCIUM 8.9 MG/DL (8.5-10.1); CREATININE SERUM 0.83 MG/DL (0.60-1.30); POTASSIUM 3.7 MMOL/L (3.6-5.0); TOTAL PROTEIN 6.5 GM/DL (6.4-8.2)
[2022-10-02] MEDS: PROMETHAZINE 25 MG (PHENERGAN) TAB PO PRN ×2 (05:54→17:24)
[2022-10-02 08:00] VITALS: BP 168/93
[2022-10-02] MEDS: lisINopril 20 MG (PRINIVIL) TABLET PO SCH (08:01)
[2022-10-02] MEDS: HydroCHLOROthiazide CAP/TABLET 12.5 MG TAB PO SCH (08:02)
[2022-10-02] MEDS: DIPHENOXYLATE/ATROPINE 2.5MG/0.025MG (LOMOTIL) TAB PO SCH ×2 (08:02→20:07)
[2022-10-02] MEDS: MULTIVIT W/MINERALS TAB (THERAGRAN M) PO SCH (08:02)
[2022-10-02] MEDS: METHADONE 10 MG (DOLOPHINE) TAB PO SCH (08:03)
[2022-10-02] MEDS: GABAPENTIN 600 MG (NEURONTIN) TAB PO SCH ×2 (08:03→20:07)
[2022-10-02] MEDS: amLODIPine 5 MG (NORVASC) TAB PO SCH (08:03)
[2022-10-02] MEDS: LOPERAMIDE 2 MG (IMODIUM) TABLET PO SCH ×2 (08:03→20:07)
[2022-10-02] MEDS: ASCORBIC ACID (VIT C) 500 MG TABLET PO SCH (08:03)
[2022-10-02] MEDS: busPIRone 15 MG (BUSPAR) TABLET PO SCH ×2 (08:03→20:07)
--- NOTE | 2022-10-02 10:35 | Occ Therapy Progress Note ---
Therapy Progress Note Notable concern during bathing intervention. Wedge of bundled toilet paper removed from buttocks w/ evidence of fecal matter on toilet paper, disposable brief inside elastic noted as same. Areas of hospital gown noted to have residual fecal material. In shower patient reports black lint fuzzy on toes, OT accessed B feet and cleansed between toes and web spaces noting that several small wounds are present with scabs. Finger nails soaked well with water and hair washed, Vigil water rinsed into drain. Patient reports it is not hair color or dye. MELISA OCNNOR OT Oct 02, 2022 10:35
--- NOTE | 2022-10-02 10:41 | Occupational Ther Daily Note ---
OT Current Status-Daily Note Subjective Sitting cross legged on bed, OT recommends shower and patient agrees Mental Status/Objective Patient Orientation: Person, Place, Situation Attachments: IV IV port covered during shower ADL-Treatment full body dressing, full shower w/ hair washing, lotion applied Therapy Code Descriptions/Definitions Functional [place] Measure: 0=Not Assessed/NA 4=Minimal Assistance 1=Total Assistance 5=Supervision or Setup 2=Maximal Assistance 6=Modified [place] 3=Moderate Assistance 7=Complete IndependenceSCALE: Activities may be completed with or without assistive devices. 0-Htvslvyvkt-misjnmt completes the activity by him/herself with no assistance from a helper. 5-Set-up or Clean-up Assistance-helper sets up or cleans up; patient completes activity. [place] assists only prior to or following the activity. 4-Supervision or Touching Assistance-helper provides verbal cues and/or touching/steadying and/or contact guard assistance as patient completes activity. Assistance may be provided throughout the activity or intermittently. 3-Partial/Moderate Assistance-helper does LESS THAN HALF the effort. [place] lifts, holds or supports trunk or limbs, but provides less than half the effort. 2-Substantial/Maximal Assistance-helper does MORE THAN HALF the effort. [place] lifts or holds trunk or limbs and provides more than half the effort. 2-Toxlftjff-gofzgd does ALL the effort. Patient does none of the effort to complete the activity. Or, the assistance of 2 or more helpers is required for the patient to complete the activity. If activity was not attempted, code reason: 7-Patient Refused. 9-Not Applicable-not attempted and the patient did not perform the activity before the current illness, exacerbation or injury. 10-Not Attempted due to Environmental Limitations-(lack of equipment, weather restraints, etc.). 88-Not Attempted due to Medical Conditions or Safety Concerns. Eating (QC): 6 (clear liquids) Oral Hygiene (QC): 6 Bathing Location: L Arm, R Arm, L Upper Leg, R Upper Leg, L Lower Leg (including foot), R Lower Leg (including foot), Chest, Abdomen, Buttocks, Perineal Area Shower/Bathe Self (QC): 4 (demonstating mild sequences deficits to wash body , open hygiene products, safety w/ transers in shower) Upper Body Dressing (QC): 4 (d/t IV and gown snaps) Lower Body Dressing (QC): 4 (skin is damp) On/Off Footwear: 5 Toileting Hygiene (QC): 5 (see note in comments) Toilet Transfer (QC): 6 Notable concern during bathing intervention. Wedge of bundled toilet paper removed from buttocks w/ evidence of fecal matter on toilet paper, disposable brief inside elastic noted as same. Areas of hospital gown noted to have residual fecal material. In shower patient reports black lint fuzzy on toes, OT accessed B feet and cleansed between toes and web spaces noting that several small wounds are present with scabs. Finger nails soaked well with water and hair washed, Vigil water rinsed into drain. Patient reports it is not hair color or dye Other Treatment Patient released from Physical therapy and today demonstrated furniture walking and wall stabilizing, No FWW in room. Patient reports she is not using it anymore, Education provided for ambulation, safety, mobility and follow through of intervention and training learned in physical therapy Education OT Patient Education: Disease process, Energy conservation, Exercise program, Modified ADL techniques, Progress toward Goal/Update tx plan, Purpose of tx/functional activities, Reviewed precautions, Rehab process, Safety issues, Transfer techniques Teaching Recipient: Patient Teaching Methods: Demonstration, Discussion Response to Teaching: Verbalize Understanding, Return Demonstration OT [facility] Goals Reserves Clerk Goals Eating (QC): 6 Oral Hygiene (QC): 6 Toileting Hygiene (QC): 6 Shower/Bathe Self (QC): 6 Upper Body Dressing (QC): 6 Lower Body Dressing (QC): 6 On/Off Footwear (QC): 6 1=Demonstrate adherence to instructed precautions during ADL tasks. 2=Patient will verbalize/demonstrate understanding of assistive devices/modifications for ADL. 3=Patient will improve strength/tolerance for activity to enable patient to perform ADL's. OT Education/Plan Problem List/Assessment Assessment: Decreased Activ Tolerance, Decreased Safety Aware, Impaired Cognition, Impaired Coordination, Impaired Funct Balance, Impaired Self-Care Skills Discharge Recommendations Plan/Recommendations: Continue POC Therapy Discharge Recommendati: Post Acute OT Treatment Plan/Plan of Care Treatment,Training & Education: Yes Patient would benefit from OT for education, treatment and training to promote independence in ADL's, mobility, safety and/or upper extremity function for ADL's. Plan of Care: ADL Retraining, Functional Mobility, UE Funct Exercise/Act, UE Neuromus Re-Ed/Coord Comment Patient remains sitting in recliner w/ all needs met Treatment Duration: Oct 10, 2022 Frequency: 3 times per week Estimated Hrs Per Day: .25 hour per day Rehab Potential: Good Time Start Time: 09:45 Stop Time: 10:28 DATE: Oct 02, 2022 Total Time Billed (hr/min): 38 Billed Treatment Time 1 visit ADL 3 38 min MELISA CONNOR OT Oct 02, 2022 10:41
[2022-10-02] MEDS: ENOXAPARIN 40 MG/0.4 ML (LOVENOX) SYR SC SCH (11:15)
--- NOTE | 2022-10-02 13:38 | Progress Note ---
JOSE MCCAULEY 10/02/22 1338: Subjective Date Seen by a Provider: Oct 02, 2022 Time Seen by a Provider: 07:52 Subjective/Events-last exam Jayesh Scruggs, 66 yo F, continues admission for abdominal pain, vomiting, and hx of Pancreatitis. SBO was ruled out during small bowel study on 09/29/22. This morning she is cleaning out her purse and looking well. She states she feels much better. Her pain is at a 2-3/10 and remains in the RUQ and epigastrium. Last bout of emesis was early yesterday evening. She has been on an only liquid diet and she is ready to advance. Notes that she did not feel sick after eating this morning. Her only mentioned bowel movement was last night which she states was "some leakage" as she was using the toilet. She is agreeable to discharge for tomorrow after we see how she handles lunch and dinner. Review of Systems General: No Chills, No Fatigue; Appetite (pt on clear liquids and ready to advance diet) HEENT: No Head Aches, No Visual Changes, No Dysphasia Pulmonary: Dyspnea (some), Cough Cardiovascular: Palpitations; No: Chest Pain Gastrointestinal: Nausea (mild and managed with promethazine), Vomiting (last episode was early yesterday evening), Abdominal Pain (2-3/10 in RUQ and epigastrium) Genitourinary: No Dysuria, No Hematuria, No Retention Neurological: No: Weakness, Numbness, Confusion Objective Exam Last Set of Vital Signs Vital Signs Date Time Temp Pulse Resp B/P (MAP) Pulse Ox O2 Delivery O2 Flow Rate FiO2 10/02/22 12:02 36.0 61 16 92 Room Air 09/29/22 20:51 21 Capillary Refill : Less Than 3 Seconds I&O Intake and Output 10/02/22 00:00 Intake Total 1850 ml Balance 1850 ml Intake Oral 1850 ml # Voids 8 General: Alert, Oriented X3, Cooperative HEENT: PERRLA, EOMI Neck: Supple Lungs: Other (mild wheezing ) Heart: Regular Rate, Normal S1, Normal S2, No Murmurs Abdomen: No Tenderness (Pos tenderness in RUQ and Epigastrium) Extremities: Normal Pulses, No Tenderness/Swelling Neuro: Normal Speech Psych/Mental Status: Mood NL Results Lab Laboratory Tests 10/02/22 05:14: White Blood Count 4.4, Red Blood Count 3.64L, Hemoglobin 12.1, Hematocrit 36, Mean Corpuscular Volume 99, Mean Corpuscular Hemoglobin 33, Mean Corpuscular Hemoglobin Concent 34, Red Cell Distribution Width 12.2, Platelet Count 137, Mean Platelet Volume 10.2, Immature Granulocyte % (Auto) 0, Neutrophils (%) (Auto) 46, Lymphocytes (%) (Auto) 40, Monocytes (%) (Auto) 9, Eosinophils (%) (Auto) 4, Basophils (%) (Auto) 1, Neutrophils # (Auto) 2.0, Lymphocytes # (Auto) 1.8, Monocytes # (Auto) 0.4, Eosinophils # (Auto) 0.2, Basophils # (Auto) 0.0, Immature Granulocyte # (Auto) 0.0, Percent Immature Platelet Fraction 4.5, Sodium Level 139, Potassium Level 3.7, Chloride Level 106, Carbon Dioxide Level 25, Anion Gap 8, Blood Urea Nitrogen 10, Creatinine 0.83, Estimat Glomerular F iltration Rate 77, BUN/Creatinine Ratio 12, Glucose Level 83, Calcium Level 8.9, Corrected Calcium 9.1, Total Bilirubin 0.5, Aspartate Amino Transf (AST/SGOT) 49H, Alanine Aminotransferase (ALT/SGPT) 32, Alkaline Phosphatase 86, Total Protein 6.5, Albumin 3.8 Assessment/Plan Assessment/Plan Assess & Plan/Chief Complaint Assessment and Plan: Epigastric Abdominal Pain -Continue IVF -Pt restarted home methadone -Advance diet as tolerated - [place] diet -PT/OT -Encouraging ambulation -Consider for DC if lunch and dinner are well tolerated and pain is controlled Possible Small Bowel Obstruction -Small Bowel Study show no evidence of SBO -Surgery has signed off Hx of Pancreatitis -Lipase was wnl at 58 Hx of Adhesion -Pt takes daily methadone for chronic pain Nausea/Vomiting -has resolved since last night -Phenergen prn -D5 solution IV Diarrhea -Chronic Hypertension -Continue Lisinopril and other home meds Clinical Quality Measures Admission Status Admission Dx Assessment and Plan: Small Bowel Obstruction -continue IVF -Pain meds prn -NPO -consultation from Surgery -consider NG tube placement Hx of Pancreatitis -Lipase was wnl at 58 Nausea/Vomiting Diarrhea TAMARA ALSTON DO [id number]: Supervisory-Addendum Brief Verification & Attestation Participated in pt care: history, MDM, physical Personally performed: exam, history, MDM, supervision of care Care discussed with: Medical Student Procedures: n/a Results interpretation: Verified all documentation Verification and Attestation of Medical Student E/M Service A medical student performed and documented this service in my presence. I reviewed and verified all information documented by the medical student and made modifications to such information, when appropriate. I personally performed the physical exam and medical decision making. Tamara Alston, Oct 03, 2022,08:18 JOSE MCCAULEY Oct 02, 2022 13:38 TAMARA ALSTON DO Oct 03, 2022 08:18
[2022-10-02 14:25] VITALS: BP 147/78
[2022-10-02] MEDS: D5 NS 1000 ML IV SOLUTION 1,000 ML IV SCH (14:42)
[2022-10-02 15:43] VITALS: BP 123/84
[2022-10-02 19:48] VITALS: BP 159/94
[2022-10-02] MEDS: MELATONIN 3 MG TABLET PO PRN (20:12)
[2022-10-03] VITALS (7 sets, daily range): BP systolic 104–151; BP diastolic 62–86
[2022-10-03] MEDS: PROMETHAZINE 25 MG (PHENERGAN) TAB PO PRN ×2 (02:03→19:51)
[2022-10-03] MEDS: D5 NS 1000 ML IV SOLUTION 1,000 ML IV SCH ×2 (02:06→16:57)
[2022-10-03 05:24] LABS: EOSINOPHILS # (AUTO) 0.2 10^3/uL (0.0-0.3); HEMATOCRIT 37 % (35-52); MEAN CORPUSCULAR VOLUME 98 fL (80-99); MEAN PLATELET VOLUME 10.7 fL (9.0-12.2)
[2022-10-03 05:26] LABS: BASOPHILS % (AUTO) 1 % (0-10); EOSINOPHILS % (AUTO) 4 % (0-10); HEMOGLOBIN 12.5 g/dL (11.5-16.0); LYMPHOCYTES # (AUTO) 1.3 10^3/uL (1.0-4.0); LYMPHOCYTES % (AUTO) 34 % (12-44); MEAN CORPUSCULAR HEMOGLOBIN 33 pg (25-34); MEAN CORPUSCULAR HGB CONC 34 g/dL (32-36); MONOCYTES # (AUTO) 0.4 10^3/uL (0.0-1.0); MONOCYTES % (AUTO) 9 % (0-12); NEUTROPHILS % (AUTO) 52 % (42-75); PLATELET COUNT 126 10^3/uL (130-400); WHITE BLOOD COUNT 3.9 10^3/uL (4.3-11.0)
[2022-10-03 05:45] LABS: ALBUMIN 3.9 GM/DL (3.2-4.5); BILIRUBIN,TOTAL 0.2 MG/DL (0.1-1.0); CALCIUM 9.3 MG/DL (8.5-10.1); CREATININE SERUM 0.8 MG/DL (0.60-1.30); POTASSIUM 3.5 MMOL/L (3.6-5.0); TOTAL PROTEIN 6.8 GM/DL (6.4-8.2)
[2022-10-03] MEDS: DIPHENOXYLATE/ATROPINE 2.5MG/0.025MG (LOMOTIL) TAB PO SCH ×2 (08:30→19:49)
[2022-10-03] MEDS: GABAPENTIN 600 MG (NEURONTIN) TAB PO SCH ×2 (08:30→19:49)
[2022-10-03] MEDS: lisINopril 20 MG (PRINIVIL) TABLET PO SCH (08:30)
[2022-10-03] MEDS: amLODIPine 5 MG (NORVASC) TAB PO SCH (08:30)
[2022-10-03] MEDS: HydroCHLOROthiazide CAP/TABLET 12.5 MG TAB PO SCH (08:30)
[2022-10-03] MEDS: MULTIVIT W/MINERALS TAB (THERAGRAN M) PO SCH (08:30)
[2022-10-03] MEDS: LOPERAMIDE 2 MG (IMODIUM) TABLET PO SCH ×2 (08:30→19:49)
[2022-10-03] MEDS: ASCORBIC ACID (VIT C) 500 MG TABLET PO SCH (08:30)
[2022-10-03] MEDS: busPIRone 15 MG (BUSPAR) TABLET PO SCH ×2 (08:30→19:49)
[2022-10-03] MEDS: METHADONE 10 MG (DOLOPHINE) TAB PO SCH (08:31)
[2022-10-03] MEDS: ONDANSETRON 4 MG/2 ML (SDV) Z0FRAN IV PRN ×2 (11:01→16:50)
[2022-10-03] MEDS: ENOXAPARIN 40 MG/0.4 ML (LOVENOX) SYR SC SCH (11:05)
[2022-10-03] MEDS: MELATONIN 3 MG TABLET PO PRN (19:49)
--- NOTE | 2022-10-03 19:53 | Progress Note - Hospitalist ---
Subjective HPI/CC On Admission Date Seen by Provider: Oct 03, 2022 Time Seen by Provider: 10:55 Subjective/Events-last exam She just had an episode of emesis. She had been feeling better. She wants to try to hold down some food before she goes home. She asks for IV Phenergan. Objective Exam Vital Signs Vital Signs Date Time Temp Pulse Resp B/P (MAP) Pulse Ox O2 Delivery O2 Flow Rate FiO2 10/03/22 19:08 36.9 77 18 151/65 (93) 95 Room Air 09/29/22 20:51 21 Capillary Refill : Less Than 3 Seconds General Appearance: Chronically ill, Mild Distress (uncomfortable) Respiratory: Lungs Clear, No Respiratory Distress Cardiovascular: Regular Rate, Rhythm, No Murmur Gastrointestinal: Normal Bowel Sounds, Soft Extremity: Normal Inspection, No Pedal Edema Neurologic/Psychiatric: Alert, No Motor/Sensory Deficits Skin: Normal Color, Warm/Dry Results/Procedures Lab Laboratory Tests 10/03/22 04:31 Patient resulted labs reviewed. Assessment/Plan Assessment and Plan Assess & Plan/Chief Complaint Possible partial small bowel obstruction Hx of Pancreatitis Hx of Adhesions Nausea/Vomiting Chronic diarrhea Hypertension Imaging without evidence of small bowel obstruction Surgery signed off Antiemetics Advance diet as tolerated Methadone Diagnosis/Problems Diagnosis/Problems (1) Small bowel obstruction Status: Acute (2) Nausea and vomiting Status: Acute (3) Abdominal pain Status: Acute (4) Chronic pain Status: Chronic NANCY LINDA MD Oct 03, 2022 19:53
[2022-10-04] MEDS: ONDANSETRON 4 MG/2 ML (SDV) Z0FRAN IV PRN (03:15)
[2022-10-04 03:45] VITALS: BP 119/56
[2022-10-04] MEDS: D5 NS 1000 ML IV SOLUTION 1,000 ML IV SCH (04:52)
[2022-10-04 06:19] LABS: HEMATOCRIT 37 % (35-52); HEMOGLOBIN 12.2 g/dL (11.5-16.0); MEAN CORPUSCULAR HEMOGLOBIN 33 pg (25-34); MEAN CORPUSCULAR HGB CONC 33 g/dL (32-36); MEAN CORPUSCULAR VOLUME 99 fL (80-99); WHITE BLOOD COUNT 3.9 10^3/uL (4.3-11.0)
[2022-10-04 06:20] LABS: BASOPHILS % (AUTO) 1 % (0-10); EOSINOPHILS # (AUTO) 0.2 10^3/uL (0.0-0.3); EOSINOPHILS % (AUTO) 4 % (0-10); LYMPHOCYTES # (AUTO) 1.6 10^3/uL (1.0-4.0); LYMPHOCYTES % (AUTO) 40 % (12-44); MEAN PLATELET VOLUME 10.5 fL (9.0-12.2); MONOCYTES # (AUTO) 0.3 10^3/uL (0.0-1.0); MONOCYTES % (AUTO) 7 % (0-12); NEUTROPHILS # (AUTO) 1.9 10^3/uL (1.8-7.8); NEUTROPHILS % (AUTO) 48 % (42-75); PLATELET COUNT 124 10^3/uL (130-400)
[2022-10-04 06:34] LABS: ALBUMIN 3.7 GM/DL (3.2-4.5); BILIRUBIN,TOTAL 0.2 MG/DL (0.1-1.0); CALCIUM 9.2 MG/DL (8.5-10.1); CREATININE SERUM 0.82 MG/DL (0.60-1.30); POTASSIUM 3.2 MMOL/L (3.6-5.0); TOTAL PROTEIN 6.6 GM/DL (6.4-8.2)
[2022-10-04 07:26] VITALS: BP 147/70
[2022-10-04] MEDS: busPIRone 15 MG (BUSPAR) TABLET PO SCH ×2 (08:17→20:13)
[2022-10-04] MEDS: HydroCHLOROthiazide CAP/TABLET 12.5 MG TAB PO SCH (08:18)
[2022-10-04] MEDS: METHADONE 10 MG (DOLOPHINE) TAB PO SCH (08:18)
[2022-10-04] MEDS: lisINopril 20 MG (PRINIVIL) TABLET PO SCH (08:18)
[2022-10-04] MEDS: MULTIVIT W/MINERALS TAB (THERAGRAN M) PO SCH (08:18)
[2022-10-04] MEDS: LOPERAMIDE 2 MG (IMODIUM) TABLET PO SCH ×2 (08:18→20:14)
[2022-10-04] MEDS: GABAPENTIN 600 MG (NEURONTIN) TAB PO SCH ×2 (08:18→20:14)
[2022-10-04] MEDS: amLODIPine 5 MG (NORVASC) TAB PO SCH (08:18)
[2022-10-04] MEDS: DIPHENOXYLATE/ATROPINE 2.5MG/0.025MG (LOMOTIL) TAB PO SCH ×2 (08:18→20:13)
[2022-10-04] MEDS: ASCORBIC ACID (VIT C) 500 MG TABLET PO SCH (08:19)
[2022-10-04] MEDS ORDERED: POTASSIUM CL 10MEQ/50ML IVPB 50 ML IV SCH (08:30)
[2022-10-04 11:19] VITALS: BP 106/63
[2022-10-04] MEDS ORDERED: KCL 20 MEQ TAB (K-DUR) PO ONE (11:45)
[2022-10-04] MEDS: ONDANSETRON 4 MG (ZOFRAN) ORAL DISSOLVE TAB PO PRN (11:49)
[2022-10-04] MEDS: ENOXAPARIN 40 MG/0.4 ML (LOVENOX) SYR SC SCH (11:49)
[2022-10-04] MEDS: PROMETHAZINE 25 MG (PHENERGAN) TAB PO PRN (15:27)
[2022-10-04 16:00] VITALS: BP 110/63
[2022-10-04 19:35] VITALS: BP 139/67
--- NOTE | 2022-10-04 19:53 | Progress Note - Hospitalist ---
Subjective HPI/CC On Admission Date Seen by Provider: Oct 04, 2022 Time Seen by Provider: 10:50 Subjective/Events-last exam She asks to go home tomorrow. She wants to try to eat dinner tonight and if that goes well then she will go home tomorrow. She is not feeling nauseous now. She tolerated breakfast. We discussed risks associated with unnecessarily prolonging hospitalization. We decided if she was able to eat lunch without issue then she will go home later today. She vomited after lunch. Objective Exam Vital Signs Vital Signs Date Time Temp Pulse Resp B/P (MAP) Pulse Ox O2 Delivery O2 Flow Rate FiO2 10/04/22 19:35 36.6 70 18 139/67 (91) 95 Room Air 09/29/22 20:51 21 Capillary Refill : Less Than 3 Seconds General Appearance: No Apparent Distress, Chronically ill Respiratory: Lungs Clear, No Respiratory Distress Cardiovascular: Regular Rate, Rhythm, No Murmur Gastrointestinal: Normal Bowel Sounds, Soft, Tenderness Extremity: Normal Inspection, No Pedal Edema Neurologic/Psychiatric: Alert, Normal Mood/Affect Skin: Normal Color, Warm/Dry Results/Procedures Lab Laboratory Tests 10/04/22 05:25 Patient resulted labs reviewed. Assessment/Plan Assessment and Plan Assess & Plan/Chief Complaint Possible partial small bowel obstruction Hx of Pancreatitis Hx of Adhesions Nausea/Vomiting Chronic diarrhea Hypertension Imaging without evidence of small bowel obstruction Surgery signed off Antiemetics Advance diet as tolerated Methadone Likely discharge tomorrow Diagnosis/Problems Diagnosis/Problems (1) Small bowel obstruction Status: Acute (2) Nausea and vomiting Status: Acute (3) Abdominal pain Status: Acute (4) Chronic pain Status: Chronic NANCY LINDA MD Oct 04, 2022 19:53
[2022-10-04] MEDS: MELATONIN 3 MG TABLET PO PRN (20:14)
[2022-10-04 23:08] VITALS: BP 108/55
[2022-10-05 05:54] LABS: MEAN CORPUSCULAR VOLUME 99 fL (80-99)
[2022-10-05 05:56] LABS: BASOPHILS % (AUTO) 0 % (0-10); EOSINOPHILS # (AUTO) 0.2 10^3/uL (0.0-0.3); EOSINOPHILS % (AUTO) 5 % (0-10); HEMATOCRIT 36 % (35-52); LYMPHOCYTES # (AUTO) 1.9 10^3/uL (1.0-4.0); LYMPHOCYTES % (AUTO) 42 % (12-44); MEAN CORPUSCULAR HEMOGLOBIN 33 pg (25-34); MEAN CORPUSCULAR HGB CONC 34 g/dL (32-36); MEAN PLATELET VOLUME 10.4 fL (9.0-12.2); MONOCYTES # (AUTO) 0.3 10^3/uL (0.0-1.0); MONOCYTES % (AUTO) 7 % (0-12); NEUTROPHILS # (AUTO) 2.1 10^3/uL (1.8-7.8); NEUTROPHILS % (AUTO) 46 % (42-75); PLATELET COUNT 135 10^3/uL (130-400); WHITE BLOOD COUNT 4.5 10^3/uL (4.3-11.0)
[2022-10-05] MEDS: ONDANSETRON 4 MG (ZOFRAN) ORAL DISSOLVE TAB PO PRN (06:12)
[2022-10-05 06:23] LABS: ALBUMIN 3.7 GM/DL (3.2-4.5); BILIRUBIN,TOTAL 0.2 MG/DL (0.1-1.0); CALCIUM 9.4 MG/DL (8.5-10.1); CREATININE SERUM 0.84 MG/DL (0.60-1.30); TOTAL PROTEIN 6.6 GM/DL (6.4-8.2)
[2022-10-05 07:45] VITALS: BP 148/76
[2022-10-05] MEDS: HydroCHLOROthiazide CAP/TABLET 12.5 MG TAB PO SCH (08:29)
[2022-10-05] MEDS: MULTIVIT W/MINERALS TAB (THERAGRAN M) PO SCH (08:29)
[2022-10-05] MEDS: GABAPENTIN 600 MG (NEURONTIN) TAB PO SCH (08:29)
[2022-10-05] MEDS: amLODIPine 5 MG (NORVASC) TAB PO SCH (08:29)
[2022-10-05] MEDS: lisINopril 20 MG (PRINIVIL) TABLET PO SCH (08:29)
[2022-10-05] MEDS: DIPHENOXYLATE/ATROPINE 2.5MG/0.025MG (LOMOTIL) TAB PO SCH (08:29)
[2022-10-05] MEDS: METHADONE 10 MG (DOLOPHINE) TAB PO SCH (08:30)
[2022-10-05] MEDS: ASCORBIC ACID (VIT C) 500 MG TABLET PO SCH (08:30)
[2022-10-05] MEDS: LOPERAMIDE 2 MG (IMODIUM) TABLET PO SCH (08:30)
[2022-10-05] MEDS: busPIRone 15 MG (BUSPAR) TABLET PO SCH (08:30)
--- NOTE | 2022-10-05 09:36 | Occupational Ther Daily Note ---
OT Current Status-Daily Note Subjective Sitting reclined in bed resting. Mental Status/Objective Patient Orientation: Normal For Age ADL-Treatment Therapy Code Descriptions/Definitions Functional [place] Measure: 0=Not Assessed/NA 4=Minimal Assistance 1=Total Assistance 5=Supervision or Setup 2=Maximal Assistance 6=Modified [place] 3=Moderate Assistance 7=Complete IndependenceSCALE: Activities may be completed with or without assistive devices. 8-Ocqwjjezbk-pqlfmve completes the activity by him/herself with no assistance from a helper. 5-Set-up or Clean-up Assistance-helper sets up or cleans up; patient completes activity. [place] assists only prior to or following the activity. 4-Supervision or Touching Assistance-helper provides verbal cues and/or touching/steadying and/or contact guard assistance as patient completes activity. Assistance may be provided throughout the activity or intermittently. 3-Partial/Moderate Assistance-helper does LESS THAN HALF the effort. [place] lifts, holds or supports trunk or limbs, but provides less than half the effort. 2-Substantial/Maximal Assistance-helper does MORE THAN HALF the effort. [place] lifts or holds trunk or limbs and provides more than half the effort. 4-Ybhzbjyaw-nryvgu does ALL the effort. Patient does none of the effort to complete the activity. Or, the assistance of 2 or more helpers is required for the patient to complete the activity. If activity was not attempted, code reason: 7-Patient Refused. 9-Not Applicable-not attempted and the patient did not perform the activity before the current illness, exacerbation or injury. 10-Not Attempted due to Environmental Limitations-(lack of equipment, weather restraints, etc.). 88-Not Attempted due to Medical Conditions or Safety Concerns. Shower/Bathe Self (QC): 6 Upper Body Dressing (QC): 6 Lower Body Dressing (QC): 6 On/Off Footwear: 6 Toileting Hygiene (QC): 6 Toilet Transfer (QC): 6 Patient on soft diet, at time of therapy patient has not vomited breakfast, Encouraged patient to perform light activity frequently Education OT Patient Education: Exercise program, Home exercise program, Rehab process, Safety issues Teaching Recipient: Patient Teaching Methods: Demonstration, Discussion Response to Teaching: Verbalize Understanding, Return Demonstration OT Intermediate Goals Intermediate Goals Eating (QC): 6 Oral Hygiene (QC): 6 Toileting Hygiene (QC): 6 Shower/Bathe Self (QC): 6 Upper Body Dressing (QC): 6 Lower Body Dressing (QC): 6 On/Off Footwear (QC): 6 1=Demonstrate adherence to instructed precautions during ADL tasks. 2=Patient will verbalize/demonstrate understanding of assistive devices/modifications for ADL. 3=Patient will improve strength/tolerance for activity to enable patient to perform ADL's. OT Education/Plan Problem List/Assessment Assessment: Decreased Activ Tolerance Discharge Recommendations Plan/Recommendations: Discharge/Goals Met Treatment Plan/Plan of Care Treatment,Training & Education: Yes Patient would benefit from OT for education, treatment and training to promote independence in ADL's, mobility, safety and/or upper extremity function for ADL's. Plan of Care: ADL Retraining, Functional Mobility, UE Funct Exercise/Act, UE Neuromus Re-Ed/Coord Treatment Duration: Oct 10, 2022 Frequency: 3 times per week Estimated Hrs Per Day: .25 hour per day Rehab Potential: Good Patient discharged from OT services, goals met Time Start Time: 09:00 Stop Time: 09:23 DATE: Oct 05, 2022 Total Time Billed (hr/min): 23 Billed Treatment Time 1 visit ADLS 2 23 min MELISA CONNOR OT Oct 05, 2022 09:36
[2022-10-05] MEDS: ENOXAPARIN 40 MG/0.4 ML (LOVENOX) SYR SC SCH (10:24)
[2022-10-05 11:19] VITALS: BP 135/72
--- NOTE | 2022-10-05 11:37 | Discharge Summary ---
Diagnosis/Chief Complaint Date of Admission Sep 30, 2022 at 12:50 Date of Discharge Primary Care Lj Chamorro MD Discharge Diagnosis (1) Small bowel obstruction Status: Acute (2) Nausea and vomiting Status: Acute (3) Abdominal pain Status: Acute (4) Chronic pain Status: Chronic Discharge Summary Discharge Physical Exam Allergies: Coded Allergies: Sulfa (Sulfonamide Antibiotics) (Verified Allergy, Unknown, 10/31/19) ketorolac (Verified Allergy, Unknown, 10/31/19) Uncoded Allergies: NARCOTIC ANTAGONISTS (Allergy, Unknown, 02/21/07) Vitals & I&Os Vital Signs Date Time Temp Pulse Resp B/P (MAP) Pulse Ox O2 Delivery O2 Flow Rate FiO2 10/05/22 11:19 36.7 76 18 135/72 (93) 94 Room Air 09/29/22 20:51 21 Hospital Course Labs (last 24 hrs) Laboratory Tests 10/05/22 05:47: White Blood Count 4.5, Red Blood Count 3.60L, Hemoglobin 12.0, Hematocrit 36, Mean Corpuscular Volume 99, Mean Corpuscular Hemoglobin 33, Mean Corpuscular Hemoglobin Concent 34, Red Cell Distribution Width 12.6, Platelet Count 135, Mean Platelet Volume 10.4, Immature Granulocyte % (Auto) 0, Neutrophils (%) (Auto) 46, Lymphocytes (%) (Auto) 42, Monocytes (%) (Auto) 7, Eosinophils (%) (Auto) 5, Basophils (%) (Auto) 0, Neutrophils # (Auto) 2.1, Lymphocytes # (Auto) 1.9, Monocytes # (Auto) 0.3, Eosinophils # (Auto) 0.2, Basophils # (Auto) 0.0, Immature Granulocyte # (Auto) 0.0, Percent Immature Platelet Fraction 5.5, Sodium Level 141, Potassium Level 4.0, Chloride Level 104, Carbon Dioxide Level 27, Anion Gap 10, Blood Urea Nitrogen 18, Creatinine 0.84, Estimat Glomerular Filtration Rate 76, BUN/Creatinine Ratio 21, Glucose Level 92, Calcium Level 9.4, Corrected Calcium 9.6, Total Bilirubin 0.2, Aspartate Amino Transf (AST/SGOT) 26, Alanine Aminotransferase (ALT/SGPT) 26, Alkaline Phosphatase 95, Total Protein 6.6, Albumin 3.7 Patient resulted labs reviewed. Pending Labs Laboratory Tests 10/05/22 05:47: White Blood Count 4.5, Red Blood Count 3.60, Hemoglobin 12.0, Hematocrit 36, Mean Corpuscular Volume 99, Mean Corpuscular Hemoglobin 33, Mean Corpuscular Hemoglobin Concent 34, Red Cell Distribution Width 12.6, Platelet Count 135, Mean Platelet Volume 10.4, Immature Granulocyte % (Auto) 0, Neutrophils (%) (Auto) 46, Lymphocytes (%) (Auto) 42, Monocytes (%) (Auto) 7, Eosinophils (%) (Auto) 5, Basophils (%) (Auto) 0, Neutrophils # (Auto) 2.1, Lymphocytes # (Auto) 1.9, Monocytes # (Auto) 0.3, Eosinophils # (Auto) 0.2, Basophils # (Auto) 0.0, Immature Granulocyte # (Auto) 0.0, Percent Immature Platelet Fraction 5.5, Sodium Level 141, Potassium Level 4.0, Chloride Level 104, Carbon Dioxide Level 27, Anion Gap 10, Blood Urea Nitrogen 18, Creatinine 0.84, Estimat Glomerular Filtration Rate 76, BUN/Creatinine Ratio 21, Glucose Level 92, Calcium Level 9.4, Corrected Calcium 9.6, Total Bilirubin 0.2, Aspartate Amino Transf (AST/SGOT) 26, Alanine Aminotransferase (ALT/SGPT) 26, Alkaline Phosphatase 95, Total Protein 6.6, Albumin 3.7 Discharge Home Medications: Active Scripts Active Reported Lisinopril-Hctz 20-12.5 mg Tab (Lisinopril/Hydrochlorothiazide) 20 Mg-12.5 Mg Tablet 1 Each PO DAILY LAST FILLED 08-08-2022 #30 DAY SUPPLY Vitamin C (Ascorbate Calcium) 500 Mg Tablet 500 Mg PO DAILY Multivitamin 1 Each Tablet 1 Each PO DAILY Ibuprofen 200 Mg Tablet 600 Mg PO DAILY TAKES 3 (200MG) TABS Loperamide (Loperamide HCl) 2 Mg Capsule 4 Mg PO BID TAKES 2 (2MG) CAPS Buspirone HCl 15 Mg Tablet 15 Mg PO BID Tizanidine HCl 4 Mg Tablet 4 Mg PO HS Diphenoxylate-Atrop 2.5-0.025 (Diphenoxylate HCl/Atropine) 2.5 Mg-0.025 Mg Tablet 2 Ea PO BID Promethazine Tablet (Promethazine HCl) 25 Mg Tablet 25 Mg PO Q6H PRN Methadone HCl 10 Mg Tablet 130 Mg PO DAILY TAKES 13 (10MG) TABS Gabapentin 600 Mg Tablet 600 Mg PO BID Instructions to patient/family Please see electronic discharge instructions given to patient. SHARAN JOHNS MD Oct 05, 2022 11:37
[2022-10-05 12:17] VITALS: BP 135/72
[2022-10-05] MEDS ORDERED: LISI1TAB46 PO (13:42)
[2022-10-05] MEDS ORDERED: AMLO-250 PO (13:42)
[2022-10-05] MEDS ORDERED: OXC5T PO (13:42)
--- NOTE | 2022-10-05 13:45 | Discharge Inst-Simple/Standard ---
Discharge Inst-Standard Discharge Medications New, Converted or Re-Newed RX: Transmitted to Pharmacy Patient Instructions/Follow Up Plan of Care/Instructions/FU: Please continue to take your medications as written. Please follow up with your primary care doctor to follow up this hospital stay. Activity as Tolerated: Yes Discharge Diet: Other Diet (bland) Return to The Hospital For: Chest pain, shortness of breath, fever, weakness, if you feel you are getting worse. SHARAN JOHNS MD Oct 05, 2022 13:45
== END 2022-10-05 15:25 | disposition home or self-care (01) | DRG 389 ==
LOC: EDUNIT# 01:52 → ER 01:54 → 4TH 09:52 → OBSVTOIN 09-30 12:50
PROVIDERS: ADMIT Internal Medicine; ATTEND Internal Medicine
DX: K56.600 Partial intestinal obstruction, unspecified as to cause (principal); K86.1 Other chronic pancreatitis; G89.29 Other chronic pain; K52.9 Noninfective gastroenteritis and colitis, unspecified; J44.9 Chronic obstructive pulmonary disease, unspecified; K70.9 Alcoholic liver disease, unspecified; G25.81 Restless legs syndrome; K21.9 Gastro-esophageal reflux disease without esophagitis; M19.90 Unspecified osteoarthritis, unspecified site; M79.7 Fibromyalgia
CPT/HCPCS: 36415; 74177; 74250; 80053; 81000; 82947; 83690; 83735; 85025; 86141; 94760; 96361; 96374; 96375; 96376; G0378